=== PATIENT | male | born 1965 | race Caucasian/White ===

== ENCOUNTER 2020-04-29 18:20 | Inpatient (IN) | payer MEDICARE, MEDICAID ==
[~2020-04-29] VITALS: Ht 175.3 cm; Wt 87.6 kg
[~2020-04-29 18:20] MED LIST: ACET325T21 PO; ATOR40TA59 PO; CLOZ100T PO; CLOZ100T7 PO; DIVA500T4 PO; FAMO20TA5 PO; GABA300C18 PO; LEVO100T5 PO; LISI2.5T PO; MAG PO; MAGN24003 PO; METF10007 PO; METO25TA4 PO; NICO2GUM42 BC; PIOG30TA62 PO; POLY17PO29 PO; SITA100T PO
[2020-04-29] MEDS ORDERED: IV NORMAL SALINE 1000ML BAG 1,000 ML IV ONE ×3 (18:30→19:31)
[2020-04-29 18:42] LABS: BASO # 0.1 x10^3/uL (0.0-0.2); BASO % 0 % (0-3); EOS % 0 % (0-3); HEMATOCRIT 36.3 % (39.0-53.0); HEMOGLOBIN 12.1 g/dL (13.0-17.5); LYMPH # 1.3 x10^3/uL (1.0-4.8); LYMPH % 10 % (24-48); MEAN CORPUSCULAR HEMOGLOBIN 30 pg (25-35); MEAN CORPUSCULAR HGB CONC 33 g/dL (31-37); MEAN CORPUSCULAR VOLUME 90 fL (79-100); MONO # 1.2 x10^3/uL (0.0-1.1); MONO % 9 % (0-9); NEUT # 10.8 x10^3/uL (1.8-7.7); NEUT % 81 % (31-73); PLATELET COUNT 211 x10^3/uL (140-400); RED BLOOD COUNT 4.01 x10^6/uL (4.30-5.70); RED CELL DISTRIBUTION WIDTH 16.6 % (11.5-14.5); WHITE BLOOD COUNT 13.3 x10^3/uL (4.0-11.0)
[2020-04-29 18:51] LABS: CALCIUM 9.8 mg/dL (8.5-10.1); CREATININE 1.8 mg/dL (0.7-1.3); GFR 39.1; POTASSIUM 4.7 mmol/L (3.5-5.1)
[2020-04-29 19:05] LABS: ALBUMIN 2.6 g/dL (3.4-5.0); ALBUMIN/GLOBULIN RATIO 0.5 (1.0-1.7); MAGNESIUM 2.1 mg/dL (1.8-2.4); TOTAL BILIRUBIN 0.4 mg/dL (0.2-1.0); TOTAL PROTEIN 7.5 g/dL (6.4-8.2)
--- NOTE | 2020-04-29 19:14 | RAD ---
AP chest. HISTORY: Short of air, Covid-19 AP view was taken of the chest. Patient is rotated to the left. Heart is upper normal in size. There is no pleural effusion. Minimal left upper lobe infiltrate is possible, the rotated film limits evalu ation. No new areas of infiltrate are noted. IMPRESSION: 1. The patient is rotated which limits evaluation. 2. Little change. Electronically signed by: Clemente Rosenbaum MD (04/29/2020 7:12 PM) [id number]
[2020-04-29] MEDS ORDERED: NOREPINEPHRINE VIAL 8 MG in IV DEXTROSE 5% 250 ML IV ONE (20:45)
--- NOTE | 2020-04-29 20:56 | PHYS DOC ---
Past Medical History Past Medical History: Constipation, Depression, Diabetes-Type II, GERD, High Cholesterol, Hypothyroid, Schizophrenia, Other Additional Past Medical Histor: covid 19; insomnia Past Surgical History: Other Additional Past Surgical Histo: UNABLE TO ASSESS Smoking Status: Unknown if ever smoked Alcohol Use: None Drug Use: None General Adult EDM: Chief Complaint: ALTERED MENTAL STATUS HPI: HPI: Patient is a 55 year old male who was sent here from residential due to altered mental status. Patient was found by residential staff very lethargic, they could not measure his blood pressure. EMS was called to take him here for evaluation. They checked his blood pressure" and they can only get 60 systolic. Patient was acting like he was having trouble breathing as well. Patient was admitted here on April 07, 2020 due to altered mental status. Patient also had COVID-19 infection at this time. Patient was discharged to the residential on April 16. Patient was then sent back here on April 17 due to respiratory failure. Patient was admitted to the hospital again, he got better, he was sent back to the residential on April 23. Patient was not able to provide any information upon arrival to ER. Review of Systems: Review of Systems: Not able to obtain information due to condition Heart Score: Risk Factors: Risk Factors: DM, Current or recent (<one month) smoker, HTN, HLP, family history of CAD, obesity. Risk Scores: Score 0 - 3: 2.5% MACE over next 6 weeks - Discharge Home Score 4 - 6: 20.3% MACE over next 6 weeks - Admit for Clinical Observation Score 7 - 10: 72.7% MACE over next 6 weeks - Early Invasive Strategies Current Medications: Current Medications Medications (Trade) Dose Ordered Sig/Ambrose Start Time Stop Time Status Last Admin Dose Admin Norepinephrine Bitartrate 8 mg/ Dextrose 258 ml @ 17.763 mls/ hr 1X ONCE 04/29/20 20:45 04/30/20 11:16 Sodium Chloride 1,000 ml @ 75 mls/hr [id number] 04/29/20 21:00 04/30/20 20:59 Allergies: Allergies: Allergies Coded Allergies Type Severity Reaction Last Updated Verified No Known Drug Allergies 04/08/20 No Physical Exam: PE: Constitutional: Well developed, well nourished, appears lethargic HENT: Normocephalic, atraumatic, bilateral external ears normal, oropharynx dry , no oral exudates, nose normal. [] Eyes: PERRLA, EOMI, conjunctiva normal, no discharge. [] Neck: Normal range of motion, no tenderness, supple, no stridor. [] Cardiovascular:SINUS TACHYCARDIA, regular rhythm, no murmur [] Lungs & Thorax: Bilateral breath sounds clear to auscultation [] Abdomen: Bowel sounds normal, soft, no tenderness, no masses, no pulsatile masses. [] Skin: Warm, dry, no erythema, no rash. [] Back: No tenderness, no CVA tenderness. [] Extremities: No tenderness, no cyanosis, no clubbing, ROM intact, no edema. [] Neurologic: Patient appearED lethargic, making moaning sound, observed moving all extremitIES Psychologic: Not able to obtain due to his condition. Current Patient Data: Labs: Laboratory Tests Test 04/29/20 18:25 White Blood Count 13.3 x10^3/uL (4.0-11.0) H Red Blood Count 4.01 x10^6/uL (4.30-5.70) L Hemoglobin 12.1 g/dL (13.0-17.5) L Hematocrit 36.3 % (39.0-53.0) L Mean Corpuscular Volume 90 fL (79-100) Mean Corpuscular Hemoglobin 30 pg (25-35) Mean Corpuscular Hemoglobin Concent 33 g/dL (31-37) Red Cell Distribution Width 16.6 % (11.5-14.5) H Platelet Count 211 x10^3/uL (140-400) Neutrophils (%) (Auto) 81 % (31-73) H Lymphocytes (%) (Auto) 10 % (24-48) L Monocytes (%) (Auto) 9 % (0-9) Eosinophils (%) (Auto) 0 % (0-3) Basophils (%) (Auto) 0 % (0-3) Neutrophils # (Auto) 10.8 x10^3/uL (1.8-7.7) H Lymphocytes # (Auto) 1.3 x10^3/uL (1.0-4.8) Monocytes # (Auto) 1.2 x10^3/uL (0.0-1.1) H Eosinophils # (Auto) 0.0 x10^3/uL (0.0-0.7) Basophils # (Auto) 0.1 x10^3/uL (0.0-0.2) Sodium Level 136 mmol/L (136-145) Potassium Level 4.7 mmol/L (3.5-5.1) Chloride Level 99 mmol/L (98-107) Carbon Dioxide Level 29 mmol/L (21-32) Anion Gap 8 (6-14) Blood Urea Nitrogen 32 mg/dL (8-26) H Creatinine 1.8 mg/dL (0.7-1.3) H Estimated GFR (Cockcroft-Gault) 39.1 BUN/Creatinine Ratio 18 (6-20) Glucose Level 165 mg/dL (70-99) H Lactic Acid Level 2.6 mmol/L (0.4-2.0) H Calcium Level 9.8 mg/dL (8.5-10.1) Magnesium Level 2.1 mg/dL (1.8-2.4) Total Bilirubin 0.4 mg/dL (0.2-1.0) Aspartate Amino Transferase (AST) 18 U/L (15-37) Alanine Aminotransferase (ALT) 25 U/L (16-63) Alkaline Phosphatase 69 U/L (46-116) Troponin I Quantitative < 0.017 ng/mL (0.000-0.055) ET-Zcs-I-Type Natriuretic Peptide 783 pg/mL (0-124) H Total Protein 7.5 g/dL (6.4-8.2) Albumin 2.6 g/dL (3.4-5.0) L Albumin/Globulin Ratio 0.5 (1.0-1.7) L Laboratory Tests 04/29/20 18:25 Laboratory Tests 04/29/20 18:25 Vital Signs: Vital Signs Date Time Temp Pulse Resp B/P (MAP) Pulse Ox O2 Delivery O2 Flow Rate FiO2 04/29/20 18:20 97.1 118 22 57/50 (52) 93 Nasal Cannula 97.1 EKG: EKG: EKG was done at 1839, heart rate 108 bpm, sinus tachycardia, no ST segment elevation [] Radiology/Procedures: Radiology/Procedures: [][facility] [address] [place] [address] IMAGING REPORT Signed PATIENT: MARK STEWART ACCOUNT: [id number] : 1965 LOCATION: ER AGE: 55 SEX: M EXAM STATUS: REG ER ORD. PHYSICIAN: DON STEEN DO REASON: SOA, COVID 19 INFECTION PROCEDURE: CHEST AP ONLY AP chest. HISTORY: Short of air, Covid-19 AP view was taken of the chest. Patient is rotated to the left. Heart is upper normal in size. There is no pleural effusion. Minimal left upper lobe infiltrate is possible, the rotated film limits evaluation. No new areas of infiltrate are noted. IMPRESSION: 1. The patient is rotated which limits evaluation. 2. Little change. Electronically signed by: Clemente Rosenbaum MD (04/29/2020 7:12 PM) [id number] DICTATED and SIGNED BY: CLEMENTE ROSENBAUM MD DATE: 04/29/[id number] 0 [facility] [address] [place], [place] [id number] IMAGING REPORT Signed PATIENT: MARK STEWART ACCOUNT: [id number] : 1965 LOCATION: ER AGE: 55 SEX: M EXAM STATUS: REG ER ORD. PHYSICIAN: DON STEEN DO REASON: central line placement PROCEDURE: CHEST AP ONLY Exam: Chest one view INDICATION: Central line placed TECHNIQUE: Frontal view of the chest Comparisons: 04/29/2020 FINDINGS: Right IJ catheter with tip at the atrial caval junction. Heart is enlarged. Pulmonary vessels are within normal limits. Hazy opacity in lungs bilaterally. No pleural effusion. IMPRESSION: Findings likely related to mild pulmonary edema. Atypical infectious process is also possible. Lines and tubes described above. Electronically signed by: Mart Hassan MD (04/29/2020 8:52 PM) [facility] DICTATED and SIGNED BY: MART HASSAN MD DATE: 04/29/[id number] 0 CENTRAL VENOUS LINE PLACEMENT: DATE 04/29/20, TIME 2004 Indication: Vascular access Consent: The patient provided consent for this procedure. Procedure: The patient was positioned appropriately and the skin over the RIGHT IJ AREA was prepped and draped in a sterile fashion. Local anesthesia was used. Ultrasound guidance utilized. A large bore needle was used to identify the vein. A guide wire was then inserted into the vein through the needle. A triple lumen catheter was then inserted into the vessel over the guide wire using the Seldinger technique. All ports showed good, free flowing blood return and were flushed with saline solution. The catheter was then securely fastened to the skin with sutures and covered with a sterile dressing. A post procedure X-ray was ordered. The patient tolerated the procedure well. Complications: none. Course & Med Decision Making: Course & Med Decision Making Pertinent Labs and Imaging studies reviewed. (See chart for details) Patient is a 55-year-old male who was recently diagnosed with COVID-19 infection, he was sent here from residential due to altered mental status low blood pressure. Patient was found in sepsis shock. Patient was given 3 L normal saline bolus, his blood pressure was still very low. a central venous catheter was placed, norepinephrine drip was initiated in ER. Patient will be admitted to hospital for further evaluation and treatment. Discussed with Dr. Mai who agreed to admit the patient. Critical care time was [45] minutes which includes time at bedside, spent in discussion of patient's care with specialist and/or family members, with interpretation of laboratory and/or radiological studies and is exclusive of procedures. Dragon Disclaimer: Dragon Disclaimer: This electronic medical record was generated, in whole or in part, using a voice recognition dictation system. Departure Departure Impression: Primary Impression: COVID-19 virus infection Additional Impressions: Septic shock Respiratory failure Disposition: ADMITTED INPT THIS HOSP Admitting Physician: SG (DR. MAI) Condition: IMPROVED Referrals: UNKNOWN PCP NAME (PCP) DON STEEN DO Apr 29, 2020 20:56
--- NOTE | 2020-04-29 21:57 | PDOC1 ---
History and Physical Date of Admission Date of Admission DATE: 04/29/20 TIME: 21:49 Source Source: Chart review, Patient History of Present Illness History of Present Illness Mr. Acevedo, is a 55 year old male who was sent here from assisted due to altered mental status. Patient was found by assisted staff very lethargic, they could not measure his blood pressure. he was hospitalized her from 04/17 to 04/13 with confusion and hypoxia and mult problems related to COVID marked hypotension in ER, resuscitatated, central line placed, discussed wtih Dr. Mckinney Patient was admitted here on April 07, 2020 due to altered mental status. Past Medical History Past Medical History schizophrenia Cardiovascular: HTN, Hyperlipidemia Psych: Schizophrenia Endocrine: Diabetes, Hypothyroidism Past Surgical History Past Surgical History: No pertinent history Family History Family History: Family History Unknown Social History Smoke: No ALCOHOL: none Drugs: None Current Problem List Problem List Problems Medical Problems: (1) Respiratory failure Status: Acute (2) Septic shock Status: Acute Current Medications Current Medications Current Medications Sodium Chloride 1,000 ml @ 1,000 mls/hr 1X ONCE IV Last administered on 04/29/20at 18:20; Start 04/29/20 at 18:30; Stop 04/29/20 at 19:29; Status DC Sodium Chloride 1,000 ml @ 1,000 mls/hr 1X ONCE IV Last administered on 04/29/20at 18:20; Start 04/29/20 at 18:45; Stop 04/29/20 at 19:44; Status DC Sodium Chloride 1,000 ml @ 1,000 mls/hr 1X ONCE IV Last administered on 04/29/20at 19:31; Start 04/29/20 at 19:31; Stop 04/29/20 at 20:30; Status DC Norepinephrine Bitartrate 8 mg/ Dextrose 258 ml @ 17.763 mls/ hr 1X ONCE IV ; Start 04/29/20 at 20:45; Stop 04/30/20 at 11:16 Sodium Chloride 1,000 ml @ 75 mls/hr [id number] IV ; Start 04/29/20 at 21:00; Stop 04/30/20 at 20:59 Active Scripts Active Reported Acetaminophen 325 Mg Tablet 2 Tab PO PRN Q6HRS PRN 24 Days Pioglitazone Hcl 30 Mg Tablet 30 Mg PO DAILY Nicotine Gum (Nicotine Polacrilex) 2 Mg Gum 2 Mg BC PRN PRN Neurontin (Gabapentin) 300 Mg Capsule 300 Mg PO TID Gelusil 200-200-25 mg Chew Tab (Mag Hydrox/Aluminum Hyd/Simeth) 1 Each Tab.chew 1 Each PO PRN Q4HRS PRN Miralax (Polyethylene Glycol 3350) 17 Gm Powd.pack 1 Pkt PO PRN DAILY PRN Milk Of Magnesia (Magnesium Hydroxide) 2,400 Mg/10 Ml Oral.susp 2,400 Mg PO PRN Q8HRS PRN Metoprolol Tartrate 25 Mg Tablet 12.5 Mg PO BID Metformin Hcl 1,000 Mg Tablet 1,000 Mg PO BIDWMEALS Lisinopril 2.5 Mg Tablet 2.5 Mg PO DAILY Levothyroxine Sodium 100 Mcg Tablet 100 Mcg PO HS Januvia (Sitagliptin Phosphate) 100 Mg Tablet 100 Mg PO DAILY Famotidine 20 Mg Tablet 20 Mg PO HS Depakote Er (Divalproex Sodium) 500 Mg Tab.er.24h 1,500 Mg PO DAILY Clozaril (Clozapine) 100 Mg Tablet 100 Mg PO BIDACBL Clozapine 100 Mg Tablet 300 Mg PO HS Atorvastatin Calcium 40 Mg Tablet 80 Mg PO HS Allergies Allergies: Coded Allergies: No Known Drug Allergies (Unverified , 04/08/20) ROS Review of System unbale, he is confused and obtunded+ Physical Exam General: moderate distress, Other (lethargic, confused, ) HEENT: PERRLA, EOMI Lungs: Other (rales, poor vol) Abdomen: Soft Rectal Exam: not examined Extremities: No edema, Normal pulses Neuro: Sensation intact Psych/Mental Status: Other Vitals Vitals Vital Signs Date Time Temp Pulse Resp B/P (MAP) Pulse Ox O2 Delivery O2 Flow Rate FiO2 04/29/20 21:13 90 100 04/29/20 18:20 97.1 22 57/50 (52) Nasal Cannula 97.1 Labs Labs Laboratory Tests Test 04/29/20 18:25 White Blood Count 13.3 x10^3/uL (4.0-11.0) Red Blood Count 4.01 x10^6/uL (4.30-5.70) Hemoglobin 12.1 g/dL (13.0-17.5) Hematocrit 36.3 % (39.0-53.0) Mean Corpuscular Volume 90 fL (79-100) Mean Corpuscular Hemoglobin 30 pg (25-35) Mean Corpuscular Hemoglobin Concent 33 g/dL (31-37) Red Cell Distribution Width 16.6 % (11.5-14.5) Platelet Count 211 x10^3/uL (140-400) Neutrophils (%) (Auto) 81 % (31-73) Lymphocytes (%) (Auto) 10 % (24-48) Monocytes (%) (Auto) 9 % (0-9) Eosinophils (%) (Auto) 0 % (0-3) Basophils (%) (Auto) 0 % (0-3) Neutrophils # (Auto) 10.8 x10^3/uL (1.8-7.7) Lymphocytes # (Auto) 1.3 x10^3/uL (1.0-4.8) Monocytes # (Auto) 1.2 x10^3/uL (0.0-1.1) Eosinophils # (Auto) 0.0 x10^3/uL (0.0-0.7) Basophils # (Auto) 0.1 x10^3/uL (0.0-0.2) Sodium Level 136 mmol/L (136-145) Potassium Level 4.7 mmol/L (3.5-5.1) Chloride Level 99 mmol/L (98-107) Carbon Dioxide Level 29 mmol/L (21-32) Anion Gap 8 (6-14) Blood Urea Nitrogen 32 mg/dL (8-26) Creatinine 1.8 mg/dL (0.7-1.3) Estimated GFR (Cockcroft-Gault) 39.1 BUN/Creatinine Ratio 18 (6-20) Glucose Level 165 mg/dL (70-99) Lactic Acid Level 2.6 mmol/L (0.4-2.0) Calcium Level 9.8 mg/dL (8.5-10.1) Magnesium Level 2.1 mg/dL (1.8-2.4) Total Bilirubin 0.4 mg/dL (0.2-1.0) Aspartate Amino Transf (AST/SGOT) 18 U/L (15-37) Alanine Aminotransferase (ALT/SGPT) 25 U/L (16-63) Alkaline Phosphatase 69 U/L (46-116) Troponin I Quantitative < 0.017 ng/mL (0.000-0.055) OW-Kiv-G-Type Natriuretic Peptide 783 pg/mL (0-124) Total Protein 7.5 g/dL (6.4-8.2) Albumin 2.6 g/dL (3.4-5.0) Albumin/Globulin Ratio 0.5 (1.0-1.7) Laboratory Tests Test 04/29/20 18:25 White Blood Count 13.3 x10^3/uL (4.0-11.0) Red Blood Count 4.01 x10^6/uL (4.30-5.70) Hemoglobin 12.1 g/dL (13.0-17.5) Hematocrit 36.3 % (39.0-53.0) Mean Corpuscular Volume 90 fL (79-100) Mean Corpuscular Hemoglobin 30 pg (25-35) Mean Corpuscular Hemoglobin Concent 33 g/dL (31-37) Red Cell Distribution Width 16.6 % (11.5-14.5) Platelet Count 211 x10^3/uL (140-400) Neutrophils (%) (Auto) 81 % (31-73) Lymphocytes (%) (Auto) 10 % (24-48) Monocytes (%) (Auto) 9 % (0-9) Eosinophils (%) (Auto) 0 % (0-3) Basophils (%) (Auto) 0 % (0-3) Neutrophils # (Auto) 10.8 x10^3/uL (1.8-7.7) Lymphocytes # (Auto) 1.3 x10^3/uL (1.0-4.8) Monocytes # (Auto) 1.2 x10^3/uL (0.0-1.1) Eosinophils # (Auto) 0.0 x10^3/uL (0.0-0.7) Basophils # (Auto) 0.1 x10^3/uL (0.0-0.2) Sodium Level 136 mmol/L (136-145) Potassium Level 4.7 mmol/L (3.5-5.1) Chloride Level 99 mmol/L (98-107) Carbon Dioxide Level 29 mmol/L (21-32) Anion Gap 8 (6-14) Blood Urea Nitrogen 32 mg/dL (8-26) Creatinine 1.8 mg/dL (0.7-1.3) Estimated GFR (Cockcroft-Gault) 39.1 BUN/Creatinine Ratio 18 (6-20) Glucose Level 165 mg/dL (70-99) Lactic Acid Level 2.6 mmol/L (0.4-2.0) Calcium Level 9.8 mg/dL (8.5-10.1) Magnesium Level 2.1 mg/dL (1.8-2.4) Total Bilirubin 0.4 mg/dL (0.2-1.0) Aspartate Amino Transf (AST/SGOT) 18 U/L (15-37) Alanine Aminotransferase (ALT/SGPT) 25 U/L (16-63) Alkaline Phosphatase 69 U/L (46-116) Troponin I Quantitative < 0.017 ng/mL (0.000-0.055) OZ-Pim-I-Type Natriuretic Peptide 783 pg/mL (0-124) Total Protein 7.5 g/dL (6.4-8.2) Albumin 2.6 g/dL (3.4-5.0) Albumin/Globulin Ratio 0.5 (1.0-1.7) VTE Prophylaxis Ordered VTE Prophylaxis Devices: Yes VTE Pharmacological Prophylaxi: Yes Assessment/Plan Assessment/Plan sepsis, septic shock, recent DC after hosp here 04/17 to 04/23 for acute COVID IV fluid given in ER admit to ICU Acute metabolic encephalopathy - metabolic, Acute Respiratory failure with hypoxia - COVID 19 and likely HCAP related. COVID-19 - Depression - cont home meds Diabetes2 Hypertension Hyperlipidemia Hypothyroidism - Schizophrenia - cont clozaril, monitor CBC Severe protein calorie malnutrition Justifications for Admission Other Justification MOO MAI MD Apr 29, 2020 21:56
[2020-04-29] MEDS ORDERED: AZITHROMYCIN 500 MG in IV NORMAL SALINE 250ML 250 ML IV ONE (22:00)
[2020-04-29] MEDS ORDERED: ACETAMINOPHEN 325 MG TABLET. PO PRN (22:00)
[2020-04-29] MEDS ORDERED: POLYETHYLENE GLYCOL 3350 17 GM PACKET. PO PRN (22:00)
[2020-04-29] MEDS: LEVOTHYROXINE 100 MCG TABLET PO SCH (23:00)
[2020-04-29] MEDS ORDERED: AZITHRMYCN 500MG IVPB FOR OMNI 250 ML IV ONE (23:00)
[2020-04-29] MEDS: GABAPENTIN 300 MG CAPSULE. PO SCH (23:00)
[2020-04-29] MEDS ORDERED: methylPREDNISolone SOD SUCC PF 40 MG/ML VIAL. IV ONE (23:00)
[2020-04-29] MEDS: ATORVASTATIN CALCIUM 40 MG TABLET. PO SCH (23:00)
[2020-04-29] MEDS: FAMOTIDINE 20 MG TABLET. PO SCH (23:00)
[2020-04-29] MEDS: ENOXAPARIN 40 MG/0.4 ML SYRINGE. SQ SCH (23:52)
[2020-04-30] VITALS (29 sets, daily range): BP systolic 71–123; BP diastolic 50–85
--- NOTE | 2020-04-30 00:10 | NUR ---
Admitted from ER, on levophed gtt and 2L by nasal cannula. Pt lethargic though arouses easily, confused but follows commands. Pt on Airborne precautions.
[2020-04-30] MEDS: IV NORMAL SALINE 1000ML BAG 1,000 ML IV SCH ×2 (00:41→12:42)
[2020-04-30] MEDS ORDERED: INFLUENZA VAX SCREEN BY RX. MC PRN (01:15)
--- NOTE | 2020-04-30 05:28 | EKG ---
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
[2020-04-30] MEDS: cloZAPine 100 MG TABLET PO SCH ×3 (07:30→20:34)
--- NOTE | 2020-04-30 07:55 | PDOC ---
[employer] PROGRESS NOTE Date of Service DOS: DATE: 04/30/20 TIME: 07:52 Chief Complaint Chief Complaint A/P: Acute metabolic encephalopathy - from hypoxia likely metabolic, will monitor now with O2 levels improving ROD - vasomotor nephropathy, will monitor renal function after fluid resuscitation Acute Respiratory failure with hypoxia - COVID 19 and likely HCAP related. COVID-19 - still with O2 needs Septic shock - related to COVID 19 and HCAP Depression - cont home meds Diabetes - sliding scale Hypertension - hold meds for low BP Hyperlipidemia - cont statin Hypothyroidism - cont levothyroxine Schizophrenia - cont clozaril, monitor CBC Severe protein calorie malnutrition - thread separator to see, will start PPN FEN - NPO PPX - Heparin FULL CODE Dispo - inpatient for above History of Present Illness History of Present Illness Mr Acevedo is a 54-year-old male w/ PMHx DM2, HTN, HLD, Hypothyroidism, schiz ophrenia who is a long-term resident of [facility] who was brought to the ER via EMS for lethargy and low blood pressure. He was admitted on 04/07/2020 with altered mental status and shortness of breath. He was tested positive for COVID 19 and treated with steroids and remdesivir, completed a course and was discharged 04/16/2020 but returned 04/16- 04/23 for HCAP symptoms. Chest radiograph with bilateral interstitial changes consistent with COVID-19 and new left upper lobe infiltrate. Labs significant for WBC 13.3, Hb 12.1, platelets 211, NA 136, K4.7, BUN 32, CR 1.8, glucose 165. Blood pressure systolic in the 60s. Given 3 L normal saline with no significant response in blood pressure right IJ central venous catheter was placed and initiated on Levophed and empiric antibiotics and admitted to the ICU for further treatment. Afebrile. Blood pressure 116 systolic with vasopressor support. No chest pain. Mild shortness of breath. No significant cough. No diarrhea. He is still confused. Vitals/I&O Vitals/I&O: Vital Signs Date Time Temp Pulse Resp B/P (MAP) Pulse Ox O2 Delivery O2 Flow Rate FiO2 04/30/20 07:00 107 18 107/75 (86) 96 Nasal Cannula 2.0 04/30/20 05:00 98.0 98.0 I & O 04/29/20 04/29/2004/30/20 15:00 23:00 07:00 Intake Total 2000 ml 0 ml Balance 2000 ml 0 ml Physical Exam General: moderate distress, Other (lethargic, confused, ) Lungs: Crackles Abdomen: Soft Extremities: No edema, Normal pulses Labs Labs: Laboratory Tests Test 04/29/20 18:25 04/30/20 00:21 04/30/20 01:30 White Blood Count 13.3 x10^3/uL (4.0-11.0) Red Blood Count 4.01 x10^6/uL (4.30-5.70) Hemoglobin 12.1 g/dL (13.0-17.5) Hematocrit 36.3 % (39.0-53.0) Mean Corpuscular Volume 90 fL (79-100) Mean Corpuscular Hemoglobin 30 pg (25-35) Mean Corpuscular Hemoglobin Concent 33 g/dL (31-37) Red Cell Distribution Width 16.6 % (11.5-14.5) Platelet Count 211 x10^3/uL (140-400) Neutrophils (%) (Auto) 81 % (31-73) Lymphocytes (%) (Auto) 10 % (24-48) Monocytes (%) (Auto) 9 % (0-9) Eosinophils (%) (Auto) 0 % (0-3) Basophils (%) (Auto) 0 % (0-3) Neutrophils # (Auto) 10.8 x10^3/uL (1.8-7.7) Lymphocytes # (Auto) 1.3 x10^3/uL (1.0-4.8) Monocytes # (Auto) 1.2 x10^3/uL (0.0-1.1) Eosinophils # (Auto) 0.0 x10^3/uL (0.0-0.7) Basophils # (Auto) 0.1 x10^3/uL (0.0-0.2) Sodium Level 136 mmol/L (136-145) Potassium Level 4.7 mmol/L (3.5-5.1) Chloride Level 99 mmol/L (98-107) Carbon Dioxide Level 29 mmol/L (21-32) Anion Gap 8 (6-14) Blood Urea Nitrogen 32 mg/dL (8-26) Creatinine 1.8 mg/dL (0.7-1.3) Estimated GFR (Cockcroft-Gault) 39.1 BUN/Creatinine Ratio 18 (6-20) Glucose Level 165 mg/dL (70-99) Lactic Acid Level 2.6 mmol/L (0.4-2.0) 0.9 mmol/L (0.4-2.0) Calcium Level 9.8 mg/dL (8.5-10.1) Magnesium Level 2.1 mg/dL (1.8-2.4) Total Bilirubin 0.4 mg/dL (0.2-1.0) Aspartate Amino Transf (AST/SGOT) 18 U/L (15-37) Alanine Aminotransferase (ALT/SGPT) 25 U/L (16-63) Alkaline Phosphatase 69 U/L (46-116) Troponin I Quantitative < 0.017 ng/mL (0.000-0.055) QK-Cak-Y-Type Natriuretic Peptide 783 pg/mL (0-124) Total Protein 7.5 g/dL (6.4-8.2) Albumin 2.6 g/dL (3.4-5.0) Albumin/Globulin Ratio 0.5 (1.0-1.7) Glucose (Fingerstick) 173 mg/dL (70-99) Assessment and Plan Assessmemt and Plan Problems Medical Problems: (1) Respiratory failure Status: Acute (2) Septic shock Status: Acute Comment Review of Relevant I have reviewed the following items franchesca (where applicable) has been applied. Medications: Current Medications Medications (Trade) Dose Ordered Sig/Ambrose Route PRN Reason Start Time Stop Time Status Last Admin Dose Admin Sodium Chloride 1,000 ml @ 1,000 mls/hr 1X ONCE IV 04/29/20 18:30 04/29/20 19:29 DC 04/29/20 18:20 Sodium Chloride 1,000 ml @ 1,000 mls/hr 1X ONCE IV 04/29/20 18:45 04/29/20 19:44 DC 04/29/20 18:20 Sodium Chloride 1,000 ml @ 1,000 mls/hr 1X ONCE IV 04/29/20 19:31 04/29/20 20:30 DC 04/29/20 19:31 Norepinephrine Bitartrate 8 mg/ Dextrose 258 ml @ 17.763 mls/ hr 1X ONCE IV 04/29/20 20:45 04/30/20 11:16 04/29/20 22:01 Sodium Chloride 1,000 ml @ 75 mls/hr [id number] IV 04/29/20 21:00 04/30/20 20:59 04/30/20 00:41 Methylprednisolone Sodium Succinate (SOLU-Medrol 40MG VIAL) 40 mg 1X ONCE IV 04/29/20 23:00 04/29/20 23:01 DC 04/29/20 23:52 Enoxaparin Sodium (Lovenox 40mg Syringe) 40 mg BID SQ 04/29/20 23:00 04/29/20 23:52 Azithromycin 250 ml @ 250 mls/hr 1X ONCE IV 04/29/20 23:00 04/29/20 23:59 DC 04/30/20 00:39 Justifications for Admission Other Justification MATTHEW SORIA MD Apr 30, 2020 07:55
[2020-04-30] MEDS: FAMOTIDINE 20 MG TABLET. PO SCH (08:22)
[2020-04-30] MEDS: ENOXAPARIN 40 MG/0.4 ML SYRINGE. SQ SCH ×2 (08:23→20:36)
[2020-04-30] MEDS: AZITHROMYCIN 250 MG TABLET. PO SCH (08:44)
[2020-04-30] MEDS: GABAPENTIN 300 MG CAPSULE. PO SCH ×3 (08:44→20:34)
[2020-04-30] MEDS: DIVALPROEX EXTENDED RELEASE 500 MG TAB.ER.24H. PO SCH (08:44)
[2020-04-30] MEDS: predniSONE 20 MG TABLET PO SCH (08:44)
--- NOTE | 2020-04-30 11:10 | CONS ---
DATE OF CONSULTATION: PULMONARY CONSULTATION ATTENDING PHYSICIAN: Dr. Finch. REASON FOR CONSULTATION: Septic shock. HISTORY OF PRESENT ILLNESS: The patient is a 55-year-old male with past medical history of depression, type 2 diabetes, dyslipidemia, and schizophrenia. He was diagnosed with COVID-19 requiring hospitalization on 04/07. He was brought into the hospital with altered mental status. He was found by nursing staff to be very lethargic. They could not measure his blood pressure and when checked, it was at 60 systolic. He had some shortness of breath as well. He was brought into the hospital at [facility]. Chest x-ray was reviewed. It shows faint interstitial infiltrates. He is currently requiring Levophed. He is on 2 liters via nasal cannula. He has been afebrile. The patient was started on IV Solu-Medrol. Currently, I do not see that he is on any antibiotics. I have been asked to see him for further evaluation. PAST MEDICAL HISTORY: Significant for history of depression, type 2 diabetes, GERD, dyslipidemia, hypothyroidism, schizophrenia, COVID-19 pneumonia on 04/07 and history of insomnia. PAST SURGICAL HISTORY: Unknown. ALLERGIES: None. MEDICATIONS: Reviewed as listed in the MRAD including prednisone and azithromycin. REVIEW OF SYSTEMS: Unable to obtain from the patient. SOCIAL HISTORY: Unable to obtain from the patient. PHYSICAL EXAMINATION: VITAL SIGNS: He is in no obvious respiratory distress. On nasal cannula at 2 liters, saturation in the mid to high 90s. Afebrile. GENERAL: Visual exam done due to COVID-19. No accessory muscle use. SKIN: No skin rash. No paradoxical breathing. EXTREMITIES: No leg edema. LABORATORY DATA: Reviewed. His BUN 32, creatinine 1.8. Lactic acid 2.6. Sodium 136. White cell count 13.3, hemoglobin 12.1 and platelets are 211. IMPRESSION: 1. Acute hypoxic respiratory failure secondary to septic shock. 2. The patient with recent COVID-19 pneumonia at the end of March. 3. Likely superimposed bacterial pneumonia versus rule out other sources of infection contributing to septic shock. 4. Abnormal chest x-ray with faint interstitial infiltrates, likely related to residual COVID pneumonia. 5. Acute kidney injury. 6. Lactic acidosis secondary to septic shock. 7. Leukocytosis. 8. Moderate protein-calorie malnutrition. RECOMMENDATIONS: 1. Discussed with RN. We will continue with present nasal cannula, keep saturation 94 and above. 2. Continue empiric antibiotic, azithromycin. 3. Prednisone with a slow taper. 4. Lovenox for DVT prophylaxis. 5. We will follow the clinical course. 6. Wean Levophed. 7. Trial of fluid challenge to see an improvement in renal function. 8. Discussed with RN and RT. Chart reviewed, labs reviewed. Imaging studies reviewed. Critical care time 37 minutes. MARLENE HERNANDEZ MD DR: KEVIN/michel JOB#: [id number] / [id number]
[2020-04-30] MEDS ORDERED: NOREPINEPHRINE VIAL 8 MG in IV DEXTROSE 5% 250 ML IV PRN (12:45)
[2020-04-30] MEDS ORDERED: FLU VACC QS 2020-21(6MOS+)/PF 0.5 ML SYRINGE. VAX IM ONE (15:00)
[2020-04-30] MEDS: ATORVASTATIN CALCIUM 40 MG TABLET. PO SCH (20:34)
[2020-04-30] MEDS: LEVOTHYROXINE 100 MCG TABLET PO SCH (20:34)
--- NOTE | 2020-04-30 20:57 | NUR ---
Patient awake, takes pills and water w/o dysphagia. "Can I get a cheeseburger?" States he's getting "really hungry". Is confused about time and place now. Left upper arm and hand is weak. "I broke my arm a few days ago."
[2020-05-01] VITALS (15 sets, daily range): BP systolic 93–144; BP diastolic 63–99
[2020-05-01] MEDS: GABAPENTIN 300 MG CAPSULE. PO SCH ×3 (09:44→22:00)
[2020-05-01] MEDS: DIVALPROEX EXTENDED RELEASE 500 MG TAB.ER.24H. PO SCH (09:44)
[2020-05-01] MEDS: predniSONE 20 MG TABLET PO SCH (09:45)
[2020-05-01] MEDS: AZITHROMYCIN 250 MG TABLET. PO SCH (09:45)
[2020-05-01] MEDS: cloZAPine 100 MG TABLET PO SCH ×3 (09:45→22:05)
[2020-05-01] MEDS: ENOXAPARIN 40 MG/0.4 ML SYRINGE. SQ SCH ×2 (09:45→22:01)
--- NOTE | 2020-05-01 10:08 | PDOC ---
[employer] PROGRESS NOTE Date of Service DOS: DATE: 05/01/20 TIME: 10:07 Chief Complaint Chief Complaint A/P: Acute metabolic encephalopathy - from hypoxia likely metabolic, will monitor now with O2 levels improving ROD - vasomotor nephropathy, will monitor renal function after fluid resuscitation Acute Respiratory failure with hypoxia - COVID 19 and likely HCAP related. COVID-19 - still with O2 needs Septic shock - related to COVID 19 and HCAP Depression - cont home meds Diabetes - sliding scale Hypertension - hold meds for low BP Hyperlipidemia - cont statin Hypothyroidism - cont levothyroxine Schizophrenia - cont clozaril, monitor CBC Severe protein calorie malnutrition - speech communication instructor to see, will start PPN FEN - NPO PPX - Heparin FULL CODE Dispo - inpatient for above History of Present Illness History of Present Illness Mr Acevedo is a 54-year-old male w/ PMHx DM2, HTN, HLD, Hypothyroidism, schiz ophrenia who is a long-term resident of [facility] who was brought to the ER via EMS for lethargy and low blood pressure. He was admitted on 04/07/2020 with altered mental status and shortness of breath. He was tested positive for COVID 19 and treated with steroids and remdesivir, completed a course and was discharged 04/16/2020 but returned 04/16- 04/23 for HCAP symptoms. Chest radiograph with bilateral interstitial changes consistent with COVID-19 and new left upper lobe infiltrate. Labs significant for WBC 13.3, Hb 12.1, platelets 211, NA 136, K4.7, BUN 32, CR 1.8, glucose 165. Blood pressure systolic in the 60s. Given 3 L normal saline with no significant response in blood pressure right IJ central venous catheter was placed and initiated on Levophed and empiric antibiotics and admitted to the ICU for further treatment. 04/30: Afebrile. Blood pressure 116 systolic with vasopressor support. No chest pain. Mild shortness of breath. No significant cough. No diarrhea. He is still confused. Afebrile still little short of breath. Off Levophed for almost 20 hours. Cough is improved no diarrhea. Seems to be at baseline confusion but he is sleeping heavily in the mornings did wake up in the afternoon yesterday. Plan: Cont antibiotics, prednisone Ok to transfer from ICU to med/tele Vitals/I&O Vitals/I&O: Vital Signs Date Time Temp Pulse Resp B/P (MAP) Pulse Ox O2 Delivery O2 Flow Rate FiO2 05/01/20 09:00 88 14 103/74 (84) 93 Nasal Cannula 1.5 05/01/20 07:00 97.5 97.5 I & O 04/30/20 04/30/20 05/01/20 15:00 23:00 07:00 Intake Total 1000 ml 0 ml 900 ml Output Total 700 ml 555 ml 495 ml Balance 300 ml -555 ml 405 ml Physical Exam General: moderate distress, Other (lethargic, confused, ) Lungs: Crackles Abdomen: Soft Extremities: No edema, Normal pulses Labs Labs: Laboratory Tests Test 04/30/20 11:13 04/30/20 14:15 04/30/20 17:10 05/01/20 07:44 Glucose (Fingerstick) 190 mg/dL (70-99) 147 mg/dL (70-99) 137 mg/dL (70-99) Procalcitonin < 0.10 ng/mL (0.00-0.10) Assessment and Plan Assessmemt and Plan Problems Medical Problems: (1) Respiratory failure Status: Acute (2) Septic shock Status: Acute Comment Review of Relevant I have reviewed the following items franchesca (where applicable) has been applied. Medications: Current Medications Medications (Trade) Dose Ordered Sig/Ambrose Route PRN Reason Start Time Stop Time Status Last Admin Dose Admin Clozapine (Clozaril) 300 mg HS PO 04/30/20 21:00 04/30/20 20:34 Norepinephrine Bitartrate 8 mg/ Dextrose 258 ml @ 16.854 mls/ hr CONT PRN IV PER PROTOCOL 04/30/20 12:45 04/30/20 12:43 Justifications for Admission Other Justification MATTHEW SORIA MD May 01, 2020 10:08
[2020-05-01] MEDS ORDERED: DEXTROSE 50% 25 GM / 50ML DISP.SYRIN. IV PRN (10:30)
--- NOTE | 2020-05-01 10:44 | PDOC ---
PULMONARY PROGRESS NOTES DATE: 05/01/20 TIME: 10:42 Subjective no soa, off pressor Vitals Vital Signs Date Time Temp Pulse Resp B/P (MAP) Pulse Ox O2 Delivery O2 Flow Rate FiO2 05/01/20 09:00 88 14 103/74 (84) 93 Nasal Cannula 1.5 05/01/20 07:00 97.5 97.5 Comments visual exam done due to COVID no soa, no rash, no edema General: No acute distress Labs Laboratory Tests Test 04/29/20 18:25 04/30/20 00:21 04/30/20 01:30 04/30/20 08:32 White Blood Count 13.3 x10^3/uL (4.0-11.0) Red Blood Count 4.01 x10^6/uL (4.30-5.70) Hemoglobin 12.1 g/dL (13.0-17.5) Hematocrit 36.3 % (39.0-53.0) Mean Corpuscular Volume 90 fL (79-100) Mean Corpuscular Hemoglobin 30 pg (25-35) Mean Corpuscular Hemoglobin Concent 33 g/dL (31-37) Red Cell Distribution Width 16.6 % (11.5-14.5) Platelet Count 211 x10^3/uL (140-400) Neutrophils (%) (Auto) 81 % (31-73) Lymphocytes (%) (Auto) 10 % (24-48) Monocytes (%) (Auto) 9 % (0-9) Eosinophils (%) (Auto) 0 % (0-3) Basophils (%) (Auto) 0 % (0-3) Neutrophils # (Auto) 10.8 x10^3/uL (1.8-7.7) Lymphocytes # (Auto) 1.3 x10^3/uL (1.0-4.8) Monocytes # (Auto) 1.2 x10^3/uL (0.0-1.1) Eosinophils # (Auto) 0.0 x10^3/uL (0.0-0.7) Basophils # (Auto) 0.1 x10^3/uL (0.0-0.2) Sodium Level 136 mmol/L (136-145) Potassium Level 4.7 mmol/L (3.5-5.1) Chloride Level 99 mmol/L (98-107) Carbon Dioxide Level 29 mmol/L (21-32) Anion Gap 8 (6-14) Blood Urea Nitrogen 32 mg/dL (8-26) Creatinine 1.8 mg/dL (0.7-1.3) Estimated GFR (Cockcroft-Gault) 39.1 BUN/Creatinine Ratio 18 (6-20) Glucose Level 165 mg/dL (70-99) Lactic Acid Level 2.6 mmol/L (0.4-2.0) 0.9 mmol/L (0.4-2.0) Calcium Level 9.8 mg/dL (8.5-10.1) Magnesium Level 2.1 mg/dL (1.8-2.4) Total Bilirubin 0.4 mg/dL (0.2-1.0) Aspartate Amino Transf (AST/SGOT) 18 U/L (15-37) Alanine Aminotransferase (ALT/SGPT) 25 U/L (16-63) Alkaline Phosphatase 69 U/L (46-116) Troponin I Quantitative < 0.017 ng/mL (0.000-0.055) FJ-[id number]-Type Natriuretic Peptide 783 pg/mL (0-124) Total Protein 7.5 g/dL (6.4-8.2) Albumin 2.6 g/dL (3.4-5.0) Albumin/Globulin Ratio 0.5 (1.0-1.7) Glucose (Fingerstick) 173 mg/dL (70-99) 179 mg/dL (70-99) Test 04/30/20 11:13 04/30/20 14:15 04/30/20 17:10 05/01/20 07:44 Glucose (Fingerstick) 190 mg/dL (70-99) 147 mg/dL (70-99) 137 mg/dL (70-99) Procalcitonin < 0.10 ng/mL (0.00-0.10) Laboratory Tests Test 04/30/20 11:13 04/30/20 14:15 04/30/20 17:10 05/01/20 07:44 Glucose (Fingerstick) 190 mg/dL (70-99) 147 mg/dL (70-99) 137 mg/dL (70-99) Procalcitonin < 0.10 ng/mL (0.00-0.10) Medications Active Scripts Medications Dose Route/Sig Max Daily Dose Days Date Category Acetaminophen 325 Mg Tablet 2 Tab PO PRN Q6HRS PRN 24 04/08/20 Reported Pioglitazone Hcl 30 Mg Tablet 30 Mg PO DAILY 04/08/20 Reported Nicotine Gum (Nicotine Polacrilex) 2 Mg Gum 2 Mg BC PRN PRN 04/08/20 Reported Neurontin (Gabapentin) 300 Mg Capsule 300 Mg PO TID 04/08/20 Reported Gelusil 200-200-25 mg Chew Tab (Mag Hydrox/Aluminum Hyd/Simeth) 1 Each Tab.chew 1 Each PO PRN Q4HRS PRN 04/08/20 Reported Miralax (Polyethylene Glycol 3350) 17 Gm Powd.pack 1 Pkt PO PRN DAILY PRN 04/08/20 Reported Milk Of Magnesia (Magnesium Hydroxide) 2,400 Mg/10 Ml Oral.susp 2,400 Mg PO PRN Q8HRS PRN 04/08/20 Reported Metoprolol Tartrate 25 Mg Tablet 12.5 Mg PO BID 04/08/20 Reported Metformin Hcl 1,000 Mg Tablet 1,000 Mg PO BIDWMEALS 04/08/20 Reported Lisinopril 2.5 Mg Tablet 2.5 Mg PO DAILY 04/08/20 Reported Levothyroxine Sodium 100 Mcg Tablet 100 Mcg PO HS 04/08/20 Reported Januvia (Sitagliptin Phosphate) 100 Mg Tablet 100 Mg PO DAILY 04/08/20 Reported Famotidine 20 Mg Tablet 20 Mg PO HS 04/08/20 Reported Depakote Er (Divalproex Sodium) 500 Mg Tab.er.24h 1,500 Mg PO DAILY 04/08/20 Reported Clozaril (Clozapine) 100 Mg Tablet 100 Mg PO BIDACBL 04/08/20 Reported Clozapine 100 Mg Tablet 300 Mg PO HS 04/08/20 Reported Atorvastatin Calcium 40 Mg Tablet 80 Mg PO HS 04/08/20 Reported Impression . 1. Acute hypoxic respiratory failure secondary to septic shock. resolved 2. The patient with recent COVID-19 pneumonia at the end of March. 3. Likely superimposed bacterial pneumonia versus rule out other sources of infection contributing to septic shock. 4. Abnormal chest x-ray with faint interstitial infiltrates, likely related to residual COVID pneumonia. 5. Acute kidney injury. 6. Lactic acidosis secondary to septic shock. 7. Leukocytosis. 8. Moderate protein-calorie malnutrition. Plan . 1. Discussed with RN. We will continue with present nasal cannula, keep saturation 94 and above. 2. Continue empiric antibiotic, azithromycin. 3. Prednisone with a slow taper. 4. Lovenox for DVT prophylaxis. 5. We will follow the clinical course. 6. off Levophed. 7. s/p Trial of fluid challenge to see an improvement in renal function. 8. Discussed with dough maker to floor MARLENE HERNANDEZ MD May 01, 2020 10:44
[2020-05-01 10:51] LABS: BASO % 1 % (0-3); EOS % 1 % (0-3); HEMATOCRIT 29.7 % (39.0-53.0); HEMOGLOBIN 10.1 g/dL (13.0-17.5); LYMPH # 1.6 x10^3/uL (1.0-4.8); LYMPH % 22 % (24-48); MEAN CORPUSCULAR HEMOGLOBIN 31 pg (25-35); MEAN CORPUSCULAR HGB CONC 34 g/dL (31-37); MEAN CORPUSCULAR VOLUME 90 fL (79-100); MONO # 0.5 x10^3/uL (0.0-1.1); MONO % 7 % (0-9); NEUT # 4.9 x10^3/uL (1.8-7.7); NEUT % 69 % (31-73); PLATELET COUNT 166 x10^3/uL (140-400); RED BLOOD COUNT 3.31 x10^6/uL (4.30-5.70); RED CELL DISTRIBUTION WIDTH 16.1 % (11.5-14.5); WHITE BLOOD COUNT 7.1 x10^3/uL (4.0-11.0)
[2020-05-01 11:07] LABS: ALBUMIN/GLOBULIN RATIO 0.5 (1.0-1.7); CALCIUM 8.6 mg/dL (8.5-10.1); CREATININE 0.8 mg/dL (0.7-1.3); GFR 99.6; POTASSIUM 3.5 mmol/L (3.5-5.1); TOTAL BILIRUBIN 0.3 mg/dL (0.2-1.0); TOTAL PROTEIN 6.2 g/dL (6.4-8.2)
[2020-05-01] MEDS: INSULIN LISPRO 300 UNITS/3 ML VIAL. SQ SCH ×2 (12:00→17:29)
--- NOTE | 2020-05-01 14:25 | NUR ---
The patient was transferred to [facility] at 1406 via bed, on oxygen 1.5 LPM per nasal cannula. He's awake, alert, oriented x 3, denies pain. The patient was placed in a comfortable position, call light placed within reach.
[2020-05-01] MEDS: FAMOTIDINE 20 MG TABLET. PO SCH (21:57)
[2020-05-01] MEDS: ATORVASTATIN CALCIUM 40 MG TABLET. PO SCH (21:57)
[2020-05-01] MEDS: LEVOTHYROXINE 100 MCG TABLET PO SCH (21:57)
[2020-05-02 03:00] VITALS: BP 98/69
[2020-05-02] MEDS: INSULIN LISPRO 300 UNITS/3 ML VIAL. SQ SCH ×3 (07:30→16:29)
[2020-05-02] MEDS: cloZAPine 100 MG TABLET PO SCH ×3 (07:31→22:43)
[2020-05-02 07:43] VITALS: BP 118/78
[2020-05-02] MEDS: predniSONE 20 MG TABLET PO SCH (08:46)
[2020-05-02] MEDS: ENOXAPARIN 40 MG/0.4 ML SYRINGE. SQ SCH ×2 (08:46→22:44)
[2020-05-02] MEDS: GABAPENTIN 300 MG CAPSULE. PO SCH ×3 (08:46→22:43)
[2020-05-02] MEDS: AZITHROMYCIN 250 MG TABLET. PO SCH (08:46)
[2020-05-02] MEDS: DIVALPROEX EXTENDED RELEASE 500 MG TAB.ER.24H. PO SCH (08:46)
--- NOTE | 2020-05-02 10:06 | PDOC ---
PULMONARY PROGRESS NOTES DATE: 05/02/20 TIME: 10:02 Subjective Pt. is feeling much better today No SOA No CP No cough Remains on 2 liters N/C Vitals Vital Signs Date Time Temp Pulse Resp B/P (MAP) Pulse Ox O2 Delivery O2 Flow Rate FiO2 05/02/20 08:13 96.8 96.8 05/02/20 07:43 91 22 118/78 (91) 98 Nasal Cannula 1.5 Comments visual exam done due to COVID RRR obese no soa, no rash, no edema General: No acute distress Labs Laboratory Tests Test 04/30/20 11:13 04/30/20 14:15 04/30/20 17:10 05/01/20 07:44 Glucose (Fingerstick) 190 mg/dL (70-99) 147 mg/dL (70-99) 137 mg/dL (70-99) Procalcitonin < 0.10 ng/mL (0.00-0.10) Test 05/01/20 10:20 05/01/20 11:22 05/02/20 07:10 White Blood Count 7.1 x10^3/uL (4.0-11.0) Red Blood Count 3.31 x10^6/uL (4.30-5.70) Hemoglobin 10.1 g/dL (13.0-17.5) Hematocrit 29.7 % (39.0-53.0) Mean Corpuscular Volume 90 fL (79-100) Mean Corpuscular Hemoglobin 31 pg (25-35) Mean Corpuscular Hemoglobin Concent 34 g/dL (31-37) Red Cell Distribution Width 16.1 % (11.5-14.5) Platelet Count 166 x10^3/uL (140-400) Neutrophils (%) (Auto) 69 % (31-73) Lymphocytes (%) (Auto) 22 % (24-48) Monocytes (%) (Auto) 7 % (0-9) Eosinophils (%) (Auto) 1 % (0-3) Basophils (%) (Auto) 1 % (0-3) Neutrophils # (Auto) 4.9 x10^3/uL (1.8-7.7) Lymphocytes # (Auto) 1.6 x10^3/uL (1.0-4.8) Monocytes # (Auto) 0.5 x10^3/uL (0.0-1.1) Eosinophils # (Auto) 0.0 x10^3/uL (0.0-0.7) Basophils # (Auto) 0.0 x10^3/uL (0.0-0.2) Sodium Level 139 mmol/L (136-145) Potassium Level 3.5 mmol/L (3.5-5.1) Chloride Level 104 mmol/L (98-107) Carbon Dioxide Level 27 mmol/L (21-32) Anion Gap 8 (6-14) Blood Urea Nitrogen 14 mg/dL (8-26) Creatinine 0.8 mg/dL (0.7-1.3) Estimated GFR (Cockcroft-Gault) 99.6 BUN/Creatinine Ratio 18 (6-20) Glucose Level 120 mg/dL (70-99) Calcium Level 8.6 mg/dL (8.5-10.1) Total Bilirubin 0.3 mg/dL (0.2-1.0) Aspartate Amino Transf (AST/SGOT) 20 U/L (15-37) Alanine Aminotransferase (ALT/SGPT) 20 U/L (16-63) Alkaline Phosphatase 64 U/L (46-116) Total Protein 6.2 g/dL (6.4-8.2) Albumin 2.0 g/dL (3.4-5.0) Albumin/Globulin Ratio 0.5 (1.0-1.7) Glucose (Fingerstick) 140 mg/dL (70-99) 120 mg/dL (70-99) Laboratory Tests Test 05/01/20 10:20 05/01/20 11:22 05/02/20 07:10 White Blood Count 7.1 x10^3/uL (4.0-11.0) Red Blood Count 3.31 x10^6/uL (4.30-5.70) Hemoglobin 10.1 g/dL (13.0-17.5) Hematocrit 29.7 % (39.0-53.0) Mean Corpuscular Volume 90 fL (79-100) Mean Corpuscular Hemoglobin 31 pg (25-35) Mean Corpuscular Hemoglobin Concent 34 g/dL (31-37) Red Cell Distribution Width 16.1 % (11.5-14.5) Platelet Count 166 x10^3/uL (140-400) Neutrophils (%) (Auto) 69 % (31-73) Lymphocytes (%) (Auto) 22 % (24-48) Monocytes (%) (Auto) 7 % (0-9) Eosinophils (%) (Auto) 1 % (0-3) Basophils (%) (Auto) 1 % (0-3) Neutrophils # (Auto) 4.9 x10^3/uL (1.8-7.7) Lymphocytes # (Auto) 1.6 x10^3/uL (1.0-4.8) Monocytes # (Auto) 0.5 x10^3/uL (0.0-1.1) Eosinophils # (Auto) 0.0 x10^3/uL (0.0-0.7) Basophils # (Auto) 0.0 x10^3/uL (0.0-0.2) Sodium Level 139 mmol/L (136-145) Potassium Level 3.5 mmol/L (3.5-5.1) Chloride Level 104 mmol/L (98-107) Carbon Dioxide Level 27 mmol/L (21-32) Anion Gap 8 (6-14) Blood Urea Nitrogen 14 mg/dL (8-26) Creatinine 0.8 mg/dL (0.7-1.3) Estimated GFR (Cockcroft-Gault) 99.6 BUN/Creatinine Ratio 18 (6-20) Glucose Level 120 mg/dL (70-99) Calcium Level 8.6 mg/dL (8.5-10.1) Total Bilirubin 0.3 mg/dL (0.2-1.0) Aspartate Amino Transf (AST/SGOT) 20 U/L (15-37) Alanine Aminotransferase (ALT/SGPT) 20 U/L (16-63) Alkaline Phosphatase 64 U/L (46-116) Total Protein 6.2 g/dL (6.4-8.2) Albumin 2.0 g/dL (3.4-5.0) Albumin/Globulin Ratio 0.5 (1.0-1.7) Glucose (Fingerstick) 140 mg/dL (70-99) 120 mg/dL (70-99) Medications Active Scripts Medications Dose Route/Sig Max Daily Dose Days Date Category Acetaminophen 325 Mg Tablet 2 Tab PO PRN Q6HRS PRN 24 04/08/20 Reported Pioglitazone Hcl 30 Mg Tablet 30 Mg PO DAILY 04/08/20 Reported Nicotine Gum (Nicotine Polacrilex) 2 Mg Gum 2 Mg BC PRN PRN 04/08/20 Reported Neurontin (Gabapentin) 300 Mg Capsule 300 Mg PO TID 04/08/20 Reported Gelusil 200-200-25 mg Chew Tab (Mag Hydrox/Aluminum Hyd/Simeth) 1 Each Tab.chew 1 Each PO PRN Q4HRS PRN 04/08/20 Reported Miralax (Polyethylene Glycol 3350) 17 Gm Powd.pack 1 Pkt PO PRN DAILY PRN 04/08/20 Reported Milk Of Magnesia (Magnesium Hydroxide) 2,400 Mg/10 Ml Oral.susp 2,400 Mg PO PRN Q8HRS PRN 04/08/20 Reported Metoprolol Tartrate 25 Mg Tablet 12.5 Mg PO BID 04/08/20 Reported Metformin Hcl 1,000 Mg Tablet 1,000 Mg PO BIDWMEALS 04/08/20 Reported Lisinopril 2.5 Mg Tablet 2.5 Mg PO DAILY 04/08/20 Reported Levothyroxine Sodium 100 Mcg Tablet 100 Mcg PO HS 04/08/20 Reported Januvia (Sitagliptin Phosphate) 100 Mg Tablet 100 Mg PO DAILY 04/08/20 Reported Famotidine 20 Mg Tablet 20 Mg PO HS 04/08/20 Reported Depakote Er (Divalproex Sodium) 500 Mg Tab.er.24h 1,500 Mg PO DAILY 04/08/20 Reported Clozaril (Clozapine) 100 Mg Tablet 100 Mg PO BIDACBL 04/08/20 Reported Clozapine 100 Mg Tablet 300 Mg PO HS 04/08/20 Reported Atorvastatin Calcium 40 Mg Tablet 80 Mg PO HS 04/08/20 Reported Comments CXR IMPRESSION: Findings likely related to mild pulmonary edema. Atypical infectious process is also possible. Lines and tubes described above. Impression . 1. Acute hypoxic respiratory failure secondary to septic shock------resolved 2. The patient with recent COVID-19 pneumonia at the end of March. 3. Likely superimposed bacterial pneumonia versus rule out other sources of infection contributing to septic shock. 4. Abnormal chest x-ray with faint interstitial infiltrates, likely related to residual COVID pneumonia. 5. Acute kidney injury. 6. Lactic acidosis secondary to septic shock--- resolved 7. Leukocytosis--- resolved 8. Moderate protein-calorie malnutrition. Plan . Continue supplemental oxygen to Keep sats above 92% Continue empiric antibiotics Prednisone with a slow taper. PT/OT/ST DVT/GI PPX D/W RN ok to D/C back to rehab/SNF from our stand point We will see PRN please call with any questions or concerns MARLENE HERNANDEZ MD May 02, 2020 10:06
[2020-05-02 11:34] VITALS: BP 98/75
--- NOTE | 2020-05-02 12:53 | PDOC ---
PROGRESS NOTES Date of Service: DATE: 05/02/20 TIME: 12:51 Chief Complaint Chief Complaint Acute metabolic encephalopathy - from hypoxia likely metabolic, will monitor now with O2 levels improving ROD - vasomotor nephropathy, will monitor renal function after fluid resuscitation Acute Respiratory failure with hypoxia - COVID 19 and likely HCAP related. 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 He was admitted on 04/07/2020 with altered mental status and shortness of breath. He was tested positive for COVID 19 and treated with steroids and remdesivir, completed a course and was discharged 04/16/2020 but returned 04/16- 04/23 for HCAP symptoms. Chest radiograph with bilateral interstitial changes consistent with COVID-19 and new left upper lobe infiltrate. Labs significant for WBC 13.3, Hb 12.1, platelets 211, NA 136, K4.7, BUN 32, CR 1.8, glucose 165. Blood pressure systolic in the 60s. Given 3 L normal saline with no significant response in blood pressure right IJ central venous catheter was placed and initiated on Levophed and empiric antibiotics and admitted to the ICU for further treatment. 04/30: Afebrile. Blood pressure 116 systolic with vasopressor support. No chest pain. Mild shortness of breath. No significant cough. No diarrhea. He is still confused. Afebrile still little short of breath. Off Levophed almost, 2 days, Cough is improved no diarrhea. 05/02, doing better, still weakness, recovering OK from cough and hypoxia and COVID illness, Vitals Vitals Vital Signs Date Time Temp Pulse Resp B/P (MAP) Pulse Ox O2 Delivery O2 Flow Rate FiO2 05/02/20 11:34 97.5 100 20 98/75 (83) 95 Nasal Cannula 2.0 97.5 Physical Exam General: Alert, Oriented X3, Cooperative, mild distress, Other (lethargic, confused, ) Heart: Normal S1 Lungs: Other (diminished, no wheeze, ) Abdomen: Soft Extremities: No edema, Normal pulses Skin: No rashes Labs LABS Laboratory Tests Test 05/02/20 07:10 05/02/20 11:30 Glucose (Fingerstick) 120 mg/dL (70-99) 195 mg/dL (70-99) Assessment and Plan Assessmemt and Plan Problems Medical Problems: (1) Respiratory failure Status: Acute (2) Septic shock Status: Acute Comment Review of Relevant I have reviewed the following items franchesca (where applicable) has been applied. Labs Laboratory Tests Test 04/30/20 14:15 04/30/20 17:10 05/01/20 07:44 05/01/20 10:20 Procalcitonin < 0.10 ng/mL (0.00-0.10) Glucose (Fingerstick) 147 mg/dL (70-99) 137 mg/dL (70-99) White Blood Count 7.1 x10^3/uL (4.0-11.0) Red Blood Count 3.31 x10^6/uL (4.30-5.70) Hemoglobin 10.1 g/dL (13.0-17.5) Hematocrit 29.7 % (39.0-53.0) Mean Corpuscular Volume 90 fL (79-100) Mean Corpuscular Hemoglobin 31 pg (25-35) Mean Corpuscular Hemoglobin Concent 34 g/dL (31-37) Red Cell Distribution Width 16.1 % (11.5-14.5) Platelet Count 166 x10^3/uL (140-400) Neutrophils (%) (Auto) 69 % (31-73) Lymphocytes (%) (Auto) 22 % (24-48) Monocytes (%) (Auto) 7 % (0-9) Eosinophils (%) (Auto) 1 % (0-3) Basophils (%) (Auto) 1 % (0-3) Neutrophils # (Auto) 4.9 x10^3/uL (1.8-7.7) Lymphocytes # (Auto) 1.6 x10^3/uL (1.0-4.8) Monocytes # (Auto) 0.5 x10^3/uL (0.0-1.1) Eosinophils # (Auto) 0.0 x10^3/uL (0.0-0.7) Basophils # (Auto) 0.0 x10^3/uL (0.0-0.2) Sodium Level 139 mmol/L (136-145) Potassium Level 3.5 mmol/L (3.5-5.1) Chloride Level 104 mmol/L (98-107) Carbon Dioxide Level 27 mmol/L (21-32) Anion Gap 8 (6-14) Blood Urea Nitrogen 14 mg/dL (8-26) Creatinine 0.8 mg/dL (0.7-1.3) Estimated GFR (Cockcroft-Gault) 99.6 BUN/Creatinine Ratio 18 (6-20) Glucose Level 120 mg/dL (70-99) Calcium Level 8.6 mg/dL (8.5-10.1) Total Bilirubin 0.3 mg/dL (0.2-1.0) Aspartate Amino Transf (AST/SGOT) 20 U/L (15-37) Alanine Aminotransferase (ALT/SGPT) 20 U/L (16-63) Alkaline Phosphatase 64 U/L (46-116) Total Protein 6.2 g/dL (6.4-8.2) Albumin 2.0 g/dL (3.4-5.0) Albumin/Globulin Ratio 0.5 (1.0-1.7) Test 05/01/20 11:22 05/02/20 07:10 05/02/20 11:30 Glucose (Fingerstick) 140 mg/dL (70-99) 120 mg/dL (70-99) 195 mg/dL (70-99) Laboratory Tests Test 05/02/20 07:10 05/02/20 11:30 Glucose (Fingerstick) 120 mg/dL (70-99) 195 mg/dL (70-99) Microbiology 04/29/20 Blood Culture - Preliminary, Resulted NO GROWTH AFTER 2 DAYS Medications Current Medications Sodium Chloride 1,000 ml @ 1,000 mls/hr 1X ONCE IV Last administered on 04/29/20at 18:20; Start 04/29/20 at 18:30; Stop 04/29/20 at 19:29; Status DC Sodium Chloride 1,000 ml @ 1,000 mls/hr 1X ONCE IV Last administered on 04/29/20at 18:20; Start 04/29/20 at 18:45; Stop 04/29/20 at 19:44; Status DC Sodium Chloride 1,000 ml @ 1,000 mls/hr 1X ONCE IV Last administered on 04/29/20at 19:31; Start 04/29/20 at 19:31; Stop 04/29/20 at 20:30; Status DC Norepinephrine Bitartrate 8 mg/ Dextrose 258 ml @ 17.763 mls/ hr 1X ONCE IV Last administered on 04/29/20at 22:01; Start 04/29/20 at 20:45; Stop 04/30/20 at 11:16; Status DC Sodium Chloride 1,000 ml @ 75 mls/hr [id number] IV Last administered on 04/30/20at 12:42; Start 04/29/20 at 21:00; Stop 04/30/20 at 20:59; Status DC Acetaminophen (Tylenol) 650 mg PRN Q6HRS PRN PO MILD PAIN / TEMP > 100.3'F; Start 04/29/20 at 22:00 Atorvastatin Calcium (Lipitor) 80 mg HS PO Last administered on 05/01/20at 21:57; Start 04/29/20 at 23:00 Clozapine (Clozaril) 300 mg HS PO Last administered on 05/01/20at 22:05; Start 04/30/20 at 21:00 Clozapine (Clozaril) 100 mg BIDACBL PO Last administered on 05/02/20at 11:09; Start 04/30/20 at 07:30 Divalproex Sodium (Depakote Er) 1,500 mg DAILY PO Last administered on 05/02/20at 08:46; Start 04/30/20 at 09:00 Famotidine (Pepcid) 20 mg HS PO Last administered on 05/01/20at 21:57; Start 04/29/20 at 23:00 Gabapentin (Neurontin) 300 mg TID PO Last administered on 05/02/20at 08:46; Start 04/29/20 at 23:00 Levothyroxine Sodium (Synthroid) 100 mcg HS PO Last administered on 05/01/20at 21:57; Start 04/29/20 at 23:00 Polyethylene Glycol (miraLAX PACKET) 17 gm PRN DAILY PRN PO CONSTIPATION 1ST CHOICE; Start 04/29/20 at 22:00 Enoxaparin Sodium (Lovenox Per Pharmacy Prophylaxis Dosing) 1 each PRN DAILY PRN MC SEE COMMENTS; Start 04/29/20 at 22:00 Methylprednisolone Sodium Succinate (SOLU-Medrol 40MG VIAL) 40 mg 1X ONCE IV Last administered on 04/29/20at 23:52; Start 04/29/20 at 23:00; Stop 04/29/20 at 23:01; Status DC Prednisone (Prednisone) 40 mg DAILY PO Last administered on 05/02/20at 08:46; Start 04/30/20 at 09:00 Azithromycin 500 mg/Sodium Chloride 250 ml @ 250 mls/hr 1X ONCE IV ; Start 04/29/20 at 22:00; Stop 04/29/20 at 22:59; Status UNV Azithromycin (Zithromax) 250 mg DAILY PO Last administered on 05/02/20at 08:46; Start 04/30/20 at 09:00 Enoxaparin Sodium (Lovenox 40mg Syringe) 40 mg BID SQ Last administered on 05/02/20at 08:46; Start 04/29/20 at 23:00 Azithromycin 250 ml @ 250 mls/hr 1X ONCE IV Last administered on 04/30/20at 00:39; Start 04/29/20 at 23:00; Stop 04/29/20 at 23:59; Status DC Info (FLU VACCINE SCREEN per RX) 1 each PRN DAILY PRN MC SEE COMMENTS; Start 04/30/20 at 01:15; Status Cancel Influenza Virus Vaccine Quadrival (Fluzone Quad [id number] Syringe) 0.5 ml ONCE ONCE VAX IM ; Start 04/30/20 at 15:00; Stop 04/30/20 at 10:04; Status DC Norepinephrine Bitartrate 8 mg/ Dextrose 258 ml @ 16.854 mls/ hr CONT PRN IV PER PROTOCOL Last administered on 04/30/20at 12:43; Start 04/30/20 at 12:45; Stop 05/01/20 at 10:06; Status DC Insulin Human Lispro (HumaLOG) 0-5 UNITS TIDWMEALS SQ Last administered on 05/02/20at 11:41; Start 05/01/20 at 12:00 Dextrose (Dextrose 50%-Water Syringe) 12.5 gm PRN Q15MIN PRN IV SEE COMMENTS; Start 05/01/20 at 10:30 Active Scripts Active Reported Acetaminophen 325 Mg Tablet 2 Tab PO PRN Q6HRS PRN 24 Days Pioglitazone Hcl 30 Mg Tablet 30 Mg PO DAILY Nicotine Gum (Nicotine Polacrilex) 2 Mg Gum 2 Mg BC PRN PRN Neurontin (Gabapentin) 300 Mg Capsule 300 Mg PO TID Gelusil 200-200-25 mg Chew Tab (Mag Hydrox/Aluminum Hyd/Simeth) 1 Each Tab.chew 1 Each PO PRN Q4HRS PRN Miralax (Polyethylene Glycol 3350) 17 Gm Powd.pack 1 Pkt PO PRN DAILY PRN Milk Of Magnesia (Magnesium Hydroxide) 2,400 Mg/10 Ml Oral.susp 2,400 Mg PO PRN Q8HRS PRN Metoprolol Tartrate 25 Mg Tablet 12.5 Mg PO BID Metformin Hcl 1,000 Mg Tablet 1,000 Mg PO BIDWMEALS Lisinopril 2.5 Mg Tablet 2.5 Mg PO DAILY Levothyroxine Sodium 100 Mcg Tablet 100 Mcg PO HS Januvia (Sitagliptin Phosphate) 100 Mg Tablet 100 Mg PO DAILY Famotidine 20 Mg Tablet 20 Mg PO HS Depakote Er (Divalproex Sodium) 500 Mg Tab.er.24h 1,500 Mg PO DAILY Clozaril (Clozapine) 100 Mg Tablet 100 Mg PO BIDACBL Clozapine 100 Mg Tablet 300 Mg PO HS Atorvastatin Calcium 40 Mg Tablet 80 Mg PO HS Vitals/I & O Vital Sign - Last 24 Hours 05/01/20 05/01/20 05/01/20 05/01/20 15:00 19:00 19:35 23:00 Temp 97.5 98.2 98.2 97.5 98.2 98.2 Pulse 119 107 100 Resp 20 18 18 B/P (MAP) 98/79 (85) 102/63 (76) 116/85 (95) Pulse Ox 96 97 96 O2 Delivery Nasal Cannula Nasal Cannula Nasal Cannula Nasal Cannula O2 Flow Rate 1.5 1.5 1.5 1.5 05/02/20 05/02/20 05/02/20 05/02/20 03:00 07:42 07:43 08:13 Temp 98.0 96.8 98.0 96.8 Pulse 109 91 Resp 18 22 B/P (MAP) 98/69 (79) 118/78 (91) Pulse Ox 97 98 O2 Delivery Nasal Cannula Nasal Cannula Nasal Cannula O2 Flow Rate 1.5 2.0 1.5 05/02/20 11:34 Temp 97.5 97.5 Pulse 100 Resp 20 B/P (MAP) 98/75 (83) Pulse Ox 95 O2 Delivery Nasal Cannula O2 Flow Rate 2.0 Intake and Output 05/01/20 05/01/20 05/02/20 15:00 23:00 07:00 Intake Total 240 ml 120 ml 300 ml Output Total 200 ml 375 ml Balance 40 ml -255 ml 300 ml Nutrition Consultation Dietary Evaluation: Recommendations by RD: Dietary education by RD, Increase Calorie Intake Comments: REC ADA/caridac diet per pmhx, will adjust diet order as needed REC Glucerna TID Expected Outcomes/Goals: initiation of nutrition within 24 - 48 hrs - met, new goal established New goal 05/02: PO intake to meet >75% est needs Interpretation of weight loss: >1-2% in 1 week Malnutrition Findings: Food and Nutrition Intake (Sev: <50% est energy req 5days Weight Status: Appropriate Justicifation of Admission Dx: Justifications for Admission: Justification of Admission Dx: Yes MOO MAI MD May 02, 2020 12:53
[2020-05-02] MEDS ORDERED: AZIT250T6 PO (12:59)
[2020-05-02] MEDS ORDERED: PRED-220 PO (12:59)
--- NOTE | 2020-05-02 13:00 | SNU/HH DC ---
DISCHARGE ORDERS DISCHARGE INFORMATION: DISCHARGE DATE: May 02, 2020 FINAL DIAGNOSIS respiratory failure sepsis septic shock weakness, debility COVID 19 Problems Medical Problems: (1) Respiratory failure Status: Acute (2) Septic shock Status: Acute CONDITION ON DISCHARGE: Stable CODE STATUS: Code Status: Full INTERMEDIATE: SNF STAY <30 DAYS: Yes POST DISCHARGE ORDERS: ACTIVITY ORDERS: Resume previous activity WEIGHT BEARING STATUS: As tolerated DIET AFTER DISCHARGE: Cardiac FOLLOW-UP: PHYSICIAN FOLLOW-UP: primary care, TREATMENT/EQUIPMENT ORDERS: ADAPTIVE EQUIPMENT NEEDED: Front wheeled walker RESPIRATORY EQUIPMENT NEEDED: Oxygen Physical Therapy For: Evalulation/Treatment Occupational Therapy For: Evaluation/Treatment DISCHARGE MEDICATIONS: Home Meds Active Scripts Prednisone (PREDNISONE ) 10 Mg Tablet, 10 MG PO UD for steroid taper, #28 TAB 0 Refills Take 4 tablets by mouth daily for 4 days, then take 3 tablets by mouth daily for 2 days, then take 2 tablets by mouth daily for 2 days, then take 1 tablets by mouth daily for 2 days, then stop. Prov:MOO MAI MD 05/02/20 Azithromycin (AZITHROMYCIN TABLET) 250 Mg Tablet, 250 MG PO DAILY for pneumonia, #5 TAB Prov:MOO MAI MD 05/02/20 Reported Medications Acetaminophen (ACETAMINOPHEN) 325 Mg Tablet, 2 TAB PO PRN Q6HRS PRN for pain or fever for 24 Days, #100 TAB 0 Refills 04/08/20 Pioglitazone Hcl (PIOGLITAZONE HCL) 30 Mg Tablet, 30 MG PO DAILY for DM II, TAB 04/08/20 Nicotine Polacrilex (NICOTINE GUM) 2 Mg Gum, 2 MG BC PRN PRN for SMOKING CESSATION, EACH 04/08/20 Gabapentin (NEURONTIN ) 300 Mg Capsule, 300 MG PO TID for NEUROGENIC PAIN, CAP 04/08/20 Mag Hydrox/Aluminum Hyd/Simeth (Gelusil 200-200-25 mg Chew Tab) 1 Each Tab.chew, 1 EACH PO PRN Q4HRS PRN for INDIGESTION, TAB.CHEW 04/08/20 Polyethylene Glycol 3350 (MIRALAX) 17 Gm Powd.pack, 1 PKT PO PRN DAILY PRN for CONSTIPATION, PKT 04/08/20 Magnesium Hydroxide (MILK OF MAGNESIA) 2,400 Mg/10 Ml Oral.susp, 2400 MG PO PRN Q8HRS PRN for CONSTIPATION, MISC 04/08/20 Metoprolol Tartrate (METOPROLOL TARTRATE) 25 Mg Tablet, 12.5 MG PO BID for FOR HYPERTENSION, #60 TAB 0 Refills 04/08/20 Metformin Hcl (METFORMIN HCL) 1,000 Mg Tablet, 1000 MG PO BIDWMEALS for , TAB 04/08/20 Lisinopril (LISINOPRIL) 2.5 Mg Tablet, 2.5 MG PO DAILY for FOR HYPERTENSION, #30 TAB 0 Refills 04/08/20 Levothyroxine Sodium (LEVOTHYROXINE SODIUM) 100 Mcg Tablet, 100 MCG PO HS for THYROID SUPPLEMENT, #30 TAB 0 Refills 04/08/20 Sitagliptin Phosphate (JANUVIA) 100 Mg Tablet, 100 MG PO DAILY for DM II, TAB 04/08/20 Famotidine (FAMOTIDINE) 20 Mg Tablet, 20 MG PO HS for gerd, TAB 04/08/20 Divalproex Sodium (DEPAKOTE ER) 500 Mg Tab.er.24h, 1500 MG PO DAILY for schizoaffective disorder, TAB.SR 04/08/20 Clozapine (CLOZARIL) 100 Mg Tablet, 100 MG PO BIDACBL for schizoaffective disorder, TAB 04/08/20 Clozapine (CLOZAPINE) 100 Mg Tablet, 300 MG PO HS for schizoaffective disorder, TAB 04/08/20 Atorvastatin Calcium (ATORVASTATIN CALCIUM) 40 Mg Tablet, 80 MG PO HS for FOR CHOLESTEROL, #30 TAB 0 Refills 04/08/20 MOO MAI MD May 02, 2020 13:00
[2020-05-02 13:02] LABS: BASO % 0 % (0-3); EOS % 0 % (0-3); HEMATOCRIT 30.6 % (39.0-53.0); HEMOGLOBIN 10.2 g/dL (13.0-17.5); LYMPH # 0.9 x10^3/uL (1.0-4.8); LYMPH % 15 % (24-48); MEAN CORPUSCULAR HEMOGLOBIN 30 pg (25-35); MEAN CORPUSCULAR HGB CONC 33 g/dL (31-37); MEAN CORPUSCULAR VOLUME 90 fL (79-100); MONO # 0.4 x10^3/uL (0.0-1.1); MONO % 6 % (0-9); NEUT # 4.8 x10^3/uL (1.8-7.7); NEUT % 78 % (31-73); PLATELET COUNT 189 x10^3/uL (140-400); RED CELL DISTRIBUTION WIDTH 15.9 % (11.5-14.5); WHITE BLOOD COUNT 6.1 x10^3/uL (4.0-11.0)
[2020-05-02 13:17] LABS: ALBUMIN 2.2 g/dL (3.4-5.0); ALBUMIN/GLOBULIN RATIO 0.5 (1.0-1.7); CREATININE 0.8 mg/dL (0.7-1.3); GFR 99.6; POTASSIUM 3.9 mmol/L (3.5-5.1); TOTAL BILIRUBIN 0.3 mg/dL (0.2-1.0); TOTAL PROTEIN 6.3 g/dL (6.4-8.2)
[2020-05-02 15:01] VITALS: BP 96/66
--- NOTE | 2020-05-02 15:07 | NUR ---
This RN spoke with Dr. Finch in regards to Ana's (pt's sister/DPOA) concerns about pt's discharge. Dr. Finch spoke with Ana by telephone to address concerns. After conversation with pt's sister, Dr. Finch instructed this RN to keep the pt another day. Home with home health was suggested to pt's sister by Dr. Finch, however, was declined. PT/OT ordered.
[2020-05-02] MEDS: INSULIN GLARGINE SYRINGE. SQ SCH (16:23)
[2020-05-02 19:00] VITALS: BP 94/55
[2020-05-02] MEDS: ATORVASTATIN CALCIUM 40 MG TABLET. PO SCH (22:43)
[2020-05-02] MEDS: LEVOTHYROXINE 100 MCG TABLET PO SCH (22:43)
[2020-05-02] MEDS: FAMOTIDINE 20 MG TABLET. PO SCH (22:43)
[2020-05-02 23:00] VITALS: BP 108/81
[2020-05-03 02:56] VITALS: BP 106/74
[2020-05-03 07:59] VITALS: BP 140/81
[2020-05-03] MEDS: INSULIN LISPRO 300 UNITS/3 ML VIAL. SQ SCH ×3 (08:00→17:29)
[2020-05-03] MEDS: GABAPENTIN 300 MG CAPSULE. PO SCH ×3 (09:09→20:19)
[2020-05-03] MEDS: DIVALPROEX EXTENDED RELEASE 500 MG TAB.ER.24H. PO SCH (09:10)
[2020-05-03] MEDS: cloZAPine 100 MG TABLET PO SCH ×3 (09:10→20:20)
[2020-05-03] MEDS: AZITHROMYCIN 250 MG TABLET. PO SCH (09:10)
[2020-05-03] MEDS: predniSONE 20 MG TABLET PO SCH (09:10)
[2020-05-03] MEDS: ENOXAPARIN 40 MG/0.4 ML SYRINGE. SQ SCH ×2 (09:10→20:18)
[2020-05-03] MEDS: INSULIN GLARGINE SYRINGE. SQ SCH (09:12)
[2020-05-03] MEDS ORDERED: MAG HYDROX/ALUMINUM HYD/SIMETH 30 ML ORAL.SUSP PO PRN (09:45)
[2020-05-03 11:59] VITALS: BP 114/90
--- NOTE | 2020-05-03 13:42 | PDOC ---
[employer] PROGRESS NOTE Date of Service DOS: DATE: 05/03/20 TIME: 13:42 Chief Complaint Chief Complaint Acute metabolic encephalopathy - from hypoxia likely metabolic, will monitor now with O2 levels improving ROD - vasomotor nephropathy, will monitor renal function after fluid resuscitation Acute Respiratory failure with hypoxia - COVID 19 and likely HCAP related. 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 who was brought to the ER via EMS for lethargy and low blood pressure. He was admitted on 04/07/2020 with altered mental status and shortness of breath. He was tested positive for COVID 19 and treated with steroids and remdesivir, completed a course and was discharged 04/16/2020 but returned 04/16- 04/23 for HCAP symptoms. Chest radiograph with bilateral interstitial changes consistent with COVID-19 and new left upper lobe infiltrate. Labs significant for WBC 13.3, Hb 12.1, platelets 211, NA 136, K4.7, BUN 32, CR 1.8, glucose 165. Blood pressure systolic in the 60s. Given 3 L normal saline with no significant response in blood pressure right IJ central venous catheter was placed and initiated on Levophed and empiric antibiotics and admitted to the ICU for further treatment. 04/30: Afebrile. Blood pressure 116 systolic with vasopressor support. No chest pain. Mild shortness of breath. No significant cough. No diarrhea. He is still confused. Afebrile still little short of breath. Off Levophed almost, 2 days, Cough is improved no diarrhea. 05/02, doing better, still weakness, recovering OK from cough and hypoxia and COVID illness, 05/03/2020 No acute events overnight. Patient is working with PT OT before returning back to nursing facility. Family also is concerned for his high risk for readmissions. Patient saturating 91% on room air. Patient's chart, labs, images were reviewed and discussed with RN Vitals/I&O Vitals/I&O: Vital Signs Date Time Temp Pulse Resp B/P (MAP) Pulse Ox O2 Delivery O2 Flow Rate FiO2 05/03/20 11:59 98.2 114 24 114/90 (98) 89 Nasal Cannula 1.0 98.2 I & O 05/02/20 05/02/20 05/03/20 15:00 23:00 07:00 Intake Total 100 ml 240 ml Output Total 1000 ml 425 ml Balance 100 ml -760 ml -425 ml Physical Exam General: Alert, Oriented X3, Cooperative, mild distress, Other (lethargic, confused, ) Heart: Normal S1 Lungs: Other (diminished, no wheeze, ) Abdomen: Soft Extremities: No edema, Normal pulses Skin: No rashes Labs Labs: Laboratory Tests Test 05/02/20 16:25 Glucose (Fingerstick) 157 mg/dL (70-99) Assessment and Plan Assessmemt and Plan Problems Medical Problems: (1) Respiratory failure Status: Acute (2) Septic shock Status: Acute Comment Review of Relevant I have reviewed the following items franchesca (where applicable) has been applied. Medications: Current Medications Medications (Trade) Dose Ordered Sig/Ambrose Route PRN Reason Start Time Stop Time Status Last Admin Dose Admin Insulin Glargine (Lantus Syringe) 10 unit DAILY SQ 05/02/20 16:00 05/03/20 09:12 Al Hydroxide/Mg Hydroxide (Mylanta Plus Xs) 30 ml PRN Q2HR PRN PO HEARTBURN / GAS 05/03/20 09:45 05/03/20 09:38 Justifications for Admission Other Justification LESLIE GONZALEZ MD May 03, 2020 13:42
[2020-05-03 15:59] VITALS: BP 99/74
[2020-05-03 19:00] VITALS: BP 93/70
[2020-05-03] MEDS: ATORVASTATIN CALCIUM 40 MG TABLET. PO SCH (20:18)
[2020-05-03] MEDS: LACTOBACILLUS RHAMNOSUS GG 1 CAPSULE. PO SCH (20:18)
[2020-05-03] MEDS: FAMOTIDINE 20 MG TABLET. PO SCH (20:19)
[2020-05-03] MEDS: LEVOTHYROXINE 100 MCG TABLET PO SCH (20:19)
[2020-05-03 22:56] VITALS: BP 95/68
--- NOTE | 2020-05-04 00:33 | NUR ---
PT RESTING IN BED CALL LIGHT AT SIDE , PT INCONTINENT OF BROWN STOOL , PT AWARE AND DID NOT CALL FOR ASSISTANCE PT CLEAN AND PLACED CLEAN GOWN AND SHEETS ON PT , HS SNACK REQUEST AFTER PT ATE 2 CUPS OF PUDDING
[2020-05-04 03:00] VITALS: BP 91/32
[2020-05-04 06:25] LABS: BASO % 0 % (0-3); EOS # 0.1 x10^3/uL (0.0-0.7); EOS % 1 % (0-3); HEMATOCRIT 30.4 % (39.0-53.0); HEMOGLOBIN 10.3 g/dL (13.0-17.5); LYMPH # 2.4 x10^3/uL (1.0-4.8); LYMPH % 38 % (24-48); MEAN CORPUSCULAR HEMOGLOBIN 30 pg (25-35); MEAN CORPUSCULAR HGB CONC 34 g/dL (31-37); MEAN CORPUSCULAR VOLUME 89 fL (79-100); MONO # 0.6 x10^3/uL (0.0-1.1); MONO % 10 % (0-9); NEUT # 3.2 x10^3/uL (1.8-7.7); NEUT % 51 % (31-73); PLATELET COUNT 231 x10^3/uL (140-400); RED BLOOD COUNT 3.42 x10^6/uL (4.30-5.70); RED CELL DISTRIBUTION WIDTH 15.7 % (11.5-14.5); WHITE BLOOD COUNT 6.3 x10^3/uL (4.0-11.0)
[2020-05-04 06:39] LABS: ALBUMIN 2.1 g/dL (3.4-5.0); ALBUMIN/GLOBULIN RATIO 0.6 (1.0-1.7); CREATININE 0.8 mg/dL (0.7-1.3); GFR 99.6; POTASSIUM 3.8 mmol/L (3.5-5.1); TOTAL BILIRUBIN 0.3 mg/dL (0.2-1.0); TOTAL PROTEIN 5.9 g/dL (6.4-8.2)
[2020-05-04 07:59] VITALS: BP 125/86
[2020-05-04] MEDS: INSULIN LISPRO 300 UNITS/3 ML VIAL. SQ SCH ×3 (08:00→17:00)
[2020-05-04] MEDS: predniSONE 20 MG TABLET PO SCH (10:14)
[2020-05-04] MEDS: cloZAPine 100 MG TABLET PO SCH ×3 (10:14→20:06)
[2020-05-04] MEDS: AZITHROMYCIN 250 MG TABLET. PO SCH (10:14)
[2020-05-04] MEDS: GABAPENTIN 300 MG CAPSULE. PO SCH ×3 (10:14→20:09)
[2020-05-04] MEDS: ENOXAPARIN 40 MG/0.4 ML SYRINGE. SQ SCH ×2 (10:15→20:06)
[2020-05-04] MEDS: DIVALPROEX EXTENDED RELEASE 500 MG TAB.ER.24H. PO SCH (10:15)
[2020-05-04] MEDS: INSULIN GLARGINE SYRINGE. SQ SCH (10:16)
[2020-05-04] MEDS: LACTOBACILLUS RHAMNOSUS GG 1 CAPSULE. PO SCH ×2 (10:17→20:06)
--- NOTE | 2020-05-04 10:20 | PDOC ---
[employer] PROGRESS NOTE Date of Service DOS: DATE: 05/04/20 TIME: 10:19 Chief Complaint Chief Complaint Acute metabolic encephalopathy - from hypoxia likely metabolic, will monitor now with O2 levels improving ROD - vasomotor nephropathy, will monitor renal function after fluid resuscitation Acute Respiratory failure with hypoxia - COVID 19 and likely HCAP related. 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 He was admitted on 04/07/2020 with altered mental status and shortness of breath. He was tested positive for COVID 19 and treated with steroids and remdesivir, completed a course and was discharged 04/16/2020 but returned 04/16- 04/23 for HCAP symptoms. Chest radiograph with bilateral interstitial changes consistent with COVID-19 and new left upper lobe infiltrate. Labs significant for WBC 13.3, Hb 12.1, platelets 211, NA 136, K4.7, BUN 32, CR 1.8, glucose 165. Blood pressure systolic in the 60s. Given 3 L normal saline with no significant response in blood pressure right IJ central venous catheter was placed and initiated on Levophed and empiric antibiotics and admitted to the ICU for further treatment. 04/30: Afebrile. Blood pressure 116 systolic with vasopressor support. No chest pain. Mild shortness of breath. No significant cough. No diarrhea. He is still confused. Afebrile still little short of breath. Off Levophed almost, 2 days, Cough is improved no diarrhea. 05/02, doing better, still weakness, recovering OK from cough and hypoxia and COVID illness, 05/03/2020 No acute events overnight. Patient is working with PT OT before returning back to nursing facility. Family also is concerned for his high risk for readmissions. Patient saturating 91% on room air. Patient's chart, labs, images were reviewed and discussed with RN 05/04/2020 No acute events overnight. Patient had a bowel movement last night of loose stool. Patient is saturating 91% on 2 L nasal cannula. Patient's chart, labs, images were reviewed and discussed with RN Vitals/I&O Vitals/I&O: Vital Signs Date Time Temp Pulse Resp B/P (MAP) Pulse Ox O2 Delivery O2 Flow Rate FiO2 05/04/20 07:59 97.6 96 20 125/86 (99) 96 Nasal Cannula 2.0 97.6 I & O 0 05/03/20 05/03/20 05/04/20 15:00 23:00 07:00 Intake Total 240 ml 240 ml 545 ml Output Total 800 ml 750 ml Balance 240 ml -560 ml -205 ml Physical Exam General: Alert, Oriented X3, Cooperative, mild distress, Other (lethargic, confused, ) Heart: Normal S1 Lungs: Other (diminished, no wheeze, ) Abdomen: Soft Extremities: No edema, Normal pulses Skin: No rashes Labs Labs: Laboratory Tests Test 05/03/20 11:53 05/03/20 16:51 05/04/20 05:15 Glucose (Fingerstick) 170 mg/dL (70-99) 213 mg/dL (70-99) White Blood Count 6.3 x10^3/uL (4.0-11.0) Red Blood Count 3.42 x10^6/uL (4.30-5.70) Hemoglobin 10.3 g/dL (13.0-17.5) Hematocrit 30.4 % (39.0-53.0) Mean Corpuscular Volume 89 fL (79-100) Mean Corpuscular Hemoglobin 30 pg (25-35) Mean Corpuscular Hemoglobin Concent 34 g/dL (31-37) Red Cell Distribution Width 15.7 % (11.5-14.5) Platelet Count 231 x10^3/uL (140-400) Neutrophils (%) (Auto) 51 % (31-73) Lymphocytes (%) (Auto) 38 % (24-48) Monocytes (%) (Auto) 10 % (0-9) Eosinophils (%) (Auto) 1 % (0-3) Basophils (%) (Auto) 0 % (0-3) Neutrophils # (Auto) 3.2 x10^3/uL (1.8-7.7) Lymphocytes # (Auto) 2.4 x10^3/uL (1.0-4.8) Monocytes # (Auto) 0.6 x10^3/uL (0.0-1.1) Eosinophils # (Auto) 0.1 x10^3/uL (0.0-0.7) Basophils # (Auto) 0.0 x10^3/uL (0.0-0.2) Sodium Level 143 mmol/L (136-145) Potassium Level 3.8 mmol/L (3.5-5.1) Chloride Level 105 mmol/L (98-107) Carbon Dioxide Level 33 mmol/L (21-32) Anion Gap 5 (6-14) Blood Urea Nitrogen 10 mg/dL (8-26) Creatinine 0.8 mg/dL (0.7-1.3) Estimated GFR (Cockcroft-Gault) 99.6 BUN/Creatinine Ratio 13 (6-20) Glucose Level 122 mg/dL (70-99) Calcium Level 9.0 mg/dL (8.5-10.1) Total Bilirubin 0.3 mg/dL (0.2-1.0) Aspartate Amino Transf (AST/SGOT) 21 U/L (15-37) Alanine Aminotransferase (ALT/SGPT) 31 U/L (16-63) Alkaline Phosphatase 65 U/L (46-116) Total Protein 5.9 g/dL (6.4-8.2) Albumin 2.1 g/dL (3.4-5.0) Albumin/Globulin Ratio 0.6 (1.0-1.7) Assessment and Plan Assessmemt and Plan Problems Medical Problems: (1) Respiratory failure Status: Acute (2) Septic shock Status: Acute Comment Review of Relevant I have reviewed the following items franchesca (where applicable) has been applied. Medications: Current Medications Medications (Trade) Dose Ordered Sig/Ambrose Route PRN Reason Start Time Stop Time Status Last Admin Dose Admin Lactobacillus Rhamnosus (Culturelle) 1 cap BID PO 05/03/20 21:00 05/04/20 10:17 Justifications for Admission Other Justification LESLIE GONZALEZ MD May 04, 2020 10:20
[2020-05-04 11:26] LABS: % ATYL 2 % (0-0); % BANDS 6 % (0-9); % BASOS 1 % (0-3); % EOS 4 % (0-5); % LYMPHS 38 % (24-48); % MONOS 2 % (0-10); % SEGS 47 % (35-66); NUCLEATED RBC 1
[2020-05-04 11:27] LABS: ANISOCYTOSIS PRESENT; PLT ESTIMATE ADEQUATE (ADEQUATE)
[2020-05-04 11:59] VITALS: BP 97/75
[2020-05-04 15:59] VITALS: BP 109/87
[2020-05-04] MEDS: ATORVASTATIN CALCIUM 40 MG TABLET. PO SCH (20:06)
[2020-05-04] MEDS: FAMOTIDINE 20 MG TABLET. PO SCH (20:06)
[2020-05-04] MEDS: LEVOTHYROXINE 100 MCG TABLET PO SCH (20:08)
[2020-05-04 20:21] VITALS: BP 74/67
[2020-05-04 23:21] VITALS: BP 94/81
[2020-05-05 03:28] VITALS: BP 115/83
[2020-05-05 07:00] VITALS: BP 144/91
[2020-05-05] MEDS: INSULIN LISPRO 300 UNITS/3 ML VIAL. SQ SCH ×3 (08:00→17:00)
--- NOTE | 2020-05-05 09:57 | PDOC ---
[employer] PROGRESS NOTE Date of Service DOS: DATE: 05/05/20 TIME: 09:52 Chief Complaint Chief Complaint Acute metabolic encephalopathy - from hypoxia likely metabolic, will monitor now with O2 levels improving ROD - vasomotor nephropathy, will monitor renal function after fluid resuscitation Acute Respiratory failure with hypoxia - COVID 19 and likely HCAP related. COVID-19 - still with O2 needs Septic shock - related to COVID 19 and HCAP Depression - cont home meds Diabetes - sliding scale Hypertension - hold meds for low BP Hyperlipidemia - cont statin Hypothyroidism - cont levothyroxine Schizophrenia - cont clozaril, monitor CBC Severe protein calorie malnutrition - supervisor nutritional yeast to see, will start PPN History of Present Illness History of Present Illness Mr Acevedo is a 54-year-old male w/ PMHx DM2, HTN, HLD, Hypothyroidism, schizophrenia who is a long-term resident of [facility] who was brought to the ER via EMS for lethargy and low blood pressure. He was admitted on 04/07/2020 with altered mental status and shortness of breath. He was tested positive for COVID 19 and treated with steroids and remdesivir, completed a course and was discharged 04/16/2020 but returned 04/16- 04/23 for HCAP symptoms. Chest radiograph with bilateral interstitial changes consistent with COVID-19 and new left upper lobe infiltrate. Labs significant for WBC 13.3, Hb 12.1, platelets 211, NA 136, K4.7, BUN 32, CR 1.8, glucose 165. Blood pressure systolic in the 60s. Given 3 L normal saline with no significant response in blood pressure right IJ central venous catheter was placed and initiated on Levophed and empiric antibiotics and admitted to the ICU for further treatment. 04/30: Afebrile. Blood pressure 116 systolic with vasopressor support. No chest pain. Mild shortness of breath. No significant cough. No diarrhea. He is still confused. Afebrile still little short of breath. Off Levophed almost, 2 days, Cough is improved no diarrhea. 05/02, doing better, still weakness, recovering OK from cough and hypoxia and COVID illness, 05/03/2020 No acute events overnight. Patient is working with PT OT before returning back to nursing facility. Family also is concerned for his high risk for readmissions. Patient saturating 91% on room air. Patient's chart, labs, images were reviewed and discussed with RN 05/04/2020 No acute events overnight. Patient had a bowel movement last night of loose stool. Patient is saturating 91% on 2 L nasal cannula. Patient's chart, labs, images were reviewed and discussed with RN 05/05/2020 Afebrile, no acute events overnight. Patient currently. 2 L of nasal cannula, saturating 97%. Due to concern over frequent readmissions, would like patient to be evaluated by PT prior to discharge back to [facility] and rehab. Continue treatment with steroids, antibiotics, supportive care. Vitals/I&O Vitals/I&O: Vital Signs Date Time Temp Pulse Resp B/P (MAP) Pulse Ox O2 Delivery O2 Flow Rate FiO2 05/05/20 07:00 96.2 90 18 144/91 (108) 97 Nasal Cannula 2.0 96.2 I & O 05/04/20 05/04/20 05/05/20 15:00 23:00 07:00 Intake Total 0 ml 480 ml 120 ml Output Total 401 ml 651 ml Balance 0 ml 79 ml -531 ml Physical Exam General: Alert, Oriented X3, Cooperative, mild distress, Other (lethargic, confused, ) Heart: Normal S1 Lungs: Other (diminished, no wheeze, ) Abdomen: Soft Extremities: No edema, Normal pulses Skin: No rashes Labs Labs: Laboratory Tests Test 05/04/20 12:11 05/04/20 17:16 05/04/20 20:56 05/05/20 07:18 Glucose (Fingerstick) 193 mg/dL (70-99) 271 mg/dL (70-99) 265 mg/dL (70-99) 131 mg/dL (70-99) Assessment and Plan Assessmemt and Plan Problems Medical Problems: (1) Respiratory failure Status: Acute (2) Septic shock Status: Acute Comment Review of Relevant I have reviewed the following items franchesca (where applicable) has been applied. Justifications for Admission Other Justification STEVEN QUISPE MD May 05, 2020 09:57
[2020-05-05] MEDS: ENOXAPARIN 40 MG/0.4 ML SYRINGE. SQ SCH ×2 (10:12→21:42)
[2020-05-05] MEDS: DIVALPROEX EXTENDED RELEASE 500 MG TAB.ER.24H. PO SCH (10:13)
[2020-05-05] MEDS: predniSONE 20 MG TABLET PO SCH (10:13)
[2020-05-05] MEDS: cloZAPine 100 MG TABLET PO SCH ×3 (10:13→21:41)
[2020-05-05] MEDS: LACTOBACILLUS RHAMNOSUS GG 1 CAPSULE. PO SCH ×2 (10:13→21:41)
[2020-05-05] MEDS: AZITHROMYCIN 250 MG TABLET. PO SCH (10:13)
[2020-05-05] MEDS: GABAPENTIN 300 MG CAPSULE. PO SCH ×3 (10:13→21:41)
[2020-05-05] MEDS: INSULIN GLARGINE SYRINGE. SQ SCH (10:14)
[2020-05-05 11:00] VITALS: BP 115/92
[2020-05-05 15:00] VITALS: BP 101/82
[2020-05-05 19:00] VITALS: BP 107/76
[2020-05-05] MEDS: LEVOTHYROXINE 100 MCG TABLET PO SCH (21:41)
[2020-05-05] MEDS: FAMOTIDINE 20 MG TABLET. PO SCH (21:41)
[2020-05-05] MEDS: ATORVASTATIN CALCIUM 40 MG TABLET. PO SCH (21:41)
[2020-05-05 23:00] VITALS: BP 81/55
[2020-05-06 03:00] VITALS: BP 82/58
[2020-05-06 07:00] VITALS: BP 102/78
[2020-05-06] MEDS: INSULIN LISPRO 300 UNITS/3 ML VIAL. SQ SCH ×3 (08:00→18:15)
[2020-05-06] MEDS: cloZAPine 100 MG TABLET PO SCH ×3 (08:05→21:39)
[2020-05-06] MEDS: GABAPENTIN 300 MG CAPSULE. PO SCH ×3 (09:08→21:39)
[2020-05-06] MEDS: ENOXAPARIN 40 MG/0.4 ML SYRINGE. SQ SCH ×2 (09:08→21:40)
[2020-05-06] MEDS: DIVALPROEX EXTENDED RELEASE 500 MG TAB.ER.24H. PO SCH (09:08)
[2020-05-06] MEDS: LACTOBACILLUS RHAMNOSUS GG 1 CAPSULE. PO SCH ×2 (09:08→21:39)
[2020-05-06] MEDS: predniSONE 20 MG TABLET PO SCH (09:08)
[2020-05-06] MEDS: AZITHROMYCIN 250 MG TABLET. PO SCH (09:08)
[2020-05-06] MEDS: INSULIN GLARGINE SYRINGE. SQ SCH (09:18)
[2020-05-06 11:33] VITALS: BP 115/71
--- NOTE | 2020-05-06 11:42 | PDOC ---
[employer] [facility] PROGRESS NOTE Date of Service DOS: DATE: 05/06/20 TIME: 11:40 Chief Complaint Chief Complaint Acute metabolic encephalopathy ROD Acute Respiratory failure with hypoxia Chronic severe psychiatric issues COVID-19 Septic shock Depression Diabetes Hypertension Hyperlipidemia Hypothyroidism Schizophrenia Severe protein calorie malnutrition History of Present Illness History of Present Illness 05/06/2020 Patient seen and examined on the COVID-19 for He appears calm today but then after I left the room he started yelling out for the nurse Discussed with RN Discussed case management Chart reviewed Mr Acevedo is a 54-year-old male w/ PMHx DM2, HTN, HLD, Hypothyroidism, schizophrenia who is a long-term resident of [facility] who was brought to the ER via EMS for lethargy and low blood pressure. He was admitted on 04/07/2020 with altered mental status and shortness of breath. He was tested positive for COVID 19 and treated with steroids and remdesivir, completed a course and was discharged 04/16/2020 but returned 04/16- 04/23 for HCAP symptoms. Chest radiograph with bilateral interstitial changes consistent with COVID-19 and new left upper lobe infiltrate. Labs significant for WBC 13.3, Hb 12.1, platelets 211, NA 136, K4.7, BUN 32, CR 1.8, glucose 165. Blood pressure systolic in the 60s. Given 3 L normal saline with no significant response in blood pressure right IJ central venous catheter was placed and initiated on Levophed and empiric antibiotics and admitted to the ICU for further treatment. 04/30: Afebrile. Blood pressure 116 systolic with vasopressor support. No chest pain. Mild shortness of breath. No significant cough. No diarrhea. He is still confused. Afebrile still little short of breath. Off Levophed almost, 2 days, Cough is improved no diarrhea. 05/02, doing better, still weakness, recovering OK from cough and hypoxia and COVID illness, 05/03/2020 No acute events overnight. Patient is working with PT OT before returning back to nursing facility. Family also is concerned for his high risk for readmissions. Patient saturating 91% on room air. Patient's chart, labs, images were reviewed and discussed with RN 05/04/2020 No acute events overnight. Patient had a bowel movement last night of loose stool. Patient is saturating 91% on 2 L nasal cannula. Patient's chart, labs, images were reviewed and discussed with RN 05/05/2020 Afebrile, no acute events overnight. Patient currently. 2 L of nasal cannula, saturating 97%. Due to concern over frequent readmissions, would like patient to be evaluated by PT prior to discharge back to [place] [facility] and rehab. Continue treatment with steroids, antibiotics, supportive care. Vitals/I&O Vitals/I&O: Vital Signs Date Time Temp Pulse Resp B/P (MAP) Pulse Ox O2 Delivery O2 Flow Rate FiO2 05/06/20 11:33 97.0 113 18 115/71 (86) 92 Nasal Cannula 2.0 97.0 I & O 05/05/20 05/05/20 05/06/20 15:00 23:00 07:00 Intake Total 400 ml 700 ml 300 ml Output Total 1 ml 550 ml Balance 400 ml 699 ml -250 ml Physical Exam General: Alert, Oriented X3, Cooperative, mild distress, Other (lethargic, confused, ) Heart: Normal S1 Lungs: Crackles, Other (diminished, no wheeze, ) Abdomen: Soft Extremities: No edema, Normal pulses Skin: No rashes Labs Labs: Laboratory Tests Test 05/05/20 16:40 05/05/20 20:29 05/06/20 07:57 Glucose (Fingerstick) 157 mg/dL (70-99) 232 mg/dL (70-99) 109 mg/dL (70-99) Assessment and Plan Assessmemt and Plan Problems Medical Problems: (1) Respiratory failure Status: Acute (2) Septic shock Status: Acute Acute metabolic encephalopathy - from hypoxia likely metabolic, will monitor now with O2 levels improving ROD - vasomotor nephropathy, will monitor renal function after fluid resuscitation Acute Respiratory failure with hypoxia - COVID 19 and likely HCAP related. COVID-19 - still with O2 needs Septic shock - related to COVID 19 and HCAP Depression - cont home meds Diabetes - sliding scale Hypertension - hold meds for low BP Hyperlipidemia - cont statin Hypothyroidism - cont levothyroxine Schizophrenia - cont clozaril, monitor CBC Severe protein calorie malnutrition - accessioner to see, will start PPN Chronic severe psychiatric Comment Review of Relevant I have reviewed the following items franchesca (where applicable) has been applied. Justifications for Admission Other Justification FORTINO LUNA III DO May 06, 2020 11:41
[2020-05-06 15:01] VITALS: BP 112/79
--- NOTE | 2020-05-06 16:40 | NUR ---
Pt COVID recovered and removed from isolation. Pt transferred from room 648 to room 519 by wheelchair. Report given to PHILIP Dotson. POC reviewed.
--- NOTE | 2020-05-06 17:09 | NUR ---
Have received patient to room 519. No family with patient at this time. Patient oriented to room unit. Pt requested and received a cup of pudding, dinner to be here soon.
[2020-05-06 19:00] VITALS: BP 93/58
[2020-05-06] MEDS: LEVOTHYROXINE 100 MCG TABLET PO SCH (21:39)
[2020-05-06] MEDS: ATORVASTATIN CALCIUM 40 MG TABLET. PO SCH (21:39)
[2020-05-06] MEDS: FAMOTIDINE 20 MG TABLET. PO SCH (21:39)
[2020-05-06 23:25] VITALS: BP 114/61
[2020-05-07 03:07] VITALS: BP 95/54
[2020-05-07 08:00] VITALS: BP 100/68
[2020-05-07] MEDS: INSULIN LISPRO 300 UNITS/3 ML VIAL. SQ SCH ×3 (08:00→17:00)
--- NOTE | 2020-05-07 10:04 | PDOC ---
[employer] [facility] PROGRESS NOTE Date of Service DOS: DATE: 05/07/20 TIME: 10:01 Chief Complaint Chief Complaint Acute metabolic encephalopathy ROD Acute Respiratory failure with hypoxia Chronic severe psychiatric issues COVID-19 Septic shock Depression Diabetes Hypertension Hyperlipidemia Hypothyroidism Schizophrenia Severe protein calorie malnutrition History of Present Illness History of Present Illness 05/07/2020 Patient seen and examined Patient resting comfortably Discussed with RN Discussed with case planner Charts reviewed 05/06/2020 Patient seen and examined on the COVID-19 for He appears calm today but then after I left the room he started yelling out for the nurse Discussed with RN Discussed case management Chart reviewed Mr Acevedo is a 54-year-old male w/ PMHx DM2, HTN, HLD, Hypothyroidism, schizophrenia who is a long-term resident of [facility] who was brought to the ER via EMS for lethargy and low blood pressure. He was admitted on 04/07/2020 with altered mental status and shortness of breath. He was tested positive for COVID 19 and treated with steroids and remdesivir, completed a course and was discharged 04/16/2020 but returned 04/16- 04/23 for HCAP symptoms. Chest radiograph with bilateral interstitial changes consistent with COVID-19 and new left upper lobe infiltrate. Labs significant for WBC 13.3, Hb 12.1, platelets 211, NA 136, K4.7, BUN 32, CR 1.8, glucose 165. Blood pressure systolic in the 60s. Given 3 L normal saline with no significant response in blood pressure right IJ central venous catheter was placed and initiated on Levophed and empiric antibiotics and admitted to the ICU for further treatment. 04/30: Afebrile. Blood pressure 116 systolic with vasopressor support. No chest pain. Mild shortness of breath. No significant cough. No diarrhea. He is still confused. Afebrile still little short of breath. Off Levophed almost, 2 days, Cough is improved no diarrhea. 05/02, doing better, still weakness, recovering OK from cough and hypoxia and COVID illness, 05/03/2020 No acute events overnight. Patient is working with PT OT before returning back to nursing facility. Family also is concerned for his high risk for readmissions. Patient saturating 91% on room air. Patient's chart, labs, images were reviewed and discussed with RN 05/04/2020 No acute events overnight. Patient had a bowel movement last night of loose stool. Patient is saturating 91% on 2 L nasal cannula. Patient's chart, labs, images were reviewed and discussed with RN 05/05/2020 Afebrile, no acute events overnight. Patient currently. 2 L of nasal cannula, saturating 97%. Due to concern over frequent readmissions, would like patient to be evaluated by PT prior to discharge back to [facility] and rehab. Continue treatment with steroids, antibiotics, supportive care. Vitals/I&O Vitals/I&O: Vital Signs Date Time Temp Pulse Resp B/P (MAP) Pulse Ox O2 Delivery O2 Flow Rate FiO2 05/07/20 03:07 97.8 91 18 95/54 (68) 95 Nasal Cannula 2.0 97.8 I & O 05/06/20 05/06/20 05/07/20 15:00 23:00 07:00 Intake Total 360 ml Output Total 50 ml 500 ml Balance -50 ml -140 ml Physical Exam General: Alert, Oriented X3, Cooperative, mild distress, Other (lethargic, confused, ) Heart: Normal S1 Lungs: Crackles, Other (diminished, no wheeze, ) Abdomen: Soft Extremities: No edema, Normal pulses Skin: No rashes Labs Labs: Laboratory Tests Test 05/06/20 11:24 05/06/20 17:09 05/06/20 20:25 05/07/20 08:33 Glucose (Fingerstick) 167 mg/dL (70-99) 196 mg/dL (70-99) 212 mg/dL (70-99) 141 mg/dL (70-99) Assessment and Plan Assessmemt and Plan Problems Medical Problems: (1) Respiratory failure Status: Acute (2) Septic shock Status: Acute ASSESSMENT Acute metabolic encephalopathy ROD Acute Respiratory failure with hypoxia Chronic severe psychiatric issues COVID-19 Septic shock Depression Diabetes Hypertension Hyperlipidemia Hypothyroidism Schizophrenia Severe protein calorie malnutrition PLAN Discharge disposition LTC Continue home medications DVT ppx Trend labs Full code Comment Review of Relevant I have reviewed the following items franchesca (where applicable) has been applied. Justifications for Admission Other Justification FORTINO LUNA III DO May 07, 2020 10:04
[2020-05-07] MEDS: GABAPENTIN 300 MG CAPSULE. PO SCH ×2 (10:20→17:22)
[2020-05-07] MEDS: predniSONE 20 MG TABLET PO SCH (10:21)
[2020-05-07] MEDS: LACTOBACILLUS RHAMNOSUS GG 1 CAPSULE. PO SCH (10:22)
[2020-05-07] MEDS: cloZAPine 100 MG TABLET PO SCH ×2 (10:22→11:30)
[2020-05-07] MEDS: DIVALPROEX EXTENDED RELEASE 500 MG TAB.ER.24H. PO SCH (10:22)
[2020-05-07] MEDS: AZITHROMYCIN 250 MG TABLET. PO SCH (10:23)
[2020-05-07] MEDS: ENOXAPARIN 40 MG/0.4 ML SYRINGE. SQ SCH (10:23)
[2020-05-07] MEDS: INSULIN GLARGINE SYRINGE. SQ SCH (10:41)
[2020-05-07 11:00] VITALS: BP 137/96
[2020-05-07 12:27] LABS: BASO % 0 % (0-3); EOS # 0.1 x10^3/uL (0.0-0.7); EOS % 1 % (0-3); HEMATOCRIT 32.6 % (39.0-53.0); LYMPH # 1.7 x10^3/uL (1.0-4.8); LYMPH % 19 % (24-48); MEAN CORPUSCULAR HEMOGLOBIN 30 pg (25-35); MEAN CORPUSCULAR HGB CONC 34 g/dL (31-37); MEAN CORPUSCULAR VOLUME 90 fL (79-100); MONO # 0.5 x10^3/uL (0.0-1.1); MONO % 5 % (0-9); NEUT # 6.3 x10^3/uL (1.8-7.7); NEUT % 74 % (31-73); PLATELET COUNT 281 x10^3/uL (140-400); RED BLOOD COUNT 3.61 x10^6/uL (4.30-5.70); RED CELL DISTRIBUTION WIDTH 16.3 % (11.5-14.5); WHITE BLOOD COUNT 8.6 x10^3/uL (4.0-11.0)
[2020-05-07 12:38] LABS: CREATININE 0.9 mg/dL (0.7-1.3)
[2020-05-07 14:57] VITALS: BP 100/76
--- NOTE | 2020-05-08 09:02 | DS ---
DATE OF DISCHARGE: 05/07/2020 ADMISSION DIAGNOSES: Sepsis and COVID-19. DISCHARGE DIAGNOSES: Resolving sepsis, resolving COVID-19, acute kidney injury, chronic psychiatric issues, depression, diabetes, hypertension, hyperlipidemia, hypothyroidism, schizophrenia, severe protein-calorie malnutrition. CONSULTS: Dr. Rm. PROCEDURES: None. HOSPITAL COURSE: The patient is a pleasant middle-aged male, who has a lot of psychiatric issues. He has been admitted a couple times in the past month with COVID-19. Once again, he presented with sepsis. At this time, we gave him IV antibiotics and fluids. We consulted Dr. Rm, did his home meds, PT/OT and over the next few days, he returned to his baseline and we discharged back to [facility]. ACTIVITY: As tolerated. DIET: Low sodium. MEDICATIONS: Please see the MRAD. TOTAL TIME: 34 minutes. NIAL David LUNA DO DR: PEGGY/michel JOB#: [id number] / [id number]
== END 2020-05-07 19:00 | DRG 871 ==
LOC: ER 18:20 → ED HOLD 20:51 → 1 WEST ICU 04-30 00:06 → 6 SOUTH 05-01 14:06 → 5 NORTH 05-06 17:08
PROVIDERS: ADMIT Internal Medicine; ATTEND Internal Medicine
PROC: 02HV33Z Insertion of Infusion Device into Superior Vena Cava, Percutaneous Approach (ICD-10-PCS; principal; 2020-04-29)
PROC: B548ZZA Ultrasonography of Superior Vena Cava, Guidance (ICD-10-PCS; 2020-04-29)
DX: A41.89 Other specified sepsis (principal); J96.01 Acute respiratory failure with hypoxia; G93.41 Metabolic encephalopathy; E43 Unspecified severe protein-calorie malnutrition; N17.0 Acute kidney failure with tubular necrosis; R65.21 Severe sepsis with septic shock; J12.89 Other viral pneumonia; U07.1 COVID-19; E03.9 Hypothyroidism, unspecified; E11.9 Type 2 diabetes mellitus without complications; E78.00 Pure hypercholesterolemia, unspecified; E78.5 Hyperlipidemia, unspecified; F20.9 Schizophrenia, unspecified; F32.9 Major depressive disorder, single episode, unspecified; I10 Essential (primary) hypertension; K21.9 Gastro-esophageal reflux disease without esophagitis; Z68.28 Body mass index [BMI] 28.0-28.9, adult
CPT/HCPCS: 36415; 36556; 71045; 80048; 80053; 82962; 83605; 83735; 83880; 84145; 84484; 85007; 85025; 87040; 93005; 96361; 96365; 96375; J0456; J1650; J1815; J2920; J3490; J7030; J7060; J7512; 97110-GO; 97530-GO; 97530-GP; 99291-25; G0378

== ENCOUNTER 2020-05-09 20:00 | Inpatient (IN) | payer MEDICARE, MEDICAID ==
[~2020-05-09] VITALS: Ht 172.7 cm; Wt 89.0 kg
[~2020-05-09 20:00] MED LIST changes: +AZIT250T6 PO; +PRED-220 PO
--- NOTE | 2020-05-09 20:18 | PHYS DOC ---
Past Medical History Past Medical History: Constipation, Depression, Diabetes-Type II, GERD, High Cholesterol, Hypothyroid, Schizophrenia, Other Additional Past Medical Histor: covid 19; insomnia Past Surgical History: Other Additional Past Surgical Histo: UNABLE TO ASSESS Smoking Status: Unknown if ever smoked Alcohol Use: None Drug Use: None General Adult EDM: Chief Complaint: SYNCOPE HPI: HPI: 55-year-old male presents via EMS from [facility] with report of syncopal episode after standing up from wheelchair at [facility] in which he ended up falling to the floor striking his head. Patient noted to have low blood pressure in the 60s over 40s. Patient recently admitted to [facility] and discharged yesterday after treatment for sepsis. Patient did receive a negative COVID-19 test during admission. Patient denies significant pain. Patient denies neck pain. Denies chest pain. Review of Systems: Review of Systems: Constitutional: Denies fever or chills Eyes: Denies redness or eye pain HENT: Denies nasal congestion or epistaxis Respiratory: Denies cough or shortness of breath Cardiovascular: Denies chest pain or palpitations GI: Denies abdominal pain, nausea, or vomiting : Denies dysuria or hematuria Musculoskeletal: Denies back pain or neck pain Integument: Denies rash or skin lesions Neurologic: Reports headache and syncopal episode; denies focal weakness or sensory changes Complete systems were reviewed and found to be within normal limits, except as documented in this note. Current Medications: Current Medications Medications (Trade) Dose Ordered Sig/Ambrose Start Time Stop Time Status Last Admin Dose Admin Sodium Chloride 1,000 ml @ 1,000 mls/hr 1X ONCE 05/09/20 20:15 05/09/20 21:14 UNV Allergies: Allergies: Allergies Coded Allergies Type Severity Reaction Last Updated Verified No Known Drug Allergies 04/08/20 No Physical Exam: PE: Constitutional: Well developed, well nourished, appears older than age, no acute distress, ill but non-toxic appearance HENT: Normocephalic, atraumatic Eyes: PERRL, EOMI, conjunctiva normal, no discharge, no nystagmus Neck: Normal range of motion, no midline tenderness, supple Lungs & Thorax: No respiratory distress, equal chest rise and fall Abdomen: Soft, no tenderness no guarding/rebound tenderness/distention Skin: Warm, dry, no erythema, no rash Extremities: No tenderness, ROM intact, no edema Neurologic: Alert and oriented X 3, no focal deficits noted Psychologic: Affect normal, judgment normal EKG: EKG: @2008 Sinus tachycardia at 108bpm, NO ST elevation, QRS 84ms, QT/QTc 332/449ms, Q wave in III and aVF. Radiology/Procedures: Radiology/Procedures: PROCEDURE: PORTABLE CHEST 1V EXAM: AP View of the chest DATE: 05/09/2020 8:31 PM INDICATION: Reason: syncope / Spl. Instructions: / History: COMPARISON: 04/29/2020 FINDINGS/ IMPRESSION: Cardiomediastinal silhouette is stable. Background of mild interstitial promine nce. Improved aeration of the lungs bilaterally. Small left pleural effusion. No definite pneumothorax. Electronically signed by: Juan Manuel Trejo MD (05/09/2020 8:39 PM) [facility] PROCEDURE: CT HEAD AND CERVICAL SPINE WO Exam: CT head and cervical spine without contrast INDICATION: Syncope TECHNIQUE: Sequential axial images through the head and cervical spine were obtained without the administration of IV contrast. Comparisons: None FINDINGS: Head: No focal parenchymal lesion or hemorrhage is identified. There is no midline shift or sulcal effacement. No acute vascular territory infarction is identified. Polo-white distinction is preserved. The ventricular system is within normal limits without compression hydrocephalus. The basal cisterns are well maintained. The visualized portions of the paranasal sinuses and mastoid air cells are well- pneumatized. No acute fractures. Cervical spine: Vertebral body heights and alignment are well-maintained. Fracture to the cervical spine is not identified. Visualized paraspinal soft tissues are unremarkable. No significant spondylotic change identified in the cervical spine. IMPRESSION: 1. No acute intracranial abnormality. 2. Negative CT C-spine for acute traumatic injury. Exposure: One or more of the following in the visualized dose reduction techniques were utilized for this examination: 1. Automated exposure control 2. Adjustment of the MA and/or KV according to patient size Use of iterative of reconstructive technique Electronically signed by: Mart Quick MD (05/09/2020 8:41 PM) [facility] Course & Med Decision Making: Course & Med Decision Making Pertinent Labs and Imaging studies reviewed. (See chart for details) Patient presents via EMS with report of syncopal episode which appears secondary to hypotension. Patient recently admitted to the hospital and released yesterda y after being treated for sepsis. CT head/cervical spine without acute process. Labs obtained and posted to chart. Hypomagnesemia addressed. Patient met SIRS criteria upon arrival with tachycardia and elevated WBC. Lactic acid greater than 2. IV fluid bolus provided for sepsis based on ideal body weight. Blood pressure with interval improvement. Empiric antibiotic initiated. Chest x-ray clear. UA pending. Patient requiring admission for further evaluation and treatment. Discussed with Dr. Blake (hospitalist) who is in agreement with admission. Discussed findings and plan with patient, who acknowledges understanding and agreement. Dragon Disclaimer: Dragon Disclaimer: This electronic medical record was generated, in whole or in part, using a voice recognition dictation system. Departure Departure Impression: Primary Impression: Sepsis Qualified Codes: A41.9 - Sepsis, unspecified organism; R65.20 - Severe sepsis without septic shock Additional Impressions: Syncope Qualified Codes: R55 - Syncope and collapse Hypotension Qualified Codes: I95.9 - Hypotension, unspecified Hypomagnesemia Disposition: ADMITTED INPT THIS HOSP Admitting Physician: SG Corado) Condition: GUARDED Referrals: UNKNOWN PCP NAME (PCP) Critical Care Time Critical care time was 30 minutes which includes time at bedside, spent in discussion of patient's care with specialists and/or family members, with interpretation of laboratory and/or radiological studies and is exclusive of procedures. Date and Time of Reassessment Date: May 09, 2020 Time: 22:05 Fluid Challenge Is the fluid challenge complet: No IBW Target Volume Used: Yes BMI > 30: Yes Vital Signs Vital Signs: Vital Signs Date Time Temp Pulse Resp B/P (MAP) Pulse Ox O2 Delivery O2 Flow Rate FiO2 05/09/20 20:05 98.3 108 20 65/53 (57) 96 Room Air 98.3 Temperature Source: Oral Respirations Respiratory Effort: Normal Respiratory Pattern: Normal Cardiovascular Pulse Rhythm: Irregular (Tachycardia) Heart: S1 and S2 normal Lung Sounds Breath Sounds: Clear Capillary Refil Capillary Refill: Rt Hand < 3 seconds Peripheral Pulse Pulse Location: Radial Pulse Strength: Normal (2+) Pulse Assessment Method: Palpation Integumentary Skin: Warm, Dry Skin Moisture: Dry Skin Turgor: Normal Skin Color: warm, dry Fingernail Color: WNL AISHWARYA TOURE DO May 09, 2020 20:18
[2020-05-09 20:26] LABS: BASO # 0.1 x10^3/uL (0.0-0.2); BASO % 1 % (0-3); EOS % 0 % (0-3); HEMATOCRIT 31.8 % (39.0-53.0); LYMPH # 1.4 x10^3/uL (1.0-4.8); LYMPH % 11 % (24-48); MEAN CORPUSCULAR HEMOGLOBIN 31 pg (25-35); MEAN CORPUSCULAR HGB CONC 34 g/dL (31-37); MEAN CORPUSCULAR VOLUME 91 fL (79-100); MONO # 0.5 x10^3/uL (0.0-1.1); MONO % 4 % (0-9); NEUT # 10.3 x10^3/uL (1.8-7.7); NEUT % 84 % (31-73); PLATELET COUNT 272 x10^3/uL (140-400); RED BLOOD COUNT 3.51 x10^6/uL (4.30-5.70); WHITE BLOOD COUNT 12.3 x10^3/uL (4.0-11.0)
[2020-05-09] MEDS ORDERED: IV NORMAL SALINE 1000ML BAG 1,000 ML IV ONE ×3 (20:30→22:00)
[2020-05-09 20:36] LABS: CALCIUM 8.6 mg/dL (8.5-10.1); CREATININE 1.4 mg/dL (0.7-1.3); GFR 52.2; POTASSIUM 4.1 mmol/L (3.5-5.1)
[2020-05-09 20:41] LABS: ALBUMIN 2.4 g/dL (3.4-5.0); ALBUMIN/GLOBULIN RATIO 0.7 (1.0-1.7); MAGNESIUM 1.6 mg/dL (1.8-2.4); TOTAL BILIRUBIN 0.4 mg/dL (0.2-1.0); TOTAL PROTEIN 5.7 g/dL (6.4-8.2)
--- NOTE | 2020-05-09 20:42 | RAD ---
EXAM: AP View of the chest DATE: 05/09/2020 8:31 PM INDICATION: Reason: syncope / Spl. Instructions: / History: COMPARISON: 04/29/2020 FINDINGS/ IMPRESSION: Cardiomediastinal silhouette is stable. Background of mild interstitial prominence. Improved aeration of the lungs bilaterally. Small left pleural effusion. No definite pneumothorax. Electronically signed by: Juan Manuel Trejo MD (05/09/2020 8:39 PM) [facility]
--- NOTE | 2020-05-09 20:44 | RAD ---
Exam: CT head and cervical spine without contrast INDICATION: Syncope TECHNIQUE: Sequential axial images through the head and cervical spine were obtained without the admi nistration of IV contrast. Comparisons: None FINDINGS: Head: No focal parenchymal lesion or hemorrhage is identified. There is no midline shift or sulcal effaceme nt. No acute vascular territory infarction is identified. Polo-white distinction is preserved. The ventricular system is within normal limits without compression hydrocephalus. The basal cisterns are well maintained. The visualized portions of the paranasal sinuses and mastoid air cells are well-pneumatized. No acute fractures. Cervical spine: Vertebral body heights and alignment are well-maintained. Fracture to the cervical spine is not identified. Visualized paraspinal soft tissues are unremarkable. No significant spondylotic change identified in the cervical spine. IMPRESSION: 1. No acute intracranial abnormality. 2. Negative CT C-spine for acute traumatic injury. Exposure: One or more of the following in the visualized dose reduction techniques were utilized for this examination: 1. Automated exposure control 2. Adjustment of the MA and/or KV according to patient size Use of iterative of reconstructive technique Electronically signed by: Mart Quick MD (05/09/2020 8:41 PM) [facility]
[2020-05-09 20:53] LABS: CREATINE KINASE 26 U/L (39-308)
[2020-05-09] MEDS ORDERED: ONDANSETRON PF 4 MG/2 ML VIAL. IV PRN (21:15)
[2020-05-09] MEDS ORDERED: DEXTROSE 50% 25 GM / 50ML DISP.SYRIN. IV PRN (21:15)
[2020-05-09 21:24] LABS: VAL ACID 62 mcg/mL (50-100)
[2020-05-09] MEDS ORDERED: PIPERACILLIN/TAZOBACTAM 4.5 GM in IV NORMAL SALINE 100ML 100 ML IV ONE (22:00)
[2020-05-09] MEDS ORDERED: MAGNESIUM SULFATE 2GM 50 ML IV ONE (22:00)
[2020-05-09 22:30] VITALS: BP 95/66
[2020-05-09 23:35] VITALS: BP 82/60
[2020-05-10] VITALS (7 sets, daily range): BP systolic 85–120; BP diastolic 57–73
[2020-05-10] MEDS: INSULIN LISPRO 300 UNITS/3 ML VIAL. SQ SCH ×3 (08:00→16:22)
[2020-05-10] MEDS ORDERED: ACETAMINOPHEN 325 MG TABLET. PO PRN ×3 (08:30→12:45)
--- NOTE | 2020-05-10 10:31 | PDOC1 ---
History and Physical Date of Admission Date of Admission DATE: 05/10/20 TIME: 10:30 Identification/Chief Complaint Chief Complaint seen in er with syncopal event presented via EMS from [facility] with report of syncopal episode after standing up from wheelchair at [facility] //falling to the floor striking his head. noted to have low blood pressure in the 60s over 40s. ===== recently admitted to [facility] and discharged 12-30 after treatment for sepsis. had a negative COVID-19 test during admission. denies significant pain., denies neck pain. , Denies chest pain. Past Medical History Past Medical History Past Medical History Past Medical History Past Medical History: Constipation, Depression, Diabetes-Type II, GERD, High Cholesterol, Hypothyroid, Schizophrenia, Other Additional Past Medical Histor: covid 19; insomnia Past Surgical History: Other Additional Past Surgical Histo: UNABLE TO ASSESS Smoking Status: Unknown if ever smoked Alcohol Use: None Drug Use: None fhx htn Source Source: Chart review, Patient History of Present Illness History of Present Illness Mr. Acevedo, is a 55 year old male who was sent here from [facility] due to altered mental status. Patient was found by [facility] staff very lethargic, they could not measure his blood pressure. he was hospitalized her from 04/17 to 04/13 with confusion and hypoxia and mult problems related to COVID marked hypotension in ER, resuscitatated, central line placed, discussed wt Dr. Mckinney Patient was admitted here on April 07, 2020 due to altered mental status. Past Medical History Past Medical History schizophrenia Cardiovascular: HTN, Hyperlipidemia Psych: Schizophrenia Endocrine: Diabetes, Hypothyroidism Past Surgical History Past Surgical History: No pertinent history Family History Family History: Family History Unknown Social History Smoke: No ALCOHOL: none Drugs: None Cardiovascular: HTN, Hyperlipidemia Psych: Schizophrenia Musculoskeletal: Osteoarthritis, Weakness Endocrine: Diabetes, Hypothyroidism Past Surgical History Past Surgical History: No pertinent history Family History Family History: Hypertension, Family History Unknown Social History Smoke: No ALCOHOL: none Drugs: None Current Problem List Problem List Problems Medical Problems: (1) Hypomagnesemia Status: Acute (2) Hypotension Status: Acute (3) Sepsis Status: Acute (4) Syncope Status: Acute Current Medications Current Medications Current Medications Sodium Chloride 1,000 ml @ 1,000 mls/hr 1X ONCE IV Last administered on 05/09/20at 20:58; Start 05/09/20 at 20:30; Stop 05/09/20 at 21:29; Status DC Piperacillin Sod/ Tazobactam Sod 4.5 gm/Sodium Chloride 100 ml @ 200 mls/hr 1X ONCE IV Last administered on 05/09/20at 23:04; Start 05/09/20 at 22:00; Stop 05/09/20 at 22:29; Status DC Sodium Chloride 1,000 ml @ 1,000 mls/hr 1X ONCE IV Last administered on 05/09/20at 22:27; Start 05/09/20 at 22:00; Stop 05/09/20 at 22:59; Status DC Ondansetron HCl (Zofran) 4 mg PRN Q8HRS PRN IV NAUSEA/VOMITING 1ST CHOICE; Start 05/09/20 at 21:15; Stop 05/10/20 at 21:14 Sodium Chloride 1,000 ml @ 125 mls/hr 1X ONCE IV Last administered on 05/09/20at 23:04; Start 05/09/20 at 21:30; Stop 05/10/20 at 05:29; Status DC Magnesium Sulfate 50 ml @ 25 mls/hr 1X ONCE IV Last administered on 05/09/20at 23:29; Start 05/09/20 at 22:00; Stop 05/09/20 at 23:59; Status DC Insulin Human Lispro (HumaLOG) 0-5 UNITS TIDWMEALS SQ ; Start 05/10/20 at 08:00 Dextrose (Dextrose 50%-Water Syringe) 12.5 gm PRN Q15MIN PRN IV SEE COMMENTS; Start 05/09/20 at 21:15 Acetaminophen (Tylenol) 650 mg PRN Q6HRS PRN PO MILD PAIN / TEMP > 100.3'F Last administered on 05/10/20at 08:45; Start 05/10/20 at 08:30 Active Scripts Active Prednisone (Prednisone) 10 Mg Tablet 10 Mg PO UD Take 4 tablets by mouth daily for 4 days, then take 3 tablets by mouth daily for 2 days, then take 2 tablets by mouth daily for 2 days, then take 1 tablets by mouth daily for 2 days, then stop. Azithromycin Tablet (Azithromycin) 250 Mg Tablet 250 Mg PO DAILY Reported Acetaminophen 325 Mg Tablet 2 Tab PO PRN Q6HRS PRN 24 Days Pioglitazone Hcl 30 Mg Tablet 30 Mg PO DAILY Nicotine Gum (Nicotine Polacrilex) 2 Mg Gum 2 Mg BC PRN PRN Neurontin (Gabapentin) 300 Mg Capsule 300 Mg PO TID Gelusil 200-200-25 mg Chew Tab (Mag Hydrox/Aluminum Hyd/Simeth) 1 Each Tab.chew 1 Each PO PRN Q4HRS PRN Miralax (Polyethylene Glycol 3350) 17 Gm Powd.pack 1 Pkt PO PRN DAILY PRN Milk Of Magnesia (Magnesium Hydroxide) 2,400 Mg/10 Ml Oral.susp 2,400 Mg PO PRN Q8HRS PRN Metoprolol Tartrate 25 Mg Tablet 12.5 Mg PO BID Metformin Hcl 1,000 Mg Tablet 1,000 Mg PO BIDWMEALS Lisinopril 2.5 Mg Tablet 2.5 Mg PO DAILY Levothyroxine Sodium 100 Mcg Tablet 100 Mcg PO HS Januvia (Sitagliptin Phosphate) 100 Mg Tablet 100 Mg PO DAILY Famotidine 20 Mg Tablet 20 Mg PO HS Depakote Er (Divalproex Sodium) 500 Mg Tab.er.24h 1,500 Mg PO DAILY Clozaril (Clozapine) 100 Mg Tablet 100 Mg PO BIDACBL Clozapine 100 Mg Tablet 300 Mg PO HS Atorvastatin Calcium 40 Mg Tablet 80 Mg PO HS Allergies Allergies: Coded Allergies: No Known Drug Allergies (Unverified , 04/08/20) ROS Review of System Constitutional: Denies fever or chills Eyes: Denies redness or eye pain HENT: Denies nasal congestion or epistaxis Respiratory: Denies cough or shortness of breath Cardiovascular: Denies chest pain or palpitations GI: Denies abdominal pain, nausea, or vomiting : Denies dysuria or hematuria Musculoskeletal: Denies back pain or neck pain Integument: Denies rash or skin lesions Neurologic: Reports headache and syncopal episode; denies focal weakness or sensory changes 14 pt systems were reviewed and found to be within normal limits, except as documented Musculoskeletal: Yes Gait Disturbance Physical Exam Physical Exam Constitutional: Well developed, well nourished, appears older than age, no acute distress, ill but non-toxic appearance HENT: Normocephalic, atraumatic Eyes: PERRL, EOMI, conjunctiva normal, no discharge, no nystagmus Neck: Normal range of motion, no midline tenderness, supple Lungs & Thorax: No respiratory distress, equal chest rise and fall Abdomen: Soft, no tenderness no guarding/rebound tenderness/distention Skin: Warm, dry, no erythema, no rash Extremities: No tenderness, ROM intact, no edema Neurologic: Alert and oriented X 3, no focal deficits noted General: Cooperative, No acute distress HEENT: Atraumatic Breasts: Not examined Rectal Exam: not examined PELVIC: Examination not indicated Extremities: No cyanosis Neuro: Sensation intact Vitals Vitals Vital Signs Date Time Temp Pulse Resp B/P (MAP) Pulse Ox O2 Delivery O2 Flow Rate FiO2 05/10/20 08:00 Nasal Cannula 2.0 05/10/20 07:12 99.6 102 20 92/61 (71) 95 99.6 Labs Labs Laboratory Tests Test 05/09/20 20:00 05/10/20 00:05 05/10/20 05:00 05/10/20 08:13 White Blood Count 12.3 x10^3/uL (4.0-11.0) Red Blood Count 3.51 x10^6/uL (4.30-5.70) Hemoglobin 11.0 g/dL (13.0-17.5) Hematocrit 31.8 % (39.0-53.0) Mean Corpuscular Volume 91 fL (79-100) Mean Corpuscular Hemoglobin 31 pg (25-35) Mean Corpuscular Hemoglobin Concent 34 g/dL (31-37) Red Cell Distribution Width 17.0 % (11.5-14.5) Platelet Count 272 x10^3/uL (140-400) Neutrophils (%) (Auto) 84 % (31-73) Lymphocytes (%) (Auto) 11 % (24-48) Monocytes (%) (Auto) 4 % (0-9) Eosinophils (%) (Auto) 0 % (0-3) Basophils (%) (Auto) 1 % (0-3) Neutrophils # (Auto) 10.3 x10^3/uL (1.8-7.7) Lymphocytes # (Auto) 1.4 x10^3/uL (1.0-4.8) Monocytes # (Auto) 0.5 x10^3/uL (0.0-1.1) Eosinophils # (Auto) 0.0 x10^3/uL (0.0-0.7) Basophils # (Auto) 0.1 x10^3/uL (0.0-0.2) Sodium Level 139 mmol/L (136-145) Potassium Level 4.1 mmol/L (3.5-5.1) Chloride Level 105 mmol/L (98-107) Carbon Dioxide Level 26 mmol/L (21-32) Anion Gap 8 (6-14) Blood Urea Nitrogen 20 mg/dL (8-26) Creatinine 1.4 mg/dL (0.7-1.3) Estimated GFR (Cockcroft-Gault) 52.2 BUN/Creatinine Ratio 14 (6-20) Glucose Level 198 mg/dL (70-99) Lactic Acid Level 2.4 mmol/L (0.4-2.0) 1.4 mmol/L (0.4-2.0) Calcium Level 8.6 mg/dL (8.5-10.1) Magnesium Level 1.6 mg/dL (1.8-2.4) Total Bilirubin 0.4 mg/dL (0.2-1.0) Aspartate Amino Transf (AST/SGOT) 16 U/L (15-37) Alanine Aminotransferase (ALT/SGPT) 34 U/L (16-63) Alkaline Phosphatase 66 U/L (46-116) Creatine Kinase 26 U/L (39-308) Creatine Kinase MB (Mass) < 0.5 ng/mL (0.0-3.6) Creatine Kinase MB Relative Index % (0-4) Troponin I Quantitative < 0.017 ng/mL (0.000-0.055) < 0.017 ng/mL (0.000-0.055) < 0.017 ng/mL (0.000-0.055) Total Protein 5.7 g/dL (6.4-8.2) Albumin 2.4 g/dL (3.4-5.0) Albumin/Globulin Ratio 0.7 (1.0-1.7) Valproic Acid (Depakene) Level 62 mcg/mL (50-100) Valproic Acid Last Dose Date 05/09/20 Valproic Acid Last Dose Time 0900 Glucose (Fingerstick) 137 mg/dL (70-99) Laboratory Tests Test 05/09/20 20:00 05/10/20 00:05 05/10/20 05:00 05/10/20 08:13 White Blood Count 12.3 x10^3/uL (4.0-11.0) Red Blood Count 3.51 x10^6/uL (4.30-5.70) Hemoglobin 11.0 g/dL (13.0-17.5) Hematocrit 31.8 % (39.0-53.0) Mean Corpuscular Volume 91 fL (79-100) Mean Corpuscular Hemoglobin 31 pg (25-35) Mean Corpuscular Hemoglobin Concent 34 g/dL (31-37) Red Cell Distribution Width 17.0 % (11.5-14.5) Platelet Count 272 x10^3/uL (140-400) Neutrophils (%) (Auto) 84 % (31-73) Lymphocytes (%) (Auto) 11 % (24-48) Monocytes (%) (Auto) 4 % (0-9) Eosinophils (%) (Auto) 0 % (0-3) Basophils (%) (Auto) 1 % (0-3) Neutrophils # (Auto) 10.3 x10^3/uL (1.8-7.7) Lymphocytes # (Auto) 1.4 x10^3/uL (1.0-4.8) Monocytes # (Auto) 0.5 x10^3/uL (0.0-1.1) Eosinophils # (Auto) 0.0 x10^3/uL (0.0-0.7) Basophils # (Auto) 0.1 x10^3/uL (0.0-0.2) Sodium Level 139 mmol/L (136-145) Potassium Level 4.1 mmol/L (3.5-5.1) Chloride Level 105 mmol/L (98-107) Carbon Dioxide Level 26 mmol/L (21-32) Anion Gap 8 (6-14) Blood Urea Nitrogen 20 mg/dL (8-26) Creatinine 1.4 mg/dL (0.7-1.3) Estimated GFR (Cockcroft-Gault) 52.2 BUN/Creatinine Ratio 14 (6-20) Glucose Level 198 mg/dL (70-99) Lactic Acid Level 2.4 mmol/L (0.4-2.0) 1.4 mmol/L (0.4-2.0) Calcium Level 8.6 mg/dL (8.5-10.1) Magnesium Level 1.6 mg/dL (1.8-2.4) Total Bilirubin 0.4 mg/dL (0.2-1.0) Aspartate Amino Transf (AST/SGOT) 16 U/L (15-37) Alanine Aminotransferase (ALT/SGPT) 34 U/L (16-63) Alkaline Phosphatase 66 U/L (46-116) Creatine Kinase 26 U/L (39-308) Creatine Kinase MB (Mass) < 0.5 ng/mL (0.0-3.6) Creatine Kinase MB Relative Index % (0-4) Troponin I Quantitative < 0.017 ng/mL (0.000-0.055) < 0.017 ng/mL (0.000-0.055) < 0.017 ng/mL (0.000-0.055) Total Protein 5.7 g/dL (6.4-8.2) Albumin 2.4 g/dL (3.4-5.0) Albumin/Globulin Ratio 0.7 (1.0-1.7) Valproic Acid (Depakene) Level 62 mcg/mL (50-100) Valproic Acid Last Dose Date 05/09/20 Valproic Acid Last Dose Time 0900 Glucose (Fingerstick) 137 mg/dL (70-99) Images Images DATE: 05/09/2020 8:31 PM INDICATION: Reason: syncope / Spl. Instructions: / History: COMPARISON: 04/29/2020 FINDINGS/ IMPRESSION: Cardiomediastinal silhouette is stable. Background of mild interstitial prominence. Improved aeration of the lungs bilaterally. Small left pleural effusion. No definite pneumothorax. Electronically signed by: Juan Manuel Can MD (05/09/2020 8:39 PM) [facility]OS[facility] DICTATED and SIGNED BY: JUAN MANUEL CAN MD DATE: 05/09/[id number] 0 INDICATION: Syncope TECHNIQUE: Sequential axial images through the head and cervical spine were obtained without the administration of IV contrast. Comparisons: None FINDINGS: Head: No focal parenchymal lesion or hemorrhage is identified. There is no midline shift or sulcal effacement. No acute vascular territory infarction is identified. Polo-white distinction is preserved. The ventricular system is within normal limits without compression hydrocephalus. The basal cisterns are well maintained. The visualized portions of the paranasal sinuses and mastoid air cells are well- pneumatized. No acute fractures. Cervical spine: Vertebral body heights and alignment are well-maintained. Fracture to the cervical spine is not identified. Visualized paraspinal soft tissues are unremarkable. No significant spondylotic change identified in the cervical spine. IMPRESSION: 1. No acute intracranial abnormality. 2. Negative CT C-spine for acute traumatic injury. Exposure: One or more of the following in the visualized dose reduction techniques were utilized for this examination: 1. Automated exposure control 2. Adjustment of the MA and/or KV according to patient size Use of iterative of reconstructive technique Electronically signed by: Mart Hassan MD (05/09/2020 8:41 PM) [facility] DICTATED and SIGNED BY: MART HASSAN MD DATE: 05/09/[id number] 0 VTE Prophylaxis Ordered VTE Prophylaxis Devices: Yes VTE Pharmacological Prophylaxi: Yes Assessment/Plan Assessment/Plan impression Syncope, probable multifactorial, polypharmacy, resent sepsis Acute metabolic encephalopathy ROD recent Acute Respiratory failure with hypoxia Chronic severe psychiatric issues COVID-19, recovering Septic shock recent hx Depression Diabetes Hypertension Hyperlipidemia Hypothyroidism Schizophrenia Severe protein calorie malnutrition polypharmacy plan admit cvc bed orthostatics ECHO Cardiology consult psych consult , med review nephrology consult fall precautions dvt prophylaxis neurochecks q 4 hrs d/w RN Justifications for Admission Other Justification MARINO REAGAN MD May 10, 2020 10:31
[2020-05-10] MEDS ORDERED: POLYETHYLENE GLYCOL 3350 17 GM PACKET. PO PRN (12:00)
[2020-05-10] MEDS ORDERED: MAG HYDROX/ALUMINUM HYD/SIMETH 30 ML ORAL.SUSP PO PRN ×2 (12:15→12:45)
[2020-05-10] MEDS ORDERED: MAGNESIUM HYDROXIDE 2,400 MG/30 ML ORAL.SUSP. PO PRN (12:15)
[2020-05-10] MEDS ORDERED: guaiFENesin ORAL 200 MG/10 ML LIQUID. PO PRN (12:45)
[2020-05-10] MEDS ORDERED: ONDANSETRON PF 4 MG/2 ML VIAL. IV PRN (12:45)
[2020-05-10] MEDS ORDERED: ALBUTEROL SULFATE 2.5 MG/3 ML NEBU. NEB PRN (12:45)
[2020-05-10] MEDS ORDERED: PIP/TAZO PER PHARMACY MC PRN (12:45)
[2020-05-10] MEDS ORDERED: DOCUSATE SODIUM 100 MG CAPSULE. PO PRN (12:45)
[2020-05-10] MEDS ORDERED: 0.9 % SODIUM CHLORIDE 10 ML DISP.SYRIN. IV PRN (12:45)
[2020-05-10] MEDS ORDERED: SODIUM PHOSPHATES 19/7GM 133 ML ENEMA. PR PRN (12:45)
[2020-05-10] MEDS ORDERED: predniSONE 10 MG TABLET PO SCH (13:00)
[2020-05-10] MEDS: IV NORMAL SALINE 1000ML BAG 1,000 ML IV SCH ×2 (13:45→21:03)
[2020-05-10] MEDS: DIVALPROEX EXTENDED RELEASE 500 MG TAB.ER.24H. PO SCH (13:45)
[2020-05-10] MEDS: cloZAPine 100 MG TABLET PO SCH ×2 (13:45→21:02)
[2020-05-10] MEDS: GABAPENTIN 300 MG CAPSULE. PO SCH ×2 (13:45→21:01)
[2020-05-10] MEDS: PIPERACILLIN/TAZOBACTAM 3.375 GM in IV NORMAL SALINE 50ML 50 ML IV SCH ×3 (13:46→23:54)
--- NOTE | 2020-05-10 17:39 | EKG ---
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
[2020-05-10] MEDS ORDERED: IV NORMAL SALINE 1000ML BAG 1,000 ML IV ONE (19:30)
[2020-05-10] MEDS: FAMOTIDINE 20 MG TABLET. PO SCH (21:01)
[2020-05-10] MEDS: LEVOTHYROXINE 100 MCG TABLET PO SCH (21:01)
[2020-05-10] MEDS: LACTOBACILLUS RHAMNOSUS GG 1 CAPSULE. PO SCH (21:01)
[2020-05-10] MEDS: ATORVASTATIN CALCIUM 40 MG TABLET. PO SCH (21:02)
[2020-05-10] MEDS: ENOXAPARIN 40 MG/0.4 ML SYRINGE. SQ SCH (21:03)
[2020-05-11] VITALS (7 sets, daily range): BP systolic 81–116; BP diastolic 47–76
[2020-05-11 04:40] LABS: BASO % 0 % (0-3); EOS % 1 % (0-3); HEMATOCRIT 34.1 % (39.0-53.0); HEMOGLOBIN 11.5 g/dL (13.0-17.5); LYMPH % 12 % (24-48); MEAN CORPUSCULAR HEMOGLOBIN 31 pg (25-35); MEAN CORPUSCULAR HGB CONC 34 g/dL (31-37); MEAN CORPUSCULAR VOLUME 90 fL (79-100); MONO # 0.4 x10^3/uL (0.0-1.1); MONO % 4 % (0-9); NEUT # 7.4 x10^3/uL (1.8-7.7); NEUT % 83 % (31-73); PLATELET COUNT 244 x10^3/uL (140-400); RED BLOOD COUNT 3.77 x10^6/uL (4.30-5.70); RED CELL DISTRIBUTION WIDTH 16.4 % (11.5-14.5); WHITE BLOOD COUNT 8.9 x10^3/uL (4.0-11.0)
[2020-05-11 04:58] LABS: ALBUMIN 2.1 g/dL (3.4-5.0); ALBUMIN/GLOBULIN RATIO 0.5 (1.0-1.7); CALCIUM 8.9 mg/dL (8.5-10.1); TOTAL PROTEIN 6.3 g/dL (6.4-8.2)
[2020-05-11 05:12] LABS: CREATININE 0.7 mg/dL (0.7-1.3); GFR 116.2; POTASSIUM 4.4 mmol/L (3.5-5.1)
[2020-05-11] MEDS: PIPERACILLIN/TAZOBACTAM 3.375 GM in IV NORMAL SALINE 50ML 50 ML IV SCH ×3 (05:46→21:01)
[2020-05-11] MEDS: INSULIN LISPRO 300 UNITS/3 ML VIAL. SQ SCH ×3 (08:00→17:00)
[2020-05-11] MEDS: predniSONE 10 MG TABLET PO SCH (08:53)
[2020-05-11] MEDS: DIVALPROEX EXTENDED RELEASE 500 MG TAB.ER.24H. PO SCH (08:54)
[2020-05-11] MEDS: GABAPENTIN 300 MG CAPSULE. PO SCH ×3 (08:54→21:00)
[2020-05-11] MEDS: LACTOBACILLUS RHAMNOSUS GG 1 CAPSULE. PO SCH ×2 (08:54→21:00)
[2020-05-11] MEDS ORDERED: VANCOMYCIN 2 GM in IV NORMAL SALINE 500ML BAG 500 ML IV ONE (09:00)
[2020-05-11] MEDS ORDERED: AZITHROMYCIN 250 MG TABLET. PO SCH (09:00)
[2020-05-11] MEDS: VANCOMYCIN PER PHARMACY MC PRN ×2 (09:39→09:49)
--- NOTE | 2020-05-11 10:37 | PDOC ---
PROGRESS NOTES Date of Service: DATE: 05/11/20 TIME: 10:36 Chief Complaint Chief Complaint VTE Prophylaxis Ordered VTE Prophylaxis Devices: Yes VTE Pharmacological Prophylaxi: Yes Assessment/Plan Assessment/Plan impression Syncope, probable multifactorial, polypharmacy, resent sepsis Acute metabolic encephalopathy ROD recent Acute Respiratory failure with hypoxia , now inc 4 liters nc needed Chronic severe psychiatric issues COVID-19, recovering Septic shock recent hx Depression Diabetes Hypertension Hyperlipidemia Hypothyroidism Schizophrenia Severe protein calorie malnutrition polypharmacy plan admit cvc bed orthostatics ECHO Cardiology consult psych consult , med review nephrology consult fall precautions dvt prophylaxis neurochecks q 4 hrs cxr abg D/W SISTER FROM [place], REQUESTED DNR STATUS, IS HIS DPOA 05/11 21 POOR APPETITE TODAY d/w RN Justifications for Admission Justifications for Admission Other Justification History of Present Illness History of Present Illness dentification/Chief Complaint Chief Complaint seen in er with syncopal event presented [facility] with report of syncopal episode after standing up from wheelchair at penitentiary //falling to the floor striking his head. noted to have low blood pressure in the 60s over 40s. ===== recently admitted to [facility] and discharged 12-30 after treatment for sepsis. had a negative COVID-19 test during admission. denies significant pain., denies neck pain. , Denies chest pain. Past Medical History Past Medical History Past Medical History Past Medical History Past Medical History: Constipation, Depression, Diabetes-Type II, GERD, High Cholesterol, Hypothyroid, Schizophrenia, Other Additional Past Medical Histor: covid 19; insomnia Past Surgical History: Other Additional Past Surgical Histo: UNABLE TO ASSESS Smoking Status: Unknown if ever smoked Alcohol Use: None Drug Use: None fhx htn Source Source: Chart review, Patient History of Present Illness History of Present Illness Mr. Acevedo, is a 55 year old male who was [facility] due to altered mental status. Patient was found by penitentiary staff very lethargic, they could not measure his blood pressure. he was hospitalized her from 04/17 to 04/13 with confusion and hypoxia and mult problems related to COVID marked hypotension in ER, resuscitatated, central line placed, discussed wt Dr. Mckinney Patient was admitted here on April 07, 2020 due to altered mental status. Past Medical History Past Medical History schizophrenia Cardiovascular: HTN, Hyperlipidemia Psych: Schizophrenia Endocrine: Diabetes, Hypothyroidism Past Surgical History Past Surgical History: No pertinent history Family History Family History: Family History Unknown Social History Smoke: No ALCOHOL: none Drugs: None Cardiovascular: HTN, Hyperlipidemia Psych: Schizophrenia Musculoskeletal: Osteoarthritis, Weakness Endocrine: Diabetes, Hypothyroidism Vitals Vitals Vital Signs Date Time Temp Pulse Resp B/P (MAP) Pulse Ox O2 Delivery O2 Flow Rate FiO2 05/11/20 08:00 Nasal Cannula 4.0 05/11/20 07:00 100.5 105 18 111/76 (76) 96 100.5 Physical Exam Physical Exam Constitutional: Well developed, well nourished, appears older than age, no acute distress, non-toxic appearance HENT: Normocephalic, atraumatic Eyes: PERRL, EOMI, conjunctiva normal, no discharge, no nystagmus Neck: Normal range of motion, no midline tenderness, supple Lungs & Thorax: No respiratory distress, equal chest rise and fall Abdomen: Soft, no tenderness no guarding/rebound tenderness/distention Skin: Warm, dry, no erythema, no rash Extremities: No tenderness, ROM intact, no edema Neurologic: no focal deficits noted General: Cooperative, No acute distress HEENT: Atraumatic Breasts: Not examined Rectal Exam: not examined PELVIC: Examination not indicated Extremities: No cyanosis Neuro: Sensation intact General: Alert, Cooperative, No acute distress Heart: Regular rate Lungs: Crackles, Other Extremities: No cyanosis Labs LABS SPDESC: ORDERED: BCULT Procedure Result BLOOD CULTURE Final AMENDED REPORT: BOTH BOTTLES OF THIS SET ARE NOW POSITIVE FOR GRAM POSITIVE COCCI IN CLUSTERS, MAKING 2 OF 4 BOTTLES OF 2 SETS. BONG ON 2N NOTIFIED AT 1100 05/11/20 BY Susanna CROWE. GRAM POSITIVE COCCI IN CLUSTERS IN 1 OF 4 BOTTLES (2 SETS COLLECTED 05/10/20). CALLED TO BONG HUTCHINSON ON 2N 05/11/20 AT 0712 BY Susanna CROWE. CULTURE HAS BEEN SENT TO [facility] FOR FUTHER IDENTIFICATION. * This is an amended result. * A prior result that was reported as final has been changed. ngle view. EXAM: Chest, si HISTORY: Hypoxia. COMPARISON: 05/09/2020 FINDINGS: A frontal view of the chest is obtained. There is stable coarse increased left lung interstitial opacity likely due to chronic interstitial change. There is no consolidation, pleural effusion or pneumothorax. The heart is normal in size. IMPRESSION: Suspected chronic interstitial changes within the left lung. Electronically signed by: Cortney Mccall MD (05/11/2020 11:12 AM) [facility] DICTATED and SIGNED BY: CORTNEY MCCALL MD DATE: 05/11/20 [id number] Laboratory Tests Test 05/10/20 11:17 05/10/20 16:04 05/10/20 16:14 05/10/20 21:00 Glucose (Fingerstick) 132 mg/dL (70-99) 126 mg/dL (70-99) 124 mg/dL (70-99) Lactic Acid Level 0.8 mmol/L (0.4-2.0) Test 05/11/20 04:00 05/11/20 07:55 White Blood Count 8.9 x10^3/uL (4.0-11.0) Red Blood Count 3.77 x10^6/uL (4.30-5.70) Hemoglobin 11.5 g/dL (13.0-17.5) Hematocrit 34.1 % (39.0-53.0) Mean Corpuscular Volume 90 fL (79-100) Mean Corpuscular Hemoglobin 31 pg (25-35) Mean Corpuscular Hemoglobin Concent 34 g/dL (31-37) Red Cell Distribution Width 16.4 % (11.5-14.5) Platelet Count 244 x10^3/uL (140-400) Neutrophils (%) (Auto) 83 % (31-73) Lymphocytes (%) (Auto) 12 % (24-48) Monocytes (%) (Auto) 4 % (0-9) Eosinophils (%) (Auto) 1 % (0-3) Basophils (%) (Auto) 0 % (0-3) Neutrophils # (Auto) 7.4 x10^3/uL (1.8-7.7) Lymphocytes # (Auto) 1.0 x10^3/uL (1.0-4.8) Monocytes # (Auto) 0.4 x10^3/uL (0.0-1.1) Eosinophils # (Auto) 0.0 x10^3/uL (0.0-0.7) Basophils # (Auto) 0.0 x10^3/uL (0.0-0.2) Sodium Level 138 mmol/L (136-145) Potassium Level 4.4 mmol/L (3.5-5.1) Chloride Level 102 mmol/L (98-107) Carbon Dioxide Level 27 mmol/L (21-32) Anion Gap 9 (6-14) Blood Urea Nitrogen 6 mg/dL (8-26) Creatinine 0.7 mg/dL (0.7-1.3) Estimated GFR (Cockcroft-Gault) 116.2 BUN/Creatinine Ratio 9 (6-20) Glucose Level 127 mg/dL (70-99) Calcium Level 8.9 mg/dL (8.5-10.1) Total Bilirubin 1.0 mg/dL (0.2-1.0) Aspartate Amino Transf (AST/SGOT) 17 U/L (15-37) Alanine Aminotransferase (ALT/SGPT) 29 U/L (16-63) Alkaline Phosphatase 60 U/L (46-116) Total Protein 6.3 g/dL (6.4-8.2) Albumin 2.1 g/dL (3.4-5.0) Albumin/Globulin Ratio 0.5 (1.0-1.7) Glucose (Fingerstick) 129 mg/dL (70-99) Assessment and Plan Assessmemt and Plan Problems Medical Problems: (1) Hypomagnesemia Status: Acute (2) Hypotension Status: Acute (3) Sepsis Status: Acute (4) Syncope Status: Acute Comment Review of Relevant I have reviewed the following items franchesca (where applicable) has been applied. Labs Laboratory Tests Test 05/09/20 20:00 05/10/20 00:05 05/10/20 05:00 05/10/20 08:13 White Blood Count 12.3 x10^3/uL (4.0-11.0) Red Blood Count 3.51 x10^6/uL (4.30-5.70) Hemoglobin 11.0 g/dL (13.0-17.5) Hematocrit 31.8 % (39.0-53.0) Mean Corpuscular Volume 91 fL (79-100) Mean Corpuscular Hemoglobin 31 pg (25-35) Mean Corpuscular Hemoglobin Concent 34 g/dL (31-37) Red Cell Distribution Width 17.0 % (11.5-14.5) Platelet Count 272 x10^3/uL (140-400) Neutrophils (%) (Auto) 84 % (31-73) Lymphocytes (%) (Auto) 11 % (24-48) Monocytes (%) (Auto) 4 % (0-9) Eosinophils (%) (Auto) 0 % (0-3) Basophils (%) (Auto) 1 % (0-3) Neutrophils # (Auto) 10.3 x10^3/uL (1.8-7.7) Lymphocytes # (Auto) 1.4 x10^3/uL (1.0-4.8) Monocytes # (Auto) 0.5 x10^3/uL (0.0-1.1) Eosinophils # (Auto) 0.0 x10^3/uL (0.0-0.7) Basophils # (Auto) 0.1 x10^3/uL (0.0-0.2) Sodium Level 139 mmol/L (136-145) Potassium Level 4.1 mmol/L (3.5-5.1) Chloride Level 105 mmol/L (98-107) Carbon Dioxide Level 26 mmol/L (21-32) Anion Gap 8 (6-14) Blood Urea Nitrogen 20 mg/dL (8-26) Creatinine 1.4 mg/dL (0.7-1.3) Estimated GFR (Cockcroft-Gault) 52.2 BUN/Creatinine Ratio 14 (6-20) Glucose Level 198 mg/dL (70-99) Lactic Acid Level 2.4 mmol/L (0.4-2.0) 1.4 mmol/L (0.4-2.0) Calcium Level 8.6 mg/dL (8.5-10.1) Magnesium Level 1.6 mg/dL (1.8-2.4) Total Bilirubin 0.4 mg/dL (0.2-1.0) Aspartate Amino Transf (AST/SGOT) 16 U/L (15-37) Alanine Aminotransferase (ALT/SGPT) 34 U/L (16-63) Alkaline Phosphatase 66 U/L (46-116) Creatine Kinase 26 U/L (39-308) Creatine Kinase MB (Mass) < 0.5 ng/mL (0.0-3.6) Creatine Kinase MB Relative Index % (0-4) Troponin I Quantitative < 0.017 ng/mL (0.000-0.055) < 0.017 ng/mL (0.000-0.055) < 0.017 ng/mL (0.000-0.055) Total Protein 5.7 g/dL (6.4-8.2) Albumin 2.4 g/dL (3.4-5.0) Albumin/Globulin Ratio 0.7 (1.0-1.7) Valproic Acid (Depakene) Level 62 mcg/mL (50-100) Valproic Acid Last Dose Date 05/09/20 Valproic Acid Last Dose Time 0900 Glucose (Fingerstick) 137 mg/dL (70-99) Test 05/10/20 11:17 05/10/20 16:04 05/10/20 16:14 05/10/20 21:00 Glucose (Fingerstick) 132 mg/dL (70-99) 126 mg/dL (70-99) 124 mg/dL (70-99) Lactic Acid Level 0.8 mmol/L (0.4-2.0) Test 05/11/20 04:00 05/11/20 07:55 White Blood Count 8.9 x10^3/uL (4.0-11.0) Red Blood Count 3.77 x10^6/uL (4.30-5.70) Hemoglobin 11.5 g/dL (13.0-17.5) Hematocrit 34.1 % (39.0-53.0) Mean Corpuscular Volume 90 fL (79-100) Mean Corpuscular Hemoglobin 31 pg (25-35) Mean Corpuscular Hemoglobin Concent 34 g/dL (31-37) Red Cell Distribution Width 16.4 % (11.5-14.5) Platelet Count 244 x10^3/uL (140-400) Neutrophils (%) (Auto) 83 % (31-73) Lymphocytes (%) (Auto) 12 % (24-48) Monocytes (%) (Auto) 4 % (0-9) Eosinophils (%) (Auto) 1 % (0-3) Basophils (%) (Auto) 0 % (0-3) Neutrophils # (Auto) 7.4 x10^3/uL (1.8-7.7) Lymphocytes # (Auto) 1.0 x10^3/uL (1.0-4.8) Monocytes # (Auto) 0.4 x10^3/uL (0.0-1.1) Eosinophils # (Auto) 0.0 x10^3/uL (0.0-0.7) Basophils # (Auto) 0.0 x10^3/uL (0.0-0.2) Sodium Level 138 mmol/L (136-145) Potassium Level 4.4 mmol/L (3.5-5.1) Chloride Level 102 mmol/L (98-107) Carbon Dioxide Level 27 mmol/L (21-32) Anion Gap 9 (6-14) Blood Urea Nitrogen 6 mg/dL (8-26) Creatinine 0.7 mg/dL (0.7-1.3) Estimated GFR (Cockcroft-Gault) 116.2 BUN/Creatinine Ratio 9 (6-20) Glucose Level 127 mg/dL (70-99) Calcium Level 8.9 mg/dL (8.5-10.1) Total Bilirubin 1.0 mg/dL (0.2-1.0) Aspartate Amino Transf (AST/SGOT) 17 U/L (15-37) Alanine Aminotransferase (ALT/SGPT) 29 U/L (16-63) Alkaline Phosphatase 60 U/L (46-116) Total Protein 6.3 g/dL (6.4-8.2) Albumin 2.1 g/dL (3.4-5.0) Albumin/Globulin Ratio 0.5 (1.0-1.7) Glucose (Fingerstick) 129 mg/dL (70-99) Laboratory Tests Test 05/10/20 11:17 05/10/20 16:04 05/10/20 16:14 05/10/20 21:00 Glucose (Fingerstick) 132 mg/dL (70-99) 126 mg/dL (70-99) 124 mg/dL (70-99) Lactic Acid Level 0.8 mmol/L (0.4-2.0) Test 05/11/20 04:00 05/11/20 07:55 White Blood Count 8.9 x10^3/uL (4.0-11.0) Red Blood Count 3.77 x10^6/uL (4.30-5.70) Hemoglobin 11.5 g/dL (13.0-17.5) Hematocrit 34.1 % (39.0-53.0) Mean Corpuscular Volume 90 fL (79-100) Mean Corpuscular Hemoglobin 31 pg (25-35) Mean Corpuscular Hemoglobin Concent 34 g/dL (31-37) Red Cell Distribution Width 16.4 % (11.5-14.5) Platelet Count 244 x10^3/uL (140-400) Neutrophils (%) (Auto) 83 % (31-73) Lymphocytes (%) (Auto) 12 % (24-48) Monocytes (%) (Auto) 4 % (0-9) Eosinophils (%) (Auto) 1 % (0-3) Basophils (%) (Auto) 0 % (0-3) Neutrophils # (Auto) 7.4 x10^3/uL (1.8-7.7) Lymphocytes # (Auto) 1.0 x10^3/uL (1.0-4.8) Monocytes # (Auto) 0.4 x10^3/uL (0.0-1.1) Eosinophils # (Auto) 0.0 x10^3/uL (0.0-0.7) Basophils # (Auto) 0.0 x10^3/uL (0.0-0.2) Sodium Level 138 mmol/L (136-145) Potassium Level 4.4 mmol/L (3.5-5.1) Chloride Level 102 mmol/L (98-107) Carbon Dioxide Level 27 mmol/L (21-32) Anion Gap 9 (6-14) Blood Urea Nitrogen 6 mg/dL (8-26) Creatinine 0.7 mg/dL (0.7-1.3) Estimated GFR (Cockcroft-Gault) 116.2 BUN/Creatinine Ratio 9 (6-20) Glucose Level 127 mg/dL (70-99) Calcium Level 8.9 mg/dL (8.5-10.1) Total Bilirubin 1.0 mg/dL (0.2-1.0) Aspartate Amino Transf (AST/SGOT) 17 U/L (15-37) Alanine Aminotransferase (ALT/SGPT) 29 U/L (16-63) Alkaline Phosphatase 60 U/L (46-116) Total Protein 6.3 g/dL (6.4-8.2) Albumin 2.1 g/dL (3.4-5.0) Albumin/Globulin Ratio 0.5 (1.0-1.7) Glucose (Fingerstick) 129 mg/dL (70-99) Microbiology 05/09/20 Blood Culture - Preliminary, Resulted NO GROWTH AFTER 1 DAY Medications Current Medications Sodium Chloride 1,000 ml @ 1,000 mls/hr 1X ONCE IV Last administered on 05/09/20at 20:58; Start 05/09/20 at 20:30; Stop 05/09/20 at 21:29; Status DC Piperacillin Sod/ Tazobactam Sod 4.5 gm/Sodium Chloride 100 ml @ 200 mls/hr 1X ONCE IV Last administered on 05/09/20at 23:04; Start 05/09/20 at 22:00; Stop 05/09/20 at 22:29; Status DC Sodium Chloride 1,000 ml @ 1,000 mls/hr 1X ONCE IV Last administered on 05/09/20at 22:27; Start 05/09/20 at 22:00; Stop 05/09/20 at 22:59; Status DC Ondansetron HCl (Zofran) 4 mg PRN Q8HRS PRN IV NAUSEA/VOMITING 1ST CHOICE; Start 05/09/20 at 21:15; Stop 05/10/20 at 21:14; Status DC Sodium Chloride 1,000 ml @ 125 mls/hr 1X ONCE IV Last administered on 05/09/20at 23:04; Start 05/09/20 at 21:30; Stop 05/10/20 at 05:29; Status DC Magnesium Sulfate 50 ml @ 25 mls/hr 1X ONCE IV Last administered on 05/09/20at 23:29; Start 05/09/20 at 22:00; Stop 05/09/20 at 23:59; Status DC Insulin Human Lispro (HumaLOG) 0-5 UNITS TIDWMEALS SQ ; Start 05/10/20 at 08:00 Dextrose (Dextrose 50%-Water Syringe) 12.5 gm PRN Q15MIN PRN IV SEE COMMENTS; Start 05/09/20 at 21:15 Acetaminophen (Tylenol) 650 mg PRN Q6HRS PRN PO MILD PAIN / TEMP > 100.3'F Last administered on 05/10/20at 08:45; Start 05/10/20 at 08:30 Acetaminophen (Tylenol) 650 mg PRN Q6HRS PRN PO pain or fever; Start 05/10/20 at 12:00; Stop 05/10/20 at 12:03; Status DC Atorvastatin Calcium (Lipitor) 80 mg HS PO Last administered on 05/10/20at 21:02; Start 05/10/20 at 21:00 Azithromycin (Zithromax) 250 mg DAILY PO ; Start 05/11/20 at 09:00; Stop 05/10/20 at 12:03; Status DC Clozapine (Clozaril) 300 mg HS PO Last administered on 05/10/20at 21:02; Start at 21:00 Clozapine (Clozaril) 100 mg BIDACBL PO Last administered on 05/10/20at 13:45; Start 05/10/20 at 13:30 Divalproex Sodium (Depakote Er) 1,500 mg DAILY PO Last administered on 05/11/20at 08:54; Start 05/10/20 at 13:00 Famotidine (Pepcid) 20 mg HS PO Last administered on 05/10/20at 21:01; Start 05/10/20 at 21:00 Gabapentin (Neurontin) 300 mg TID PO Last administered on 05/11/20at 08:54; Start 05/10/20 at 14:00 Levothyroxine Sodium (Synthroid) 100 mcg HS PO Last administered on 05/10/20at 21:01; Start 05/10/20 at 21:00 Polyethylene Glycol (miraLAX PACKET) 17 gm PRN DAILY PRN PO CONSTIPATION; Start 05/10/20 at 12:00 Prednisone (Prednisone) 10 mg DAILY PO ; Start 05/10/20 at 13:00; Status Cancel Al Hydroxide/Mg Hydroxide (Mylanta Plus Xs) 30 ml PRN Q4HRS PRN PO INDIGESTION; Start 05/10/20 at 12:15; Stop 05/11/20 at 09:34; Status DC Magnesium Hydroxide (Milk Of Magnesia) 2,400 mg PRN Q8HRS PRN PO CONSTIPATION; Start 05/10/20 at 12:15 Prednisone (Prednisone) 30 mg DAILY PO Last administered on 05/11/20at 08:53; S tart 05/11/20 at 09:00; Stop 05/14/20 at 09:01 Prednisone (Prednisone) 20 mg DAILY PO ; Start 05/15/20 at 09:00; Stop 05/16/20 at 09:01 Prednisone (Prednisone) 10 mg DAILY PO ; Start 05/17/20 at 09:00; Stop 05/18/20 at 09:01 Piperacillin Sod/ Tazobactam Sod (Zosyn Per Pharmacy) 1 each PRN DAILY PRN MC SEE COMMENTS; Start 05/10/20 at 12:45 Sodium Chloride (Normal Saline Flush) 3 ml QSHIFT PRN IV AFTER MEDS AND BLOOD DRAWS; Start 05/10/20 at 12:45 Sodium Chloride 1,000 ml @ 125 mls/hr Q8H IV Last administered on 05/10/20at 21:03; Start 05/10/20 at 12:45 Ondansetron HCl (Zofran) 4 mg PRN Q4HRS PRN IV NAUSEA/VOMITING; Start 05/10/20 at 12:45 Acetaminophen (Tylenol) 650 mg PRN Q4HRS PRN PO TEMP OVER 100.4F OR MILD PAIN; Start 05/10/20 at 12:45; Stop 05/10/20 at 13:04; Status DC Al Hydroxide/Mg Hydroxide (Mylanta Plus Xs) 30 ml PRN DAILY PRN PO HEARTBURN / GAS; Start 05/10/20 at 12:45 Sodium Monofluorophosphate (Fleet Adult) 133 ml PRN DAILY PRN [place] CONSTIPATION; Start 05/10/20 at 12:45 Docusate Sodium (Colace) 100 mg PRN BID PRN PO HARD STOOLS; Start 05/10/20 at 12:45 Albuterol Sulfate (Ventolin Neb Soln) 2.5 mg PRN Q4HRS PRN NEB SHORTNESS OF BREATH; Start 05/10/20 at 12:45 Guaifenesin (Robitussin) 200 mg PRN Q4HRS PRN PO COUGH; Start 05/10/20 at 12:45 Enoxaparin Sodium (Lovenox 40mg Syringe) 40 mg Q24H SQ Last administered on 05/10/20at 21:03; Start 05/10/20 at 21:00 Piperacillin Sod/ Tazobactam Sod 3.375 gm/Sodium Chloride 50 ml @ 100 mls/hr Q6HRS IV Last administered on 05/11/20at 05:46; Start 05/10/20 at 13:00 Lactobacillus Rhamnosus (Culturelle) 1 cap BID PO Last administered on 05/11/20at 08:54; Start 05/10/20 at 21:00 Sodium Chloride 1,000 ml @ 1,000 mls/hr 1X ONCE IV ; Start 05/10/20 at 19:30; Stop 05/10/20 at 20:29; Status DC Vancomycin HCl (Vanco Per Pharmacy) 1 each PRN DAILY PRN MC SEE COMMENTS Last administered on 05/11/20at 09:49; Start 05/11/20 at 08:15 Vancomycin HCl 2 gm/Sodium Chloride 500 ml @ 250 mls/hr 1X ONCE IV Last administered on 05/11/20at 08:50; Start 05/11/20 at 09:00; Stop 05/11/20 at 10:59 Vancomycin HCl 1.5 gm/Sodium Chloride 500 ml @ 250 mls/hr Q8H IV ; Start 05/11/20 at 17:00 Vancomycin HCl (Vancomycin Trough Level) 1 each 1X ONCE MC ; Start 05/12/20 at 08:30; Stop 05/12/20 at 08:31 Active Scripts Active Prednisone (Prednisone) 10 Mg Tablet 10 Mg PO UD Take 4 tablets by mouth daily for 4 days, then take 3 tablets by mouth daily for 2 days, then take 2 tablets by mouth daily for 2 days, then take 1 tablets by mouth daily for 2 days, then stop. Azithromycin Tablet (Azithromycin) 250 Mg Tablet 250 Mg PO DAILY Reported Acetaminophen 325 Mg Tablet 2 Tab PO PRN Q6HRS PRN 24 Days Pioglitazone Hcl 30 Mg Tablet 30 Mg PO DAILY Nicotine Gum (Nicotine Polacrilex) 2 Mg Gum 2 Mg BC PRN PRN Neurontin (Gabapentin) 300 Mg Capsule 300 Mg PO TID Gelusil 200-200-25 mg Chew Tab (Mag Hydrox/Aluminum Hyd/Simeth) 1 Each Tab.chew 1 Each PO PRN Q4HRS PRN Miralax (Polyethylene Glycol 3350) 17 Gm Powd.pack 1 Pkt PO PRN DAILY PRN Milk Of Magnesia (Magnesium Hydroxide) 2,400 Mg/10 Ml Oral.susp 2,400 Mg PO PRN Q8HRS PRN Metoprolol Tartrate 25 Mg Tablet 12.5 Mg PO BID Metformin Hcl 1,000 Mg Tablet 1,000 Mg PO BIDWMEALS Lisinopril 2.5 Mg Tablet 2.5 Mg PO DAILY Levothyroxine Sodium 100 Mcg Tablet 100 Mcg PO HS Januvia (Sitagliptin Phosphate) 100 Mg Tablet 100 Mg PO DAILY Famotidine 20 Mg Tablet 20 Mg PO HS Depakote Er (Divalproex Sodium) 500 Mg Tab.er.24h 1,500 Mg PO DAILY Clozaril (Clozapine) 100 Mg Tablet 100 Mg PO BIDACBL Clozapine 100 Mg Tablet 300 Mg PO HS Atorvastatin Calcium 40 Mg Tablet 80 Mg PO HS Vitals/I & O Vital Sign - Last 24 Hours 05/10/20 05/10/20 05/10/20 05/10/20 10:37 14:28 19:00 19:30 Temp 98.0 98.1 98.3 98.0 98.1 98.3 Pulse 94 99 93 Resp 20 20 16 B/P (MAP) 96/70 (79) 96/69 (78) 120/73 (89) Pulse Ox 98 100 99 O2 Delivery Nasal Cannula Nasal Cannula Nasal Cannula Nasal Cannula O2 Flow Rate 2.0 2.0 4.0 4.0 05/10/20 05/11/20 05/11/20 05/11/20 22:51 03:00 07:00 08:00 Temp 98.0 98.7 100.5 98.0 98.7 100.5 Pulse 100 111 105 Resp 16 18 18 B/P (MAP) 93/68 (76) 114/70 (85) 111/76 (88) Pulse Ox 98 93 96 O2 Delivery Nasal Cannula Nasal Cannula Nasal Cannula Nasal Cannula O2 Flow Rate 4.0 4.0 4.0 4.0 Intake and Output 05/10/20 05/10/20 05/11/20 15:00 23:00 07:00 Intake Total 1000 ml 350 ml 240 ml Balance 1000 ml 350 ml 240 ml Justicifation of Admission Dx: Justifications for Admission: Justification of Admission Dx: Yes MARINO REAGAN MD May 11, 2020 10:36
--- NOTE | 2020-05-11 11:14 | RAD ---
EXAM: Chest, single view. HISTORY: Hypoxia. COMPARISON: 05/09/2020 FINDINGS: A frontal view of the chest is obtained. There is stable coarse increased left lung interst itial opacity likely due to chronic interstitial change. There is no consolidation, pleural effusion or pneumothorax. The heart is normal in size. IMPRESSION: Suspected chronic interstitial changes within the left lung. Electronically signed by: Cortney Hernandez MD (05/11/2020 11:12 AM) [facility]
[2020-05-11] MEDS: cloZAPine 100 MG TABLET PO SCH ×3 (11:30→21:00)
--- NOTE | 2020-05-11 11:34 | PDOC ---
Infectious Disease Note Vital Signs: Vital Signs Vital Signs Date Time Temp Pulse Resp B/P (MAP) Pulse Ox O2 Delivery O2 Flow Rate FiO2 05/11/20 08:00 Nasal Cannula 4.0 05/11/20 07:00 100.5 105 18 111/76 (88) 96 100.5 Physical Exam: PHYSICAL EXAM Constitutional: Well developed, well nourished, appears older than age, no acute distress, ill but non-toxic appearance HENT: Normocephalic, atraumatic Eyes: PERRL, EOMI, conjunctiva normal, no discharge, no nystagmus Neck: Normal range of motion, no midline tenderness, supple Lungs & Thorax: No respiratory distress, equal chest rise and fall Abdomen: Soft, no tenderness no guarding/rebound tenderness/distention Skin: Warm, dry, no erythema, no rash Extremities: No tenderness, ROM intact, no edema Neurologic: no focal deficits noted General: Cooperative, No acute distress HEENT: Atraumatic Breasts: Not examined Rectal Exam: not examined PELVIC: Examination not indicated Extremities: No cyanosis Neuro: Sensation intact Medications: Inpatient Meds: Current Medications Medications (Trade) Dose Ordered Sig/Ambrose Start Time Stop Time Status Last Admin Dose Admin Acetaminophen (Tylenol) 650 mg PRN Q4HRS PRN 05/10/20 12:45 05/10/20 13:04 DC Al Hydroxide/Mg Hydroxide (Mylanta Plus Xs) 30 ml PRN DAILY PRN 05/10/20 12:45 Albuterol Sulfate (Ventolin Neb Soln) 2.5 mg PRN Q4HRS PRN 05/10/20 12:45 Atorvastatin Calcium (Lipitor) 80 mg HS 05/10/20 21:00 05/10/20 21:02 80 MG Azithromycin (Zithromax) 250 mg DAILY 05/11/20 09:00 05/10/20 12:03 DC Clozapine (Clozaril) 100 mg BIDACBL 05/10/20 13:30 05/10/20 13:45 100 MG Dextrose (Dextrose 50%-Water Syringe) 12.5 gm PRN Q15MIN PRN 05/09/20 21:15 Divalproex Sodium (Depakote Er) 1,500 mg DAILY 05/10/20 13:00 05/11/20 08:54 1,500 MG Docusate Sodium (Colace) 100 mg PRN BID PRN 05/10/20 12:45 Enoxaparin Sodium (Lovenox 40mg Syringe) 40 mg Q24H 05/10/20 21:00 05/10/20 21:03 40 MG Famotidine (Pepcid) 20 mg HS 05/10/20 21:00 05/10/20 21:01 20 MG Gabapentin (Neurontin) 300 mg TID 05/10/20 14:00 05/11/20 08:54 300 MG Guaifenesin (Robitussin) 200 mg PRN Q4HRS PRN 05/10/20 12:45 Insulin Human Lispro (HumaLOG) 0-5 UNITS TIDWMEALS 05/10/20 08:00 Lactobacillus Rhamnosus (Culturelle) 1 cap BID 05/10/20 21:00 05/11/20 08:54 1 CAP Levothyroxine Sodium (Synthroid) 100 mcg HS 05/10/20 21:00 05/10/20 21:01 100 MCG Magnesium Hydroxide (Milk Of Magnesia) 2,400 mg PRN Q8HRS PRN 05/10/20 12:15 Magnesium Sulfate 50 ml @ 25 mls/hr 1X ONCE 05/09/20 22:00 05/09/20 23:59 DC 05/09/20 23:29 25 MLS/HR Ondansetron HCl (Zofran) 4 mg PRN Q4HRS PRN 05/10/20 12:45 Piperacillin Sod/ Tazobactam Sod (Zosyn Per Pharmacy) 1 each PRN DAILY PRN 05/10/20 12:45 Piperacillin Sod/ Tazobactam Sod 3.375 gm/Sodium Chloride 50 ml @ 100 mls/hr Q6HRS 05/10/20 13:00 05/11/20 05:46 100 MLS/HR Piperacillin Sod/ Tazobactam Sod 4.5 gm/Sodium Chloride 100 ml @ 200 mls/hr 1X ONCE 05/09/20 22:00 05/09/20 22:29 DC 05/09/20 23:04 200 MLS/HR Polyethylene Glycol (miraLAX PACKET) 17 gm PRN DAILY PRN 05/10/20 12:00 Prednisone (Prednisone) 10 mg DAILY 05/17/20 09:00 05/18/20 09:01 Sodium Monofluorophosphate (Fleet Adult) 133 ml PRN DAILY PRN 05/10/20 12:45 Sodium Chloride 1,000 ml @ 1,000 mls/hr 1X ONCE 05/10/20 19:30 05/10/20 20:29 DC Sodium Chloride (Normal Saline Flush) 3 ml QSHIFT PRN 05/10/20 12:45 Vancomycin HCl (Vanco Per Pharmacy) 1 each PRN DAILY PRN 05/11/20 08:15 05/11/20 09:49 1 EACH Vancomycin HCl (Vancomycin Trough Level) 1 each 1X ONCE 05/12/20 08:30 05/12/20 08:31 Vancomycin HCl 1.5 gm/Sodium Chloride 500 ml @ 250 mls/hr Q8H 05/11/20 17:00 Vancomycin HCl 2 gm/Sodium Chloride 500 ml @ 250 mls/hr 1X ONCE 05/11/20 09:00 05/11/20 10:59 DC 05/11/20 08:50 250 MLS/HR Labs: Lab Laboratory Tests Test 05/10/20 16:04 05/10/20 16:14 05/10/20 21:00 05/11/20 04:00 Lactic Acid Level 0.8 mmol/L (0.4-2.0) Glucose (Fingerstick) 126 mg/dL (70-99) 124 mg/dL (70-99) White Blood Count 8.9 x10^3/uL (4.0-11.0) Red Blood Count 3.77 x10^6/uL (4.30-5.70) Hemoglobin 11.5 g/dL (13.0-17.5) Hematocrit 34.1 % (39.0-53.0) Mean Corpuscular Volume 90 fL (79-100) Mean Corpuscular Hemoglobin 31 pg (25-35) Mean Corpuscular Hemoglobin Concent 34 g/dL (31-37) Red Cell Distribution Width 16.4 % (11.5-14.5) Platelet Count 244 x10^3/uL (140-400) Neutrophils (%) (Auto) 83 % (31-73) Lymphocytes (%) (Auto) 12 % (24-48) Monocytes (%) (Auto) 4 % (0-9) Eosinophils (%) (Auto) 1 % (0-3) Basophils (%) (Auto) 0 % (0-3) Neutrophils # (Auto) 7.4 x10^3/uL (1.8-7.7) Lymphocytes # (Auto) 1.0 x10^3/uL (1.0-4.8) Monocytes # (Auto) 0.4 x10^3/uL (0.0-1.1) Eosinophils # (Auto) 0.0 x10^3/uL (0.0-0.7) Basophils # (Auto) 0.0 x10^3/uL (0.0-0.2) Sodium Level 138 mmol/L (136-145) Potassium Level 4.4 mmol/L (3.5-5.1) Chloride Level 102 mmol/L (98-107) Carbon Dioxide Level 27 mmol/L (21-32) Anion Gap 9 (6-14) Blood Urea Nitrogen 6 mg/dL (8-26) Creatinine 0.7 mg/dL (0.7-1.3) Estimated GFR (Cockcroft-Gault) 116.2 BUN/Creatinine Ratio 9 (6-20) Glucose Level 127 mg/dL (70-99) Calcium Level 8.9 mg/dL (8.5-10.1) Total Bilirubin 1.0 mg/dL (0.2-1.0) Aspartate Amino Transf (AST/SGOT) 17 U/L (15-37) Alanine Aminotransferase (ALT/SGPT) 29 U/L (16-63) Alkaline Phosphatase 60 U/L (46-116) Total Protein 6.3 g/dL (6.4-8.2) Albumin 2.1 g/dL (3.4-5.0) Albumin/Globulin Ratio 0.5 (1.0-1.7) Test 05/11/20 07:55 Glucose (Fingerstick) 129 mg/dL (70-99) Objective: Assessment: PT seen and examined ID consult dictated Plan: Plan of Care thank you [id number] SARY ALFREDO MD May 11, 2020 11:34
[2020-05-11 11:56] LABS: BASE EXCESS COOX 1 mmol/L (-3-3); HCO3 COOX 25 mmol/L (21-28); METHEMOGLOBIN 0.5 % (0.0-1.9); OXYHEMOGLOBIN 93.1 %; PCO2 COOX 39 mmHg (35-46); PO2 COOX 74 mmHg (75-108); SAT O2 COOX 94 % (92-99)
--- NOTE | 2020-05-11 11:56 | CONS ---
DATE OF CONSULTATION: 05/11/2020 REASON FOR CONSULTATION: Sepsis. HISTORY OF PRESENT ILLNESS: A 55-year-old male with history of depression, diabetes mellitus, dyslipidemia, schizophrenia with multiple hospitalizations in the recent past, was diagnosed with COVID-19 on 04/07/2020 requiring hospitalization. He was treated with remdesivir and Decadron. He had been readmitted twice before for altered mental status and lethargy. He was brought in again to the ER after being discharged on 05/08/2020 on 05/09/2020 with syncopal episode by EMS from halfway with report after standing up from the wheelchair to the halfway and falling to the floor, striking his head. He was noted to have hypotension. White count was 12.3. UA was negative. UDS was negative. Creatinine was 0.7. The patient was febrile. Blood cultures done, 2/4 bottles from 05/09/2020 is positive for Gram-positive cocci. The patient is started on IV vancomycin and Zosyn. ID consultation is requested for antibiotic management. Today, the patient remains somewhat confused, per sister at bedside. Trying to eat lunch. He denies any pain. Denies any chest pain, shortness of breath, cough, nausea, vomiting, diarrhea, abdominal pain. PAST MEDICAL HISTORY: Hypertension, hyperlipidemia, schizophrenia, diabetes and hypothyroidism. PAST SURGICAL HISTORY: Unknown. ALLERGIES: None. CURRENT MEDICATIONS: IV vancomycin and Zosyn. Other medications reviewed in medication list. REVIEW OF SYSTEMS: Limited. SOCIAL HISTORY: No smoking or ETOH. senior care resident. PHYSICAL EXAMINATION: VITAL SIGNS: Temperature 100.5, pulse 105, respiratory rate 18, blood pressure 113/76, oxygen saturation 96% on 4 liters by nasal cannula. Sister at bedside. HEENT: Normocephalic, atraumatic, anicteric. No thrush. NECK: Supple, no JVD. LUNGS: Clear bilaterally. No wheezing. HEART: S1, S2, no murmurs. ABDOMEN: Soft, nontender, nondistended. GENITOURINARY: No Hernandes in place. EXTREMITIES: No edema. DERMATOLOGIC: Warm and dry. No generalized rash. NEUROLOGIC: Alert, awake, confused. PSYCHIATRIC: Calm. LABORATORY DATA: WBC 12.3, repeat is 8.9, hemoglobin 11.5, hematocrit 34.1, platelets 244. Sodium 138, potassium 4.4, chloride 102, bicarbonate 27, BUN 6, creatinine 0.7, glucose 127, albumin 2.1. UDS negative. UA negative. D-dimer 1.07. MICRO: 2/4 blood cultures 05/09/2020 positive for GPC. ID and SHERRIE pending. IMAGING: Chest x-ray, suspected chronic interstitial changes within the left lung. Head CT and cervical CT, no acute intracranial abnormality, negative CT C-spine for acute traumatic injury. IMPRESSION: 1. Bacteremia, 2/4 bottles present on admission. ID and SHERRIE pending at this time. Source unclear. 2. Fever. 3. Sepsis. 4. Encephalopathy, likely metabolic. 5. COVID recovery. 6. Chronic severe psychiatric issues. 7. Generalized debility. 8. Depression. 9. Diabetes. 10. Hypertension/hyperlipidemia. 11. Hypothyroidism. 12. Severe protein-calorie malnutrition. 13. History of fall at halfway. RECOMMENDATIONS: 1. Continue IV vancomycin and Zosyn. Monitor renal functions closely. 2. Follow up blood culture results. 3. Continue supportive care. 4. Maintain aspiration precaution. 5. Discussed with sister ALYCE at bedside who is requesting the patient to be DNR/DNI . 6. Discussed with RN. Thank you for allowing me to participate in this patient's care. If you have any questions, do not hesitate to contact me. SARY ALFREDO MD DR: ERICK/michel JOB#: [id number] / [id number] ALPHONSE
--- NOTE | 2020-05-11 16:07 | PDOC2 ---
CONSULT Date of Consult Date of Consult DATE: 05/11/20 TIME: 16:01 Reason for Consult Reason for Consult: Syncope Referring Physician Referring Physician: Dr. Blake Identification/Chief Complaint Chief Complaint Syncope Source Source: Chart review, Patient History of Present Illness Reason for Visit: The patient is a 55-year-old male shelter placement who was transported to the emergency room last evening for an episode of syncope. Reportedly when the patient stood up from his wheelchair he fell to the floor. Again reported systolic pressure was in the 60s. He had a CT head scan that showed no acute intracranial abnormalities. Chest x-ray showed a small left pleural effusion. EKG showed a sinus rhythm with no acute ischemic changes. Troponin has been normal. Magnesium however was mildly decreased at 1.6. Patient was admitted and treated with IV fluids. His blood pressure has improved today. Of note he was tested positive for Covid 19 on 03/28/2020 and has not been have been recently been discharged from the hospital. Past Medical History Cardiovascular: HTN, Hyperlipidemia Psych: Schizophrenia Musculoskeletal: Osteoarthritis, Weakness Endocrine: Diabetes, Hypothyroidism Past Surgical History Past Surgical History: No pertinent history Family History Family History: Hypertension, Family History Unknown Social History No ALCOHOL: none Drugs: None Current Problem List Problem List Problems Medical Problems: (1) Hypomagnesemia Status: Acute (2) Hypotension Status: Acute (3) Sepsis Status: Acute (4) Syncope Status: Acute Current Medications Current Medications Current Medications Sodium Chloride 1,000 ml @ 1,000 mls/hr 1X ONCE IV Last administered on at 20:58; Start 05/09/20 at 20:30; Stop 05/09/20 at 21:29; Status DC Piperacillin Sod/ Tazobactam Sod 4.5 gm/Sodium Chloride 100 ml @ 200 mls/hr 1X ONCE IV Last administered on 05/09/20at 23:04; Start 05/09/20 at 22:00; Stop 05/09/20 at 22:29; Status DC Sodium Chloride 1,000 ml @ 1,000 mls/hr 1X ONCE IV Last administered on 05/09/20at 22:27; Start 05/09/20 at 22:00; Stop 05/09/20 at 22:59; Status DC Ondansetron HCl (Zofran) 4 mg PRN Q8HRS PRN IV NAUSEA/VOMITING 1ST CHOICE; Start 05/09/20 at 21:15; Stop 05/10/20 at 21:14; Status DC Sodium Chloride 1,000 ml @ 125 mls/hr 1X ONCE IV Last administered on 0at 23:04; Start 05/09/20 at 21:30; Stop 05/10/20 at 05:29; Status DC Magnesium Sulfate 50 ml @ 25 mls/hr 1X ONCE IV Last administered on 05/09/20at 23:29; Start 05/09/20 at 22:00; Stop 05/09/20 at 23:59; Status DC Insulin Human Lispro (HumaLOG) 0-5 UNITS TIDWMEALS SQ ; Start 05/10/20 at 08:00 Dextrose (Dextrose 50%-Water Syringe) 12.5 gm PRN Q15MIN PRN IV SEE COMMENTS; Start 05/09/20 at 21:15 Acetaminophen (Tylenol) 650 mg PRN Q6HRS PRN PO MILD PAIN / TEMP > 100.3'F Last administered on 05/10/20at 08:45; Start 05/10/20 at 08:30 Acetaminophen (Tylenol) 650 mg PRN Q6HRS PRN PO pain or fever; Start 05/10/20 at 12:00; Stop 05/10/20 at 12:03; Status DC Atorvastatin Calcium (Lipitor) 80 mg HS PO Last administered on 05/10/20at 21:02; Start 05/10/20 at 21:00 Azithromycin (Zithromax) 250 mg DAILY PO ; Start 05/11/20 at 09:00; Stop 05/10/20 at 12:03; Status DC Clozapine (Clozaril) 300 mg HS PO Last administered on 05/10/20at 21:02; Start 05/10/20 at 21:00 Clozapine (Clozaril) 100 mg BIDACBL PO Last administered on 05/11/20at 13:20; Start 05/10/20 at 13:30 Divalproex Sodium (Depakote Er) 1,500 mg DAILY PO Last administered on 05/11/20at 08:54; Start 05/10/20 at 13:00 Famotidine (Pepcid) 20 mg HS PO Last administered on 05/10/20at 21:01; Start 05/10/20 at 21:00 Gabapentin (Neurontin) 300 mg TID PO Last administered on 05/11/20at 08:54; Start 05/10/20 at 14:00 Levothyroxine Sodium (Synthroid) 100 mcg HS PO Last administered on 05/10/20at 21:01; Start 05/10/20 at 21:00 Polyethylene Glycol (miraLAX PACKET) 17 gm PRN DAILY PRN PO CONSTIPATION; Start 05/10/20 at 12:00 Prednisone (Prednisone) 10 mg DAILY PO ; Start 05/10/20 at 13:00; Status Cancel Al Hydroxide/Mg Hydroxide (Mylanta Plus Xs) 30 ml PRN Q4HRS PRN PO INDIGESTION; Start 05/10/20 at 12:15; Stop 05/11/20 at 09:34; Status DC Magnesium Hydroxide (Milk Of Magnesia) 2,400 mg PRN Q8HRS PRN PO CONSTIPATION; Start 05/10/20 at 12:15 Prednisone (Prednisone) 30 mg DAILY PO Last administered on 05/11/20at 08:53; Start 05/11/20 at 09:00; Stop 05/14/20 at 09:01 Prednisone (Prednisone) 20 mg DAILY PO ; Start 05/15/20 at 09:00; Stop 05/16/20 at 09:01 Prednisone (Prednisone) 10 mg DAILY PO ; Start 05/17/20 at 09:00; Stop 05/18/20 at 09:01 Piperacillin Sod/ Tazobactam Sod (Zosyn Per Pharmacy) 1 each PRN DAILY PRN MC SEE COMMENTS; Start 05/10/20 at 12:45 Sodium Chloride (Normal Saline Flush) 3 ml QSHIFT PRN IV AFTER MEDS AND BLOOD DRAWS; Start 05/10/20 at 12:45 Sodium Chloride 1,000 ml @ 125 mls/hr Q8H IV Last administered on 05/10/20at 21:03; Start 05/10/20 at 12:45 Ondansetron HCl (Zofran) 4 mg PRN Q4HRS PRN IV NAUSEA/VOMITING; Start 05/10/20 at 12:45 Acetaminophen (Tylenol) 650 mg PRN Q4HRS PRN PO TEMP OVER 100.4F OR MILD PAIN; Start 05/10/20 at 12:45; Stop 05/10/20 at 13:04; Status DC Al Hydroxide/Mg Hydroxide (Mylanta Plus Xs) 30 ml PRN DAILY PRN PO HEARTBURN / GAS; Start 05/10/20 at 12:45 Sodium Monofluorophosphate (Fleet Adult) 133 ml PRN DAILY PRN OR CONSTIPATION; Start 05/10/20 at 12:45 Docusate Sodium (Colace) 100 mg PRN BID PRN PO HARD STOOLS; Start 05/10/20 at 12:45 Albuterol Sulfate (Ventolin Neb Soln) 2.5 mg PRN Q4HRS PRN NEB SHORTNESS OF BREATH; Start 05/10/20 at 12:45 Guaifenesin (Robitussin) 200 mg PRN Q4HRS PRN PO COUGH; Start 05/10/20 at 12:45 Enoxaparin Sodium (Lovenox 40mg Syringe) 40 mg Q24H SQ Last administered on 05/10/20at 21:03; Start 05/10/20 at 21:00 Piperacillin Sod/ Tazobactam Sod 3.375 gm/Sodium Chloride 50 ml @ 100 mls/hr Q6HRS IV Last administered on 05/11/20at 12:59; Start 05/10/20 at 13:00 Lactobacillus Rhamnosus (Culturelle) 1 cap BID PO Last administered on 05/11/20at 08:54; Start 05/10/20 at 21:00 Sodium Chloride 1,000 ml @ 1,000 mls/hr 1X ONCE IV ; Start 05/10/20 at 19:30; Stop 05/10/20 at 20:29; Status DC Vancomycin HCl (Vanco Per Pharmacy) 1 each PRN DAILY PRN MC SEE COMMENTS Last administered on 05/11/20at 09:49; Start 05/11/20 at 08:15 Vancomycin HCl 2 gm/Sodium Chloride 500 ml @ 250 mls/hr 1X ONCE IV Last administered on 05/11/20at 08:50; Start 05/11/20 at 09:00; Stop 05/11/20 at 10:59; Status DC Vancomycin HCl 1.5 gm/Sodium Chloride 500 ml @ 250 mls/hr Q8H IV ; Start at 17:00 Vancomycin HCl (Vancomycin Trough Level) 1 each 1X ONCE MC ; Start 05/12/20 at 08:30; Stop 05/12/20 at 08:31 Active Scripts Active Prednisone (Prednisone) 10 Mg Tablet 10 Mg PO UD Take 4 tablets by mouth daily for 4 days, then take 3 tablets by mouth daily for 2 days, then take 2 tablets by mouth daily for 2 days, then take 1 tablets by mouth daily for 2 days, then stop. Azithromycin Tablet (Azithromycin) 250 Mg Tablet 250 Mg PO DAILY Reported Acetaminophen 325 Mg Tablet 2 Tab PO PRN Q6HRS PRN 24 Days Pioglitazone Hcl 30 Mg Tablet 30 Mg PO DAILY Nicotine Gum (Nicotine Polacrilex) 2 Mg Gum 2 Mg BC PRN PRN Neurontin (Gabapentin) 300 Mg Capsule 300 Mg PO TID Gelusil 200-200-25 mg Chew Tab (Mag Hydrox/Aluminum Hyd/Simeth) 1 Each Tab.chew 1 Each PO PRN Q4HRS PRN Miralax (Polyethylene Glycol 3350) 17 Gm Powd.pack 1 Pkt PO PRN DAILY PRN Milk Of Magnesia (Magnesium Hydroxide) 2,400 Mg/10 Ml Oral.susp 2,400 Mg PO PRN Q8HRS PRN Metoprolol Tartrate 25 Mg Tablet 12.5 Mg PO BID Metformin Hcl 1,000 Mg Tablet 1,000 Mg PO BIDWMEALS Lisinopril 2.5 Mg Tablet 2.5 Mg PO DAILY Levothyroxine Sodium 100 Mcg Tablet 100 Mcg PO HS Januvia (Sitagliptin Phosphate) 100 Mg Tablet 100 Mg PO DAILY Famotidine 20 Mg Tablet 20 Mg PO HS Depakote Er (Divalproex Sodium) 500 Mg Tab.er.24h 1,500 Mg PO DAILY Clozaril (Clozapine) 100 Mg Tablet 100 Mg PO BIDACBL Clozapine 100 Mg Tablet 300 Mg PO HS Atorvastatin Calcium 40 Mg Tablet 80 Mg PO HS Allergies Allergies: Coded Allergies: No Known Drug Allergies (Unverified , 04/08/20) ROS General: YES: Fatigue, Malaise Respiratory: YES: SOB with excertion Physical Exam General: No acute distress Lungs: Clear to auscultation Heart: Regular rate Abdomen: Normal bowel sounds Vitals VITALS Vital Signs Date Time Temp Pulse Resp B/P (MAP) Pulse Ox O2 Delivery O2 Flow Rate FiO2 05/11/20 11:45 Nasal Cannula 4.0 05/11/20 11:00 99.2 109 18 116/74 (88) 97 99.2 Labs Labs Laboratory Tests Test 05/09/20 20:00 05/10/20 00:05 05/10/20 05:00 05/10/20 08:13 White Blood Count 12.3 x10^3/uL (4.0-11.0) Red Blood Count 3.51 x10^6/uL (4.30-5.70) Hemoglobin 11.0 g/dL (13.0-17.5) Hematocrit 31.8 % (39.0-53.0) Mean Corpuscular Volume 91 fL (79-100) Mean Corpuscular Hemoglobin 31 pg (25-35) Mean Corpuscular Hemoglobin Concent 34 g/dL (31-37) Red Cell Distribution Width 17.0 % (11.5-14.5) Platelet Count 272 x10^3/uL (140-400) Neutrophils (%) (Auto) 84 % (31-73) Lymphocytes (%) (Auto) 11 % (24-48) Monocytes (%) (Auto) 4 % (0-9) Eosinophils (%) (Auto) 0 % (0-3) Basophils (%) (Auto) 1 % (0-3) Neutrophils # (Auto) 10.3 x10^3/uL (1.8-7.7) Lymphocytes # (Auto) 1.4 x10^3/uL (1.0-4.8) Monocytes # (Auto) 0.5 x10^3/uL (0.0-1.1) Eosinophils # (Auto) 0.0 x10^3/uL (0.0-0.7) Basophils # (Auto) 0.1 x10^3/uL (0.0-0.2) Sodium Level 139 mmol/L (136-145) Potassium Level 4.1 mmol/L (3.5-5.1) Chloride Level 105 mmol/L (98-107) Carbon Dioxide Level 26 mmol/L (21-32) Anion Gap 8 (6-14) Blood Urea Nitrogen 20 mg/dL (8-26) Creatinine 1.4 mg/dL (0.7-1.3) Estimated GFR (Cockcroft-Gault) 52.2 BUN/Creatinine Ratio 14 (6-20) Glucose Level 198 mg/dL (70-99) Lactic Acid Level 2.4 mmol/L (0.4-2.0) 1.4 mmol/L (0.4-2.0) Calcium Level 8.6 mg/dL (8.5-10.1) Magnesium Level 1.6 mg/dL (1.8-2.4) Total Bilirubin 0.4 mg/dL (0.2-1.0) Aspartate Amino Transf (AST/SGOT) 16 U/L (15-37) Alanine Aminotransferase (ALT/SGPT) 34 U/L (16-63) Alkaline Phosphatase 66 U/L (46-116) Creatine Kinase 26 U/L (39-308) Creatine Kinase MB (Mass) < 0.5 ng/mL (0.0-3.6) Creatine Kinase MB Relative Index % (0-4) Troponin I Quantitative < 0.017 ng/mL (0.000-0.055) < 0.017 ng/mL (0.000-0.055) < 0.017 ng/mL (0.000-0.055) Total Protein 5.7 g/dL (6.4-8.2) Albumin 2.4 g/dL (3.4-5.0) Albumin/Globulin Ratio 0.7 (1.0-1.7) Valproic Acid (Depakene) Level 62 mcg/mL (50-100) Valproic Acid Last Dose Date 05/09/20 Valproic Acid Last Dose Time 0900 Glucose (Fingerstick) 137 mg/dL (70-99) Test 05/10/20 11:17 05/10/20 16:04 05/10/20 16:14 05/10/20 21:00 Glucose (Fingerstick) 132 mg/dL (70-99) 126 mg/dL (70-99) 124 mg/dL (70-99) Lactic Acid Level 0.8 mmol/L (0.4-2.0) Test 05/11/20 04:00 05/11/20 07:55 05/11/20 11:34 05/11/20 11:45 White Blood Count 8.9 x10^3/uL (4.0-11.0) Red Blood Count 3.77 x10^6/uL (4.30-5.70) Hemoglobin 11.5 g/dL (13.0-17.5) Hematocrit 34.1 % (39.0-53.0) Mean Corpuscular Volume 90 fL (79-100) Mean Corpuscular Hemoglobin 31 pg (25-35) Mean Corpuscular Hemoglobin Concent 34 g/dL (31-37) Red Cell Distribution Width 16.4 % (11.5-14.5) Platelet Count 244 x10^3/uL (140-400) Neutrophils (%) (Auto) 83 % (31-73) Lymphocytes (%) (Auto) 12 % (24-48) Monocytes (%) (Auto) 4 % (0-9) Eosinophils (%) (Auto) 1 % (0-3) Basophils (%) (Auto) 0 % (0-3) Neutrophils # (Auto) 7.4 x10^3/uL (1.8-7.7) Lymphocytes # (Auto) 1.0 x10^3/uL (1.0-4.8) Monocytes # (Auto) 0.4 x10^3/uL (0.0-1.1) Eosinophils # (Auto) 0.0 x10^3/uL (0.0-0.7) Basophils # (Auto) 0.0 x10^3/uL (0.0-0.2) Sodium Level 138 mmol/L (136-145) Potassium Level 4.4 mmol/L (3.5-5.1) Chloride Level 102 mmol/L (98-107) Carbon Dioxide Level 27 mmol/L (21-32) Anion Gap 9 (6-14) Blood Urea Nitrogen 6 mg/dL (8-26) Creatinine 0.7 mg/dL (0.7-1.3) Estimated GFR (Cockcroft-Gault) 116.2 BUN/Creatinine Ratio 9 (6-20) Glucose Level 127 mg/dL (70-99) Calcium Level 8.9 mg/dL (8.5-10.1) Total Bilirubin 1.0 mg/dL (0.2-1.0) Aspartate Amino Transf (AST/SGOT) 17 U/L (15-37) Alanine Aminotransferase (ALT/SGPT) 29 U/L (16-63) Alkaline Phosphatase 60 U/L (46-116) Total Protein 6.3 g/dL (6.4-8.2) Albumin 2.1 g/dL (3.4-5.0) Albumin/Globulin Ratio 0.5 (1.0-1.7) Glucose (Fingerstick) 129 mg/dL (70-99) 136 mg/dL (70-99) O2 Saturation 94 % (92-99) Arterial Blood pH 7.43 (7.35-7.45) Arterial Blood pCO2 at Patient Temp 39 mmHg (35-46) Arterial Blood pO2 at Patient Temp 74 mmHg (75-108) Arterial Blood HCO3 25 mmol/L (21-28) Arterial Blood Base Excess 1 mmol/L (-3-3) Oxyhemoglobin 93.1 % Methemoglobin 0.5 % (0.0-1.9) Carbon Monoxide, Quantitative 0.3 % (0.0-1.9) FiO2 36 Laboratory Tests Test 05/10/20 16:04 05/10/20 16:14 05/10/20 21:00 05/11/20 04:00 Lactic Acid Level 0.8 mmol/L (0.4-2.0) Glucose (Fingerstick) 126 mg/dL (70-99) 124 mg/dL (70-99) White Blood Count 8.9 x10^3/uL (4.0-11.0) Red Blood Count 3.77 x10^6/uL (4.30-5.70) Hemoglobin 11.5 g/dL (13.0-17.5) Hematocrit 34.1 % (39.0-53.0) Mean Corpuscular Volume 90 fL (79-100) Mean Corpuscular Hemoglobin 31 pg (25-35) Mean Corpuscular Hemoglobin Concent 34 g/dL (31-37) Red Cell Distribution Width 16.4 % (11.5-14.5) Platelet Count 244 x10^3/uL (140-400) Neutrophils (%) (Auto) 83 % (31-73) Lymphocytes (%) (Auto) 12 % (24-48) Monocytes (%) (Auto) 4 % (0-9) Eosinophils (%) (Auto) 1 % (0-3) Basophils (%) (Auto) 0 % (0-3) Neutrophils # (Auto) 7.4 x10^3/uL (1.8-7.7) Lymphocytes # (Auto) 1.0 x10^3/uL (1.0-4.8) Monocytes # (Auto) 0.4 x10^3/uL (0.0-1.1) Eosinophils # (Auto) 0.0 x10^3/uL (0.0-0.7) Basophils # (Auto) 0.0 x10^3/uL (0.0-0.2) Sodium Level 138 mmol/L (136-145) Potassium Level 4.4 mmol/L (3.5-5.1) Chloride Level 102 mmol/L (98-107) Carbon Dioxide Level 27 mmol/L (21-32) Anion Gap 9 (6-14) Blood Urea Nitrogen 6 mg/dL (8-26) Creatinine 0.7 mg/dL (0.7-1.3) Estimated GFR (Cockcroft-Gault) 116.2 BUN/Creatinine Ratio 9 (6-20) Glucose Level 127 mg/dL (70-99) Calcium Level 8.9 mg/dL (8.5-10.1) Total Bilirubin 1.0 mg/dL (0.2-1.0) Aspartate Amino Transf (AST/SGOT) 17 U/L (15-37) Alanine Aminotransferase (ALT/SGPT) 29 U/L (16-63) Alkaline Phosphatase 60 U/L (46-116) Total Protein 6.3 g/dL (6.4-8.2) Albumin 2.1 g/dL (3.4-5.0) Albumin/Globulin Ratio 0.5 (1.0-1.7) Test 05/11/20 07:55 05/11/20 11:34 05/11/20 11:45 Glucose (Fingerstick) 129 mg/dL (70-99) 136 mg/dL (70-99) O2 Saturation 94 % (92-99) Arterial Blood pH 7.43 (7.35-7.45) Arterial Blood pCO2 at Patient Temp 39 mmHg (35-46) Arterial Blood pO2 at Patient Temp 74 mmHg (75-108) Arterial Blood HCO3 25 mmol/L (21-28) Arterial Blood Base Excess 1 mmol/L (-3-3) Oxyhemoglobin 93.1 % Methemoglobin 0.5 % (0.0-1.9) Carbon Monoxide, Quantitative 0.3 % (0.0-1.9) FiO2 [address] head scan showed no acute intracranial abnormalities. Chest x-ray shows a small left pleural effusion. Assessment/Plan Assessment/Plan 1. Syncopal episode. Most consistent with hypotension. CT head scan as noted above shows no acute changes. Patient has improved post IV fluids. We will continue present treatment. Rhythm has been stable and we will continue to monitor. 2. Possible sepsis. Patient is being evaluated for possible sepsis. Work-up is in progress. 3. Recent COVID-19 infection and treatment as above. 4. Hypomagnesemia. Being replaced. 5. Hyperlipidemia. Will check lab. 6. Diabetes mellitus as per the primary service. 7. Schizophrenia. Thank you for allowing us to participate in the care of your patient. GABRIEL MOBLEY MD May 11, 2020 16:07
--- NOTE | 2020-05-11 16:42 | PDOC ---
PROGRESS NOTES Date of Service DATE: 05/11/20 TIME: 16:41 Subjective Subjective Consulted for ROD and syncope. Syncope is being evaluated by cardiology. Creatinine is back down to normal range at 0.7. Hence no formal consult was done. Please call with questions concerns Objective Objective Vital Signs Date Time Temp Pulse Resp B/P (MAP) Pulse Ox O2 Delivery O2 Flow Rate FiO2 05/11/20 15:00 100.1 83 18 81/47 (58) 100 Nasal Cannula 4.0 100.1 Intake and Output 05/11/20 07:00 Intake Total 1590 ml Balance 1590 ml Intake Oral 590 ml IV Total 1000 ml # Voids 7 Assessment Assessment Problems Medical Problems: (1) Hypomagnesemia Status: Acute (2) Hypotension Status: Acute (3) Sepsis Status: Acute (4) Syncope Status: Acute Comment Review of Relevant I have reviewed the following items franchesca (where applicable) has been applied. Labs Laboratory Tests Test 05/09/20 20:00 05/10/20 00:05 05/10/20 05:00 05/10/20 08:13 White Blood Count 12.3 x10^3/uL (4.0-11.0) Red Blood Count 3.51 x10^6/uL (4.30-5.70) Hemoglobin 11.0 g/dL (13.0-17.5) Hematocrit 31.8 % (39.0-53.0) Mean Corpuscular Volume 91 fL (79-100) Mean Corpuscular Hemoglobin 31 pg (25-35) Mean Corpuscular Hemoglobin Concent 34 g/dL (31-37) Red Cell Distribution Width 17.0 % (11.5-14.5) Platelet Count 272 x10^3/uL (140-400) Neutrophils (%) (Auto) 84 % (31-73) Lymphocytes (%) (Auto) 11 % (24-48) Monocytes (%) (Auto) 4 % (0-9) Eosinophils (%) (Auto) 0 % (0-3) Basophils (%) (Auto) 1 % (0-3) Neutrophils # (Auto) 10.3 x10^3/uL (1.8-7.7) Lymphocytes # (Auto) 1.4 x10^3/uL (1.0-4.8) Monocytes # (Auto) 0.5 x10^3/uL (0.0-1.1) Eosinophils # (Auto) 0.0 x10^3/uL (0.0-0.7) Basophils # (Auto) 0.1 x10^3/uL (0.0-0.2) Sodium Level 139 mmol/L (136-145) Potassium Level 4.1 mmol/L (3.5-5.1) Chloride Level 105 mmol/L (98-107) Carbon Dioxide Level 26 mmol/L (21-32) Anion Gap 8 (6-14) Blood Urea Nitrogen 20 mg/dL (8-26) Creatinine 1.4 mg/dL (0.7-1.3) Estimated GFR (Cockcroft-Gault) 52.2 BUN/Creatinine Ratio 14 (6-20) Glucose Level 198 mg/dL (70-99) Lactic Acid Level 2.4 mmol/L (0.4-2.0) 1.4 mmol/L (0.4-2.0) Calcium Level 8.6 mg/dL (8.5-10.1) Magnesium Level 1.6 mg/dL (1.8-2.4) Total Bilirubin 0.4 mg/dL (0.2-1.0) Aspartate Amino Transf (AST/SGOT) 16 U/L (15-37) Alanine Aminotransferase (ALT/SGPT) 34 U/L (16-63) Alkaline Phosphatase 66 U/L (46-116) Creatine Kinase 26 U/L (39-308) Creatine Kinase MB (Mass) < 0.5 ng/mL (0.0-3.6) Creatine Kinase MB Relative Index % (0-4) Troponin I Quantitative < 0.017 ng/mL (0.000-0.055) < 0.017 ng/mL (0.000-0.055) < 0.017 ng/mL (0.000-0.055) Total Protein 5.7 g/dL (6.4-8.2) Albumin 2.4 g/dL (3.4-5.0) Albumin/Globulin Ratio 0.7 (1.0-1.7) Valproic Acid (Depakene) Level 62 mcg/mL (50-100) Valproic Acid Last Dose Date 05/09/20 Valproic Acid Last Dose Time 0900 Glucose (Fingerstick) 137 mg/dL (70-99) Test 05/10/20 11:17 05/10/20 16:04 05/10/20 16:14 05/10/20 21:00 Glucose (Fingerstick) 132 mg/dL (70-99) 126 mg/dL (70-99) 124 mg/dL (70-99) Lactic Acid Level 0.8 mmol/L (0.4-2.0) Test 05/11/20 04:00 05/11/20 07:55 05/11/20 11:34 05/11/20 11:45 White Blood Count 8.9 x10^3/uL (4.0-11.0) Red Blood Count 3.77 x10^6/uL (4.30-5.70) Hemoglobin 11.5 g/dL (13.0-17.5) Hematocrit 34.1 % (39.0-53.0) Mean Corpuscular Volume 90 fL (79-100) Mean Corpuscular Hemoglobin 31 pg (25-35) Mean Corpuscular Hemoglobin Concent 34 g/dL (31-37) Red Cell Distribution Width 16.4 % (11.5-14.5) Platelet Count 244 x10^3/uL (140-400) Neutrophils (%) (Auto) 83 % (31-73) Lymphocytes (%) (Auto) 12 % (24-48) Monocytes (%) (Auto) 4 % (0-9) Eosinophils (%) (Auto) 1 % (0-3) Basophils (%) (Auto) 0 % (0-3) Neutrophils # (Auto) 7.4 x10^3/uL (1.8-7.7) Lymphocytes # (Auto) 1.0 x10^3/uL (1.0-4.8) Monocytes # (Auto) 0.4 x10^3/uL (0.0-1.1) Eosinophils # (Auto) 0.0 x10^3/uL (0.0-0.7) Basophils # (Auto) 0.0 x10^3/uL (0.0-0.2) Sodium Level 138 mmol/L (136-145) Potassium Level 4.4 mmol/L (3.5-5.1) Chloride Level 102 mmol/L (98-107) Carbon Dioxide Level 27 mmol/L (21-32) Anion Gap 9 (6-14) Blood Urea Nitrogen 6 mg/dL (8-26) Creatinine 0.7 mg/dL (0.7-1.3) Estimated GFR (Cockcroft-Gault) 116.2 BUN/Creatinine Ratio 9 (6-20) Glucose Level 127 mg/dL (70-99) Calcium Level 8.9 mg/dL (8.5-10.1) Total Bilirubin 1.0 mg/dL (0.2-1.0) Aspartate Amino Transf (AST/SGOT) 17 U/L (15-37) Alanine Aminotransferase (ALT/SGPT) 29 U/L (16-63) Alkaline Phosphatase 60 U/L (46-116) Total Protein 6.3 g/dL (6.4-8.2) Albumin 2.1 g/dL (3.4-5.0) Albumin/Globulin Ratio 0.5 (1.0-1.7) Glucose (Fingerstick) 129 mg/dL (70-99) 136 mg/dL (70-99) O2 Saturation 94 % (92-99) Arterial Blood pH 7.43 (7.35-7.45) Arterial Blood pCO2 at Patient Temp 39 mmHg (35-46) Arterial Blood pO2 at Patient Temp 74 mmHg (75-108) Arterial Blood HCO3 25 mmol/L (21-28) Arterial Blood Base Excess 1 mmol/L (-3-3) Oxyhemoglobin 93.1 % Methemoglobin 0.5 % (0.0-1.9) Carbon Monoxide, Quantitative 0.3 % (0.0-1.9) FiO2 36 Laboratory Tests Test 05/10/20 21:00 05/11/20 04:00 05/11/20 07:55 05/11/20 11:34 Glucose (Fingerstick) 124 mg/dL (70-99) 129 mg/dL (70-99) 136 mg/dL (70-99) White Blood Count 8.9 x10^3/uL (4.0-11.0) Red Blood Count 3.77 x10^6/uL (4.30-5.70) Hemoglobin 11.5 g/dL (13.0-17.5) Hematocrit 34.1 % (39.0-53.0) Mean Corpuscular Volume 90 fL (79-100) Mean Corpuscular Hemoglobin 31 pg (25-35) Mean Corpuscular Hemoglobin Concent 34 g/dL (31-37) Red Cell Distribution Width 16.4 % (11.5-14.5) Platelet Count 244 x10^3/uL (140-400) Neutrophils (%) (Auto) 83 % (31-73) Lymphocytes (%) (Auto) 12 % (24-48) Monocytes (%) (Auto) 4 % (0-9) Eosinophils (%) (Auto) 1 % (0-3) Basophils (%) (Auto) 0 % (0-3) Neutrophils # (Auto) 7.4 x10^3/uL (1.8-7.7) Lymphocytes # (Auto) 1.0 x10^3/uL (1.0-4.8) Monocytes # (Auto) 0.4 x10^3/uL (0.0-1.1) Eosinophils # (Auto) 0.0 x10^3/uL (0.0-0.7) Basophils # (Auto) 0.0 x10^3/uL (0.0-0.2) Sodium Level 138 mmol/L (136-145) Potassium Level 4.4 mmol/L (3.5-5.1) Chloride Level 102 mmol/L (98-107) Carbon Dioxide Level 27 mmol/L (21-32) Anion Gap 9 (6-14) Blood Urea Nitrogen 6 mg/dL (8-26) Creatinine 0.7 mg/dL (0.7-1.3) Estimated GFR (Cockcroft-Gault) 116.2 BUN/Creatinine Ratio 9 (6-20) Glucose Level 127 mg/dL (70-99) Calcium Level 8.9 mg/dL (8.5-10.1) Total Bilirubin 1.0 mg/dL (0.2-1.0) Aspartate Amino Transf (AST/SGOT) 17 U/L (15-37) Alanine Aminotransferase (ALT/SGPT) 29 U/L (16-63) Alkaline Phosphatase 60 U/L (46-116) Total Protein 6.3 g/dL (6.4-8.2) Albumin 2.1 g/dL (3.4-5.0) Albumin/Globulin Ratio 0.5 (1.0-1.7) Test 1/2/21 11:45 O2 Saturation 94 % (92-99) Arterial Blood pH 7.43 (7.35-7.45) Arterial Blood pCO2 at Patient Temp 39 mmHg (35-46) Arterial Blood pO2 at Patient Temp 74 mmHg (75-108) Arterial Blood HCO3 25 mmol/L (21-28) Arterial Blood Base Excess 1 mmol/L (-3-3) Oxyhemoglobin 93.1 % Methemoglobin 0.5 % (0.0-1.9) Carbon Monoxide, Quantitative 0.3 % (0.0-1.9) FiO2 36 Microbiology 05/10/20 Blood Culture - Preliminary, Resulted NO GROWTH AFTER 1 DAY Medications Current Medications Sodium Chloride 1,000 ml @ 1,000 mls/hr 1X ONCE IV Last administered on 05/09/20at 20:58; Start 05/09/20 at 20:30; Stop 05/09/20 at 21:29; Status DC Piperacillin Sod/ Tazobactam Sod 4.5 gm/Sodium Chloride 100 ml @ 200 mls/hr 1X ONCE IV Last administered on 05/09/20at 23:04; Start 05/09/20 at 22:00; Stop 05/09/20 at 22:29; Status DC Sodium Chloride 1,000 ml @ 1,000 mls/hr 1X ONCE IV Last administered on 05/09/20at 22:27; Start 05/09/20 at 22:00; Stop 05/09/20 at 22:59; Status DC Ondansetron HCl (Zofran) 4 mg PRN Q8HRS PRN IV NAUSEA/VOMITING 1ST CHOICE; Start 05/09/20 at 21:15; Stop 05/10/20 at 21:14; Status DC Sodium Chloride 1,000 ml @ 125 mls/hr 1X ONCE IV Last administered on 05/09/20at 23:04; Start 05/09/20 at 21:30; Stop 05/10/20 at 05:29; Status DC Magnesium Sulfate 50 ml @ 25 mls/hr 1X ONCE IV Last administered on 05/09/20at 23:29; Start 05/09/20 at 22:00; Stop 05/09/20 at 23:59; Status DC Insulin Human Lispro (HumaLOG) 0-5 UNITS TIDWMEALS SQ ; Start 05/10/20 at 08:00 Dextrose (Dextrose 50%-Water Syringe) 12.5 gm PRN Q15MIN PRN IV SEE COMMENTS; Start 05/09/20 at 21:15 Acetaminophen (Tylenol) 650 mg PRN Q6HRS PRN PO MILD PAIN / TEMP > 100.3'F Last administered on 05/10/20at 08:45; Start 05/10/20 at 08:30 Acetaminophen (Tylenol) 650 mg PRN Q6HRS PRN PO pain or fever; Start 05/10/20 at 12:00; Stop 05/10/20 at 12:03; Status DC Atorvastatin Calcium (Lipitor) 80 mg HS PO Last administered on 05/10/20at 21:02; Start 05/10/20 at 21:00 Azithromycin (Zithromax) 250 mg DAILY PO ; Start 05/11/20 at 09:00; Stop 05/10/20 at 12:03; Status DC Clozapine (Clozaril) 300 mg HS PO Last administered on 05/10/20at 21:02; Start 05/10/20 at 21:00 Clozapine (Clozaril) 100 mg BIDACBL PO Last administered on 05/11/20at 13:20; Start 05/10/20 at 13:30 Divalproex Sodium (Depakote Er) 1,500 mg DAILY PO Last administered on 05/11/20at 08:54; Start 05/10/20 at 13:00 Famotidine (Pepcid) 20 mg HS PO Last administered on 05/10/20at 21:01; Start 05/10/20 at 21:00 Gabapentin (Neurontin) 300 mg TID PO Last administered on 05/11/20at 08:54; Start 05/10/20 at 14:00 Levothyroxine Sodium (Synthroid) 100 mcg HS PO Last administered on 05/10/20at 21:01; Start 05/10/20 at 21:00 Polyethylene Glycol (miraLAX PACKET) 17 gm PRN DAILY PRN PO CONSTIPATION; Start 05/10/20 at 12:00 Prednisone (Prednisone) 10 mg DAILY PO ; Start 05/10/20 at 13:00; Status Cancel Al Hydroxide/Mg Hydroxide (Mylanta Plus Xs) 30 ml PRN Q4HRS PRN PO INDIGESTION; Start 05/10/20 at 12:15; Stop 05/11/20 at 09:34; Status DC Magnesium Hydroxide (Milk Of Magnesia) 2,400 mg PRN Q8HRS PRN PO CONSTIPATION; Start 05/10/20 at 12:15 Prednisone (Prednisone) 30 mg DAILY PO Last administered on 05/11/20at 08:53; Start 05/11/20 at 09:00; Stop 05/14/20 at 09:01 Prednisone (Prednisone) 20 mg DAILY PO ; Start 05/15/20 at 09:00; Stop 05/16/20 at 09:01 Prednisone (Prednisone) 10 mg DAILY PO ; Start 05/17/20 at 09:00; Stop 05/18/20 at 09:01 Piperacillin Sod/ Tazobactam Sod (Zosyn Per Pharmacy) 1 each PRN DAILY PRN MC SEE COMMENTS; Start 05/10/20 at 12:45 Sodium Chloride (Normal Saline Flush) 3 ml QSHIFT PRN IV AFTER MEDS AND BLOOD DRAWS; Start 05/10/20 at 12:45 Sodium Chloride 1,000 ml @ 125 mls/hr Q8H IV Last administered on 05/10/20at 21:03; Start 05/10/20 at 12:45 Ondansetron HCl (Zofran) 4 mg PRN Q4HRS PRN IV NAUSEA/VOMITING; Start 05/10/20 at 12:45 Acetaminophen (Tylenol) 650 mg PRN Q4HRS PRN PO TEMP OVER 100.4F OR MILD PAIN; Start 05/10/20 at 12:45; Stop 05/10/20 at 13:04; Status DC Al Hydroxide/Mg Hydroxide (Mylanta Plus Xs) 30 ml PRN DAILY PRN PO HEARTBURN / GAS; Start 05/10/20 at 12:45 Sodium Monofluorophosphate (Fleet Adult) 133 ml PRN DAILY PRN ID CONSTIPATION; Start 05/10/20 at 12:45 Docusate Sodium (Colace) 100 mg PRN BID PRN PO HARD STOOLS; Start 05/10/20 at 12:45 Albuterol Sulfate (Ventolin Neb Soln) 2.5 mg PRN Q4HRS PRN NEB SHORTNESS OF BREATH; Start 05/10/20 at 12:45 Guaifenesin (Robitussin) 200 mg PRN Q4HRS PRN PO COUGH; Start 05/10/20 at 12:45 Enoxaparin Sodium (Lovenox 40mg Syringe) 40 mg Q24H SQ Last administered on 05/10/20at 21:03; Start 05/10/20 at 21:00 Piperacillin Sod/ Tazobactam Sod 3.375 gm/Sodium Chloride 50 ml @ 100 mls/hr Q6HRS IV Last administered on 05/11/20at 12:59; Start 05/10/20 at 13:00 Lactobacillus Rhamnosus (Culturelle) 1 cap BID PO Last administered on 05/11/20at 08:54; Start 05/10/20 at 21:00 Sodium Chloride 1,000 ml @ 1,000 mls/hr 1X ONCE IV ; Start 05/10/20 at 19:30; Stop 05/10/20 at 20:29; Status DC Vancomycin HCl (Vanco Per Pharmacy) 1 each PRN DAILY PRN MC SEE COMMENTS Last administered on 05/11/20at 09:49; Start 05/11/20 at 08:15 Vancomycin HCl 2 gm/Sodium Chloride 500 ml @ 250 mls/hr 1X ONCE IV Last administered on 05/11/20at 08:50; Start 05/11/20 at 09:00; Stop 05/11/20 at 10:59; Status DC Vancomycin HCl 1.5 gm/Sodium Chloride 500 ml @ 250 mls/hr Q8H IV ; Start 05/11/20 at 17:00 Vancomycin HCl (Vancomycin Trough Level) 1 each 1X ONCE MC ; Start 05/12/20 at 08:30; Stop 05/12/20 at 08:31 Active Scripts Active Prednisone (Prednisone) 10 Mg Tablet 10 Mg PO UD Take 4 tablets by mouth daily for 4 days, then take 3 tablets by mouth daily for 2 days, then take 2 tablets by mouth daily for 2 days, then take 1 tablets by mouth daily for 2 days, then stop. Azithromycin Tablet (Azithromycin) 250 Mg Tablet 250 Mg PO DAILY Reported Acetaminophen 325 Mg Tablet 2 Tab PO PRN Q6HRS PRN 24 Days Pioglitazone Hcl 30 Mg Tablet 30 Mg PO DAILY Nicotine Gum (Nicotine Polacrilex) 2 Mg Gum 2 Mg BC PRN PRN Neurontin (Gabapentin) 300 Mg Capsule 300 Mg PO TID Gelusil 200-200-25 mg Chew Tab (Mag Hydrox/Aluminum Hyd/Simeth) 1 Each Tab.chew 1 Each PO PRN Q4HRS PRN Miralax (Polyethylene Glycol 3350) 17 Gm Powd.pack 1 Pkt PO PRN DAILY PRN Milk Of Magnesia (Magnesium Hydroxide) 2,400 Mg/10 Ml Oral.susp 2,400 Mg PO PRN Q8HRS PRN Metoprolol Tartrate 25 Mg Tablet 12.5 Mg PO BID Metformin Hcl 1,000 Mg Tablet 1,000 Mg PO BIDWMEALS Lisinopril 2.5 Mg Tablet 2.5 Mg PO DAILY Levothyroxine Sodium 100 Mcg Tablet 100 Mcg PO HS Januvia (Sitagliptin Phosphate) 100 Mg Tablet 100 Mg PO DAILY Famotidine 20 Mg Tablet 20 Mg PO HS Depakote Er (Divalproex Sodium) 500 Mg Tab.er.24h 1,500 Mg PO DAILY Clozaril (Clozapine) 100 Mg Tablet 100 Mg PO BIDACBL Clozapine 100 Mg Tablet 300 Mg PO HS Atorvastatin Calcium 40 Mg Tablet 80 Mg PO HS Vitals/I & O Vital Sign - Last 24 Hours 05/10/20 05/10/20 05/10/20 05/11/20 19:00 19:30 22:51 03:00 Temp 98.3 98.0 98.7 98.3 98.0 98.7 Pulse 93 100 111 Resp 16 16 18 B/P (MAP) 120/73 (89) 93/68 (76) 114/70 (85) Pulse Ox 99 98 93 O2 Delivery Nasal Cannula Nasal Cannula Nasal Cannula Nasal Cannula O2 Flow Rate 4.0 4.0 4.0 4.0 05/11/20 05/11/20 05/11/20 05/11/20 07:00 08:00 11:00 11:45 Temp 100.5 99.2 100.5 99.2 Pulse 105 109 Resp 18 18 B/P (MAP) 111/76 (88) 116/74 (88) Pulse Ox 96 97 O2 Delivery Nasal Cannula Nasal Cannula Nasal Cannula Nasal Cannula O2 Flow Rate 4.0 4.0 4.0 4.0 05/11/20 15:00 Temp 100.1 100.1 Pulse 83 Resp 18 B/P (MAP) 81/47 (58) Pulse Ox 100 O2 Delivery Nasal Cannula O2 Flow Rate 4.0 Intake and Output 1/1/21 1/1/21 1/2/21 15:00 23:00 07:00 Intake Total 1000 ml 350 ml 240 ml Balance 1000 ml 350 ml 240 ml Justifications for Admission General Conditions Poss hypotension?: Yes Justification for admission: Patient has hypotension (SBP < 90 mm Hg) which is not readily corrected by appropriate treatment within 12 to 24 hours. SYNCOPE Other Justification ROGERIO ALFREDO MD May 11, 2020 16:42
[2020-05-11] MEDS: VANCOMYCIN 1.5 GM in IV NORMAL SALINE 500ML BAG 500 ML IV SCH (17:43)
[2020-05-11] MEDS: LEVOTHYROXINE 100 MCG TABLET PO SCH (21:00)
[2020-05-11] MEDS: ENOXAPARIN 40 MG/0.4 ML SYRINGE. SQ SCH (21:00)
[2020-05-11] MEDS: FAMOTIDINE 20 MG TABLET. PO SCH (21:00)
[2020-05-11] MEDS: ATORVASTATIN CALCIUM 40 MG TABLET. PO SCH (21:00)
[2020-05-11] MEDS: IV NORMAL SALINE 1000ML BAG 1,000 ML IV SCH ×3 (21:01→21:07)
[2020-05-12] MEDS: VANCOMYCIN 1.5 GM in IV NORMAL SALINE 500ML BAG 500 ML IV SCH (00:08)
[2020-05-12] MEDS: PIPERACILLIN/TAZOBACTAM 3.375 GM in IV NORMAL SALINE 50ML 50 ML IV SCH ×4 (01:46→18:27)
[2020-05-12 03:00] VITALS: BP 98/63
[2020-05-12] MEDS: IV NORMAL SALINE 1000ML BAG 1,000 ML IV SCH ×3 (06:32→20:56)
[2020-05-12 07:00] VITALS: BP 101/67
[2020-05-12] MEDS: INSULIN LISPRO 300 UNITS/3 ML VIAL. SQ SCH ×3 (08:00→17:00)
--- NOTE | 2020-05-12 09:12 | PDOC ---
Infectious Disease Note Vital Signs: Vital Signs Vital Signs Date Time Temp Pulse Resp B/P (MAP) Pulse Ox O2 Delivery O2 Flow Rate FiO2 05/12/20 07:00 97.7 87 18 101/67 (78) 90 Room Air 97.7 05/11/20 23:00 2.0 Physical Exam: PHYSICAL EXAM GEN : Alert awake somewhat confused male in no acute distress HEENT: Normocephalic, atraumatic, anicteric. No thrush. NECK: Supple, no JVD. LUNGS: Clear bilaterally. No wheezing. HEART: S1, S2, no murmurs. ABDOMEN: Soft, nontender, nondistended. GENITOURINARY: No Hernandes in place. EXTREMITIES: No edema. DERMATOLOGIC: Warm and dry. No generalized rash. NEUROLOGIC: Alert, awake, confused. PSYCHIATRIC: Calm. Medications: Inpatient Meds: Current Medications Medications (Trade) Dose Ordered Sig/Ambrose Start Time Stop Time Status Last Admin Dose Admin Acetaminophen (Tylenol) 650 mg PRN Q4HRS PRN 05/10/20 12:45 05/10/20 13:04 DC Al Hydroxide/Mg Hydroxide (Mylanta Plus Xs) 30 ml PRN DAILY PRN 05/10/20 12:45 Albuterol Sulfate (Ventolin Neb Soln) 2.5 mg PRN Q4HRS PRN 05/10/20 12:45 Atorvastatin Calcium (Lipitor) 80 mg HS 05/10/20 21:00 05/10/20 21:02 80 MG Azithromycin (Zithromax) 250 mg DAILY 05/11/20 09:00 05/10/20 12:03 DC Clozapine (Clozaril) 100 mg BIDACBL 05/10/20 13:30 05/11/20 13:20 100 MG Dextrose (Dextrose 50%-Water Syringe) 12.5 gm PRN Q15MIN PRN 05/09/20 21:15 Divalproex Sodium (Depakote Er) 1,500 mg DAILY 05/10/20 13:00 05/11/20 08:54 1,500 MG Docusate Sodium (Colace) 100 mg PRN BID PRN 05/10/20 12:45 Enoxaparin Sodium (Lovenox 40mg Syringe) 40 mg Q24H 05/10/20 21:00 05/10/20 21:03 40 MG Famotidine (Pepcid) 20 mg HS 05/10/20 21:00 05/10/20 21:01 20 MG Gabapentin (Neurontin) 300 mg TID 05/10/20 14:00 05/11/20 08:54 300 MG Guaifenesin (Robitussin) 200 mg PRN Q4HRS PRN 05/10/20 12:45 Insulin Human Lispro (HumaLOG) 0-5 UNITS TIDWMEALS 05/10/20 08:00 Lactobacillus Rhamnosus (Culturelle) 1 cap BID 05/10/20 21:00 05/11/20 08:54 1 CAP Levothyroxine Sodium (Synthroid) 100 mcg HS 05/10/20 21:00 05/10/20 21:01 100 MCG Magnesium Hydroxide (Milk Of Magnesia) 2,400 mg PRN Q8HRS PRN 05/10/20 12:15 Magnesium Sulfate 50 ml @ 25 mls/hr 1X ONCE 05/09/20 22:00 05/09/20 23:59 DC 05/09/20 23:29 25 MLS/HR Ondansetron HCl (Zofran) 4 mg PRN Q4HRS PRN 05/10/20 12:45 Piperacillin Sod/ Tazobactam Sod (Zosyn Per Pharmacy) 1 each PRN DAILY PRN 05/10/20 12:45 Piperacillin Sod/ Tazobactam Sod 3.375 gm/Sodium Chloride 50 ml @ 100 mls/hr Q6HRS 05/10/20 13:00 05/12/20 06:33 100 MLS/HR Piperacillin Sod/ Tazobactam Sod 4.5 gm/Sodium Chloride 100 ml @ 200 mls/hr 1X ONCE 05/09/20 22:00 05/09/20 22:29 DC 05/09/20 23:04 200 MLS/HR Polyethylene Glycol (miraLAX PACKET) 17 gm PRN DAILY PRN 05/10/20 12:00 Prednisone (Prednisone) 10 mg DAILY 05/17/20 09:00 05/18/20 09:01 Sodium Monofluorophosphate (Fleet Adult) 133 ml PRN DAILY PRN 05/10/20 12:45 Sodium Chloride 1,000 ml @ 1,000 mls/hr 1X ONCE 05/10/20 19:30 05/10/20 20:29 DC Sodium Chloride (Normal Saline Flush) 3 ml QSHIFT PRN 05/10/20 12:45 Vancomycin HCl (Vanco Per Pharmacy) 1 each PRN DAILY PRN 05/11/20 08:15 05/11/20 09:49 1 EACH Vancomycin HCl (Vancomycin Trough Level) 1 each 1X ONCE 05/12/20 08:30 05/12/20 08:31 DC Vancomycin HCl 1.5 gm/Sodium Chloride 500 ml @ 250 mls/hr Q8H 05/11/20 17:00 05/12/20 00:08 250 MLS/HR Vancomycin HCl 2 gm/Sodium Chloride 500 ml @ 250 mls/hr 1X ONCE 05/11/20 09:00 05/11/20 10:59 DC 05/11/20 08:50 250 MLS/HR Labs: Lab Laboratory Tests Test 05/11/20 11:34 05/11/20 11:45 05/11/20 21:03 05/12/20 07:16 Glucose (Fingerstick) 136 mg/dL (70-99) 159 mg/dL (70-99) 160 mg/dL (70-99) O2 Saturation 94 % (92-99) Arterial Blood pH 7.43 (7.35-7.45) Arterial Blood pCO2 at Patient Temp 39 mmHg (35-46) Arterial Blood pO2 at Patient Temp 74 mmHg (75-108) Arterial Blood HCO3 25 mmol/L (21-28) Arterial Blood Base Excess 1 mmol/L (-3-3) Oxyhemoglobin 93.1 % Methemoglobin 0.5 % (0.0-1.9) Carbon Monoxide, Quantitative 0.3 % (0.0-1.9) FiO2 36 Objective: Assessment: 1. Bacteremia, 2/4 bottles present on admission. ID and SHERRIE pending at this time. 2. Fever. 3. Sepsis. 4. Encephalopathy, likely metabolic. 5. COVID recovery. 6. Chronic severe psychiatric issues. 7. Generalized debility. 8. Depression. 9. Diabetes. 10. Hypertension/hyperlipidemia. 11. Hypothyroidism. 12. Severe protein-calorie malnutrition. 13. History of fall at detention. Plan: Plan of Care Continue Zosyn Discontinue IV vancomycin Start Doxy Follow cultures and monitor lab Continue supportive care. Maintain aspiration precaution. Discussed with SARY WATTS MD May 12, 2020 09:12
[2020-05-12] MEDS: cloZAPine 100 MG TABLET PO SCH ×3 (09:27→20:55)
[2020-05-12] MEDS: DOXYCYCLINE HYCLATE 100 MG TABLET PO SCH ×2 (09:28→20:53)
[2020-05-12] MEDS: predniSONE 10 MG TABLET PO SCH (09:28)
[2020-05-12] MEDS: DIVALPROEX EXTENDED RELEASE 500 MG TAB.ER.24H. PO SCH (09:28)
[2020-05-12] MEDS: GABAPENTIN 300 MG CAPSULE. PO SCH ×3 (09:28→20:53)
[2020-05-12] MEDS: LACTOBACILLUS RHAMNOSUS GG 1 CAPSULE. PO SCH ×2 (09:28→20:53)
[2020-05-12 09:42] LABS: VANC TR 22.9 mcg/mL (10.0-20.0)
[2020-05-12 09:47] LABS: CALCIUM 8.6 mg/dL (8.5-10.1); CREATININE 0.9 mg/dL (0.7-1.3); MAGNESIUM 1.7 mg/dL (1.8-2.4); POTASSIUM 3.8 mmol/L (3.5-5.1)
[2020-05-12 09:50] LABS: CHOLESTEROL/HDL RATIO 3.2
--- NOTE | 2020-05-12 10:56 | PDOC ---
[employer] PROGRESS NOTE Date of Service DOS: DATE: 05/12/20 TIME: 10:51 Chief Complaint Chief Complaint Syncope, probable multifactorial, polypharmacy, resent sepsis Acute metabolic encephalopathy ROD recent Acute Respiratory failure with hypoxia , now inc 4 liters nc needed Chronic severe psychiatric issues COVID-19, recovering Septic shock recent hx Depression Diabetes Hypertension Hyperlipidemia Hypothyroidism Schizophrenia Severe protein calorie malnutrition polypharmacy D/W SISTER FROM [facility], REQUESTED DNR STATUS, IS HIS DPOA 05/11 20 POOR APPETITE TODAY d/w RN Justifications for Admission Justifications for Admission Other Justification History of Present Illness History of Present Illness seen in er with syncopal event presented via EMS from assisted with report of syncopal episode after standing up from wheelchair at assisted //falling to the floor striking his head. noted to have low blood pressure in the 60s over 40s. ===== recently admitted to [facility] and discharged 12-30 after treatment for sepsis. had a negative COVID-19 test during admission. denies significant pain., denies neck pain. , Denies chest pain. 05/12/2020 Patient seen sleeping comfortably Charts reviewed MARY Past Medical History Past Medical History Past Medical History Past Medical History Past Medical History: Constipation, Depression, Diabetes-Type II, GERD, High Cholesterol, Hypothyroid, Schizophrenia, Other Additional Past Medical Histor: covid 19; insomnia Past Surgical History: Other Additional Past Surgical Histo: UNABLE TO ASSESS Smoking Status: Unknown if ever smoked Alcohol Use: None Drug Use: None fhx htn Source Source: Chart review, Patient History of Present Illness History of Present Illness Mr. Acevedo, is a 55 year old male who was sent here from assisted due to altered mental status. Patient was found by assisted staff very lethargic, they could not measure his blood pressure. he was hospitalized her from 04/17 to 04/13 with confusion and hypoxia and mult problems related to COVID marked hypotension in ER, resuscitatated, central line placed, discussed wt Dr. Mckinney Patient was admitted here on April 07, 2020 due to altered mental status. Past Medical History Past Medical History schizophrenia Cardiovascular: HTN, Hyperlipidemia Psych: Schizophrenia Endocrine: Diabetes, Hypothyroidism Past Surgical History Past Surgical History: No pertinent history Family History Family History: Family History Unknown Social History Smoke: No ALCOHOL: none Drugs: None Cardiovascular: HTN, Hyperlipidemia Psych: Schizophrenia Musculoskeletal: Osteoarthritis, Weakness Endocrine: Diabetes, Hypothyroidism Vitals/I&O Vitals/I&O: Vital Signs Date Time Temp Pulse Resp B/P (MAP) Pulse Ox O2 Delivery O2 Flow Rate FiO2 05/12/20 07:00 97.7 87 18 101/67 (78) 90 Room Air 97.7 05/11/20 23:00 2.0 I & O 05/11/20 05/11/20 05/12/20 15:00 23:00 07:00 Intake Total 100 ml 200 ml Balance 100 ml 200 ml Physical Exam Physical Exam: GEN : Alert awake somewhat confused male in no acute distress HEENT: Normocephalic, atraumatic, anicteric. No thrush. NECK: Supple, no JVD. LUNGS: Clear bilaterally. No wheezing. HEART: S1, S2, no murmurs. ABDOMEN: Soft, nontender, nondistended. GENITOURINARY: No Hernandes in place. EXTREMITIES: No edema. DERMATOLOGIC: Warm and dry. No generalized rash. NEUROLOGIC: Alert, awake, confused. PSYCHIATRIC: Calm. General: No acute distress Heart: Regular rate, Normal S1, Normal S2 Lungs: Crackles, Other Abdomen: Normal bowel sounds Extremities: No cyanosis Skin: No rashes, No breakdown Labs Labs: Laboratory Tests Test 05/11/20 11:34 05/11/20 11:45 05/11/20 21:03 05/12/20 07:16 Glucose (Fingerstick) 136 mg/dL (70-99) 159 mg/dL (70-99) 160 mg/dL (70-99) O2 Saturation 94 % (92-99) Arterial Blood pH 7.43 (7.35-7.45) Arterial Blood pCO2 at Patient Temp 39 mmHg (35-46) Arterial Blood pO2 at Patient Temp 74 mmHg (75-108) Arterial Blood HCO3 25 mmol/L (21-28) Arterial Blood Base Excess 1 mmol/L (-3-3) Oxyhemoglobin 93.1 % Methemoglobin 0.5 % (0.0-1.9) Carbon Monoxide, Quantitative 0.3 % (0.0-1.9) FiO2 36 Test 05/12/20 08:45 Sodium Level 143 mmol/L (136-145) Potassium Level 3.8 mmol/L (3.5-5.1) Chloride Level 108 mmol/L (98-107) Carbon Dioxide Level 30 mmol/L (21-32) Anion Gap 5 (6-14) Blood Urea Nitrogen 9 mg/dL (8-26) Creatinine 0.9 mg/dL (0.7-1.3) Estimated GFR (Cockcroft-Gault) 87.0 Glucose Level 190 mg/dL (70-99) Calcium Level 8.6 mg/dL (8.5-10.1) Magnesium Level 1.7 mg/dL (1.8-2.4) Triglycerides Level 170 mg/dL (0-150) Cholesterol Level 146 mg/dL (0-200) LDL Cholesterol, Calculated 67 mg/dL (0-100) VLDL Cholesterol, Calculated 34 mg/dL (0-40) Non-HDL Cholesterol Calculated 101 mg/dL (0-129) HDL Cholesterol 45 mg/dL (40-60) Cholesterol/HDL Ratio 3.2 Vancomycin Level Trough 22.9 mcg/mL (10.0-20.0) Vancomycin Last Dose Date 05/12/20 Vancomycin Last Dose Time 0100 Assessment and Plan Assessmemt and Plan Assessment Syncope, probable multifactorial, polypharmacy, resent sepsis Acute metabolic encephalopathy ROD recent Acute Respiratory failure with hypoxia , now inc 4 liters nc needed Chronic severe psychiatric issues COVID-19, recovering Septic shock recent hx Depression Diabetes Hypertension Hyperlipidemia Hypothyroidism Schizophrenia Severe protein calorie malnutrition polypharmacy Plan DNR DVT PPX PT/OT Continue home meds Trend labs Appreciate subspecialty input Problems Medical Problems: (1) Hypomagnesemia Status: Acute (2) Hypotension Status: Acute (3) Sepsis Status: Acute (4) Syncope Status: Acute Comment Review of Relevant I have reviewed the following items franchesca (where applicable) has been applied. Medications: Current Medications Medications (Trade) Dose Ordered Sig/Ambrose Route PRN Reason Start Time Stop Time Status Last Admin Dose Admin Vancomycin HCl 1.5 gm/Sodium Chloride 500 ml @ 250 mls/hr Q8H IV 05/11/20 17:00 05/12/20 09:13 DC 05/12/20 00:08 Vancomycin HCl (Vancomycin Trough Level) 1 each 1X ONCE MC 05/12/20 08:30 05/12/20 08:31 DC 05/12/20 08:30 Doxycycline Hyclate (Vibra-Tab) 100 mg BID PO 1/3/21 10:00 05/12/20 09:28 Justifications for Admission General Conditions Poss hypotension?: Yes Justification for admission: Patient has hypotension (SBP < 90 mm Hg) which is not readily corrected by appropriate treatment within 12 to 24 hours. SYNCOPE Other Justification FORTINO LUNA III, DO May 12, 2020 10:56
[2020-05-12 11:00] VITALS: BP 93/62
[2020-05-12 15:00] VITALS: BP 109/73
--- NOTE | 2020-05-12 15:50 | PDOC ---
PROGRESS NOTES Date of Service DATE: 05/12/20 TIME: 15:49 Subjective Subjective Patient seen and examined Objective Objective Vital Signs Date Time Temp Pulse Resp B/P (MAP) Pulse Ox O2 Delivery O2 Flow Rate FiO2 05/12/20 11:00 97.8 87 16 93/62 (72) 94 Room Air 97.8 05/11/20 23:00 2.0 Intake and Output 05/12/20 07:00 Intake Total 300 ml Balance 300 ml Intake Oral 300 ml # Voids 2 Physical Exam Abdomen: Normal bowel sounds Heart: Regular rate General: No acute distress Lungs: Other (Mildly decreased breath sounds) Assessment Assessment Problems Medical Problems: (1) Hypomagnesemia Status: Acute (2) Hypotension Status: Acute (3) Sepsis Status: Acute (4) Syncope Status: Acute 1. Syncopal episode. Most consistent with hypotension. CT head scan as noted above shows no acute changes. Patient has improved post IV fluids. We will continue present treatment. Rhythm has been stable. 2. Possible sepsis. Patient is being evaluated for possible sepsis. Work-up is in progress. 3. Recent COVID-19 infection and treatment as above. 4. Hypomagnesemia. Being replaced. 5. Hyperlipidemia. 6. Diabetes mellitus as per the primary service. 7. Schizophrenia. Comment Review of Relevant I have reviewed the following items franchesca (where applicable) has been applied. Labs Laboratory Tests Test 05/10/20 16:04 05/10/20 16:14 05/10/20 21:00 05/11/20 04:00 Lactic Acid Level 0.8 mmol/L (0.4-2.0) Glucose (Fingerstick) 126 mg/dL (70-99) 124 mg/dL (70-99) White Blood Count 8.9 x10^3/uL (4.0-11.0) Red Blood Count 3.77 x10^6/uL (4.30-5.70) Hemoglobin 11.5 g/dL (13.0-17.5) Hematocrit 34.1 % (39.0-53.0) Mean Corpuscular Volume 90 fL (79-100) Mean Corpuscular Hemoglobin 31 pg (25-35) Mean Corpuscular Hemoglobin Concent 34 g/dL (31-37) Red Cell Distribution Width 16.4 % (11.5-14.5) Platelet Count 244 x10^3/uL (140-400) Neutrophils (%) (Auto) 83 % (31-73) Lymphocytes (%) (Auto) 12 % (24-48) Monocytes (%) (Auto) 4 % (0-9) Eosinophils (%) (Auto) 1 % (0-3) Basophils (%) (Auto) 0 % (0-3) Neutrophils # (Auto) 7.4 x10^3/uL (1.8-7.7) Lymphocytes # (Auto) 1.0 x10^3/uL (1.0-4.8) Monocytes # (Auto) 0.4 x10^3/uL (0.0-1.1) Eosinophils # (Auto) 0.0 x10^3/uL (0.0-0.7) Basophils # (Auto) 0.0 x10^3/uL (0.0-0.2) Sodium Level 138 mmol/L (136-145) Potassium Level 4.4 mmol/L (3.5-5.1) Chloride Level 102 mmol/L (98-107) Carbon Dioxide Level 27 mmol/L (21-32) Anion Gap 9 (6-14) Blood Urea Nitrogen 6 mg/dL (8-26) Creatinine 0.7 mg/dL (0.7-1.3) Estimated GFR (Cockcroft-Gault) 116.2 BUN/Creatinine Ratio 9 (6-20) Glucose Level 127 mg/dL (70-99) Calcium Level 8.9 mg/dL (8.5-10.1) Total Bilirubin 1.0 mg/dL (0.2-1.0) Aspartate Amino Transf (AST/SGOT) 17 U/L (15-37) Alanine Aminotransferase (ALT/SGPT) 29 U/L (16-63) Alkaline Phosphatase 60 U/L (46-116) Total Protein 6.3 g/dL (6.4-8.2) Albumin 2.1 g/dL (3.4-5.0) Albumin/Globulin Ratio 0.5 (1.0-1.7) Test 05/11/20 07:55 05/11/20 11:34 05/11/20 11:45 05/11/20 21:03 Glucose (Fingerstick) 129 mg/dL (70-99) 136 mg/dL (70-99) 159 mg/dL (70-99) O2 Saturation 94 % (92-99) Arterial Blood pH 7.43 (7.35-7.45) Arterial Blood pCO2 at Patient Temp 39 mmHg (35-46) Arterial Blood pO2 at Patient Temp 74 mmHg (75-108) Arterial Blood HCO3 25 mmol/L (21-28) Arterial Blood Base Excess 1 mmol/L (-3-3) Oxyhemoglobin 93.1 % Methemoglobin 0.5 % (0.0-1.9) Carbon Monoxide, Quantitative 0.3 % (0.0-1.9) FiO2 36 Test 05/12/20 07:16 05/12/20 08:45 05/12/20 11:10 Glucose (Fingerstick) 160 mg/dL (70-99) 152 mg/dL (70-99) Sodium Level 143 mmol/L (136-145) Potassium Level 3.8 mmol/L (3.5-5.1) Chloride Level 108 mmol/L (98-107) Carbon Dioxide Level 30 mmol/L (21-32) Anion Gap 5 (6-14) Blood Urea Nitrogen 9 mg/dL (8-26) Creatinine 0.9 mg/dL (0.7-1.3) Estimated GFR (Cockcroft-Gault) 87.0 Glucose Level 190 mg/dL (70-99) Calcium Level 8.6 mg/dL (8.5-10.1) Magnesium Level 1.7 mg/dL (1.8-2.4) Triglycerides Level 170 mg/dL (0-150) Cholesterol Level 146 mg/dL (0-200) LDL Cholesterol, Calculated 67 mg/dL (0-100) VLDL Cholesterol, Calculated 34 mg/dL (0-40) Non-HDL Cholesterol Calculated 101 mg/dL (0-129) HDL Cholesterol 45 mg/dL (40-60) Cholesterol/HDL Ratio 3.2 Vancomycin Level Trough 22.9 mcg/mL (10.0-20.0) Vancomycin Last Dose Date 05/12/20 Vancomycin Last Dose Time 0100 Laboratory Tests Test 05/11/20 21:03 05/12/20 07:16 05/12/20 08:45 05/12/20 11:10 Glucose (Fingerstick) 159 mg/dL (70-99) 160 mg/dL (70-99) 152 mg/dL (70-99) Sodium Level 143 mmol/L (136-145) Potassium Level 3.8 mmol/L (3.5-5.1) Chloride Level 108 mmol/L (98-107) Carbon Dioxide Level 30 mmol/L (21-32) Anion Gap 5 (6-14) Blood Urea Nitrogen 9 mg/dL (8-26) Creatinine 0.9 mg/dL (0.7-1.3) Estimated GFR (Cockcroft-Gault) 87.0 Glucose Level 190 mg/dL (70-99) Calcium Level 8.6 mg/dL (8.5-10.1) Magnesium Level 1.7 mg/dL (1.8-2.4) Triglycerides Level 170 mg/dL (0-150) Cholesterol Level 146 mg/dL (0-200) LDL Cholesterol, Calculated 67 mg/dL (0-100) VLDL Cholesterol, Calculated 34 mg/dL (0-40) Non-HDL Cholesterol Calculated 101 mg/dL (0-129) HDL Cholesterol 45 mg/dL (40-60) Cholesterol/HDL Ratio 3.2 Vancomycin Level Trough 22.9 mcg/mL (10.0-20.0) Vancomycin Last Dose Date 05/12/20 Vancomycin Last Dose Time 0100 Microbiology 05/10/20 Blood Culture - Preliminary, Resulted NO GROWTH AFTER 1 DAY Medications Current Medications Sodium Chloride 1,000 ml @ 1,000 mls/hr 1X ONCE IV Last administered on 05/09/20at 20:58; Start 05/09/20 at 20:30; Stop 05/09/20 at 21:29; Status DC Piperacillin Sod/ Tazobactam Sod 4.5 gm/Sodium Chloride 100 ml @ 200 mls/hr 1X ONCE IV Last administered on 05/09/20at 23:04; Start 05/09/20 at 22:00; Stop 05/09/20 at 22:29; Status DC Sodium Chloride 1,000 ml @ 1,000 mls/hr 1X ONCE IV Last administered on at 22:27; Start 05/09/20 at 22:00; Stop 05/09/20 at 22:59; Status DC Ondansetron HCl (Zofran) 4 mg PRN Q8HRS PRN IV NAUSEA/VOMITING 1ST CHOICE; Start 05/09/20 at 21:15; Stop 05/10/20 at 21:14; Status DC Sodium Chloride 1,000 ml @ 125 mls/hr 1X ONCE IV Last administered on 05/09/20at 23:04; Start 05/09/20 at 21:30; Stop 05/10/20 at 05:29; Status DC Magnesium Sulfate 50 ml @ 25 mls/hr 1X ONCE IV Last administered on 05/09/20at 23:29; Start 05/09/20 at 22:00; Stop 05/09/20 at 23:59; Status DC Insulin Human Lispro (HumaLOG) 0-5 UNITS TIDWMEALS SQ ; Start 05/10/20 at 08:00 Dextrose (Dextrose 50%-Water Syringe) 12.5 gm PRN Q15MIN PRN IV SEE COMMENTS; Start 05/09/20 at 21:15 Acetaminophen (Tylenol) 650 mg PRN Q6HRS PRN PO MILD PAIN / TEMP > 100.3'F Last administered on 05/10/20at 08:45; Start 05/10/20 at 08:30 Acetaminophen (Tylenol) 650 mg PRN Q6HRS PRN PO pain or fever; Start 05/10/20 at 12:00; Stop 05/10/20 at 12:03; Status DC Atorvastatin Calcium (Lipitor) 80 mg HS PO Last administered on 05/10/20at 21:02; Start 05/10/20 at 21:00 Azithromycin (Zithromax) 250 mg DAILY PO ; Start 05/11/20 at 09:00; Stop 05/10/20 at 12:03; Status DC Clozapine (Clozaril) 300 mg HS PO Last administered on 05/10/20at 21:02; Start 05/10/20 at 21:00 Clozapine (Clozaril) 100 mg BIDACBL PO Last administered on 05/12/20at 09:27; Start 05/10/20 at 13:30 Divalproex Sodium (Depakote Er) 1,500 mg DAILY PO Last administered on 05/12/20at 09:28; Start 05/10/20 at 13:00 Famotidine (Pepcid) 20 mg HS PO Last administered on 05/10/20at 21:01; Start 05/10/20 at 21:00 Gabapentin (Neurontin) 300 mg TID PO Last administered on 05/12/20at 09:28; Start 05/10/20 at 14:00 Levothyroxine Sodium (Synthroid) 100 mcg HS PO Last administered on 05/10/20at 21:01; Start 05/10/20 at 21:00 Polyethylene Glycol (miraLAX PACKET) 17 gm PRN DAILY PRN PO CONSTIPATION; Start 05/10/20 at 12:00 Prednisone (Prednisone) 10 mg DAILY PO ; Start 05/10/20 at 13:00; Status Cancel Al Hydroxide/Mg Hydroxide (Mylanta Plus Xs) 30 ml PRN Q4HRS PRN PO INDIGESTION; Start 05/10/20 at 12:15; Stop 05/11/20 at 09:34; Status DC Magnesium Hydroxide (Milk Of Magnesia) 2,400 mg PRN Q8HRS PRN PO CONSTIPATION; Start 05/10/20 at 12:15 Prednisone (Prednisone) 30 mg DAILY PO Last administered on 05/12/20at 09:28; Start 05/11/20 at 09:00; Stop 05/14/20 at 09:01 Prednisone (Prednisone) 20 mg DAILY PO ; Start 05/15/20 at 09:00; Stop 05/16/20 at 09:01 Prednisone (Prednisone) 10 mg DAILY PO ; Start 05/17/20 at 09:00; Stop 05/18/20 at 09:01 Piperacillin Sod/ Tazobactam Sod (Zosyn Per Pharmacy) 1 each PRN DAILY PRN MC SEE COMMENTS; Start 05/10/20 at 12:45 Sodium Chloride (Normal Saline Flush) 3 ml QSHIFT PRN IV AFTER MEDS AND BLOOD DRAWS; Start 05/10/20 at 12:45 Sodium Chloride 1,000 ml @ 100 mls/hr Q10H IV Last administered on 05/12/20at 06:32; Start 05/10/20 at 12:45 Ondansetron HCl (Zofran) 4 mg PRN Q4HRS PRN IV NAUSEA/VOMITING; Start 05/10/20 at 12:45 Acetaminophen (Tylenol) 650 mg PRN Q4HRS PRN PO TEMP OVER 100.4F OR MILD PAIN; Start 05/10/20 at 12:45; Stop 05/10/20 at 13:04; Status DC Al Hydroxide/Mg Hydroxide (Mylanta Plus Xs) 30 ml PRN DAILY PRN PO HEARTBURN / GAS; Start 05/10/20 at 12:45 Sodium Monofluorophosphate (Fleet Adult) 133 ml PRN DAILY PRN VT CONSTIPATION; Start 05/10/20 at 12:45 Docusate Sodium (Colace) 100 mg PRN BID PRN PO HARD STOOLS; Start 05/10/20 at 12:45 Albuterol Sulfate (Ventolin Neb Soln) 2.5 mg PRN Q4HRS PRN NEB SHORTNESS OF BREATH; Start 05/10/20 at 12:45 Guaifenesin (Robitussin) 200 mg PRN Q4HRS PRN PO COUGH; Start 05/10/20 at 12:45 Enoxaparin Sodium (Lovenox 40mg Syringe) 40 mg Q24H SQ Last administered on 05/10/20at 21:03; Start 05/10/20 at 21:00 Piperacillin Sod/ Tazobactam Sod 3.375 gm/Sodium Chloride 50 ml @ 100 mls/hr Q6HRS IV Last administered on 05/12/20at 12:25; Start 05/10/20 at 13:00 Lactobacillus Rhamnosus (Culturelle) 1 cap BID PO Last administered on 05/12/20at 09:28; Start 05/10/20 at 21:00 Sodium Chloride 1,000 ml @ 1,000 mls/hr 1X ONCE IV ; Start 05/10/20 at 19:30; Stop 05/10/20 at 20:29; Status DC Vancomycin HCl (Vanco Per Pharmacy) 1 each PRN DAILY PRN MC SEE COMMENTS Last administered on 05/11/20at 09:49; Start 05/11/20 at 08:15; Stop 05/12/20 at 09:14; Status DC Vancomycin HCl 2 gm/Sodium Chloride 500 ml @ 250 mls/hr 1X ONCE IV Last administered on 05/11/20at 08:50; Start 05/11/20 at 09:00; Stop 05/11/20 at 10:59; Status DC Vancomycin HCl 1.5 gm/Sodium Chloride 500 ml @ 250 mls/hr Q8H IV Last administered on 05/12/20at 00:08; Start 05/11/20 at 17:00; Stop 05/12/20 at 09:13; Status DC Vancomycin HCl (Vancomycin Trough Level) 1 each 1X ONCE MC Last administered on 05/12/20at 08:30; Start 05/12/20 at 08:30; Stop 05/12/20 at 08:31; Status DC Doxycycline Hyclate (Vibra-Tab) 100 mg BID PO Last administered on 05/12/20at 09:28; Start 05/12/20 at 10:00 Active Scripts Active Prednisone (Prednisone) 10 Mg Tablet 10 Mg PO UD Take 4 tablets by mouth daily for 4 days, then take 3 tablets by mouth daily for 2 days, then take 2 tablets by mouth daily for 2 days, then take 1 tablets by mouth daily for 2 days, then stop. Azithromycin Tablet (Azithromycin) 250 Mg Tablet 250 Mg PO DAILY Reported Acetaminophen 325 Mg Tablet 2 Tab PO PRN Q6HRS PRN 24 Days Pioglitazone Hcl 30 Mg Tablet 30 Mg PO DAILY Nicotine Gum (Nicotine Polacrilex) 2 Mg Gum 2 Mg BC PRN PRN Neurontin (Gabapentin) 300 Mg Capsule 300 Mg PO TID Gelusil 200-200-25 mg Chew Tab (Mag Hydrox/Aluminum Hyd/Simeth) 1 Each Tab.chew 1 Each PO PRN Q4HRS PRN Miralax (Polyethylene Glycol 3350) 17 Gm Powd.pack 1 Pkt PO PRN DAILY PRN Milk Of Magnesia (Magnesium Hydroxide) 2,400 Mg/10 Ml Oral.susp 2,400 Mg PO PRN Q8HRS PRN Metoprolol Tartrate 25 Mg Tablet 12.5 Mg PO BID Metformin Hcl 1,000 Mg Tablet 1,000 Mg PO BIDWMEALS Lisinopril 2.5 Mg Tablet 2.5 Mg PO DAILY Levothyroxine Sodium 100 Mcg Tablet 100 Mcg PO HS Januvia (Sitagliptin Phosphate) 100 Mg Tablet 100 Mg PO DAILY Famotidine 20 Mg Tablet 20 Mg PO HS Depakote Er (Divalproex Sodium) 500 Mg Tab.er.24h 1,500 Mg PO DAILY Clozaril (Clozapine) 100 Mg Tablet 100 Mg PO BIDACBL Clozapine 100 Mg Tablet 300 Mg PO HS Atorvastatin Calcium 40 Mg Tablet 80 Mg PO HS Vitals/I & O Vital Sign - Last 24 Hours 05/11/20 05/11/20 05/11/20 05/12/20 19:00 20:13 23:00 03:00 Temp 98.4 97.8 97.4 98.4 97.8 97.4 Pulse 92 89 90 Resp 20 20 18 B/P (MAP) 96/74 (81) 99/75 (83) 98/63 (75) Pulse Ox 91 92 90 O2 Delivery Nasal Cannula Nasal Cannula Nasal Cannula Room Air O2 Flow Rate 2.0 4.0 2.0 05/12/20 05/12/20 07:00 11:00 Temp 97.7 97.8 97.7 97.8 Pulse 87 87 Resp 18 16 B/P (MAP) 101/67 (78) 93/62 (72) Pulse Ox 90 94 O2 Delivery Room Air Room Air Intake and Output 05/11/20 05/11/20 05/12/20 15:00 23:00 07:00 Intake Total 100 ml 200 ml Balance 100 ml 200 ml Justifications for Admission General Conditions Poss hypotension?: Yes Justification for admission: Patient has hypotension (SBP < 90 mm Hg) which is not readily corrected by appropriate treatment within 12 to 24 hours. SYNCOPE Other Justification GABRIEL MOBLEY MD May 12, 2020 15:50
[2020-05-12 19:00] VITALS: BP 128/84
[2020-05-12] MEDS: ENOXAPARIN 40 MG/0.4 ML SYRINGE. SQ SCH (20:52)
[2020-05-12] MEDS: ATORVASTATIN CALCIUM 40 MG TABLET. PO SCH (20:53)
[2020-05-12] MEDS: FAMOTIDINE 20 MG TABLET. PO SCH (20:53)
[2020-05-12] MEDS: LEVOTHYROXINE 100 MCG TABLET PO SCH (20:53)
[2020-05-12 23:00] VITALS: BP 115/81
[2020-05-13] MEDS: PIPERACILLIN/TAZOBACTAM 3.375 GM in IV NORMAL SALINE 50ML 50 ML IV SCH ×2 (00:45→05:22)
[2020-05-13 03:17] VITALS: BP 115/75
[2020-05-13 07:00] VITALS: BP 101/76
[2020-05-13] MEDS: INSULIN LISPRO 300 UNITS/3 ML VIAL. SQ SCH ×3 (08:00→16:19)
[2020-05-13] MEDS: cloZAPine 100 MG TABLET PO SCH ×3 (09:36→20:14)
[2020-05-13] MEDS: LACTOBACILLUS RHAMNOSUS GG 1 CAPSULE. PO SCH ×2 (09:36→20:14)
[2020-05-13] MEDS: DOXYCYCLINE HYCLATE 100 MG TABLET PO SCH (09:38)
[2020-05-13] MEDS: predniSONE 10 MG TABLET PO SCH (09:38)
[2020-05-13] MEDS: DIVALPROEX EXTENDED RELEASE 500 MG TAB.ER.24H. PO SCH (09:38)
[2020-05-13] MEDS: GABAPENTIN 300 MG CAPSULE. PO SCH ×3 (09:38→20:15)
[2020-05-13] MEDS: IV NORMAL SALINE 1000ML BAG 1,000 ML IV SCH ×2 (09:55→20:13)
[2020-05-13 11:00] VITALS: BP 95/57
--- NOTE | 2020-05-13 11:04 | PDOC ---
Infectious Disease Note Subjective Subjective pt is feeling good ROS ROS no n/v/d/sob Vital Sign Vital Signs Vital Signs Date Time Temp Pulse Resp B/P (MAP) Pulse Ox O2 Delivery O2 Flow Rate FiO2 05/13/20 07:00 97.3 84 18 101/76 (84) 91 Room Air 97.3 05/12/20 20:03 2.0 Physical Exam PHYSICAL EXAM GEN : Alert awake somewhat confused male in no acute distress HEENT: Normocephalic, atraumatic, anicteric. No thrush. NECK: Supple, no JVD. LUNGS: Clear bilaterally. No wheezing. HEART: S1, S2, no murmurs. ABDOMEN: Soft, nontender, nondistended. GENITOURINARY: No Hernandes in place. EXTREMITIES: No edema. DERMATOLOGIC: Warm and dry. No generalized rash. NEUROLOGIC: Alert, awake, confused. PSYCHIATRIC: Calm. Labs Lab Laboratory Tests Test 05/12/20 11:10 05/12/20 17:12 05/12/20 20:54 05/13/20 07:36 Glucose (Fingerstick) 152 mg/dL (70-99) 145 mg/dL (70-99) 233 mg/dL (70-99) 131 mg/dL (70-99) Micro Microbiology 05/10/20 Blood Culture - Preliminary, Resulted NO GROWTH AFTER 2 DAYS Objective Assessment 1. Bacteremia, 2/4 bottles present on admission. staph epi 2. Fever. 3. Sepsis. 4. Encephalopathy, likely metabolic. 5. COVID recovery. 6. Chronic severe psychiatric issues. 7. Generalized debility. 8. Depression. 9. Diabetes. 10. Hypertension/hyperlipidemia. 11. Hypothyroidism. 12. Severe protein-calorie malnutrition. 13. History of fall at halfway. Plan Plan of Care change antibiotics to po Follow cultures and monitor lab Continue supportive care. Maintain aspiration precaution. Discussed with RN. bridger to d/c JENNIFER ALFREDO MD May 13, 2020 11:04
[2020-05-13 15:00] VITALS: BP 97/67
--- NOTE | 2020-05-13 17:06 | CARD ---
MR#: [id number] Date of Study: 05/13/2020 Ordering Physician: MARINO REAGAN, Referring Physician: MARINO REAGAN, Tech: Bettina De León APPROVED REPORT EXAM: Two-dimensional and M-mode echocardiogram with Doppler and color Doppler. Other Information Quality : FairHR: 105bpm Technically limited study due to Non-compliant patient INDICATION Syncope Echo Enhancing Agent Agent/Amount Used: Lumason mL RISK FACTORS Hyperlipidemia Diabetes 2D DIMENSIONS Left Atrium(2D)2.9 (1.6-4.0cm)IVSd1.2 (0.7-1.1cm) Aortic Root(2D)3.9 (2.0-3.7cm)LVDd4.6 (3.9-5.9cm) LVOT Diameter2.1 (1.8-2.4cm)PWd1.1 (0.7-1.1cm) LVDs2.5 (2.5-4.0cm)FS (%) 46.4 % SV75.7 ml LEFT VENTRICLE Limited echo at patient request. The left ventricle is normal size. There is mild concentric left ve ntricular hypertrophy. The left ventricular systolic function is normal and the ejection fraction is within normal range. The Ejection Fraction is 55-60%. There is normal LV segmental wall motion. RIGHT VENTRICLE The right ventricle is normal size. There is normal right ventricular wall thickness. The right ventr icular systolic function is normal. ATRIA The left atrium size is normal. The right atrium size is normal. Septal thickening noted. AORTIC VALVE The aortic valve is not well visualized. Doppler and color-flow analysis was not performed. There is no significant aortic valvular stenosis. MITRAL VALVE The mitral valve is normal in structure and function. There is no evidence of mitral valve prolapse. There is no mitral valve stenosis. Doppler and color-flow analysis was not performed. TRICUSPID VALVE The tricuspid valve is not visualized. Doppler and color-flow analysis was not performed. There is no tricuspid valve stenosis. PULMONIC VALVE The pulmonic valve is not visualized. Doppler and color-flow analysis was not performed. GREAT VESSELS The aortic root is mildly to moderately enlarged. The ascending aorta is mildly to moderately dilated . Ascending aorta at 4.09 cm The IVC was not visualized. PERICARDIAL EFFUSION There is no evidence of significant pericardial effusion. Critical Notification Critical Value: No <Conclusion> Limited echo at patient request. The left ventricle is normal size. The left ventricular systolic function is normal and the ejection fraction is within normal range. The Ejection Fraction is 55-60%. There is mild concentric left ventricular hypertrophy. The ascending aorta is mildly to moderately dilated. Ascending aorta at 4.09 cm Signed by : Jay Vega MD Electronically Approved : 05/13/2020 17:06:23
[2020-05-13 19:00] VITALS: BP 129/74
--- NOTE | 2020-05-13 20:13 | PDOC ---
PROGRESS NOTES Date of Service: DATE: 05/13/20 TIME: 20:08 Chief Complaint Chief Complaint Syncope, probable multifactorial, polypharmacy, resent sepsis Acute metabolic encephalopathy ROD recent Acute Respiratory failure with hypoxia , now inc 4 liters nc needed Chronic severe psychiatric issues COVID-19, recovering Septic shock recent hx Depression Diabetes Hypertension Hyperlipidemia Hypothyroidism Schizophrenia Severe protein calorie malnutrition polypharmacy D/W SISTER FROM [facility], REQUESTED DNR STATUS, IS HIS DPOA 05/11 20 POOR APPETITE TODAY 05/12/2020 Patient seen sleeping comfortably Charts reviewed DWRN 05/13/2020 Patient seems to be doing well no acute events reported overnight, cultures negative will follow recs from [facility] web consultant Justifications for Admission Justifications for Admission Other Justification History of Present Illness History of Present Illness seen in er with syncopal event presented via EMS from skilled nursing with report of syncopal episode after standing up from wheelchair at skilled nursing //falling to the floor striking his head. noted to have low blood pressure in the 60s over 40s. ===== recently admitted to [facility] and discharged 12-30 after treatment for sepsis. had a negative COVID-19 test during admission. denies significant pain., denies neck pain. , Denies chest pain. Past Medical History Past Medical History Past Medical History Past Medical History Past Medical History: Constipation, Depression, Diabetes-Type II, GERD, High Cholesterol, Hypothyroid, Schizophrenia, Other Additional Past Medical Histor: covid 19; insomnia Past Surgical History: Other Additional Past Surgical Histo: UNABLE TO ASSESS Smoking Status: Unknown if ever smoked Alcohol Use: None Drug Use: None fhx htn Source Source: Chart review, Patient History of Present Illness History of Present Illness Mr. Acevedo, is a 55 year old male who was sent here from skilled nursing due to altered mental status. Patient was found by skilled nursing staff very lethargic, they could not measure his blood pressure. he was hospitalized her from 04/17 to 04/13 with confusion and hypoxia and mult problems related to COVID marked hypotension in ER, resuscitatated, central line placed, discussed wt Dr. Mckinney Patient was admitted here on April 07, 2020 due to altered mental status. Past Medical History Past Medical History schizophrenia Cardiovascular: HTN, Hyperlipidemia Psych: Schizophrenia Endocrine: Diabetes, Hypothyroidism Past Surgical History Past Surgical History: No pertinent history Family History Family History: Family History Unknown Social History Smoke: No ALCOHOL: none Drugs: None Cardiovascular: HTN, Hyperlipidemia Psych: Schizophrenia Musculoskeletal: Osteoarthritis, Weakness Endocrine: Diabetes, Hypothyroidism Vitals Vitals Vital Signs Date Time Temp Pulse Resp B/P (MAP) Pulse Ox O2 Delivery O2 Flow Rate FiO2 05/13/20 19:00 97.9 73 18 129/74 (92) 97 Nasal Cannula 3.0 97.9 Physical Exam Physical Exam GEN : Alert awake somewhat confused male in no acute distress HEENT: Normocephalic, atraumatic, anicteric. No thrush. NECK: Supple, no JVD. LUNGS: Clear bilaterally. No wheezing. HEART: S1, S2, no murmurs. ABDOMEN: Soft, nontender, nondistended. GENITOURINARY: No Hernandes in place. EXTREMITIES: No edema. DERMATOLOGIC: Warm and dry. No generalized rash. NEUROLOGIC: Alert, awake, confused. PSYCHIATRIC: Calm. General: No acute distress Heart: Regular rate Lungs: Crackles, Other Abdomen: Normal bowel sounds Extremities: No cyanosis Skin: No rashes, No breakdown Labs LABS Laboratory Tests Test 05/12/20 20:54 05/13/20 07:36 05/13/20 11:27 05/13/20 16:15 Glucose (Fingerstick) 233 mg/dL (70-99) 131 mg/dL (70-99) 187 mg/dL (70-99) 281 mg/dL (70-99) Test 05/13/20 19:51 Glucose (Fingerstick) 179 mg/dL (70-99) Assessment and Plan Assessmemt and Plan Problems Medical Problems: (1) Hypomagnesemia Status: Acute (2) Hypotension Status: Acute (3) Sepsis Status: Acute (4) Syncope Status: Acute Comment Review of Relevant I have reviewed the following items franchesca (where applicable) has been applied. Labs Laboratory Tests Test 05/11/20 21:03 05/12/20 07:16 05/12/20 08:45 05/12/20 11:10 Glucose (Fingerstick) 159 mg/dL (70-99) 160 mg/dL (70-99) 152 mg/dL (70-99) Sodium Level 143 mmol/L (136-145) Potassium Level 3.8 mmol/L (3.5-5.1) Chloride Level 108 mmol/L (98-107) Carbon Dioxide Level 30 mmol/L (21-32) Anion Gap 5 (6-14) Blood Urea Nitrogen 9 mg/dL (8-26) Creatinine 0.9 mg/dL (0.7-1.3) Estimated GFR (Cockcroft-Gault) 87.0 Glucose Level 190 mg/dL (70-99) Calcium Level 8.6 mg/dL (8.5-10.1) Magnesium Level 1.7 mg/dL (1.8-2.4) Triglycerides Level 170 mg/dL (0-150) Cholesterol Level 146 mg/dL (0-200) LDL Cholesterol, Calculated 67 mg/dL (0-100) VLDL Cholesterol, Calculated 34 mg/dL (0-40) Non-HDL Cholesterol Calculated 101 mg/dL (0-129) HDL Cholesterol 45 mg/dL (40-60) Cholesterol/HDL Ratio 3.2 Vancomycin Level Trough 22.9 mcg/mL (10.0-20.0) Vancomycin Last Dose Date 05/12/20 Vancomycin Last Dose Time 0100 Test 05/12/20 17:12 05/12/20 20:54 05/13/20 07:36 05/13/20 11:27 Glucose (Fingerstick) 145 mg/dL (70-99) 233 mg/dL (70-99) 131 mg/dL (70-99) 187 mg/dL (70-99) Test 05/13/20 16:15 05/13/20 19:51 Glucose (Fingerstick) 281 mg/dL (70-99) 179 mg/dL (70-99) Laboratory Tests Test 05/12/20 20:54 05/13/20 07:36 05/13/20 11:27 05/13/20 16:15 Glucose (Fingerstick) 233 mg/dL (70-99) 131 mg/dL (70-99) 187 mg/dL (70-99) 281 mg/dL (70-99) Test 05/13/20 19:51 Glucose (Fingerstick) 179 mg/dL (70-99) Microbiology 05/10/20 Blood Culture - Preliminary, Resulted NO GROWTH AFTER 3 DAYS Medications Current Medications Sodium Chloride 1,000 ml @ 1,000 mls/hr 1X ONCE IV Last administered on 05/09/20at 20:58; Start 05/09/20 at 20:30; Stop 05/09/20 at 21:29; Status DC Piperacillin Sod/ Tazobactam Sod 4.5 gm/Sodium Chloride 100 ml @ 200 mls/hr 1X ONCE IV Last administered on 05/09/20at 23:04; Start 05/09/20 at 22:00; Stop 05/09/20 at 22:29; Status DC Sodium Chloride 1,000 ml @ 1,000 mls/hr 1X ONCE IV Last administered on 05/09/20at 22:27; Start 05/09/20 at 22:00; Stop 05/09/20 at 22:59; Status DC Ondansetron HCl (Zofran) 4 mg PRN Q8HRS PRN IV NAUSEA/VOMITING 1ST CHOICE; S tart 05/09/20 at 21:15; Stop 05/10/20 at 21:14; Status DC Sodium Chloride 1,000 ml @ 125 mls/hr 1X ONCE IV Last administered on 05/09/20at 23:04; Start 05/09/20 at 21:30; Stop 05/10/20 at 05:29; Status DC Magnesium Sulfate 50 ml @ 25 mls/hr 1X ONCE IV Last administered on 05/09/20at 23:29; Start 05/09/20 at 22:00; Stop 05/09/20 at 23:59; Status DC Insulin Human Lispro (HumaLOG) 0-5 UNITS TIDWMEALS SQ Last administered on 05/13/20at 16:19; Start 05/10/20 at 08:00 Dextrose (Dextrose 50%-Water Syringe) 12.5 gm PRN Q15MIN PRN IV SEE COMMENTS; Start 05/09/20 at 21:15 Acetaminophen (Tylenol) 650 mg PRN Q6HRS PRN PO MILD PAIN / TEMP > 100.3'F Last administered on 05/10/20at 08:45; Start 05/10/20 at 08:30 Acetaminophen (Tylenol) 650 mg PRN Q6HRS PRN PO pain or fever; Start 05/10/20 at 12:00; Stop 05/10/20 at 12:03; Status DC Atorvastatin Calcium (Lipitor) 80 mg HS PO Last administered on 05/12/20at 20:53; Start 05/10/20 at 21:00 Azithromycin (Zithromax) 250 mg DAILY PO ; Start 05/11/20 at 09:00; Stop 05/10/20 at 12:03; Status DC Clozapine (Clozaril) 300 mg HS PO Last administered on 05/12/20at 20:55; Start 05/10/20 at 21:00 Clozapine (Clozaril) 100 mg BIDACBL PO Last administered on 05/13/20at 12:04; Start 05/10/20 at 13:30 Divalproex Sodium (Depakote Er) 1,500 mg DAILY PO Last administered on 05/13/20at 09:38; Start 05/10/20 at 13:00 Famotidine (Pepcid) 20 mg HS PO Last administered on 05/12/20at 20:53; Start 05/10/20 at 21:00 Gabapentin (Neurontin) 300 mg TID PO Last administered on 05/13/20at 16:17; Start 05/10/20 at 14:00 Levothyroxine Sodium (Synthroid) 100 mcg HS PO Last administered on 05/12/20at 20:53; Start 05/10/20 at 21:00 Polyethylene Glycol (miraLAX PACKET) 17 gm PRN DAILY PRN PO CONSTIPATION, 1ST CHOICE; Start 05/10/20 at 12:00 Prednisone (Prednisone) 10 mg DAILY PO ; Start 05/10/20 at 13:00; Status Cancel Al Hydroxide/Mg Hydroxide (Mylanta Plus Xs) 30 ml PRN Q4HRS PRN PO INDIGESTION; Start 05/10/20 at 12:15; Stop 05/11/20 at 09:34; Status DC Magnesium Hydroxide (Milk Of Magnesia) 2,400 mg PRN Q8HRS PRN PO CONSTIPATION, 2ND CHOICE; Start 05/10/20 at 12:15 Prednisone (Prednisone) 30 mg DAILY PO Last administered on 05/13/20at 09:38; Start 05/11/20 at 09:00; Stop 05/14/20 at 09:01 Prednisone (Prednisone) 20 mg DAILY PO ; Start 05/15/20 at 09:00; Stop 05/16/20 at 09:01 Prednisone (Prednisone) 10 mg DAILY PO ; Start 05/17/20 at 09:00; Stop 05/18/20 at 09:01 Piperacillin Sod/ Tazobactam Sod (Zosyn Per Pharmacy) 1 each PRN DAILY PRN MC SEE COMMENTS; Start 05/10/20 at 12:45; Status Cancel Sodium Chloride (Normal Saline Flush) 3 ml QSHIFT PRN IV AFTER MEDS AND BLOOD DRAWS; Start 05/10/20 at 12:45 Sodium Chloride 1,000 ml @ 100 mls/hr Q10H IV Last administered on 05/12/20at 20:56; Start 05/10/20 at 12:45 Ondansetron HCl (Zofran) 4 mg PRN Q4HRS PRN IV NAUSEA/VOMITING; Start 05/10/20 a t 12:45 Acetaminophen (Tylenol) 650 mg PRN Q4HRS PRN PO TEMP OVER 100.4F OR MILD PAIN; Start 05/10/20 at 12:45; Stop 05/10/20 at 13:04; Status DC Al Hydroxide/Mg Hydroxide (Mylanta Plus Xs) 30 ml PRN DAILY PRN PO HEARTBURN / GAS; Start 05/10/20 at 12:45 Sodium Monofluorophosphate (Fleet Adult) 133 ml PRN DAILY PRN HI CONSTIPATION; Start 05/10/20 at 12:45 Docusate Sodium (Colace) 100 mg PRN BID PRN PO HARD STOOLS; Start 05/10/20 at 12:45 Albuterol Sulfate (Ventolin Neb Soln) 2.5 mg PRN Q4HRS PRN NEB SHORTNESS OF BREATH; Start 05/10/20 at 12:45 Guaifenesin (Robitussin) 200 mg PRN Q4HRS PRN PO COUGH; Start 05/10/20 at 12:45 Enoxaparin Sodium (Lovenox 40mg Syringe) 40 mg Q24H SQ Last administered on 05/12/20at 20:52; Start 05/10/20 at 21:00 Piperacillin Sod/ Tazobactam Sod 3.375 gm/Sodium Chloride 50 ml @ 100 mls/hr Q6HRS IV Last administered on 05/13/20at 05:22; Start 05/10/20 at 13:00; Stop 05/13/20 at 11:06; Status DC Lactobacillus Rhamnosus (Culturelle) 1 cap BID PO Last administered on 05/13/20at 09:36; Start 05/10/20 at 21:00 Sodium Chloride 1,000 ml @ 1,000 mls/hr 1X ONCE IV ; Start 05/10/20 at 19:30; Stop 05/10/20 at 20:29; Status DC Vancomycin HCl (Vanco Per Pharmacy) 1 each PRN DAILY PRN MC SEE COMMENTS Last administered on 05/11/20at 09:49; Start 05/11/20 at 08:15; Stop 05/12/20 at 09:14; Status DC Vancomycin HCl 2 gm/Sodium Chloride 500 ml @ 250 mls/hr 1X ONCE IV Last administered on 05/11/20at 08:50; Start 05/11/20 at 09:00; Stop 05/11/20 at 10:59; Status DC Vancomycin HCl 1.5 gm/Sodium Chloride 500 ml @ 250 mls/hr Q8H IV Last administered on 05/12/20at 00:08; Start 05/11/20 at 17:00; Stop 05/12/20 at 09:13; Status DC Vancomycin HCl (Vancomycin Trough Level) 1 each 1X ONCE MC Last administered on 05/12/20at 08:30; Start 05/12/20 at 08:30; Stop 05/12/20 at 08:31; Status DC Doxycycline Hyclate (Vibra-Tab) 100 mg BID PO Last administered on 05/13/20at 09:38; Start 05/12/20 at 10:00; Stop 05/13/20 at 11:06; Status DC Amoxicillin/ Clavulanate Potassium (Augmentin 875/ 125mg) 1 tab BID PO ; Start 05/13/20 at 21:00 Active Scripts Active Prednisone (Prednisone) 10 Mg Tablet 10 Mg PO UD Take 4 tablets by mouth daily for 4 days, then take 3 tablets by mouth daily for 2 days, then take 2 tablets by mouth daily for 2 days, then take 1 tablets by mouth daily for 2 days, then stop. Azithromycin Tablet (Azithromycin) 250 Mg Tablet 250 Mg PO DAILY Reported Acetaminophen 325 Mg Tablet 2 Tab PO PRN Q6HRS PRN 24 Days Pioglitazone Hcl 30 Mg Tablet 30 Mg PO DAILY Nicotine Gum (Nicotine Polacrilex) 2 Mg Gum 2 Mg BC PRN PRN Neurontin (Gabapentin) 300 Mg Capsule 300 Mg PO TID Gelusil 200-200-25 mg Chew Tab (Mag Hydrox/Aluminum Hyd/Simeth) 1 Each Tab.chew 1 Each PO PRN Q4HRS PRN Miralax (Polyethylene Glycol 3350) 17 Gm Powd.pack 1 Pkt PO PRN DAILY PRN Milk Of Magnesia (Magnesium Hydroxide) 2,400 Mg/10 Ml Oral.susp 2,400 Mg PO PRN Q8HRS PRN Metoprolol Tartrate 25 Mg Tablet 12.5 Mg PO BID Metformin Hcl 1,000 Mg Tablet 1,000 Mg PO BIDWMEALS Lisinopril 2.5 Mg Tablet 2.5 Mg PO DAILY Levothyroxine Sodium 100 Mcg Tablet 100 Mcg PO HS Januvia (Sitagliptin Phosphate) 100 Mg Tablet 100 Mg PO DAILY Famotidine 20 Mg Tablet 20 Mg PO HS Depakote Er (Divalproex Sodium) 500 Mg Tab.er.24h 1,500 Mg PO DAILY Clozaril (Clozapine) 100 Mg Tablet 100 Mg PO BIDACBL Clozapine 100 Mg Tablet 300 Mg PO HS Atorvastatin Calcium 40 Mg Tablet 80 Mg PO HS Vitals/I & O Vital Sign - Last 24 Hours 05/12/20 05/13/20 05/13/20 05/13/20 23:00 03:17 07:00 08:00 Temp 97.7 98.0 97.3 97.7 98.0 97.3 Pulse 101 88 84 Resp 18 16 18 B/P (MAP) 115/81 (92) 115/75 (88) 101/76 (84) Pulse Ox 92 90 91 O2 Delivery Room Air Room Air Nasal Cannula O2 Flow Rate 2.0 05/13/20 05/13/20 05/13/20 11:00 15:00 19:00 Temp 97.9 98.0 97.9 97.9 98.0 97.9 Pulse 89 120 73 Resp 18 18 18 B/P (MAP) 95/57 (70) 97/67 (77) 129/74 (92) Pulse Ox 93 96 97 O2 Delivery Room Air Nasal Cannula Nasal Cannula O2 Flow Rate 2.0 3.0 Intake and Output 05/12/20 05/12/20 05/13/20 15:00 23:00 07:00 Intake Total 120 ml 290 ml 1230 ml Balance 120 ml 290 ml 1230 ml Justicifation of Admission Dx: Justifications for Admission: Justification of Admission Dx: Yes ARABELLA HERNANDEZ MD May 13, 2020 20:13
[2020-05-13] MEDS: FAMOTIDINE 20 MG TABLET. PO SCH (20:14)
[2020-05-13] MEDS: ATORVASTATIN CALCIUM 40 MG TABLET. PO SCH (20:14)
[2020-05-13] MEDS: AMOXICILLIN/K CLAV 875/125MG TABLET. PO SCH (20:14)
[2020-05-13] MEDS: LEVOTHYROXINE 100 MCG TABLET PO SCH (20:15)
[2020-05-13] MEDS: ENOXAPARIN 40 MG/0.4 ML SYRINGE. SQ SCH (20:16)
[2020-05-13 23:00] VITALS: BP 116/81
[2020-05-14 03:03] VITALS: BP 150/80
[2020-05-14] MEDS: IV NORMAL SALINE 1000ML BAG 1,000 ML IV SCH (05:19)
[2020-05-14 07:00] VITALS: BP 141/83
[2020-05-14] MEDS: predniSONE 10 MG TABLET PO SCH (08:12)
[2020-05-14] MEDS: cloZAPine 100 MG TABLET PO SCH ×2 (08:13→12:11)
[2020-05-14] MEDS: GABAPENTIN 300 MG CAPSULE. PO SCH ×2 (08:13→14:00)
[2020-05-14] MEDS: LACTOBACILLUS RHAMNOSUS GG 1 CAPSULE. PO SCH (08:13)
[2020-05-14] MEDS: AMOXICILLIN/K CLAV 875/125MG TABLET. PO SCH (08:13)
[2020-05-14] MEDS: DIVALPROEX EXTENDED RELEASE 500 MG TAB.ER.24H. PO SCH (08:13)
[2020-05-14] MEDS: INSULIN LISPRO 300 UNITS/3 ML VIAL. SQ SCH ×3 (08:15→17:00)
[2020-05-14 11:00] VITALS: BP 132/85
--- NOTE | 2020-05-14 11:12 | PDOC ---
Infectious Disease Note Subjective Subjective pt is feeling good ROS ROS No nausea vomiting diarrhea Vital Sign Vital Signs Vital Signs Date Time Temp Pulse Resp B/P (MAP) Pulse Ox O2 Delivery O2 Flow Rate FiO2 05/14/20 07:00 97.6 77 17 141/83 (102) 95 Nasal Cannula 2.0 97.6 Physical Exam PHYSICAL EXAM GEN : Alert awake somewhat confused male in no acute distress HEENT: Normocephalic, atraumatic, anicteric. No thrush. NECK: Supple, no JVD. LUNGS: Clear bilaterally. No wheezing. HEART: S1, S2, no murmurs. ABDOMEN: Soft, nontender, nondistended. GENITOURINARY: No Hernandes in place. EXTREMITIES: No edema. DERMATOLOGIC: Warm and dry. No generalized rash. NEUROLOGIC: Alert, awake, confused. PSYCHIATRIC: Calm. Labs Lab Laboratory Tests Test 05/13/20 11:27 05/13/20 16:15 05/13/20 19:51 05/14/20 07:25 Glucose (Fingerstick) 187 mg/dL (70-99) 281 mg/dL (70-99) 179 mg/dL (70-99) 170 mg/dL (70-99) Micro Microbiology 05/10/20 Blood Culture - Preliminary, Resulted NO GROWTH AFTER 2 DAYS Objective Assessment 1. Bacteremia, 2/4 bottles present on admission. staph epi 2. Fever. 3. Sepsis. 4. Encephalopathy, likely metabolic. 5. COVID recovery. 6. Chronic severe psychiatric issues. 7. Generalized debility. 8. Depression. 9. Diabetes. 10. Hypertension/hyperlipidemia. 11. Hypothyroidism. 12. Severe protein-calorie malnutrition. 13. History of fall at [facility]. Plan Plan of Care change antibiotics to po Follow cultures and monitor lab Continue supportive care. Maintain aspiration precaution. Discussed with RN. sparks to d/c JENNIFER ALFREDO MD May 14, 2020 11:12
[2020-05-14] MEDS ORDERED: LACT1CAP19 PO (14:00)
[2020-05-14] MEDS ORDERED: AMOX1TAB11 PO (14:00)
--- NOTE | 2020-05-14 14:04 | SNU/HH DC ---
DISCHARGE ORDERS DISCHARGE INFORMATION: DISCHARGE DATE: May 14, 2020 FINAL DIAGNOSIS Problems Medical Problems: (1) Hypomagnesemia Status: Acute (2) Hypotension Status: Acute (3) Sepsis Status: Acute (4) Syncope Status: Acute CONDITION ON DISCHARGE: Stable CODE STATUS: Code Status: Full CUSTODIAL: SNF STAY <30 DAYS: Yes POST DISCHARGE ORDERS: ACTIVITY ORDERS: Resume previous activity, Activity as tolerated WEIGHT BEARING STATUS: As tolerated DIET AFTER DISCHARGE: Cardiac WOUND/INCISION CARE: No wound care needed CHECKS AFTER DISCHARGE: CHECKS AFTER DISCHARGE: Check blood press - daily, Check blood sugar, ac/hs, Check your Temp as needed TREATMENT/EQUIPMENT ORDERS: ADAPTIVE EQUIPMENT NEEDED: None RESPIRATORY EQUIPMENT NEEDED: Oxygen Physical Therapy For: Evalulation/Treatment Occupational Therapy For: Evaluation/Treatment DISCHARGE MEDICATIONS: Home Meds Active Scripts Lactobacillus Rhamnosus Gg (CULTURELLE) 1 Each Cap.sprink, 1 CAP PO BID for probiotic for 30 Days, #60 CAP Prov:ARABELLA HERNANDEZ MD 05/14/20 Amoxicillin/Potassium Clav (AMOX TR-K CLV 875-125 MG TAB) 1 Each Tablet, 1 TAB PO BID for URTI for 5 Days, #10 TAB Prov:ARABELLA HERNANDEZ MD 05/14/20 Prednisone (PREDNISONE ) 10 Mg Tablet, 10 MG PO UD for steroid taper, #28 TAB 0 Refills Take 4 tablets by mouth daily for 4 days, then take 3 tablets by mouth daily for 2 days, then take 2 tablets by mouth daily for 2 days, then take 1 tablets by mouth daily for 2 days, then stop. Prov:MOO MAI MD 05/02/20 Reported Medications Acetaminophen (ACETAMINOPHEN) 325 Mg Tablet, 2 TAB PO PRN Q6HRS PRN for pain or fever for 24 Days, #100 TAB 0 Refills 04/08/20 Pioglitazone Hcl (PIOGLITAZONE HCL) 30 Mg Tablet, 30 MG PO DAILY for DM II, TAB 04/08/20 Nicotine Polacrilex (NICOTINE GUM) 2 Mg Gum, 2 MG BC PRN PRN for SMOKING CESSATION, EACH 04/08/20 Gabapentin (NEURONTIN ) 300 Mg Capsule, 300 MG PO TID for NEUROGENIC PAIN, CAP 04/08/20 Mag Hydrox/Aluminum Hyd/Simeth (Gelusil 200-200-25 mg Chew Tab) 1 Each Tab.chew, 1 EACH PO PRN Q4HRS PRN for INDIGESTION, TAB.CHEW 04/08/20 Polyethylene Glycol 3350 (MIRALAX) 17 Gm Powd.pack, 1 PKT PO PRN DAILY PRN for CONSTIPATION, PKT 04/08/20 Magnesium Hydroxide (MILK OF MAGNESIA) 2,400 Mg/10 Ml Oral.susp, 2400 MG PO PRN Q8HRS PRN for CONSTIPATION, MISC 04/08/20 Metoprolol Tartrate (METOPROLOL TARTRATE) 25 Mg Tablet, 12.5 MG PO BID for FOR HYPERTENSION, #60 TAB 0 Refills 04/08/20 Metformin Hcl (METFORMIN HCL) 1,000 Mg Tablet, 1000 MG PO BIDWMEALS for , TAB 04/08/20 Lisinopril (LISINOPRIL) 2.5 Mg Tablet, 2.5 MG PO DAILY for FOR HYPERTENSION, #30 TAB 0 Refills 04/08/20 Levothyroxine Sodium (LEVOTHYROXINE SODIUM) 100 Mcg Tablet, 100 MCG PO HS for THYROID SUPPLEMENT, #30 TAB 0 Refills 04/08/20 Sitagliptin Phosphate (JANUVIA) 100 Mg Tablet, 100 MG PO DAILY for DM II, TAB 04/08/20 Famotidine (FAMOTIDINE) 20 Mg Tablet, 20 MG PO HS for gerd, TAB 04/08/20 Divalproex Sodium (DEPAKOTE ER) 500 Mg Tab.er.24h, 1500 MG PO DAILY for schizoaffective disorder, TAB.SR 04/08/20 Clozapine (CLOZARIL) 100 Mg Tablet, 100 MG PO BIDACBL for schizoaffective disorder, TAB 04/08/20 Clozapine (CLOZAPINE) 100 Mg Tablet, 300 MG PO HS for schizoaffective disorder, TAB 04/08/20 Atorvastatin Calcium (ATORVASTATIN CALCIUM) 40 Mg Tablet, 80 MG PO HS for FOR CHOLESTEROL, #30 TAB 0 Refills 04/08/20 Discontinued Scripts Azithromycin (AZITHROMYCIN TABLET) 250 Mg Tablet, 250 MG PO DAILY for pneumonia, #5 TAB Prov:MOO MAI MD 05/02/20 ARABELLA HERNANDEZ MD May 14, 2020 14:04
--- NOTE | 2020-05-14 17:16 | PDOC3 ---
Discharge Summary Visit Information Date of Admission: May 10, 2020 Date of Discharge: May 14, 2020 Admitting Diagnosis Comment: Syncope, probable multifactorial, polypharmacy, resent sepsis Acute metabolic encephalopathy ROD recent Acute Respiratory failure with hypoxia Chronic severe psychiatric issues COVID-19, recovering Septic shock recent hx Depression Diabetes Hypertension Hyperlipidemia Hypothyroidism Schizophrenia Severe protein calorie malnutrition polypharmacy Final Diagnosis Problems Medical Problems: (1) Hypomagnesemia Status: Acute (2) Hypotension Status: Acute (3) Sepsis Status: Acute (4) Syncope Status: Acute Bacteremia, 2/4 bottles present on admission. staph epi Syncope, probable multifactorial, polypharmacy, resent sepsis Acute metabolic encephalopathy ROD recent Acute Respiratory failure with hypoxia , now inc 4 liters nc needed Chronic severe psychiatric issues COVID-19, recovery Septic shock recent hx Depression Diabetes Hypertension Hyperlipidemia Hypothyroidism Schizophrenia Severe protein calorie malnutrition polypharmacy Brief Hospital Course Allergies Allergies Coded Allergies Type Severity Reaction Last Updated Verified No Known Drug Allergies 04/08/20 No Vital Signs Vital Signs Date Time Temp Pulse Resp B/P (MAP) Pulse Ox O2 Delivery O2 Flow Rate FiO2 05/14/20 11:00 97.9 72 17 132/85 (101) 96 Room Air 97.9 05/14/20 08:00 2.0 Lab Results Laboratory Tests Test 05/12/20 20:54 05/13/20 07:36 05/13/20 11:27 05/13/20 16:15 Glucose (Fingerstick) 233 mg/dL (70-99) 131 mg/dL (70-99) 187 mg/dL (70-99) 281 mg/dL (70-99) Test 05/13/20 19:51 05/14/20 07:25 05/14/20 11:22 05/14/20 16:35 Glucose (Fingerstick) 179 mg/dL (70-99) 170 mg/dL (70-99) 211 mg/dL (70-99) 251 mg/dL (70-99) Laboratory Tests Test 05/13/20 19:51 05/14/20 07:25 05/14/20 11:22 05/14/20 16:35 Glucose (Fingerstick) 179 mg/dL (70-99) 170 mg/dL (70-99) 211 mg/dL (70-99) 251 mg/dL (70-99) Brief Hospital Course History of Present Illness seen in er with syncopal event presented via EMS from residential with report of syncopal episode after standing up from wheelchair at residential //falling to the floor striking his head. noted to have low blood pressure in the 60s over 40s. ===== recently admitted to [facility] and discharged 12-30 after treatment for sepsis. had a negative COVID-19 test during admission. denies significant pain., denies neck pain. , Denies chest pain. 05/11 20 POOR APPETITE TODAY 05/12/2020 Patient seen sleeping comfortably Charts reviewed DWRN 05/13/2020 Patient seems to be doing well no acute events reported overnight, cultures negative will follow recs from Id partner management consultant 05/14/2020 Case discussed with infectious disease partner management consultant. Probable syncopal episode was due to the polypharmacy as stated in discharge diagnosis. Patient was in good spirits to be going back to his skilled nursing setting and we will give him a 5-day course of broad-spectrum antibiotics given the present that bacteremia at the most likely is a contaminant nevertheless given the metabolic encephalopathy presented at the beginning and now resolved we will cover the patient for a possible underlying lingering infection given that he also had COVID-19 in the not so distant past. Assessment Assessment Physical Exam GEN : Alert awake somewhat confused male in no acute distress HEENT: Normocephalic, atraumatic, anicteric. No thrush. NECK: Supple, no JVD. LUNGS: Clear bilaterally. No wheezing. HEART: S1, S2, no murmurs. ABDOMEN: Soft, nontender, nondistended. GENITOURINARY: No Hernandes in place. EXTREMITIES: No edema. DERMATOLOGIC: Warm and dry. No generalized rash. NEUROLOGIC: Alert, awake, confused. PSYCHIATRIC: Calm. Discharge Information Condition at Discharge: Improved Follow Up: Weeks Disposition/Orders: D/C to Another Facility Scheduled Amoxicillin/Potassium Clav (Amox Tr-K Clv 875-125 Mg Tab) 1 Each Tablet, 1 TAB PO BID for URTI for 5 Days, #10 Prescribed by: ARABELLA HERNANDEZ MD on 05/14/20 1400 Atorvastatin Calcium (Atorvastatin Calcium) 40 Mg Tablet, 80 MG PO HS for FOR CHOLESTEROL, #30 Ref 0 (Reported) Entered as Reported by: KARIME JAMIL RN on 04/08/20 0253 Last Action: Continued on 05/10/201155 by MARINO REAGAN MD Clozapine (Clozapine) 100 Mg Tablet, 300 MG PO HS for schizoaffective disorder, (Reported) Entered as Reported by: KARIME JAMIL RN on 04/08/20252 Last Action: Continued on 05/10/201155 by MARINO REAGAN MD Clozapine (Clozaril) 100 Mg Tablet, 100 MG PO BIDACBL for schizoaffective disorder, (Reported) Entered as Reported by: KARIME JAMIL RN on 04/08/20252 Last Action: Continued on 05/10/201155 by MARINO REAGAN MD Divalproex Sodium (Depakote Er) 500 Mg Tab.er.24h, 1,500 MG PO DAILY for schizoaffective disorder, (Reported) Entered as Reported by: KARIME JAMIL RN on 04/08/20252 Last Action: Continued on 05/10/201155 by MARINO REAGAN MD Famotidine (Famotidine) 20 Mg Tablet, 20 MG PO HS for gerd, (Reported) Entered as Reported by: KARIME JAMIL RN on 04/08/20252 Last Action: Continued on 05/10/201155 by MARINO REAGAN MD Gabapentin (Neurontin ) 300 Mg Capsule, 300 MG PO TID for NEUROGENIC PAIN, (Reported) Entered as Reported by: KARIME JAMIL RN on 04/08/20252 Last Action: Continued on 05/10/201155 by MARINO REAGAN MD Lactobacillus Rhamnosus Gg (Culturelle) 1 Each Cap.sprink, 1 CAP PO BID for probiotic for 30 Days, #60 Prescribed by: ARABELLA HERNANDEZ MD on 05/14/20 1400 Levothyroxine Sodium (Levothyroxine Sodium) 100 Mcg Tablet, 100 MCG PO HS for THYROID SUPPLEMENT, #30 Ref 0 (Reported) Entered as Reported by: KARIME JAMIL RN on 04/08/20252 Last Action: Continued on 05/10/201155 by MARINO REAGAN MD Lisinopril (Lisinopril) 2.5 Mg Tablet, 2.5 MG PO DAILY for FOR HYPERTENSION, #30 Ref 0 (Reported) Entered as Reported by: KARIME JAMIL RN on 04/08/20252 Last Action: HELD on 05/10/201155 by MARINO REAGAN MD Metformin Hcl (Metformin Hcl) 1,000 Mg Tablet, 1,000 MG PO BIDWMEALS for , (Reported) Entered as Reported by: KARIME JAMIL RN on 04/08/20252 Last Action: HELD on 05/10/201155 by MARINO REAGAN MD Metoprolol Tartrate (Metoprolol Tartrate) 25 Mg Tablet, 12.5 MG PO BID for FOR HYPERTENSION, #60 Ref 0 (Reported) Entered as Reported by: KARIME JAMIL RN on 04/08/20252 Last Action: HELD on 05/10/201155 by MARINO REAGAN MD Pioglitazone Hcl (Pioglitazone Hcl) 30 Mg Tablet, 30 MG PO DAILY for DM II, (Reported) Entered as Reported by: KARIME JAMIL RN on 04/08/20252 Last Action: HELD on 05/10/201155 by MARINO REAGAN MD Prednisone (Prednisone ) 10 Mg Tablet, 10 MG PO UD for steroid taper, #28 Ref 0 Take 4 tablets by mouth daily for 4 days, then take 3 tablets by mouth daily for 2 days, then take 2 tablets by mouth daily for 2 days, then take 1 tablets by mouth daily for 2 days, then stop. Prescribed by: MOO MAI on 05/02/20 1259 Last Action: Continued on 05/10/201155 by MARINO REAGAN MD Sitagliptin Phosphate (Januvia) 100 Mg Tablet, 100 MG PO DAILY for DM II, (Reported) Entered as Reported by: KARIME JAMIL RN on 04/08/20252 Last Action: HELD on 05/10/201155 by MARINO REAGAN MD Scheduled PRN Acetaminophen (Acetaminophen) 325 Mg Tablet, 2 TAB PO PRN Q6HRS PRN for pain or fever for 24 Days, #100 Ref 0 (Reported) Entered as Reported by: KARIME JAMIL RN on 04/08/20252 Last Action: Continued on 05/10/201155 by MARINO REAGAN MD Mag Hydrox/Aluminum Hyd/Simeth (Gelusil 200-200-25 mg Chew Tab) 1 Each Tab.chew, 1 EACH PO PRN Q4HRS PRN for INDIGESTION, (Reported) Entered as Reported by: KARIME JAMIL RN on 04/08/20252 Last Action: Converted on 05/10/201155 by MARINO REAGAN MD Magnesium Hydroxide (Milk Of Magnesia) 2,400 Mg/10 Ml Oral.susp, 2,400 MG PO PRN Q8HRS PRN for CONSTIPATION, (Reported) Entered as Reported by: KARIME JAMIL RN on 04/08/20252 Last Action: Converted on 05/10/201155 by MARINO REAGAN MD Nicotine Polacrilex (Nicotine Gum) 2 Mg Gum, 2 MG BC PRN PRN for SMOKING CESSATION, (Reported) Entered as Reported by: KARIME JAMIL RN on 04/08/20252 Last Action: HELD on 05/10/201155 by MARINO REAGAN MD Polyethylene Glycol 3350 (Miralax) 17 Gm Powd.pack, 1 PKT PO PRN DAILY PRN for CONSTIPATION, (Reported) Entered as Reported by: KARIME JAMIL RN on 04/08/20252 Last Action: Continued on 05/10/201155 by MARINO REAGAN MD Discontinued Medications Azithromycin (Azithromycin Tablet) 250 Mg Tablet, 250 MG PO DAILY for pneumonia, #5 Prescribed by: MOO MAI on 05/02/20 1259 Last Action: Continued on 05/10/201155 by MARINO REAGAN MD Justicifation of Admission Dx: Justifications for Admission: Justification of Admission Dx: Yes ARABELLA HERNANDEZ MD May 14, 2020 17:16
[2020-05-15] MEDS ORDERED: predniSONE 10 MG TABLET PO SCH (09:00)
[2020-05-17] MEDS ORDERED: predniSONE 10 MG TABLET PO SCH (09:00)
== END 2020-05-14 17:58 | DRG 70 ==
LOC: ER 20:00 → 2 NORTH 21:08 → 5 NORTH 05-11 17:15
PROVIDERS: ADMIT Internal Medicine; ATTEND Internal Medicine
DX: G93.41 Metabolic encephalopathy (principal); E43 Unspecified severe protein-calorie malnutrition; N17.9 Acute kidney failure, unspecified; I10 Essential (primary) hypertension; E03.9 Hypothyroidism, unspecified; E11.9 Type 2 diabetes mellitus without complications; E78.00 Pure hypercholesterolemia, unspecified; E78.5 Hyperlipidemia, unspecified; E83.42 Hypomagnesemia; F20.9 Schizophrenia, unspecified; F32.9 Major depressive disorder, single episode, unspecified; M19.90 Unspecified osteoarthritis, unspecified site; Z82.49 Family history of ischemic heart disease and other diseases of the circulatory system; G47.00 Insomnia, unspecified; K21.9 Gastro-esophageal reflux disease without esophagitis
CPT/HCPCS: 36415; 36556; 36600; 70450; 71045; 72125; 80048; 80053; 80061; 80164; 80202; 82553; 82805; 82962; 83605; 83735; 83880; 84145; 84484; 85007; 85025; 87040; 87077; 87205; 93005; 93308; 94760; 96360; 96361; 96365; 96375; J0456; J1650; J1815; J2543; J2920; J3370; J3475; J3490; J7030; J7040; J7060; J7512; 97110-GO; 97530-GO; 97530-GP; 99291-25; G0378

== ENCOUNTER 2020-05-23 14:16 | Inpatient (IN) | payer MEDICARE, MEDICAID ==
[~2020-05-23] VITALS: Ht 182.9 cm; Wt 82.9 kg
[~2020-05-23 14:16] MED LIST changes: +AMOX1TAB11 PO; +LACT1CAP19 PO
[2020-05-23] MEDS ORDERED: methylPREDNISolone SOD SUCC PF 125 MG/2 ML VIAL. IV ONE (15:00)
[2020-05-23] MEDS ORDERED: IV NORMAL SALINE 1000ML BAG 1,000 ML IV ONE (15:15)
[2020-05-23 15:51] LABS: BASO % 0 % (0-3); EOS % 0 % (0-3); HEMATOCRIT 35.9 % (39.0-53.0); LYMPH # 0.8 x10^3/uL (1.0-4.8); LYMPH % 11 % (24-48); MEAN CORPUSCULAR HEMOGLOBIN 31 pg (25-35); MEAN CORPUSCULAR HGB CONC 33 g/dL (31-37); MEAN CORPUSCULAR VOLUME 92 fL (79-100); MONO # 0.4 x10^3/uL (0.0-1.1); MONO % 5 % (0-9); NEUT # 6.5 x10^3/uL (1.8-7.7); NEUT % 84 % (31-73); PLATELET COUNT 234 x10^3/uL (140-400); RED BLOOD COUNT 3.89 x10^6/uL (4.30-5.70); RED CELL DISTRIBUTION WIDTH 18.9 % (11.5-14.5); WHITE BLOOD COUNT 7.7 x10^3/uL (4.0-11.0)
--- NOTE | 2020-05-23 16:03 | NUR ---
Patient adamantly refused ABG multiple times. Notified Linda Kingsley APRN.
--- NOTE | 2020-05-23 16:06 | RAD ---
XR CHEST 1V History: Reason: SOA, HYPOXIA, / Spl. Instructions: / History: Comparison: May 11, 2020 Findings: Patchy bibasilar opacities. No pleural effusion. No pneumothorax. Unchanged heart size. Impression: 1. Mild patchy bibasilar opacities, most likely atelectasis. Electronically signed by: Dann Gonzalez DO (05/23/2020 4:03 PM) [facility] [place]
--- NOTE | 2020-05-23 16:21 | PHYS DOC ---
Past Medical History Past Medical History: Constipation, Depression, Diabetes-Type II, GERD, High Cholesterol, Hypothyroid, Schizophrenia, Other Additional Past Medical Histor: covid 27 APR 2020; insomnia Past Surgical History: Other Additional Past Surgical Histo: UNABLE TO ASSESS Smoking Status: Former Smoker Alcohol Use: None Drug Use: None General Adult EDM: Chief Complaint: WEAKNESS/GENERALIZED HPI: HPI: Patient is a 55 year old male who presents with here by EMS from [facility] with generalized weakness and low blood pressure. He was here May 09 for the same thing. He was positive for Covid in April 2020. Patient is a very poor historian and he is altered. Patient is requiring oxygen at 2 L for 97%. On room air he was in the 80s. EKG shows sinus rhythm but no STEMI. His blood pressures are in the 90s over 60s in the ED. He does seem sleepy but does wake up easily. When asking questions he just tells me he does not know. He denies any pain. He denies chest pain, fever, headache, dizziness, vision changes, numbness or tingling, jaciel pain, nausea, vomiting, diarrhea. Patient has a history of Covid, depression, schizophrenia, diabetes, GERD, hypothyroidism, hypertension, high cholesterol, constipation, heart failure, pneumonia, acute respiratory failure with hypoxia, insomnia, metabolic encephalopathy. Review of Systems: Review of Systems: Constitutional: Denies fever or chills. [] Eyes: Denies change in visual acuity. [] HENT: Denies nasal congestion or sore throat. [] Respiratory: Denies cough. +shortness of breath. [] Cardiovascular: Denies chest pain or edema. [] GI: Denies abdominal pain, nausea, vomiting, bloody stools or diarrhea. [] : Denies dysuria. [] Musculoskeletal: Denies back pain or joint pain. + generalised weakness[] Integument: Denies rash. [] Neurologic: Denies headache, focal weakness or sensory changes. + Altered mental status [] Endocrine: Denies polyuria or polydipsia. [] Lymphatic: Denies swollen glands. [] Psychiatric: Denies depression or anxiety. [] Heart Score: Risk Factors: Risk Factors: DM, Current or recent (<one month) smoker, HTN, HLP, family history of CAD, obesity. Risk Scores: Score 0 - 3: 2.5% MACE over next 6 weeks - Discharge Home Score 4 - 6: 20.3% MACE over next 6 weeks - Admit for Clinical Observation Score 7 - 10: 72.7% MACE over next 6 weeks - Early Invasive Strategies Current Medications: Current Medications Medications (Trade) Dose Ordered Sig/Ambrose Start Time Stop Time Status Last Admin Dose Admin Methylprednisolone Sodium Succinate (SOLU-Medrol 125MG VIAL) 85 mg 1X ONCE 05/23/20 15:00 05/23/20 15:03 DC 05/23/20 16:02 85 MG Sodium Chloride 1,000 ml @ 1,000 mls/hr 1X ONCE 05/23/20 15:15 05/23/20 16:14 05/23/20 16:03 1,000 MLS/HR Allergies: Allergies: Allergies Coded Allergies Type Severity Reaction Last Updated Verified No Known Drug Allergies 04/08/20 No Physical Exam: PE: Constitutional: Well developed, well nourished, no acute distress, non-toxic appearance. [] HENT: Normocephalic, atraumatic, bilateral external ears normal, oropharynx moist, no oral exudates, nose normal. [] Eyes: PERRLA, EOMI, conjunctiva normal, no discharge. [] Neck: Normal range of motion, no tenderness, supple, no stridor. [] Cardiovascular:Heart rate regular rhythm, no murmur [] Lungs & Thorax: Bilateral upper breath sounds coarse and lower diminished to auscultation [] Abdomen: Bowel sounds normal, soft, no tenderness, no masses, no pulsatile masses. [] Skin: Warm, dry, no erythema, no rash. [] Back: No tenderness, no CVA tenderness. [] Extremities: No tenderness, no cyanosis, no clubbing, ROM intact, no edema. [] Neurologic: Alert and oriented X 2, normal motor function, normal sensory function, no focal deficits noted. [] Psychologic: Affect normal, judgement normal, mood normal. [] Current Patient Data: Labs: Laboratory Tests Test 05/23/20 15:39 White Blood Count 7.7 x10^3/uL (4.0-11.0) Red Blood Count 3.89 x10^6/uL (4.30-5.70) L Hemoglobin 12.0 g/dL (13.0-17.5) L Hematocrit 35.9 % (39.0-53.0) L Mean Corpuscular Volume 92 fL (79-100) Mean Corpuscular Hemoglobin 31 pg (25-35) Mean Corpuscular Hemoglobin Concent 33 g/dL (31-37) Red Cell Distribution Width 18.9 % (11.5-14.5) H Platelet Count 234 x10^3/uL (140-400) Neutrophils (%) (Auto) 84 % (31-73) H Lymphocytes (%) (Auto) 11 % (24-48) L Monocytes (%) (Auto) 5 % (0-9) Eosinophils (%) (Auto) 0 % (0-3) Basophils (%) (Auto) 0 % (0-3) Neutrophils # (Auto) 6.5 x10^3/uL (1.8-7.7) Lymphocytes # (Auto) 0.8 x10^3/uL (1.0-4.8) L Monocytes # (Auto) 0.4 x10^3/uL (0.0-1.1) Eosinophils # (Auto) 0.0 x10^3/uL (0.0-0.7) Basophils # (Auto) 0.0 x10^3/uL (0.0-0.2) Laboratory Tests 05/23/20 15:39 Vital Signs: Vital Signs Date Time Temp Pulse Resp B/P (MAP) Pulse Ox O2 Delivery O2 Flow Rate FiO2 05/23/20 14:20 97.6 103 22 90/63 (72) 91 Room Air 97.6 EKG: EK and read by Dr. Mckinney as sinus rhythm and no STEMI Radiology/Procedures: Radiology/Procedures: [] Impression: [facility] [address] [place], [place] [id number] IMAGING REPORT Signed PATIENT: MARK STEWART ACCOUNT: [id number] : 1965 LOCATION: ER AGE: 55 SEX: M EXAM STATUS: REG ER ORD. PHYSICIAN: HARPREET ELAINE APRN REASON: SOA, HYPOXIA, PROCEDURE: PORTABLE CHEST 1V XR CHEST 1V History: Reason: SOA, HYPOXIA, / Spl. Instructions: / History: Comparison: May 11, 2020 Findings: Patchy bibasilar opacities. No pleural effusion. No pneumothorax. Unchanged hea rt size. Impression: 1. Mild patchy bibasilar opacities, most likely atelectasis. Electronically signed by: Dann Gonzalez DO (05/23/2020 4:03 PM) [facility] DICTATED and SIGNED BY: DANN GONZALEZ DO DATE: 05/23/20 [id number] 0 Course & Med Decision Making: Course & Med Decision Making Pertinent Labs and Imaging studies reviewed. (See chart for details) COVID-19 CRITERIA: The patient was evaluated during the global COVID-19 pandemic, and that diagnosis was suspected/considered upon their initial presentation. Their evaluation, treatment and testing was consistent with current guidelines for patients who present with complaints or symptoms that may be related to COVID-19. See HPI. Alert and oriented to self. Patient seems tired but is easily aroused. Lungs sound coarse in upper lobes but diminished in lower lobes. Abdomen is soft and nontender. He is pale but warm and dry. Afebrile. On 2 L he is 97%. I have started 1 L of normal saline in the ED. He is also gotten So rosalia-Medrol. I have started the patient on Zosyn IV. Chest x-ray shows pneumonia. Patient is is fighting and refusing ABG. He has gotten a liter of fluids. Patient's vital signs have stayed stable. Patient admitted to Dr. Nolan. [] [place] Disclaimer: [place] Disclaimer: This electronic medical record was generated, in whole or in part, using a voice recognition dictation system. COVID-19 Patient Risks: Age 65 or older: No Sign of co-morbidity: Yes Exp to person + for COVID: No Exp to PUI: No Travel from affected area: No Lower respiratory symptoms: Yes Fever: No Other: Yes (HYPOXIA, GENERALIZED WEAKNESS) PPE Use: Full PPE with N95 mask or PAPR: Yes Departure Departure Impression: Primary Impression: Pneumonia Qualified Codes: J18.9 - Pneumonia, unspecified organism Additional Impression: Person under investigation for COVID-19 Disposition: 09 ADMITTED INPT THIS HOSP Admitting Physician: SG Condition: STABLE Referrals: UNKNOWN PCP NAME (PCP) HARPREET ELAINE APRN May 23, 2020 16:21
[2020-05-23] MEDS ORDERED: PIPERACILLIN/TAZOBACTAM 3.375 GM in IV NORMAL SALINE 50ML 50 ML IV ONE (16:30)
[2020-05-23 16:54] LABS: CALCIUM 8.9 mg/dL (8.5-10.1); CREATININE 0.7 mg/dL (0.7-1.3); GFR 116.2; POTASSIUM 3.5 mmol/L (3.5-5.1)
[2020-05-23 17:01] LABS: ALBUMIN 2.7 g/dL (3.4-5.0); ALBUMIN/GLOBULIN RATIO 0.8 (1.0-1.7); TOTAL BILIRUBIN 0.6 mg/dL (0.2-1.0); TOTAL PROTEIN 6.2 g/dL (6.4-8.2)
[2020-05-23] MEDS ORDERED: ACETAMINOPHEN 325 MG TABLET. PO PRN (18:00)
[2020-05-23] MEDS ORDERED: ONDANSETRON PF 4 MG/2 ML VIAL. IV PRN (18:00)
[2020-05-23 20:00] VITALS: BP 92/71
[2020-05-23 23:18] VITALS: BP 92/51
[2020-05-24 03:55] VITALS: BP 100/69
[2020-05-24 07:00] VITALS: BP 119/81
[2020-05-24] MEDS: FLU VACC QS 2020-21(6MOS+)/PF 0.5 ML SYRINGE. VAX IM ONE ×2 (08:46→08:52)
--- NOTE | 2020-05-24 08:54 | PDOC1 ---
History and Physical Date of Admission Date of Admission DATE: 05/24/20 TIME: 08:53 Identification/Chief Complaint Chief Complaint 55 year old male who presented to ER with here by EMS from [facility] with generalized weakness and low blood pressure. Past Medical History Past Medical History Past Medical History Past Medical History: Constipation, Depression, Diabetes-Type II, GERD, High Cholesterol, Hypothyroid, Schizophrenia, Other Additional Past Medical Histor: covid 27 APR 2020; insomnia Past Surgical History: Other Additional Past Surgical Histo: UNABLE TO ASSESS Smoking Status: Former Smoker Alcohol Use: None Drug Use: None fhx HTN Cardiovascular: HTN, Hyperlipidemia Psych: Schizophrenia Musculoskeletal: Osteoarthritis, Weakness Endocrine: Diabetes, Hypothyroidism Past Surgical History Past Surgical History: No pertinent history Family History Family History: Hypertension, Family History Unknown Social History ALCOHOL: none Drugs: None Current Problem List Problem List Problems Medical Problems: (1) Person under investigation for COVID-19 Status: Acute (2) Pneumonia Status: Acute Current Medications Current Medications Current Medications Methylprednisolone Sodium Succinate (SOLU-Medrol 125MG VIAL) 85 mg 1X ONCE IV Last administered on 05/23/20at 16:02; Start 05/23/20 at 15:00; Stop 05/23/20 at 15:03; Status DC Sodium Chloride 1,000 ml @ 1,000 mls/hr 1X ONCE IV Last administered on 05/23/20at 16:03; Start 05/23/20 at 15:15; Stop 05/23/20 at 16:14; Status DC Piperacillin Sod/ Tazobactam Sod 3.375 gm/Sodium Chloride 50 ml @ 100 mls/hr 1X ONCE IV Last administered on 05/23/20at 17:28; Start 05/23/20 at 16:30; Stop 05/23/20 at 16:59; Status DC Ondansetron HCl (Zofran) 4 mg PRN Q8HRS PRN IV NAUSEA/VOMITING; Start 05/23/20 at 18:00; Stop 05/24/20 at 17:59 Acetaminophen (Tylenol) 650 mg PRN Q4HRS PRN PO FEVER > 100.3'F; Start 05/23/20 at 18:00; Stop 05/24/20 at 17:59 Influenza Virus Vaccine Quadrival (Fluzone Quad Syringe) 0.5 ml ONCE ONCE VAX IM Last administered on 05/24/20at 08:46; Start 05/24/20 at 09:00; Stop 05/24/20 at 09:01 Active Scripts Active Culturelle (Lactobacillus Rhamnosus Gg) 1 Each Cap.sprink 1 Cap PO BID 30 Days Amox Tr-K Clv 875-125 Mg Tab (Amoxicillin/Potassium Clav) 1 Each Tablet 1 Tab PO BID 5 Days Prednisone (Prednisone) 10 Mg Tablet 10 Mg PO UD Take 4 tablets by mouth daily for 4 days, then take 3 tablets by mouth daily for 2 days, then take 2 tablets by mouth daily for 2 days, then take 1 tablets by mouth daily for 2 days, then stop. Reported Acetaminophen 325 Mg Tablet 2 Tab PO PRN Q6HRS PRN 24 Days Pioglitazone Hcl 30 Mg Tablet 30 Mg PO DAILY Nicotine Gum (Nicotine Polacrilex) 2 Mg Gum 2 Mg BC PRN PRN Neurontin (Gabapentin) 300 Mg Capsule 300 Mg PO TID Gelusil 200-200-25 mg Chew Tab (Mag Hydrox/Aluminum Hyd/Simeth) 1 Each Tab.chew 1 Each PO PRN Q4HRS PRN Miralax (Polyethylene Glycol 3350) 17 Gm Powd.pack 1 Pkt PO PRN DAILY PRN Milk Of Magnesia (Magnesium Hydroxide) 2,400 Mg/10 Ml Oral.susp 2,400 Mg PO PRN Q8HRS PRN Metoprolol Tartrate 25 Mg Tablet 12.5 Mg PO BID Metformin Hcl 1,000 Mg Tablet 1,000 Mg PO BIDWMEALS Lisinopril 2.5 Mg Tablet 2.5 Mg PO DAILY Levothyroxine Sodium 100 Mcg Tablet 100 Mcg PO HS Januvia (Sitagliptin Phosphate) 100 Mg Tablet 100 Mg PO DAILY Famotidine 20 Mg Tablet 20 Mg PO HS Depakote Er (Divalproex Sodium) 500 Mg Tab.er.24h 1,500 Mg PO DAILY Clozaril (Clozapine) 100 Mg Tablet 100 Mg PO BIDACBL Clozapine 100 Mg Tablet 300 Mg PO HS Atorvastatin Calcium 40 Mg Tablet 80 Mg PO HS Allergies Allergies: Coded Allergies: No Known Drug Allergies (Unverified , 04/08/20) Vitals Vitals Vital Signs Date Time Temp Pulse Resp B/P (MAP) Pulse Ox O2 Delivery O2 Flow Rate FiO2 05/24/20 03:55 97.4 60 14 100/69 (79) 92 Nasal Cannula 2.0 97.4 Labs Labs Laboratory Tests Test 05/23/20 15:39 05/24/20 08:17 White Blood Count 7.7 x10^3/uL (4.0-11.0) Red Blood Count 3.89 x10^6/uL (4.30-5.70) Hemoglobin 12.0 g/dL (13.0-17.5) Hematocrit 35.9 % (39.0-53.0) Mean Corpuscular Volume 92 fL (79-100) Mean Corpuscular Hemoglobin 31 pg (25-35) Mean Corpuscular Hemoglobin Concent 33 g/dL (31-37) Red Cell Distribution Width 18.9 % (11.5-14.5) Platelet Count 234 x10^3/uL (140-400) Neutrophils (%) (Auto) 84 % (31-73) Lymphocytes (%) (Auto) 11 % (24-48) Monocytes (%) (Auto) 5 % (0-9) Eosinophils (%) (Auto) 0 % (0-3) Basophils (%) (Auto) 0 % (0-3) Neutrophils # (Auto) 6.5 x10^3/uL (1.8-7.7) Lymphocytes # (Auto) 0.8 x10^3/uL (1.0-4.8) Monocytes # (Auto) 0.4 x10^3/uL (0.0-1.1) Eosinophils # (Auto) 0.0 x10^3/uL (0.0-0.7) Basophils # (Auto) 0.0 x10^3/uL (0.0-0.2) Sodium Level 141 mmol/L (136-145) Potassium Level 3.5 mmol/L (3.5-5.1) Chloride Level 106 mmol/L (98-107) Carbon Dioxide Level 28 mmol/L (21-32) Anion Gap 7 (6-14) Blood Urea Nitrogen 7 mg/dL (8-26) Creatinine 0.7 mg/dL (0.7-1.3) Estimated GFR (Cockcroft-Gault) 116.2 BUN/Creatinine Ratio 10 (6-20) Glucose Level 135 mg/dL (70-99) Lactic Acid Level 0.7 mmol/L (0.4-2.0) Calcium Level 8.9 mg/dL (8.5-10.1) Total Bilirubin 0.6 mg/dL (0.2-1.0) Aspartate Amino Transf (AST/SGOT) 23 U/L (15-37) Alanine Aminotransferase (ALT/SGPT) 21 U/L (16-63) Alkaline Phosphatase 57 U/L (46-116) Troponin I Quantitative < 0.017 ng/mL (0.000-0.055) PS-Cbw-M-Type Natriuretic Peptide 813 pg/mL (0-124) Total Protein 6.2 g/dL (6.4-8.2) Albumin 2.7 g/dL (3.4-5.0) Albumin/Globulin Ratio 0.8 (1.0-1.7) Glucose (Fingerstick) 137 mg/dL (70-99) Laboratory Tests Test 05/23/20 15:39 05/24/20 08:17 White Blood Count 7.7 x10^3/uL (4.0-11.0) Red Blood Count 3.89 x10^6/uL (4.30-5.70) Hemoglobin 12.0 g/dL (13.0-17.5) Hematocrit 35.9 % (39.0-53.0) Mean Corpuscular Volume 92 fL (79-100) Mean Corpuscular Hemoglobin 31 pg (25-35) Mean Corpuscular Hemoglobin Concent 33 g/dL (31-37) Red Cell Distribution Width 18.9 % (11.5-14.5) Platelet Count 234 x10^3/uL (140-400) Neutrophils (%) (Auto) 84 % (31-73) Lymphocytes (%) (Auto) 11 % (24-48) Monocytes (%) (Auto) 5 % (0-9) Eosinophils (%) (Auto) 0 % (0-3) Basophils (%) (Auto) 0 % (0-3) Neutrophils # (Auto) 6.5 x10^3/uL (1.8-7.7) Lymphocytes # (Auto) 0.8 x10^3/uL (1.0-4.8) Monocytes # (Auto) 0.4 x10^3/uL (0.0-1.1) Eosinophils # (Auto) 0.0 x10^3/uL (0.0-0.7) Basophils # (Auto) 0.0 x10^3/uL (0.0-0.2) Sodium Level 141 mmol/L (136-145) Potassium Level 3.5 mmol/L (3.5-5.1) Chloride Level 106 mmol/L (98-107) Carbon Dioxide Level 28 mmol/L (21-32) Anion Gap 7 (6-14) Blood Urea Nitrogen 7 mg/dL (8-26) Creatinine 0.7 mg/dL (0.7-1.3) Estimated GFR (Cockcroft-Gault) 116.2 BUN/Creatinine Ratio 10 (6-20) Glucose Level 135 mg/dL (70-99) Lactic Acid Level 0.7 mmol/L (0.4-2.0) Calcium Level 8.9 mg/dL (8.5-10.1) Total Bilirubin 0.6 mg/dL (0.2-1.0) Aspartate Amino Transf (AST/SGOT) 23 U/L (15-37) Alanine Aminotransferase (ALT/SGPT) 21 U/L (16-63) Alkaline Phosphatase 57 U/L (46-116) Troponin I Quantitative < 0.017 ng/mL (0.000-0.055) HO-Pjt-P-Type Natriuretic Peptide 813 pg/mL (0-124) Total Protein 6.2 g/dL (6.4-8.2) Albumin 2.7 g/dL (3.4-5.0) Albumin/Globulin Ratio 0.8 (1.0-1.7) Glucose (Fingerstick) 137 mg/dL (70-99) Images Images PATIENT: MARK STEWART ACCOUNT: [id number] : 1965 LOCATION: ER AGE: 55 SEX: M EXAM STATUS: REG ER ORD. PHYSICIAN: HARPREET ELAINE APRN REASON: SOA, HYPOXIA, PROCEDURE: PORTABLE CHEST 1V XR CHEST 1V History: Reason: SOA, HYPOXIA, / Spl. Instructions: / History: Comparison: May 11, 2020 Findings: Patchy bibasilar opacities. No pleural effusion. No pneumothorax. Unchanged he art size. Impression: 1. Mild patchy bibasilar opacities, most likely atelectasis. Electronically signed by: Dann Monroy DO (05/23/2020 4:03 PM) [facility] DICTATED and SIGNED BY: DANN MONROY DO DATE: 05/23/20 [id number] VTE Prophylaxis Ordered VTE Prophylaxis Devices: Yes VTE Pharmacological Prophylaxi: Yes Assessment/Plan Assessment/Plan IMPRESSION Acute hypoxic respiratory failure aspiration pneumonia Acute metabolic encephalopathy recent Acute Respiratory failure with hypoxia due to covid 19 Chronic severe psychiatric issues COVID-19, recovering Depression Diabetes Hypertension Hyperlipidemia Hypothyroidism Schizophrenia Severe protein calorie malnutrition polypharmacy PLAN ADMIT EMPERIC IV ANTIBIOTICS, cefipime iv bid CONSULT PULM dvt prophylaxis Justifications for Admission Other Justification MARINO REAGAN MD May 24, 2020 08:54
[2020-05-24 11:00] VITALS: BP 99/62
[2020-05-24] MEDS ORDERED: POLYETHYLENE GLYCOL 3350 17 GM PACKET. PO PRN (11:30)
[2020-05-24] MEDS ORDERED: NICOTINE POLACRILEX 2MG GUM PACKAGE of 12. BC PRN (11:30)
[2020-05-24] MEDS ORDERED: ACETAMINOPHEN 325 MG TABLET. PO PRN (11:30)
--- NOTE | 2020-05-24 11:47 | PDOC ---
PULMONARY PROGRESS NOTES DATE: 05/24/20 TIME: 11:46 Vitals Vital Signs Date Time Temp Pulse Resp B/P (MAP) Pulse Ox O2 Delivery O2 Flow Rate FiO2 05/24/20 07:45 Nasal Cannula 2.0 05/24/20 07:00 95.2 67 17 119/81 (94) 83 95.2 General: No acute distress Lungs: Crackles, Other Labs Laboratory Tests Test 05/23/20 15:39 05/24/20 08:17 White Blood Count 7.7 x10^3/uL (4.0-11.0) Red Blood Count 3.89 x10^6/uL (4.30-5.70) Hemoglobin 12.0 g/dL (13.0-17.5) Hematocrit 35.9 % (39.0-53.0) Mean Corpuscular Volume 92 fL (79-100) Mean Corpuscular Hemoglobin 31 pg (25-35) Mean Corpuscular Hemoglobin Concent 33 g/dL (31-37) Red Cell Distribution Width 18.9 % (11.5-14.5) Platelet Count 234 x10^3/uL (140-400) Neutrophils (%) (Auto) 84 % (31-73) Lymphocytes (%) (Auto) 11 % (24-48) Monocytes (%) (Auto) 5 % (0-9) Eosinophils (%) (Auto) 0 % (0-3) Basophils (%) (Auto) 0 % (0-3) Neutrophils # (Auto) 6.5 x10^3/uL (1.8-7.7) Lymphocytes # (Auto) 0.8 x10^3/uL (1.0-4.8) Monocytes # (Auto) 0.4 x10^3/uL (0.0-1.1) Eosinophils # (Auto) 0.0 x10^3/uL (0.0-0.7) Basophils # (Auto) 0.0 x10^3/uL (0.0-0.2) Sodium Level 141 mmol/L (136-145) Potassium Level 3.5 mmol/L (3.5-5.1) Chloride Level 106 mmol/L (98-107) Carbon Dioxide Level 28 mmol/L (21-32) Anion Gap 7 (6-14) Blood Urea Nitrogen 7 mg/dL (8-26) Creatinine 0.7 mg/dL (0.7-1.3) Estimated GFR (Cockcroft-Gault) 116.2 BUN/Creatinine Ratio 10 (6-20) Glucose Level 135 mg/dL (70-99) Lactic Acid Level 0.7 mmol/L (0.4-2.0) Calcium Level 8.9 mg/dL (8.5-10.1) Total Bilirubin 0.6 mg/dL (0.2-1.0) Aspartate Amino Transf (AST/SGOT) 23 U/L (15-37) Alanine Aminotransferase (ALT/SGPT) 21 U/L (16-63) Alkaline Phosphatase 57 U/L (46-116) Troponin I Quantitative < 0.017 ng/mL (0.000-0.055) BC-Rpg-B-Type Natriuretic Peptide 813 pg/mL (0-124) Total Protein 6.2 g/dL (6.4-8.2) Albumin 2.7 g/dL (3.4-5.0) Albumin/Globulin Ratio 0.8 (1.0-1.7) Glucose (Fingerstick) 137 mg/dL (70-99) Laboratory Tests Test 05/23/20 15:39 05/24/20 08:17 White Blood Count 7.7 x10^3/uL (4.0-11.0) Red Blood Count 3.89 x10^6/uL (4.30-5.70) Hemoglobin 12.0 g/dL (13.0-17.5) Hematocrit 35.9 % (39.0-53.0) Mean Corpuscular Volume 92 fL (79-100) Mean Corpuscular Hemoglobin 31 pg (25-35) Mean Corpuscular Hemoglobin Concent 33 g/dL (31-37) Red Cell Distribution Width 18.9 % (11.5-14.5) Platelet Count 234 x10^3/uL (140-400) Neutrophils (%) (Auto) 84 % (31-73) Lymphocytes (%) (Auto) 11 % (24-48) Monocytes (%) (Auto) 5 % (0-9) Eosinophils (%) (Auto) 0 % (0-3) Basophils (%) (Auto) 0 % (0-3) Neutrophils # (Auto) 6.5 x10^3/uL (1.8-7.7) Lymphocytes # (Auto) 0.8 x10^3/uL (1.0-4.8) Monocytes # (Auto) 0.4 x10^3/uL (0.0-1.1) Eosinophils # (Auto) 0.0 x10^3/uL (0.0-0.7) Basophils # (Auto) 0.0 x10^3/uL (0.0-0.2) Sodium Level 141 mmol/L (136-145) Potassium Level 3.5 mmol/L (3.5-5.1) Chloride Level 106 mmol/L (98-107) Carbon Dioxide Level 28 mmol/L (21-32) Anion Gap 7 (6-14) Blood Urea Nitrogen 7 mg/dL (8-26) Creatinine 0.7 mg/dL (0.7-1.3) Estimated GFR (Cockcroft-Gault) 116.2 BUN/Creatinine Ratio 10 (6-20) Glucose Level 135 mg/dL (70-99) Lactic Acid Level 0.7 mmol/L (0.4-2.0) Calcium Level 8.9 mg/dL (8.5-10.1) Total Bilirubin 0.6 mg/dL (0.2-1.0) Aspartate Amino Transf (AST/SGOT) 23 U/L (15-37) Alanine Aminotransferase (ALT/SGPT) 21 U/L (16-63) Alkaline Phosphatase 57 U/L (46-116) Troponin I Quantitative < 0.017 ng/mL (0.000-0.055) AU-Ywb-B-Type Natriuretic Peptide 813 pg/mL (0-124) Total Protein 6.2 g/dL (6.4-8.2) Albumin 2.7 g/dL (3.4-5.0) Albumin/Globulin Ratio 0.8 (1.0-1.7) Glucose (Fingerstick) 137 mg/dL (70-99) Medications Active Scripts Medications Dose Route/Sig Max Daily Dose Days Date Category Dose Instructions Culturelle (Lactobacillus Rhamnosus Gg) 1 Each Cap.sprink 1 Cap PO BID 30 05/14/20 Rx Amox Tr-K Clv 875-125 Mg Tab (Amoxicillin/Potassium Clav) 1 Each Tablet 1 Tab PO BID 5 05/14/20 Rx Prednisone (Prednisone) 10 Mg Tablet 10 Mg PO UD 05/02/20 Rx Take 4 tablets by mouth daily for 4 days, then take 3 tablets by mouth daily for 2 days, then take 2 tablets by mouth daily for 2 days, then take 1 tablets by mouth daily for 2 days, then stop. Acetaminophen 325 Mg Tablet 2 Tab PO PRN Q6HRS PRN 24 04/08/20 Reported Pioglitazone Hcl 30 Mg Tablet 30 Mg PO DAILY 04/08/20 Reported Nicotine Gum (Nicotine Polacrilex) 2 Mg Gum 2 Mg BC PRN PRN 04/08/20 Reported Neurontin (Gabapentin) 300 Mg Capsule 300 Mg PO TID 04/08/20 Reported Gelusil 200-200-25 mg Chew Tab (Mag Hydrox/Aluminum Hyd/Simeth) 1 Each Tab.chew 1 Each PO PRN Q4HRS PRN 04/08/20 Reported Miralax (Polyethylene Glycol 3350) 17 Gm Powd.pack 1 Pkt PO PRN DAILY PRN 04/08/20 Reported Milk Of Magnesia (Magnesium Hydroxide) 2,400 Mg/10 Ml Oral.susp 2,400 Mg PO PRN Q8HRS PRN 04/08/20 Reported Metoprolol Tartrate 25 Mg Tablet 12.5 Mg PO BID 04/08/20 Reported Metformin Hcl 1,000 Mg Tablet 1,000 Mg PO BIDWMEALS 04/08/20 Reported Lisinopril 2.5 Mg Tablet 2.5 Mg PO DAILY 04/08/20 Reported Levothyroxine Sodium 100 Mcg Tablet 100 Mcg PO HS 04/08/20 Reported Januvia (Sitagliptin Phosphate) 100 Mg Tablet 100 Mg PO DAILY 04/08/20 Reported Famotidine 20 Mg Tablet 20 Mg PO HS 04/08/20 Reported Depakote Er (Divalproex Sodium) 500 Mg Tab.er.24h 1,500 Mg PO DAILY 04/08/20 Reported Clozaril (Clozapine) 100 Mg Tablet 100 Mg PO BIDACBL 04/08/20 Reported Clozapine 100 Mg Tablet 300 Mg PO HS 04/08/20 Reported Atorvastatin Calcium 40 Mg Tablet 80 Mg PO HS 04/08/20 Reported Impression . Full note dictated Continue treatment for pneumonia. DONAVAN CARDOSO MD May 24, 2020 11:47
[2020-05-24] MEDS ORDERED: MAG HYDROX/ALUMINUM HYD/SIMETH 30 ML ORAL.SUSP PO PRN (12:00)
[2020-05-24] MEDS: DIVALPROEX EXTENDED RELEASE 500 MG TAB.ER.24H. PO SCH (12:00)
[2020-05-24] MEDS ORDERED: MAGNESIUM HYDROXIDE 2,400 MG/30 ML ORAL.SUSP. PO PRN (12:00)
[2020-05-24] MEDS: LINAGLIPTIN 5 MG TABLET PO SCH (12:00)
[2020-05-24] MEDS: METOPROLOL TART IMMED RELEASE 25 MG TABLET. PO SCH ×2 (12:00→21:00)
[2020-05-24] MEDS: predniSONE 10 MG TABLET PO SCH (12:00)
[2020-05-24] MEDS: LISINOPRIL 5 MG TABLET. PO SCH (12:00)
[2020-05-24] MEDS: cloZAPine 100 MG TABLET PO SCH ×2 (12:00→21:06)
--- NOTE | 2020-05-24 12:03 | CONS ---
DATE OF CONSULTATION: 05/24/2020 ATTENDING PHYSICIAN: Dr. Iglesia Nolan. REASON FOR CONSULTATION: The patient is seen in pulmonary consultation at the request of Dr. Nolan for possible pneumonia. HISTORY OF PRESENT ILLNESS: The patient is a 55-year-old who had COVID back in 03/2019. The patient is a very poor historian, who presented because of some mental status change at his nursing facility. He normally wears oxygen, but he was unable to tell me if he wears it 24x7. He presented with encephalopathy. Chest x-ray revealed basilar patchy opacities. I was asked to see him in consultation for further evaluation and management. Currently, the patient is awake, alert, following commands. He does not appear to be in any respiratory distress. He is on oxygen supplementation. He is receiving piperacillin. PAST MEDICAL HISTORY: Remarkable for history of depression, type 2 diabetes, dyslipidemia, schizophrenia, COVID-19 in 03/2019, hypothyroidism, history of insomnia. PAST SURGICAL HISTORY: No recent surgeries. ALLERGIES: No known drug allergies. REVIEW OF SYSTEMS: No headaches, diplopia or blurred vision. EYES: No change in visual acuity. HENT: No nasal congestion. PULMONARY: As indicated above. CARDIOVASCULAR: No chest pain or pressure. GASTROINTESTINAL: No nausea, vomiting or diarrhea. GENITOURINARY: No dysuria or frequency. MUSCULOSKELETAL: No localized muscle aches or joint pains. SKIN: No new skin rashes. NEUROLOGIC: No headaches, diplopia or blurred vision. MEDICATIONS: List was reviewed. PHYSICAL EXAMINATION: VITAL SIGNS: Stable. He has been afebrile, currently on 2 liters of oxygen supplementation. HEENT: Eyes, the sclerae were nonicteric. NECK: Jugular venous pressure not elevated. No lymphadenopathy. CHEST: Full expansion. LUNGS: Crackles in the bases. No wheezes. CARDIOVASCULAR: Regular rate and rhythm with S1, S2, no S3. ABDOMEN: Soft, nontender, nondistended. EXTREMITIES: No clubbing, cyanosis or pitting edema. LABORATORY DATA: Reviewed. White count was normal. Hemoglobin and hematocrit were noted. Electrolytes were noted. IMPRESSION: 1. Abnormal x-ray compatible with bacterial pneumonia. 2. Acute metabolic encephalopathy. 3. Acute hypoxemic respiratory failure. 4. History of COVID-19 in March. 5. Schizophrenia. 6. Hyperlipidemia. PLAN: 1. Continue IV cefepime. 2. Oxygen supplementation. 3. Steroids. 4. Home medications. I do appreciate the privilege in sharing in the patient's care. DONAVAN CARDOSO MD DR: DESTIN/michel JOB#: [id number] / [id number]
[2020-05-24] MEDS: CEFEPIME HCL IV Push 1 GM VIAL. IVP SCH ×2 (13:55→21:05)
[2020-05-24] MEDS: GABAPENTIN 300 MG CAPSULE. PO SCH ×2 (13:56→21:06)
[2020-05-24] MEDS ORDERED: VANCOMYCIN 1GM IVPB FOR OMNI 250 ML ONE (14:21)
--- NOTE | 2020-05-24 15:23 | PDOC2 ---
CONSULT Date of Consult Date of Consult DATE: 05/24/20 TIME: 15:14 Reason for Consult Reason for Consult: Pneumonia Referring Physician Referring Physician: Dr. Nolan Identification/Chief Complaint Chief Complaint Generalized weakness History of Present Illness Reason for Visit: 55-year-old male with history of depression diabetes hyperlipidemia schizophrenia hypothyroidism recent COVID-19 April 07, 2020 requiring hospitalization. He was treated at that time with remdesivir and Decadron. He was brought in on May 23, 2019 by EMS from [facility] with generalized weakness and low blood pressure. Patient is a poor historian. He was found to have altered mental status. His white count was 7.7. He received 1 dose of methylprednisolone. Temperature was 97.6. EKG showed sinus rhythm with no ST-T wave changes. Chest x-ray revealed patchy bibasilar opacities. He received a liter of fluid. Was started on cefepime. ID consultation has been requested for antibiotic management. Past Medical History Cardiovascular: HTN, Hyperlipidemia Psych: Schizophrenia Musculoskeletal: Osteoarthritis, Weakness Endocrine: Diabetes, Hypothyroidism Past Surgical History Past Surgical History: No pertinent history Family History Family History: Hypertension, Family History Unknown Social History ALCOHOL: none Drugs: None Current Problem List Problem List Problems Medical Problems: (1) Person under investigation for COVID-19 Status: Acute (2) Pneumonia Status: Acute Current Medications Current Medications Current Medications Methylprednisolone Sodium Succinate (SOLU-Medrol 125MG VIAL) 85 mg 1X ONCE IV Last administered on 05/23/20at 16:02; Start 05/23/20 at 15:00; Stop 05/23/20 at 15:03; Status DC Sodium Chloride 1,000 ml @ 1,000 mls/hr 1X ONCE IV Last administered on 05/23/20at 16:03; Start 05/23/20 at 15:15; Stop 05/23/20 at 16:14; Status DC Piperacillin Sod/ Tazobactam Sod 3.375 gm/Sodium Chloride 50 ml @ 100 mls/hr 1X ONCE IV Last administered on 05/23/20at 17:28; Start 05/23/20 at 16:30; Stop 05/23/20 at 16:59; Status DC Ondansetron HCl (Zofran) 4 mg PRN Q8HRS PRN IV NAUSEA/VOMITING; Start 05/23/20 at 18:00; Stop 05/24/20 at 17:59 Acetaminophen (Tylenol) 650 mg PRN Q4HRS PRN PO FEVER > 100.3'F; Start 05/23/20 at 18:00; Stop 05/24/20 at 17:59 Influenza Virus Vaccine Quadrival (Fluzone Quad Syringe) 0.5 ml ONCE ONCE VAX IM ; Start 05/24/20 at 09:00; Stop 05/24/20 at 09:01; Status DC Acetaminophen (Tylenol) 650 mg PRN Q6HRS PRN PO pain or fever; Start 05/24/20 at 11:30 Atorvastatin Calcium (Lipitor) 80 mg HS PO ; Start 05/24/20 at 21:00 Clozapine (Clozaril) 300 mg HS PO ; Start 05/24/20 at 21:00 Clozapine (Clozaril) 100 mg BIDACBL PO Last administered on 05/24/20at 12:00; Start 05/24/20 at 11:30 Divalproex Sodium (Depakote Er) 1,500 mg DAILY PO Last administered on 05/24/20at 12:00; Start 05/24/20 at 12:00 Famotidine (Pepcid) 20 mg HS PO ; Start 05/24/20 at 21:00 Gabapentin (Neurontin) 300 mg TID PO Last administered on 05/24/20at 13:56; Start 05/24/20 at 14:00 Lactobacillus Rhamnosus (Culturelle) 1 cap BID PO ; Start 05/24/20 at 21:00 Levothyroxine Sodium (Synthroid) 100 mcg HS PO ; Start 05/24/20 at 21:00 Metoprolol Tartrate (Lopressor) 12.5 mg BID PO ; Start 05/24/20 at 12:00 Nicotine Polacrilex (Nicorette Gum) 1 each PRN Q2HR PRN BC SMOKING CESSATION; Start 05/24/20 at 11:30 Polyethylene Glycol (miraLAX PACKET) 17 gm PRN DAILY PRN PO CONSTIPATION; Start 05/24/20 at 11:30 Prednisone (Prednisone) 10 mg DAILY PO Last administered on 05/24/20at 12:00; Start 05/24/20 at 12:00 Lisinopril (Prinivil) 2.5 mg DAILY PO ; Start 05/24/20 at 12:00 Al Hydroxide/Mg Hydroxide (Mylanta Plus Xs) 30 ml PRN Q4HRS PRN PO HEARTBURN / GAS; Start 05/24/20 at 12:00 Magnesium Hydroxide (Milk Of Magnesia) 2,400 mg PRN Q8HRS PRN PO CONSTIPATION; Start 05/24/20 at 12:00 Linagliptin (Tradjenta) 5 mg DAILY PO Last administered on 05/24/20at 12:00; Start 05/24/20 at 12:00 Cefepime HCl (Maxipime) 1 gm Q12HR IVP Last administered on 05/24/20at 13:55; Start 05/24/20 at 13:00 Vancomycin HCl 250 ml @ As Directed STK-MED ONCE .ROUTE ; Start 05/24/20 at 14:21; Stop 05/24/20 at 14:22; Status DC Active Scripts Active Culturelle (Lactobacillus Rhamnosus Gg) 1 Each Cap.sprink 1 Cap PO BID 30 Days Amox Tr-K Clv 875-125 Mg Tab (Amoxicillin/Potassium Clav) 1 Each Tablet 1 Tab PO BID 5 Days Prednisone (Prednisone) 10 Mg Tablet 10 Mg PO UD Take 4 tablets by mouth daily for 4 days, then take 3 tablets by mouth daily for 2 days, then take 2 tablets by mouth daily for 2 days, then take 1 tablets by mouth daily for 2 days, then stop. Reported Acetaminophen 325 Mg Tablet 2 Tab PO PRN Q6HRS PRN 24 Days Pioglitazone Hcl 30 Mg Tablet 30 Mg PO DAILY Nicotine Gum (Nicotine Polacrilex) 2 Mg Gum 2 Mg BC PRN PRN Neurontin (Gabapentin) 300 Mg Capsule 300 Mg PO TID Gelusil 200-200-25 mg Chew Tab (Mag Hydrox/Aluminum Hyd/Simeth) 1 Each Tab.chew 1 Each PO PRN Q4HRS PRN Miralax (Polyethylene Glycol 3350) 17 Gm Powd.pack 1 Pkt PO PRN DAILY PRN Milk Of Magnesia (Magnesium Hydroxide) 2,400 Mg/10 Ml Oral.susp 2,400 Mg PO PRN Q8HRS PRN Metoprolol Tartrate 25 Mg Tablet 12.5 Mg PO BID Metformin Hcl 1,000 Mg Tablet 1,000 Mg PO BIDWMEALS Lisinopril 2.5 Mg Tablet 2.5 Mg PO DAILY Levothyroxine Sodium 100 Mcg Tablet 100 Mcg PO HS Januvia (Sitagliptin Phosphate) 100 Mg Tablet 100 Mg PO DAILY Famotidine 20 Mg Tablet 20 Mg PO HS Depakote Er (Divalproex Sodium) 500 Mg Tab.er.24h 1,500 Mg PO DAILY Clozaril (Clozapine) 100 Mg Tablet 100 Mg PO BIDACBL Clozapine 100 Mg Tablet 300 Mg PO HS Atorvastatin Calcium 40 Mg Tablet 80 Mg PO HS Allergies Allergies: Coded Allergies: No Known Drug Allergies (Unverified , 04/08/20) ROS Review of System Limited Denies fever, nausea, vomiting, diarrhea, abdominal pain Physical Exam Physical Exam General alert awake male in no acute distress HEENT normocephalic atraumatic anicteric no thrush poor dentition Neck supple no JVD Lungs decreased breath sound at the bases otherwise clear no wheezing. Heart S1-S2 no murmurs Abdomen soft nontender nondistended no rebound or guarding no Hernandes in place Extremities no edema Neuro alert awake somewhat confused moves all 4 extremities Dermatology warm dry no generalized rash Psychiatric calm cooperative Vitals VITALS Vital Signs Date Time Temp Pulse Resp B/P (MAP) Pulse Ox O2 Delivery O2 Flow Rate FiO2 05/24/20 12:00 70 99/62 05/24/20 11:00 96.6 10 89 Nasal Cannula 2.0 96.6 Labs Labs Laboratory Tests Test 05/23/20 15:39 05/24/20 08:17 05/24/20 11:41 White Blood Count 7.7 x10^3/uL (4.0-11.0) Red Blood Count 3.89 x10^6/uL (4.30-5.70) Hemoglobin 12.0 g/dL (13.0-17.5) Hematocrit 35.9 % (39.0-53.0) Mean Corpuscular Volume 92 fL (79-100) Mean Corpuscular Hemoglobin 31 pg (25-35) Mean Corpuscular Hemoglobin Concent 33 g/dL (31-37) Red Cell Distribution Width 18.9 % (11.5-14.5) Platelet Count 234 x10^3/uL (140-400) Neutrophils (%) (Auto) 84 % (31-73) Lymphocytes (%) (Auto) 11 % (24-48) Monocytes (%) (Auto) 5 % (0-9) Eosinophils (%) (Auto) 0 % (0-3) Basophils (%) (Auto) 0 % (0-3) Neutrophils # (Auto) 6.5 x10^3/uL (1.8-7.7) Lymphocytes # (Auto) 0.8 x10^3/uL (1.0-4.8) Monocytes # (Auto) 0.4 x10^3/uL (0.0-1.1) Eosinophils # (Auto) 0.0 x10^3/uL (0.0-0.7) Basophils # (Auto) 0.0 x10^3/uL (0.0-0.2) Sodium Level 141 mmol/L (136-145) Potassium Level 3.5 mmol/L (3.5-5.1) Chloride Level 106 mmol/L (98-107) Carbon Dioxide Level 28 mmol/L (21-32) Anion Gap 7 (6-14) Blood Urea Nitrogen 7 mg/dL (8-26) Creatinine 0.7 mg/dL (0.7-1.3) Estimated GFR (Cockcroft-Gault) 116.2 BUN/Creatinine Ratio 10 (6-20) Glucose Level 135 mg/dL (70-99) Lactic Acid Level 0.7 mmol/L (0.4-2.0) Calcium Level 8.9 mg/dL (8.5-10.1) Total Bilirubin 0.6 mg/dL (0.2-1.0) Aspartate Amino Transf (AST/SGOT) 23 U/L (15-37) Alanine Aminotransferase (ALT/SGPT) 21 U/L (16-63) Alkaline Phosphatase 57 U/L (46-116) Troponin I Quantitative < 0.017 ng/mL (0.000-0.055) SH-Ocv-G-Type Natriuretic Peptide 813 pg/mL (0-124) Total Protein 6.2 g/dL (6.4-8.2) Albumin 2.7 g/dL (3.4-5.0) Albumin/Globulin Ratio 0.8 (1.0-1.7) Glucose (Fingerstick) 137 mg/dL (70-99) 125 mg/dL (70-99) Laboratory Tests Test 05/23/20 15:39 05/24/20 08:17 05/24/20 11:41 White Blood Count 7.7 x10^3/uL (4.0-11.0) Red Blood Count 3.89 x10^6/uL (4.30-5.70) Hemoglobin 12.0 g/dL (13.0-17.5) Hematocrit 35.9 % (39.0-53.0) Mean Corpuscular Volume 92 fL (79-100) Mean Corpuscular Hemoglobin 31 pg (25-35) Mean Corpuscular Hemoglobin Concent 33 g/dL (31-37) Red Cell Distribution Width 18.9 % (11.5-14.5) Platelet Count 234 x10^3/uL (140-400) Neutrophils (%) (Auto) 84 % (31-73) Lymphocytes (%) (Auto) 11 % (24-48) Monocytes (%) (Auto) 5 % (0-9) Eosinophils (%) (Auto) 0 % (0-3) Basophils (%) (Auto) 0 % (0-3) Neutrophils # (Auto) 6.5 x10^3/uL (1.8-7.7) Lymphocytes # (Auto) 0.8 x10^3/uL (1.0-4.8) Monocytes # (Auto) 0.4 x10^3/uL (0.0-1.1) Eosinophils # (Auto) 0.0 x10^3/uL (0.0-0.7) Basophils # (Auto) 0.0 x10^3/uL (0.0-0.2) Sodium Level 141 mmol/L (136-145) Potassium Level 3.5 mmol/L (3.5-5.1) Chloride Level 106 mmol/L (98-107) Carbon Dioxide Level 28 mmol/L (21-32) Anion Gap 7 (6-14) Blood Urea Nitrogen 7 mg/dL (8-26) Creatinine 0.7 mg/dL (0.7-1.3) Estimated GFR (Cockcroft-Gault) 116.2 BUN/Creatinine Ratio 10 (6-20) Glucose Level 135 mg/dL (70-99) Lactic Acid Level 0.7 mmol/L (0.4-2.0) Calcium Level 8.9 mg/dL (8.5-10.1) Total Bilirubin 0.6 mg/dL (0.2-1.0) Aspartate Amino Transf (AST/SGOT) 23 U/L (15-37) Alanine Aminotransferase (ALT/SGPT) 21 U/L (16-63) Alkaline Phosphatase 57 U/L (46-116) Troponin I Quantitative < 0.017 ng/mL (0.000-0.055) YB-Ptn-T-Type Natriuretic Peptide 813 pg/mL (0-124) Total Protein 6.2 g/dL (6.4-8.2) Albumin 2.7 g/dL (3.4-5.0) Albumin/Globulin Ratio 0.8 (1.0-1.7) Glucose (Fingerstick) 137 mg/dL (70-99) 125 mg/dL (70-99) Images Images XR CHEST 1V History: Reason: SOA, HYPOXIA, / Spl. Instructions: / History: Comparison: May 11, 2020 Findings: Patchy bibasilar opacities. No pleural effusion. No pneumothorax. Unchanged heart size. Impression: 1. Mild patchy bibasilar opacities, most likely atelectasis. Assessment/Plan Assessment/Plan Impression Dyspnea Hypotension Generalized weakness Abnormal x-ray suggestive of bacterial pneumonia History of COVID-28 March 2020 treated Schizophrenia Hypertension/hyperlipidemia Diabetes Hypothyroidism Poor dentition Recommendations Continue cefepime Maintain aspiration precautions Monitor labs and cultures Supportive care Thank you for allowing me to participate in this patient's care. If you have any questions do not hesitate to contact me. SARY ALFREDO MD May 24, 2020 15:23
[2020-05-24 15:56] VITALS: BP 93/64
--- NOTE | 2020-05-24 18:03 | NUR ---
Home medications restarted by physician; blood pressure medications held d/t low trends. Will continue to monitor.
[2020-05-24 19:00] VITALS: BP 92/46
[2020-05-24] MEDS: ATORVASTATIN CALCIUM 40 MG TABLET. PO SCH (21:06)
[2020-05-24] MEDS: LACTOBACILLUS RHAMNOSUS GG 1 CAPSULE. PO SCH (21:06)
[2020-05-24] MEDS: LEVOTHYROXINE 100 MCG TABLET PO SCH (21:06)
[2020-05-24] MEDS: FAMOTIDINE 20 MG TABLET. PO SCH (21:06)
[2020-05-24 23:00] VITALS: BP 89/56
[2020-05-25] VITALS (7 sets, daily range): BP systolic 82–102; BP diastolic 61–76
[2020-05-25 05:13] LABS: BASO % 0 % (0-3); EOS % 0 % (0-3); HEMATOCRIT 29.6 % (39.0-53.0); LYMPH # 1.9 x10^3/uL (1.0-4.8); LYMPH % 28 % (24-48); MEAN CORPUSCULAR HEMOGLOBIN 31 pg (25-35); MEAN CORPUSCULAR HGB CONC 34 g/dL (31-37); MEAN CORPUSCULAR VOLUME 91 fL (79-100); MONO # 0.4 x10^3/uL (0.0-1.1); MONO % 6 % (0-9); NEUT # 4.3 x10^3/uL (1.8-7.7); NEUT % 66 % (31-73); PLATELET COUNT 217 x10^3/uL (140-400); RED BLOOD COUNT 3.25 x10^6/uL (4.30-5.70); RED CELL DISTRIBUTION WIDTH 18.7 % (11.5-14.5); WHITE BLOOD COUNT 6.6 x10^3/uL (4.0-11.0)
[2020-05-25 05:26] LABS: CALCIUM 8.4 mg/dL (8.5-10.1); CREATININE 0.8 mg/dL (0.7-1.3); GFR 99.6; POTASSIUM 3.7 mmol/L (3.5-5.1)
--- NOTE | 2020-05-25 08:39 | PDOC ---
PULMONARY PROGRESS NOTES DATE: 05/25/20 TIME: 08:37 Subjective feels better, sob better Vitals Vital Signs Date Time Temp Pulse Resp B/P (MAP) Pulse Ox O2 Delivery O2 Flow Rate FiO2 05/25/20 07:00 97.0 68 18 85/68 (74) 97 Nasal Cannula 2.0 97.0 Comments no distress alert NC AT RRR no accessory muscle use no rash General: No acute distress Labs Laboratory Tests Test 05/23/20 15:39 05/24/20 08:17 05/24/20 11:41 05/24/20 15:52 White Blood Count 7.7 x10^3/uL (4.0-11.0) Red Blood Count 3.89 x10^6/uL (4.30-5.70) Hemoglobin 12.0 g/dL (13.0-17.5) Hematocrit 35.9 % (39.0-53.0) Mean Corpuscular Volume 92 fL (79-100) Mean Corpuscular Hemoglobin 31 pg (25-35) Mean Corpuscular Hemoglobin Concent 33 g/dL (31-37) Red Cell Distribution Width 18.9 % (11.5-14.5) Platelet Count 234 x10^3/uL (140-400) Neutrophils (%) (Auto) 84 % (31-73) Lymphocytes (%) (Auto) 11 % (24-48) Monocytes (%) (Auto) 5 % (0-9) Eosinophils (%) (Auto) 0 % (0-3) Basophils (%) (Auto) 0 % (0-3) Neutrophils # (Auto) 6.5 x10^3/uL (1.8-7.7) Lymphocytes # (Auto) 0.8 x10^3/uL (1.0-4.8) Monocytes # (Auto) 0.4 x10^3/uL (0.0-1.1) Eosinophils # (Auto) 0.0 x10^3/uL (0.0-0.7) Basophils # (Auto) 0.0 x10^3/uL (0.0-0.2) Sodium Level 141 mmol/L (136-145) Potassium Level 3.5 mmol/L (3.5-5.1) Chloride Level 106 mmol/L (98-107) Carbon Dioxide Level 28 mmol/L (21-32) Anion Gap 7 (6-14) Blood Urea Nitrogen 7 mg/dL (8-26) Creatinine 0.7 mg/dL (0.7-1.3) Estimated GFR (Cockcroft-Gault) 116.2 BUN/Creatinine Ratio 10 (6-20) Glucose Level 135 mg/dL (70-99) Lactic Acid Level 0.7 mmol/L (0.4-2.0) Calcium Level 8.9 mg/dL (8.5-10.1) Total Bilirubin 0.6 mg/dL (0.2-1.0) Aspartate Amino Transf (AST/SGOT) 23 U/L (15-37) Alanine Aminotransferase (ALT/SGPT) 21 U/L (16-63) Alkaline Phosphatase 57 U/L (46-116) Troponin I Quantitative < 0.017 ng/mL (0.000-0.055) YA-Xiz-R-Type Natriuretic Peptide 813 pg/mL (0-124) Total Protein 6.2 g/dL (6.4-8.2) Albumin 2.7 g/dL (3.4-5.0) Albumin/Globulin Ratio 0.8 (1.0-1.7) Glucose (Fingerstick) 137 mg/dL (70-99) 125 mg/dL (70-99) 133 mg/dL (70-99) Test 05/25/20 04:30 White Blood Count 6.6 x10^3/uL (4.0-11.0) Red Blood Count 3.25 x10^6/uL (4.30-5.70) Hemoglobin 10.0 g/dL (13.0-17.5) Hematocrit 29.6 % (39.0-53.0) Mean Corpuscular Volume 91 fL (79-100) Mean Corpuscular Hemoglobin 31 pg (25-35) Mean Corpuscular Hemoglobin Concent 34 g/dL (31-37) Red Cell Distribution Width 18.7 % (11.5-14.5) Platelet Count 217 x10^3/uL (140-400) Neutrophils (%) (Auto) 66 % (31-73) Lymphocytes (%) (Auto) 28 % (24-48) Monocytes (%) (Auto) 6 % (0-9) Eosinophils (%) (Auto) 0 % (0-3) Basophils (%) (Auto) 0 % (0-3) Neutrophils # (Auto) 4.3 x10^3/uL (1.8-7.7) Lymphocytes # (Auto) 1.9 x10^3/uL (1.0-4.8) Monocytes # (Auto) 0.4 x10^3/uL (0.0-1.1) Eosinophils # (Auto) 0.0 x10^3/uL (0.0-0.7) Basophils # (Auto) 0.0 x10^3/uL (0.0-0.2) Sodium Level 146 mmol/L (136-145) Potassium Level 3.7 mmol/L (3.5-5.1) Chloride Level 108 mmol/L (98-107) Carbon Dioxide Level 35 mmol/L (21-32) Anion Gap 3 (6-14) Blood Urea Nitrogen 14 mg/dL (8-26) Creatinine 0.8 mg/dL (0.7-1.3) Estimated GFR (Cockcroft-Gault) 99.6 Glucose Level 137 mg/dL (70-99) Calcium Level 8.4 mg/dL (8.5-10.1) Laboratory Tests Test 05/24/20 11:41 05/24/20 15:52 05/25/20 04:30 Glucose (Fingerstick) 125 mg/dL (70-99) 133 mg/dL (70-99) White Blood Count 6.6 x10^3/uL (4.0-11.0) Red Blood Count 3.25 x10^6/uL (4.30-5.70) Hemoglobin 10.0 g/dL (13.0-17.5) Hematocrit 29.6 % (39.0-53.0) Mean Corpuscular Volume 91 fL (79-100) Mean Corpuscular Hemoglobin 31 pg (25-35) Mean Corpuscular Hemoglobin Concent 34 g/dL (31-37) Red Cell Distribution Width 18.7 % (11.5-14.5) Platelet Count 217 x10^3/uL (140-400) Neutrophils (%) (Auto) 66 % (31-73) Lymphocytes (%) (Auto) 28 % (24-48) Monocytes (%) (Auto) 6 % (0-9) Eosinophils (%) (Auto) 0 % (0-3) Basophils (%) (Auto) 0 % (0-3) Neutrophils # (Auto) 4.3 x10^3/uL (1.8-7.7) Lymphocytes # (Auto) 1.9 x10^3/uL (1.0-4.8) Monocytes # (Auto) 0.4 x10^3/uL (0.0-1.1) Eosinophils # (Auto) 0.0 x10^3/uL (0.0-0.7) Basophils # (Auto) 0.0 x10^3/uL (0.0-0.2) Sodium Level 146 mmol/L (136-145) Potassium Level 3.7 mmol/L (3.5-5.1) Chloride Level 108 mmol/L (98-107) Carbon Dioxide Level 35 mmol/L (21-32) Anion Gap 3 (6-14) Blood Urea Nitrogen 14 mg/dL (8-26) Creatinine 0.8 mg/dL (0.7-1.3) Estimated GFR (Cockcroft-Gault) 99.6 Glucose Level 137 mg/dL (70-99) Calcium Level 8.4 mg/dL (8.5-10.1) Medications Active Scripts Medications Dose Route/Sig Max Daily Dose Days Date Category Dose Instructions Culturelle (Lactobacillus Rhamnosus Gg) 1 Each Cap.sprink 1 Cap PO BID 30 05/14/20 Rx Amox Tr-K Clv 875-125 Mg Tab (Amoxicillin/Potassium Clav) 1 Each Tablet 1 Tab PO BID 5 05/14/20 Rx Prednisone (Prednisone) 10 Mg Tablet 10 Mg PO UD 05/02/20 Rx Take 4 tablets by mouth daily for 4 days, then take 3 tablets by mouth daily for 2 days, then take 2 tablets by mouth daily for 2 days, then take 1 tablets by mouth daily for 2 days, then stop. Acetaminophen 325 Mg Tablet 2 Tab PO PRN Q6HRS PRN 24 04/08/20 Reported Pioglitazone Hcl 30 Mg Tablet 30 Mg PO DAILY 04/08/20 Reported Nicotine Gum (Nicotine Polacrilex) 2 Mg Gum 2 Mg BC PRN PRN 04/08/20 Reported Neurontin (Gabapentin) 300 Mg Capsule 300 Mg PO TID 04/08/20 Reported Gelusil 200-200-25 mg Chew Tab (Mag Hydrox/Aluminum Hyd/Simeth) 1 Each Tab.chew 1 Each PO PRN Q4HRS PRN 04/08/20 Reported Miralax (Polyethylene Glycol 3350) 17 Gm Powd.pack 1 Pkt PO PRN DAILY PRN 04/08/20 Reported Milk Of Magnesia (Magnesium Hydroxide) 2,400 Mg/10 Ml Oral.susp 2,400 Mg PO PRN Q8HRS PRN 04/08/20 Reported Metoprolol Tartrate 25 Mg Tablet 12.5 Mg PO BID 04/08/20 Reported Metformin Hcl 1,000 Mg Tablet 1,000 Mg PO BIDWMEALS 04/08/20 Reported Lisinopril 2.5 Mg Tablet 2.5 Mg PO DAILY 04/08/20 Reported Levothyroxine Sodium 100 Mcg Tablet 100 Mcg PO HS 04/08/20 Reported Januvia (Sitagliptin Phosphate) 100 Mg Tablet 100 Mg PO DAILY 04/08/20 Reported Famotidine 20 Mg Tablet 20 Mg PO HS 04/08/20 Reported Depakote Er (Divalproex Sodium) 500 Mg Tab.er.24h 1,500 Mg PO DAILY 04/08/20 Reported Clozaril (Clozapine) 100 Mg Tablet 100 Mg PO BIDACBL 04/08/20 Reported Clozapine 100 Mg Tablet 300 Mg PO HS 04/08/20 Reported Atorvastatin Calcium 40 Mg Tablet 80 Mg PO HS 04/08/20 Reported Impression . IMPRESSION: 1. Abnormal x-ray compatible with bacterial pneumonia. 2. Acute metabolic encephalopathy. 3. Acute hypoxemic respiratory failure. 4. History of COVID-19 in March. 5. Schizophrenia. 6. Hyperlipidemia. Plan . PLAN: 1. Continue IV cefepime per id 2. Oxygen supplementation to keep sat 90% 3. Steroids. 4. Home medications. discussed w VANIA Desouza MD May 25, 2020 08:39
[2020-05-25] MEDS: METOPROLOL TART IMMED RELEASE 25 MG TABLET. PO SCH ×2 (09:00→20:47)
[2020-05-25] MEDS: LISINOPRIL 5 MG TABLET. PO SCH (09:00)
[2020-05-25] MEDS: LACTOBACILLUS RHAMNOSUS GG 1 CAPSULE. PO SCH ×2 (09:53→20:47)
[2020-05-25] MEDS: DIVALPROEX EXTENDED RELEASE 500 MG TAB.ER.24H. PO SCH (09:53)
[2020-05-25] MEDS: cloZAPine 100 MG TABLET PO SCH ×3 (09:54→20:47)
[2020-05-25] MEDS: CEFEPIME HCL IV Push 1 GM VIAL. IVP SCH ×2 (09:54→20:46)
[2020-05-25] MEDS: GABAPENTIN 300 MG CAPSULE. PO SCH ×3 (09:54→20:47)
[2020-05-25] MEDS: LINAGLIPTIN 5 MG TABLET PO SCH (09:55)
[2020-05-25] MEDS: predniSONE 10 MG TABLET PO SCH (09:55)
--- NOTE | 2020-05-25 10:25 | PDOC ---
PROGRESS NOTES Date of Service: DATE: 05/25/20 TIME: 10:25 Chief Complaint Chief Complaint VTE Prophylaxis Ordered VTE Prophylaxis Devices: Yes VTE Pharmacological Prophylaxi: Yes Assessment/Plan Assessment/Plan IMPRESSION Acute hypoxic respiratory failure aspiration pneumonia Acute metabolic encephalopathy recent Acute Respiratory failure with hypoxia due to covid 19 Chronic severe psychiatric issues COVID-19, recovering Depression Diabetes Hypertension Hyperlipidemia Hypothyroidism Schizophrenia Severe protein calorie malnutrition polypharmacy PLAN ADMIT EMPERIC IV ANTIBIOTICS, cefipime iv bid CONSULT PULM dvt prophylaxis ID CONSULT PULM CONSULT Continue cefepime Maintain aspiration precautions Monitor labs and cultures Supportive care d/w rn Justifications for Admission Justifications for Admission Other Justification History of Present Illness History of Present Illness Identification/Chief Complaint Chief Complaint 55 year old male who presented to ER with here by EMS from [facility] with generalized weakness and low blood pressure. Past Medical History Past Medical History Past Medical History Past Medical History: Constipation, Depression, Diabetes-Type II, GERD, High Cholesterol, Hypothyroid, Schizophrenia, Other Additional Past Medical Histor: covid 27 APR 2020; insomnia Past Surgical History: Other Additional Past Surgical Histo: UNABLE TO ASSESS Smoking Status: Former Smoker Alcohol Use: None Drug Use: None fhx HTN Cardiovascular: HTN, Hyperlipidemia Psych: Schizophrenia Musculoskeletal: Osteoarthritis, Weakness Endocrine: Diabetes, Hypothyroidism Past Surgical History Past Surgical History: No pertinent history Family History Family History: Hypertension, Family History Unknown Social History ALCOHOL: none Drugs: None Current Problem List Problem List Problems Medical Problems: (1) Person under investigation for COVID-19 Status: Acute (2) Pneumonia Status: Acute Vitals Vitals Vital Signs Date Time Temp Pulse Resp B/P (MAP) Pulse Ox O2 Delivery O2 Flow Rate FiO2 05/25/20 09:00 68 85/68 05/25/20 07:00 97.0 18 97 Nasal Cannula 2.0 97.0 Physical Exam Physical Exam Constitutional: Well developed, well nourished, no acute distress, non-toxic appearance. [] HENT: Normocephalic, atraumatic, bilateral external ears normal, oropharynx moist, no oral exudates, nose normal. [] Eyes: PERRLA, EOMI, conjunctiva normal, no discharge. [] Neck: Normal range of motion, no tenderness, supple, no stridor. [] Cardiovascular:Heart rate regular rhythm, no murmur [] Lungs & Thorax: Bilateral upper breath sounds coarse and lower diminished to auscultation [] Abdomen: Bowel sounds normal, soft, no tenderness, no masses, no pulsatile masses. [] Skin: Warm, dry, no erythema, no rash. [] Back: No tenderness, no CVA tenderness. [] Extremities: No tenderness, no cyanosis, no clubbing, ROM intact, no edema. [] General: Cooperative Lungs: Crackles, Other Abdomen: Soft, No tenderness, No hepatosplenomegaly Extremities: No cyanosis, No edema Labs LABS Signed PATIENT: MARK STEWART ACCOUNT: [id number] : 1965 LOCATION: ER AGE: 55 SEX: M EXAM STATUS: REG ER ORD. PHYSICIAN: HARPREET ELAINE APRN REASON: SOA, HYPOXIA, PROCEDURE: PORTABLE CHEST 1V XR CHEST 1V History: Reason: SOA, HYPOXIA, / Spl. Instructions: / History: Comparison: May 11, 2020 Findings: Patchy bibasilar opacities. No pleural effusion. No pneumothorax. Unchanged heart size. Impression: 1. Mild patchy bibasilar opacities, most likely atelectasis. Electronically signed by: Dann Monroy DO (05/23/2020 4:03 PM) [facility] DICTATED and SIGNED BY: DANN MONROY DO Laboratory Tests Test 05/24/20 11:41 05/24/20 15:52 05/25/20 04:30 Glucose (Fingerstick) 125 mg/dL (70-99) 133 mg/dL (70-99) White Blood Count 6.6 x10^3/uL (4.0-11.0) Red Blood Count 3.25 x10^6/uL (4.30-5.70) Hemoglobin 10.0 g/dL (13.0-17.5) Hematocrit 29.6 % (39.0-53.0) Mean Corpuscular Volume 91 fL (79-100) Mean Corpuscular Hemoglobin 31 pg (25-35) Mean Corpuscular Hemoglobin Concent 34 g/dL (31-37) Red Cell Distribution Width 18.7 % (11.5-14.5) Platelet Count 217 x10^3/uL (140-400) Neutrophils (%) (Auto) 66 % (31-73) Lymphocytes (%) (Auto) 28 % (24-48) Monocytes (%) (Auto) 6 % (0-9) Eosinophils (%) (Auto) 0 % (0-3) Basophils (%) (Auto) 0 % (0-3) Neutrophils # (Auto) 4.3 x10^3/uL (1.8-7.7) Lymphocytes # (Auto) 1.9 x10^3/uL (1.0-4.8) Monocytes # (Auto) 0.4 x10^3/uL (0.0-1.1) Eosinophils # (Auto) 0.0 x10^3/uL (0.0-0.7) Basophils # (Auto) 0.0 x10^3/uL (0.0-0.2) Sodium Level 146 mmol/L (136-145) Potassium Level 3.7 mmol/L (3.5-5.1) Chloride Level 108 mmol/L (98-107) Carbon Dioxide Level 35 mmol/L (21-32) Anion Gap 3 (6-14) Blood Urea Nitrogen 14 mg/dL (8-26) Creatinine 0.8 mg/dL (0.7-1.3) Estimated GFR (Cockcroft-Gault) 99.6 Glucose Level 137 mg/dL (70-99) Calcium Level 8.4 mg/dL (8.5-10.1) Assessment and Plan Assessmemt and Plan Problems Medical Problems: (1) Person under investigation for COVID-19 Status: Acute (2) Pneumonia Status: Acute Comment Review of Relevant I have reviewed the following items franchesca (where applicable) has been applied. Labs Laboratory Tests Test 05/23/20 15:39 05/24/20 08:17 05/24/20 11:41 05/24/20 15:52 White Blood Count 7.7 x10^3/uL (4.0-11.0) Red Blood Count 3.89 x10^6/uL (4.30-5.70) Hemoglobin 12.0 g/dL (13.0-17.5) Hematocrit 35.9 % (39.0-53.0) Mean Corpuscular Volume 92 fL (79-100) Mean Corpuscular Hemoglobin 31 pg (25-35) Mean Corpuscular Hemoglobin Concent 33 g/dL (31-37) Red Cell Distribution Width 18.9 % (11.5-14.5) Platelet Count 234 x10^3/uL (140-400) Neutrophils (%) (Auto) 84 % (31-73) Lymphocytes (%) (Auto) 11 % (24-48) Monocytes (%) (Auto) 5 % (0-9) Eosinophils (%) (Auto) 0 % (0-3) Basophils (%) (Auto) 0 % (0-3) Neutrophils # (Auto) 6.5 x10^3/uL (1.8-7.7) Lymphocytes # (Auto) 0.8 x10^3/uL (1.0-4.8) Monocytes # (Auto) 0.4 x10^3/uL (0.0-1.1) Eosinophils # (Auto) 0.0 x10^3/uL (0.0-0.7) Basophils # (Auto) 0.0 x10^3/uL (0.0-0.2) Sodium Level 141 mmol/L (136-145) Potassium Level 3.5 mmol/L (3.5-5.1) Chloride Level 106 mmol/L (98-107) Carbon Dioxide Level 28 mmol/L (21-32) Anion Gap 7 (6-14) Blood Urea Nitrogen 7 mg/dL (8-26) Creatinine 0.7 mg/dL (0.7-1.3) Estimated GFR (Cockcroft-Gault) 116.2 BUN/Creatinine Ratio 10 (6-20) Glucose Level 135 mg/dL (70-99) Lactic Acid Level 0.7 mmol/L (0.4-2.0) Calcium Level 8.9 mg/dL (8.5-10.1) Total Bilirubin 0.6 mg/dL (0.2-1.0) Aspartate Amino Transf (AST/SGOT) 23 U/L (15-37) Alanine Aminotransferase (ALT/SGPT) 21 U/L (16-63) Alkaline Phosphatase 57 U/L (46-116) Troponin I Quantitative < 0.017 ng/mL (0.000-0.055) QZ-Maw-O-Type Natriuretic Peptide 813 pg/mL (0-124) Total Protein 6.2 g/dL (6.4-8.2) Albumin 2.7 g/dL (3.4-5.0) Albumin/Globulin Ratio 0.8 (1.0-1.7) Glucose (Fingerstick) 137 mg/dL (70-99) 125 mg/dL (70-99) 133 mg/dL (70-99) Test 05/25/20 04:30 White Blood Count 6.6 x10^3/uL (4.0-11.0) Red Blood Count 3.25 x10^6/uL (4.30-5.70) Hemoglobin 10.0 g/dL (13.0-17.5) Hematocrit 29.6 % (39.0-53.0) Mean Corpuscular Volume 91 fL (79-100) Mean Corpuscular Hemoglobin 31 pg (25-35) Mean Corpuscular Hemoglobin Concent 34 g/dL (31-37) Red Cell Distribution Width 18.7 % (11.5-14.5) Platelet Count 217 x10^3/uL (140-400) Neutrophils (%) (Auto) 66 % (31-73) Lymphocytes (%) (Auto) 28 % (24-48) Monocytes (%) (Auto) 6 % (0-9) Eosinophils (%) (Auto) 0 % (0-3) Basophils (%) (Auto) 0 % (0-3) Neutrophils # (Auto) 4.3 x10^3/uL (1.8-7.7) Lymphocytes # (Auto) 1.9 x10^3/uL (1.0-4.8) Monocytes # (Auto) 0.4 x10^3/uL (0.0-1.1) Eosinophils # (Auto) 0.0 x10^3/uL (0.0-0.7) Basophils # (Auto) 0.0 x10^3/uL (0.0-0.2) Sodium Level 146 mmol/L (136-145) Potassium Level 3.7 mmol/L (3.5-5.1) Chloride Level 108 mmol/L (98-107) Carbon Dioxide Level 35 mmol/L (21-32) Anion Gap 3 (6-14) Blood Urea Nitrogen 14 mg/dL (8-26) Creatinine 0.8 mg/dL (0.7-1.3) Estimated GFR (Cockcroft-Gault) 99.6 Glucose Level 137 mg/dL (70-99) Calcium Level 8.4 mg/dL (8.5-10.1) Laboratory Tests Test 05/24/20 11:41 05/24/20 15:52 05/25/20 04:30 Glucose (Fingerstick) 125 mg/dL (70-99) 133 mg/dL (70-99) White Blood Count 6.6 x10^3/uL (4.0-11.0) Red Blood Count 3.25 x10^6/uL (4.30-5.70) Hemoglobin 10.0 g/dL (13.0-17.5) Hematocrit 29.6 % (39.0-53.0) Mean Corpuscular Volume 91 fL (79-100) Mean Corpuscular Hemoglobin 31 pg (25-35) Mean Corpuscular Hemoglobin Concent 34 g/dL (31-37) Red Cell Distribution Width 18.7 % (11.5-14.5) Platelet Count 217 x10^3/uL (140-400) Neutrophils (%) (Auto) 66 % (31-73) Lymphocytes (%) (Auto) 28 % (24-48) Monocytes (%) (Auto) 6 % (0-9) Eosinophils (%) (Auto) 0 % (0-3) Basophils (%) (Auto) 0 % (0-3) Neutrophils # (Auto) 4.3 x10^3/uL (1.8-7.7) Lymphocytes # (Auto) 1.9 x10^3/uL (1.0-4.8) Monocytes # (Auto) 0.4 x10^3/uL (0.0-1.1) Eosinophils # (Auto) 0.0 x10^3/uL (0.0-0.7) Basophils # (Auto) 0.0 x10^3/uL (0.0-0.2) Sodium Level 146 mmol/L (136-145) Potassium Level 3.7 mmol/L (3.5-5.1) Chloride Level 108 mmol/L (98-107) Carbon Dioxide Level 35 mmol/L (21-32) Anion Gap 3 (6-14) Blood Urea Nitrogen 14 mg/dL (8-26) Creatinine 0.8 mg/dL (0.7-1.3) Estimated GFR (Cockcroft-Gault) 99.6 Glucose Level 137 mg/dL (70-99) Calcium Level 8.4 mg/dL (8.5-10.1) Microbiology 05/23/20 Blood Culture - Preliminary, Resulted NO GROWTH AFTER 1 DAY Medications Current Medications Methylprednisolone Sodium Succinate (SOLU-Medrol 125MG VIAL) 85 mg 1X ONCE IV Last administered on 05/23/20at 16:02; Start 05/23/20 at 15:00; Stop 05/23/20 at 15:03; Status DC Sodium Chloride 1,000 ml @ 1,000 mls/hr 1X ONCE IV Last administered on 05/23/20at 16:03; Start 05/23/20 at 15:15; Stop 05/23/20 at 16:14; Status DC Piperacillin Sod/ Tazobactam Sod 3.375 gm/Sodium Chloride 50 ml @ 100 mls/hr 1X ONCE IV Last administered on 05/23/20at 17:28; Start 05/23/20 at 16:30; Stop 05/23/20 at 16:59; Status DC Ondansetron HCl (Zofran) 4 mg PRN Q8HRS PRN IV NAUSEA/VOMITING; Start 05/23/20 at 18:00; Stop 05/24/20 at 17:59; Status DC Acetaminophen (Tylenol) 650 mg PRN Q4HRS PRN PO FEVER > 100.3'F; Start 05/23/20 at 18:00; Stop 05/24/20 at 17:59; Status DC Influenza Virus Vaccine Quadrival (Fluzone Quad 7467-1071 Syringe) 0.5 ml ONCE ONCE VAX IM ; Start 05/24/20 at 09:00; Stop 05/24/20 at 09:01; Status DC Acetaminophen (Tylenol) 650 mg PRN Q6HRS PRN PO pain or fever; Start 05/24/20 at 11:30 Atorvastatin Calcium (Lipitor) 80 mg HS PO Last administered on 05/24/20at 21:06; Start 05/24/20 at 21:00 Clozapine (Clozaril) 300 mg HS PO Last administered on 05/24/20at 21:06; Start 05/24/20 at 21:00 Clozapine (Clozaril) 100 mg BIDACBL PO Last administered on 05/25/20at 09:54; Start 05/24/20 at 11:30 Divalproex Sodium (Depakote Er) 1,500 mg DAILY PO Last administered on 05/25/20at 09:53; Start 05/24/20 at 12:00 Famotidine (Pepcid) 20 mg HS PO Last administered on 05/24/20at 21:06; Start 05/24/20 at 21:00 Gabapentin (Neurontin) 300 mg TID PO Last administered on 05/25/20at 09:54; Start 05/24/20 at 14:00 Lactobacillus Rhamnosus (Culturelle) 1 cap BID PO Last administered on 05/25/20at 09:53; Start 05/24/20 at 21:00 Levothyroxine Sodium (Synthroid) 100 mcg HS PO Last administered on 05/24/20at 21:06; Start 05/24/20 at 21:00 Metoprolol Tartrate (Lopressor) 12.5 mg BID PO ; Start 05/24/20 at 12:00 Nicotine Polacrilex (Nicorette Gum) 1 each PRN Q2HR PRN BC SMOKING CESSATION; Start 05/24/20 at 11:30 Polyethylene Glycol (miraLAX PACKET) 17 gm PRN DAILY PRN PO CONSTIPATION; Start 05/24/20 at 11:30 Prednisone (Prednisone) 10 mg DAILY PO Last administered on 05/25/20at 09:55; Start 05/24/20 at 12:00 Lisinopril (Prinivil) 2.5 mg DAILY PO ; Start 05/24/20 at 12:00 Al Hydroxide/Mg Hydroxide (Mylanta Plus Xs) 30 ml PRN Q4HRS PRN PO HEARTBURN / GAS; Start 05/24/20 at 12:00 Magnesium Hydroxide (Milk Of Magnesia) 2,400 mg PRN Q8HRS PRN PO CONSTIPATION; Start 05/24/20 at 12:00 Linagliptin (Tradjenta) 5 mg DAILY PO Last administered on 05/25/20at 09:55; Start 05/24/20 at 12:00 Cefepime HCl (Maxipime) 1 gm Q12HR IVP Last administered on 05/25/20at 09:54; Start 05/24/20 at 13:00 Vancomycin HCl 250 ml @ As Directed STK-MED ONCE .ROUTE ; Start 05/24/20 at 14:21; Stop 05/24/20 at 14:22; Status DC Active Scripts Active Culturelle (Lactobacillus Rhamnosus Gg) 1 Each Cap.sprink 1 Cap PO BID 30 Days Amox Tr-K Clv 875-125 Mg Tab (Amoxicillin/Potassium Clav) 1 Each Tablet 1 Tab PO BID 5 Days Prednisone (Prednisone) 10 Mg Tablet 10 Mg PO UD Take 4 tablets by mouth daily for 4 days, then take 3 tablets by mouth daily for 2 days, then take 2 tablets by mouth daily for 2 days, then take 1 tablets by mouth daily for 2 days, then stop. Reported Acetaminophen 325 Mg Tablet 2 Tab PO PRN Q6HRS PRN 24 Days Pioglitazone Hcl 30 Mg Tablet 30 Mg PO DAILY Nicotine Gum (Nicotine Polacrilex) 2 Mg Gum 2 Mg BC PRN PRN Neurontin (Gabapentin) 300 Mg Capsule 300 Mg PO TID Gelusil 200-200-25 mg Chew Tab (Mag Hydrox/Aluminum Hyd/Simeth) 1 Each Tab.chew 1 Each PO PRN Q4HRS PRN Miralax (Polyethylene Glycol 3350) 17 Gm Powd.pack 1 Pkt PO PRN DAILY PRN Milk Of Magnesia (Magnesium Hydroxide) 2,400 Mg/10 Ml Oral.susp 2,400 Mg PO PRN Q8HRS PRN Metoprolol Tartrate 25 Mg Tablet 12.5 Mg PO BID Metformin Hcl 1,000 Mg Tablet 1,000 Mg PO BIDWMEALS Lisinopril 2.5 Mg Tablet 2.5 Mg PO DAILY Levothyroxine Sodium 100 Mcg Tablet 100 Mcg PO HS Januvia (Sitagliptin Phosphate) 100 Mg Tablet 100 Mg PO DAILY Famotidine 20 Mg Tablet 20 Mg PO HS Depakote Er (Divalproex Sodium) 500 Mg Tab.er.24h 1,500 Mg PO DAILY Clozaril (Clozapine) 100 Mg Tablet 100 Mg PO BIDACBL Clozapine 100 Mg Tablet 300 Mg PO HS Atorvastatin Calcium 40 Mg Tablet 80 Mg PO HS Vitals/I & O Vital Sign - Last 24 Hours 105/24/20 05/24/20 05/24/20 11:00 12:00 12:00 15:56 Temp 96.6 96.6 Pulse 75 70 70 89 Resp 10 B/P (MAP) 99/62 (74) 99/62 99/62 93/64 (74) Pulse Ox 89 O2 Delivery Nasal Cannula O2 Flow Rate 2.0 05/24/20 05/24/20 05/24/20 05/25/20 19:00 20:00 23:00 03:00 Temp 97.5 97.5 98.7 97.5 97.5 98.7 Pulse 64 64 76 Resp 18 17 18 B/P (MAP) 92/46 (61) 89/56 (67) 102/72 (82) Pulse Ox 100 97 97 O2 Delivery Nasal Cannula Nasal Cannula Nasal Cannula Nasal Cannula O2 Flow Rate 2.0 2.0 2.0 2.0 05/25/20 05/25/20 05/25/20 07:00 09:00 09:00 Temp 97.0 97.0 Pulse 68 68 68 Resp 18 B/P (MAP) 85/68 (74) 85/68 85/68 Pulse Ox 97 O2 Delivery Nasal Cannula O2 Flow Rate 2.0 Intake and Output 05/24/20 05/24/20 05/25/20 15:00 23:00 07:00 Intake Total 0 ml Output Total 0 ml Balance 0 ml Justicifation of Admission Dx: Justifications for Admission: Justification of Admission Dx: Yes MARINO REAGAN MD May 25, 2020 10:25
--- NOTE | 2020-05-25 11:28 | PDOC ---
Infectious Disease Note Subjective: Subjective pt sleepy but arousable says feels better no complaints Vital Signs: Vital Signs Vital Signs Date Time Temp Pulse Resp B/P (MAP) Pulse Ox O2 Delivery O2 Flow Rate FiO2 05/25/20 11:12 97.3 80 18 94/69 (77) 96 Nasal Cannula 2.0 97.3 Physical Exam: PHYSICAL EXAM Constitutional: Well developed, well nourished, no acute distress, non-toxic appearance. [] HENT: Normocephalic, atraumatic, bilateral external ears normal, oropharynx moist, no oral exudates, nose normal. [] Eyes: PERRLA, EOMI, conjunctiva normal, no discharge. [] Neck: Normal range of motion, no tenderness, supple, no stridor. [] Cardiovascular:Heart rate regular rhythm, no murmur [] Lungs & Thorax: Bilateral upper breath sounds coarse and lower diminished to auscultation [] Abdomen: Bowel sounds normal, soft, no tenderness, no masses, no pulsatile masses. [] Skin: Warm, dry, no erythema, no rash. [] Back: No tenderness, no CVA tenderness. [] Extremities: No tenderness, no cyanosis, no clubbing, ROM intact, no edema. [] Medications: Inpatient Meds: Current Medications Medications (Trade) Dose Ordered Sig/Ambrose Start Time Stop Time Status Last Admin Dose Admin Acetaminophen (Tylenol) 650 mg PRN Q6HRS PRN 05/24/20 11:30 Al Hydroxide/Mg Hydroxide (Mylanta Plus Xs) 30 ml PRN Q4HRS PRN 05/24/20 12:00 Atorvastatin Calcium (Lipitor) 80 mg HS 05/24/20 21:00 05/24/20 21:06 80 MG Cefepime HCl (Maxipime) 1 gm Q12HR 05/24/20 13:00 05/25/20 09:54 1 GM Clozapine (Clozaril) 100 mg BIDACBL 05/24/20 11:30 05/25/20 09:54 100 MG Divalproex Sodium (Depakote Er) 1,500 mg DAILY 05/24/20 12:00 05/25/20 09:53 1,500 MG Famotidine (Pepcid) 20 mg HS 05/24/20 21:00 05/24/20 21:06 20 MG Gabapentin (Neurontin) 300 mg TID 05/24/20 14:00 05/25/20 09:54 300 MG Influenza Virus Vaccine Quadrival (Fluzone Quad Syringe) 0.5 ml ONCE ONCE 05/24/20 09:00 05/24/20 09:01 DC Lactobacillus Rhamnosus (Culturelle) 1 cap BID 05/24/20 21:00 05/25/20 09:53 1 CAP Levothyroxine Sodium (Synthroid) 100 mcg HS 05/24/20 21:00 05/24/20 21:06 100 MCG Linagliptin (Tradjenta) 5 mg DAILY 05/24/20 12:00 05/25/20 09:55 5 MG Lisinopril (Prinivil) 2.5 mg DAILY 05/24/20 12:00 Magnesium Hydroxide (Milk Of Magnesia) 2,400 mg PRN Q8HRS PRN 05/24/20 12:00 Methylprednisolone Sodium Succinate (SOLU-Medrol 125MG VIAL) 85 mg 1X ONCE 05/23/20 15:00 05/23/20 15:03 DC 05/23/20 16:02 85 MG Metoprolol Tartrate (Lopressor) 12.5 mg BID 05/24/20 12:00 Nicotine Polacrilex (Nicorette Gum) 1 each PRN Q2HR PRN 05/24/20 11:30 Ondansetron HCl (Zofran) 4 mg PRN Q8HRS PRN 05/23/20 18:00 05/24/20 17:59 DC Piperacillin Sod/ Tazobactam Sod 3.375 gm/Sodium Chloride 50 ml @ 100 mls/hr 1X ONCE 05/23/20 16:30 05/23/20 16:59 DC 05/23/20 17:28 100 MLS/HR Polyethylene Glycol (miraLAX PACKET) 17 gm PRN DAILY PRN 05/24/20 11:30 Prednisone (Prednisone) 10 mg DAILY 05/24/20 12:00 05/25/20 09:55 10 MG Sodium Chloride 1,000 ml @ 1,000 mls/hr 1X ONCE 05/23/20 15:15 05/23/20 16:14 DC 05/23/20 16:03 1,000 MLS/HR Vancomycin HCl 250 ml @ As Directed STK-MED ONCE 05/24/20 14:21 05/24/20 14:22 DC Labs: Lab Laboratory Tests Test 05/24/20 11:41 05/24/20 15:52 05/25/20 04:30 Glucose (Fingerstick) 125 mg/dL (70-99) 133 mg/dL (70-99) White Blood Count 6.6 x10^3/uL (4.0-11.0) Red Blood Count 3.25 x10^6/uL (4.30-5.70) Hemoglobin 10.0 g/dL (13.0-17.5) Hematocrit 29.6 % (39.0-53.0) Mean Corpuscular Volume 91 fL (79-100) Mean Corpuscular Hemoglobin 31 pg (25-35) Mean Corpuscular Hemoglobin Concent 34 g/dL (31-37) Red Cell Distribution Width 18.7 % (11.5-14.5) Platelet Count 217 x10^3/uL (140-400) Neutrophils (%) (Auto) 66 % (31-73) Lymphocytes (%) (Auto) 28 % (24-48) Monocytes (%) (Auto) 6 % (0-9) Eosinophils (%) (Auto) 0 % (0-3) Basophils (%) (Auto) 0 % (0-3) Neutrophils # (Auto) 4.3 x10^3/uL (1.8-7.7) Lymphocytes # (Auto) 1.9 x10^3/uL (1.0-4.8) Monocytes # (Auto) 0.4 x10^3/uL (0.0-1.1) Eosinophils # (Auto) 0.0 x10^3/uL (0.0-0.7) Basophils # (Auto) 0.0 x10^3/uL (0.0-0.2) Sodium Level 146 mmol/L (136-145) Potassium Level 3.7 mmol/L (3.5-5.1) Chloride Level 108 mmol/L (98-107) Carbon Dioxide Level 35 mmol/L (21-32) Anion Gap 3 (6-14) Blood Urea Nitrogen 14 mg/dL (8-26) Creatinine 0.8 mg/dL (0.7-1.3) Estimated GFR (Cockcroft-Gault) 99.6 Glucose Level 137 mg/dL (70-99) Calcium Level 8.4 mg/dL (8.5-10.1) Objective: Assessment: Pneumonia Hypotension Generalized weakness History of COVID-28 March 2020 treated Schizophrenia Hypertension/hyperlipidemia Diabetes Hypothyroidism Poor dentition Plan: Plan of Care Continue cefepime Maintain aspiration precautions Monitor labs and cultures Supportive care d/w SARY LOTT MD May 25, 2020 11:28
[2020-05-25] MEDS: ATORVASTATIN CALCIUM 40 MG TABLET. PO SCH (20:47)
[2020-05-25] MEDS: FAMOTIDINE 20 MG TABLET. PO SCH (20:47)
[2020-05-25] MEDS: LEVOTHYROXINE 100 MCG TABLET PO SCH (20:47)
--- NOTE | 2020-05-25 23:44 | NUR ---
Notified safety companion Physician during the noc since pt with low bp noted. systolic 70-80's after giving noc medications. Pt asymptomatic at this time. No new orders received at this time. Will continue to monitor at this time.
--- NOTE | 2020-05-25 23:46 | NUR ---
Holding metoprolol at this time.
[2020-05-26 02:54] VITALS: BP 79/59
--- NOTE | 2020-05-26 07:49 | PDOC ---
Infectious Disease Note Subjective: Subjective Pt says feels better no complaints on O2 by NC Vital Signs: Vital Signs Vital Signs Date Time Temp Pulse Resp B/P (MAP) Pulse Ox O2 Delivery O2 Flow Rate FiO2 05/26/20 02:54 97.9 81 17 79/59 (66) 94 Nasal Cannula 3.0 97.9 Physical Exam: PHYSICAL EXAM Constitutional: Well developed, well nourished, no acute distress, non-toxic appearance. [] HENT: Normocephalic, atraumatic, bilateral external ears normal, oropharynx moist, no oral exudates, nose normal. [] Eyes: PERRLA, EOMI, conjunctiva normal, no discharge. [] Neck: Normal range of motion, no tenderness, supple, no stridor. [] Cardiovascular:Heart rate regular rhythm, no murmur [] Lungs & Thorax: Bilateral upper breath sounds coarse and lower diminished to auscultation [] Abdomen: Bowel sounds normal, soft, no tenderness, no masses, no pulsatile masses. [] Skin: Warm, dry, no erythema, no rash. [] Back: No tenderness, no CVA tenderness. [] Extremities: No tenderness, no cyanosis, no clubbing, ROM intact, no edema. [] Medications: Inpatient Meds: Current Medications Medications (Trade) Dose Ordered Sig/Ambrose Start Time Stop Time Status Last Admin Dose Admin Acetaminophen (Tylenol) 650 mg PRN Q6HRS PRN 05/24/20 11:30 Al Hydroxide/Mg Hydroxide (Mylanta Plus Xs) 30 ml PRN Q4HRS PRN 05/24/20 12:00 Atorvastatin Calcium (Lipitor) 80 mg HS 05/24/20 21:00 05/25/20 20:47 80 MG Cefepime HCl (Maxipime) 1 gm Q12HR 05/24/20 13:00 05/25/20 20:46 1 GM Clozapine (Clozaril) 100 mg BIDACBL 05/24/20 11:30 05/25/20 12:54 100 MG Divalproex Sodium (Depakote Er) 1,500 mg DAILY 05/24/20 12:00 05/25/20 09:53 1,500 MG Famotidine (Pepcid) 20 mg HS 05/24/20 21:00 05/25/20 20:47 20 MG Gabapentin (Neurontin) 300 mg TID 05/24/20 14:00 05/25/20 20:47 300 MG Influenza Virus Vaccine Quadrival (Fluzone Quad Syringe) 0.5 ml ONCE ONCE 05/24/20 09:00 05/24/20 09:01 DC Lactobacillus Rhamnosus (Culturelle) 1 cap BID 05/24/20 21:00 05/25/20 20:47 1 CAP Levothyroxine Sodium (Synthroid) 100 mcg HS 05/24/20 21:00 05/25/20 20:47 100 MCG Linagliptin (Tradjenta) 5 mg DAILY 05/24/20 12:00 05/25/20 09:55 5 MG Lisinopril (Prinivil) 2.5 mg DAILY 05/24/20 12:00 Magnesium Hydroxide (Milk Of Magnesia) 2,400 mg PRN Q8HRS PRN 05/24/20 12:00 Methylprednisolone Sodium Succinate (SOLU-Medrol 125MG VIAL) 85 mg 1X ONCE 05/23/20 15:00 05/23/20 15:03 DC 05/23/20 16:02 85 MG Metoprolol Tartrate (Lopressor) 12.5 mg BID 05/24/20 12:00 Nicotine Polacrilex (Nicorette Gum) 1 each PRN Q2HR PRN 05/24/20 11:30 Ondansetron HCl (Zofran) 4 mg PRN Q8HRS PRN 05/23/20 18:00 05/24/20 17:59 DC Piperacillin Sod/ Tazobactam Sod 3.375 gm/Sodium Chloride 50 ml @ 100 mls/hr 1X ONCE 05/23/20 16:30 05/23/20 16:59 DC 05/23/20 17:28 100 MLS/HR Polyethylene Glycol (miraLAX PACKET) 17 gm PRN DAILY PRN 05/24/20 11:30 Prednisone (Prednisone) 10 mg DAILY 05/24/20 12:00 05/25/20 09:55 10 MG Sodium Chloride 1,000 ml @ 1,000 mls/hr 1X ONCE 05/23/20 15:15 05/23/20 16:14 DC 05/23/20 16:03 1,000 MLS/HR Vancomycin HCl 250 ml @ As Directed STK-MED ONCE 05/24/20 14:21 05/24/20 14:22 DC Labs: Lab Laboratory Tests Test 05/25/20 11:32 05/25/20 16:26 05/25/20 19:29 Glucose (Fingerstick) 124 mg/dL (70-99) 131 mg/dL (70-99) 171 mg/dL (70-99) Objective: Assessment: Pneumonia Hypotension Generalized weakness History of COVID-28 March 2020 treated Schizophrenia Hypertension/hyperlipidemia Diabetes Hypothyroidism Poor dentition Plan: Plan of Care DC cefepime Ceftriaxone,will deescalate soon repeat covid neg Maintain aspiration precautions Monitor labs and cultures Supportive care d/w SARY LOTT MD May 26, 2020 07:49
[2020-05-26 07:59] VITALS: BP 95/71
--- NOTE | 2020-05-26 08:00 | PDOC ---
PULMONARY PROGRESS NOTES DATE: 05/26/20 TIME: 07:59 Subjective on 02 2 lpm feels better, sob better has occ cough on home 02 doesnt know how much Vitals Vital Signs Date Time Temp Pulse Resp B/P (MAP) Pulse Ox O2 Delivery O2 Flow Rate FiO2 05/26/20 02:54 97.9 81 17 79/59 (66) 94 Nasal Cannula 3.0 97.9 Comments no distress alert NC AT RRR no accessory muscle use no rash Labs Laboratory Tests Test 05/24/20 08:17 05/24/20 11:41 05/24/20 15:52 05/25/20 04:30 Glucose (Fingerstick) 137 mg/dL (70-99) 125 mg/dL (70-99) 133 mg/dL (70-99) White Blood Count 6.6 x10^3/uL (4.0-11.0) Red Blood Count 3.25 x10^6/uL (4.30-5.70) Hemoglobin 10.0 g/dL (13.0-17.5) Hematocrit 29.6 % (39.0-53.0) Mean Corpuscular Volume 91 fL (79-100) Mean Corpuscular Hemoglobin 31 pg (25-35) Mean Corpuscular Hemoglobin Concent 34 g/dL (31-37) Red Cell Distribution Width 18.7 % (11.5-14.5) Platelet Count 217 x10^3/uL (140-400) Neutrophils (%) (Auto) 66 % (31-73) Lymphocytes (%) (Auto) 28 % (24-48) Monocytes (%) (Auto) 6 % (0-9) Eosinophils (%) (Auto) 0 % (0-3) Basophils (%) (Auto) 0 % (0-3) Neutrophils # (Auto) 4.3 x10^3/uL (1.8-7.7) Lymphocytes # (Auto) 1.9 x10^3/uL (1.0-4.8) Monocytes # (Auto) 0.4 x10^3/uL (0.0-1.1) Eosinophils # (Auto) 0.0 x10^3/uL (0.0-0.7) Basophils # (Auto) 0.0 x10^3/uL (0.0-0.2) Sodium Level 146 mmol/L (136-145) Potassium Level 3.7 mmol/L (3.5-5.1) Chloride Level 108 mmol/L (98-107) Carbon Dioxide Level 35 mmol/L (21-32) Anion Gap 3 (6-14) Blood Urea Nitrogen 14 mg/dL (8-26) Creatinine 0.8 mg/dL (0.7-1.3) Estimated GFR (Cockcroft-Gault) 99.6 Glucose Level 137 mg/dL (70-99) Calcium Level 8.4 mg/dL (8.5-10.1) Test 05/25/20 07:21 05/25/20 11:32 05/25/20 16:26 05/25/20 19:29 Glucose (Fingerstick) 141 mg/dL (70-99) 124 mg/dL (70-99) 131 mg/dL (70-99) 171 mg/dL (70-99) Laboratory Tests Test 05/25/20 11:32 05/25/20 16:26 05/25/20 19:29 Glucose (Fingerstick) 124 mg/dL (70-99) 131 mg/dL (70-99) 171 mg/dL (70-99) Medications Active Scripts Medications Dose Route/Sig Max Daily Dose Days Date Category Dose Instructions Culturelle (Lactobacillus Rhamnosus Gg) 1 Each Cap.sprink 1 Cap PO BID 30 05/14/20 Rx Amox Tr-K Clv 875-125 Mg Tab (Amoxicillin/Potassium Clav) 1 Each Tablet 1 Tab PO BID 5 05/14/20 Rx Prednisone (Prednisone) 10 Mg Tablet 10 Mg PO UD 05/02/20 Rx Take 4 tablets by mouth daily for 4 days, then take 3 tablets by mouth daily for 2 days, then take 2 tablets by mouth daily for 2 days, then take 1 tablets by mouth daily for 2 days, then stop. Acetaminophen 325 Mg Tablet 2 Tab PO PRN Q6HRS PRN 24 04/08/20 Reported Pioglitazone Hcl 30 Mg Tablet 30 Mg PO DAILY 04/08/20 Reported Nicotine Gum (Nicotine Polacrilex) 2 Mg Gum 2 Mg BC PRN PRN 04/08/20 Reported Neurontin (Gabapentin) 300 Mg Capsule 300 Mg PO TID 04/08/20 Reported Gelusil 200-200-25 mg Chew Tab (Mag Hydrox/Aluminum Hyd/Simeth) 1 Each Tab.chew 1 Each PO PRN Q4HRS PRN 04/08/20 Reported Miralax (Polyethylene Glycol 3350) 17 Gm Powd.pack 1 Pkt PO PRN DAILY PRN 04/08/20 Reported Milk Of Magnesia (Magnesium Hydroxide) 2,400 Mg/10 Ml Oral.susp 2,400 Mg PO PRN Q8HRS PRN 04/08/20 Reported Metoprolol Tartrate 25 Mg Tablet 12.5 Mg PO BID 04/08/20 Reported Metformin Hcl 1,000 Mg Tablet 1,000 Mg PO BIDWMEALS 04/08/20 Reported Lisinopril 2.5 Mg Tablet 2.5 Mg PO DAILY 04/08/20 Reported Levothyroxine Sodium 100 Mcg Tablet 100 Mcg PO HS 04/08/20 Reported Januvia (Sitagliptin Phosphate) 100 Mg Tablet 100 Mg PO DAILY 04/08/20 Reported Famotidine 20 Mg Tablet 20 Mg PO HS 04/08/20 Reported Depakote Er (Divalproex Sodium) 500 Mg Tab.er.24h 1,500 Mg PO DAILY 04/08/20 Reported Clozaril (Clozapine) 100 Mg Tablet 100 Mg PO BIDACBL 04/08/20 Reported Clozapine 100 Mg Tablet 300 Mg PO HS 04/08/20 Reported Atorvastatin Calcium 40 Mg Tablet 80 Mg PO HS 04/08/20 Reported Impression . IMPRESSION: 1. Abnormal x-ray compatible with bacterial pneumonia. 2. Acute metabolic encephalopathy. 3. Acute hypoxemic respiratory failure. 4. History of COVID-19 in March. 5. Schizophrenia. 6. Hyperlipidemia. Plan . PLAN: 1. Continue abx per id 2. Oxygen supplementation to keep sat 90% 3. Steroids. 4. Home medications. discussed w VANIA Desouza MD May 26, 2020 08:00
[2020-05-26] MEDS: LISINOPRIL 5 MG TABLET. PO SCH (09:00)
[2020-05-26] MEDS: METOPROLOL TART IMMED RELEASE 25 MG TABLET. PO SCH ×2 (09:00→21:00)
[2020-05-26] MEDS: predniSONE 10 MG TABLET PO SCH (09:01)
[2020-05-26] MEDS: DIVALPROEX EXTENDED RELEASE 500 MG TAB.ER.24H. PO SCH (09:02)
[2020-05-26] MEDS: LINAGLIPTIN 5 MG TABLET PO SCH (09:02)
[2020-05-26] MEDS: GABAPENTIN 300 MG CAPSULE. PO SCH ×3 (09:02→21:24)
[2020-05-26] MEDS: LACTOBACILLUS RHAMNOSUS GG 1 CAPSULE. PO SCH ×2 (09:02→21:23)
[2020-05-26] MEDS: cloZAPine 100 MG TABLET PO SCH ×3 (09:02→21:23)
[2020-05-26] MEDS: cefTRIAXone IV Push 1 GM VIAL. IVP SCH (09:24)
--- NOTE | 2020-05-26 11:01 | PDOC ---
PROGRESS NOTES Date of Service: DATE: 05/26/20 TIME: 11:01 Chief Complaint Chief Complaint VTE Prophylaxis Ordered VTE Prophylaxis Devices: Yes VTE Pharmacological Prophylaxi: Yes Assessment/Plan Assessment/Plan IMPRESSION Acute hypoxic respiratory failure aspiration pneumonia Acute metabolic encephalopathy recent Acute Respiratory failure with hypoxia due to covid 19 Chronic severe psychiatric issues COVID-19, recovering Depression Diabetes Hypertension Hyperlipidemia Hypothyroidism Schizophrenia Severe protein calorie malnutrition polypharmacy PLAN ADMIT EMPERIC IV ANTIBIOTICS, cefipime iv bid, continue CONSULT PULM dvt prophylaxis ID CONSULT PULM CONSULT Continue cefepime Maintain aspiration precautions Monitor labs and cultures Supportive care eating too many sweets -17, needs to increase activity d/w rn Justifications for Admission Justifications for Admission Other Justification History of Present Illness History of Present Illness Identification/Chief Complaint Chief Complaint 55 year old male who presented to ER with here by EMS from [facility] with generalized weakness and low blood pressure. Past Medical History Past Medical History Past Medical History Past Medical History: Constipation, Depression, Diabetes-Type II, GERD, High Cholesterol, Hypothyroid, Schizophrenia, Other Additional Past Medical Histor: covid 27 APR 2020; insomnia Past Surgical History: Other Additional Past Surgical Histo: UNABLE TO ASSESS Smoking Status: Former Smoker Alcohol Use: None Drug Use: None fhx HTN Cardiovascular: HTN, Hyperlipidemia Psych: Schizophrenia Musculoskeletal: Osteoarthritis, Weakness Endocrine: Diabetes, Hypothyroidism Past Surgical History Past Surgical History: No pertinent history Family History Family History: Hypertension, Family History Unknown Social History ALCOHOL: none Drugs: None Current Problem List Problem List Problems Medical Problems: (1) Person under investigation for COVID-19 Status: Acute (2) Pneumonia Status: Acute Vitals Vitals Vital Signs Date Time Temp Pulse Resp B/P (MAP) Pulse Ox O2 Delivery O2 Flow Rate FiO2 05/26/20 09:00 89 95/71 05/26/20 07:59 97.0 18 97 Nasal Cannula 3.0 97.0 Physical Exam Physical Exam Constitutional: Well developed, well nourished, no acute distress, non-toxic appearance. [] HENT: Normocephalic, atraumatic, bilateral external ears normal, oropharynx moist, no oral exudates, nose normal. [] Eyes: PERRLA, EOMI, conjunctiva normal, no discharge. [] Neck: Normal range of motion, no tenderness, supple, no stridor. [] Cardiovascular:Heart rate regular rhythm, no murmur [] Lungs & Thorax: Bilateral upper breath sounds coarse and lower diminished to auscultation [] Abdomen: Bowel sounds normal, soft, no tenderness, no masses, no pulsatile masses. [] Skin: Warm, dry, no erythema, no rash. [] Back: No tenderness, no CVA tenderness. [] Extremities: No tenderness, no cyanosis, no clubbing, ROM intact, no edema. [] General: Alert, Oriented X3, Cooperative, No acute distress Heart: Regular rate Lungs: Crackles Abdomen: Soft, No tenderness, No hepatosplenomegaly Extremities: No cyanosis, No edema Labs LABS XR CHEST 1V History: Reason: SOA, HYPOXIA, / Spl. Instructions: / History: Comparison: May 11, 2020 Findings: Patchy bibasilar opacities. No pleural effusion. No pneumothorax. Unchanged heart size. Impression: 1. Mild patchy bibasilar opacities, most likely atelectasis. Electronically signed by: Moisés Monroy DO (05/23/2020 4:03 PM) [facility] DICTATED and SIGNED BY: MOISÉS MONROY DO DATE: 05/23/20 [id number] Laboratory Tests Test 05/25/20 11:32 05/25/20 16:26 05/25/20 19:29 Glucose (Fingerstick) 124 mg/dL (70-99) 131 mg/dL (70-99) 171 mg/dL (70-99) Assessment and Plan Assessmemt and Plan Problems Medical Problems: (1) Person under investigation for COVID-19 Status: Acute (2) Pneumonia Status: Acute Comment Review of Relevant I have reviewed the following items franchesca (where applicable) has been applied. Labs Laboratory Tests Test 05/24/20 11:41 05/24/20 15:52 05/25/20 04:30 05/25/20 07:21 Glucose (Fingerstick) 125 mg/dL (70-99) 133 mg/dL (70-99) 141 mg/dL (70-99) White Blood Count 6.6 x10^3/uL (4.0-11.0) Red Blood Count 3.25 x10^6/uL (4.30-5.70) Hemoglobin 10.0 g/dL (13.0-17.5) Hematocrit 29.6 % (39.0-53.0) Mean Corpuscular Volume 91 fL (79-100) Mean Corpuscular Hemoglobin 31 pg (25-35) Mean Corpuscular Hemoglobin Concent 34 g/dL (31-37) Red Cell Distribution Width 18.7 % (11.5-14.5) Platelet Count 217 x10^3/uL (140-400) Neutrophils (%) (Auto) 66 % (31-73) Lymphocytes (%) (Auto) 28 % (24-48) Monocytes (%) (Auto) 6 % (0-9) Eosinophils (%) (Auto) 0 % (0-3) Basophils (%) (Auto) 0 % (0-3) Neutrophils # (Auto) 4.3 x10^3/uL (1.8-7.7) Lymphocytes # (Auto) 1.9 x10^3/uL (1.0-4.8) Monocytes # (Auto) 0.4 x10^3/uL (0.0-1.1) Eosinophils # (Auto) 0.0 x10^3/uL (0.0-0.7) Basophils # (Auto) 0.0 x10^3/uL (0.0-0.2) Sodium Level 146 mmol/L (136-145) Potassium Level 3.7 mmol/L (3.5-5.1) Chloride Level 108 mmol/L (98-107) Carbon Dioxide Level 35 mmol/L (21-32) Anion Gap 3 (6-14) Blood Urea Nitrogen 14 mg/dL (8-26) Creatinine 0.8 mg/dL (0.7-1.3) Estimated GFR (Cockcroft-Gault) 99.6 Glucose Level 137 mg/dL (70-99) Calcium Level 8.4 mg/dL (8.5-10.1) Test 05/25/20 11:32 05/25/20 16:26 05/25/20 19:29 Glucose (Fingerstick) 124 mg/dL (70-99) 131 mg/dL (70-99) 171 mg/dL (70-99) Laboratory Tests Test 05/25/20 11:32 05/25/20 16:26 05/25/20 19:29 Glucose (Fingerstick) 124 mg/dL (70-99) 131 mg/dL (70-99) 171 mg/dL (70-99) Microbiology 05/23/20 Blood Culture - Preliminary, Resulted NO GROWTH AFTER 2 DAYS Medications Current Medications Methylprednisolone Sodium Succinate (SOLU-Medrol 125MG VIAL) 85 mg 1X ONCE IV Last administered on 05/23/20at 16:02; Start 05/23/20 at 15:00; Stop 05/23/20 at 15:03; Status DC Sodium Chloride 1,000 ml @ 1,000 mls/hr 1X ONCE IV Last administered on 05/23/20at 16:03; Start 05/23/20 at 15:15; Stop 05/23/20 at 16:14; Status DC Piperacillin Sod/ Tazobactam Sod 3.375 gm/Sodium Chloride 50 ml @ 100 mls/hr 1X ONCE IV Last administered on 05/23/20at 17:28; Start 05/23/20 at 16:30; Stop 05/23/20 at 16:59; Status DC Ondansetron HCl (Zofran) 4 mg PRN Q8HRS PRN IV NAUSEA/VOMITING; Start 05/23/20 at 18:00; Stop 05/24/20 at 17:59; Status DC Acetaminophen (Tylenol) 650 mg PRN Q4HRS PRN PO FEVER > 100.3'F; Start 05/23/20 at 18:00; Stop 05/24/20 at 17:59; Status DC Influenza Virus Vaccine Quadrival (Fluzone Quad [id number] Syringe) 0.5 ml ONCE ONCE VAX IM ; Start 05/24/20 at 09:00; Stop 05/24/20 at 09:01; Status DC Acetaminophen (Tylenol) 650 mg PRN Q6HRS PRN PO pain or fever; Start 05/24/20 at 11:30 Atorvastatin Calcium (Lipitor) 80 mg HS PO Last administered on 05/25/20at 2 0:47; Start 05/24/20 at 21:00 Clozapine (Clozaril) 300 mg HS PO Last administered on 05/25/20at 20:47; Start 05/24/20 at 21:00 Clozapine (Clozaril) 100 mg BIDACBL PO Last administered on 05/26/20at 09:02; Start 05/24/20 at 11:30 Divalproex Sodium (Depakote Er) 1,500 mg DAILY PO Last administered on 05/26/20at 09:02; Start 05/24/20 at 12:00 Famotidine (Pepcid) 20 mg HS PO Last administered on 05/25/20at 20:47; Start 05/24/20 at 21:00 Gabapentin (Neurontin) 300 mg TID PO Last administered on 05/26/20at 09:02; Start 05/24/20 at 14:00 Lactobacillus Rhamnosus (Culturelle) 1 cap BID PO Last administered on 05/26/20at 09:02; Start 05/24/20 at 21:00 Levothyroxine Sodium (Synthroid) 100 mcg HS PO Last administered on 05/25/20at 20:47; Start 05/24/20 at 21:00 Metoprolol Tartrate (Lopressor) 12.5 mg BID PO ; Start 05/24/20 at 12:00 Nicotine Polacrilex (Nicorette Gum) 1 each PRN Q2HR PRN BC SMOKING CESSATION; Start 05/24/20 at 11:30 Polyethylene Glycol (miraLAX PACKET) 17 gm PRN DAILY PRN PO CONSTIPATION; Start 05/24/20 at 11:30 Prednisone (Prednisone) 10 mg DAILY PO Last administered on 05/26/20at 09:01; Start 05/24/20 at 12:00 Lisinopril (Prinivil) 2.5 mg DAILY PO ; Start 05/24/20 at 12:00 Al Hydroxide/Mg Hydroxide (Mylanta Plus Xs) 30 ml PRN Q4HRS PRN PO HEARTBURN / GAS; Start 05/24/20 at 12:00 Magnesium Hydroxide (Milk Of Magnesia) 2,400 mg PRN Q8HRS PRN PO CONSTIPATION; Start 05/24/20 at 12:00 Linagliptin (Tradjenta) 5 mg DAILY PO Last administered on 05/26/20at 09:02; Start 05/24/20 at 12:00 Cefepime HCl (Maxipime) 1 gm Q12HR IVP Last administered on 05/25/20at 20:46; Start 05/24/20 at 13:00; Stop 05/26/20 at 08:15; Status DC Vancomycin HCl 250 ml @ As Directed STK-MED ONCE .ROUTE ; Start 05/24/20 at 14:21; Stop 05/24/20 at 14:22; Status DC Ceftriaxone Sodium (Rocephin) 1 gm Q24H IVP Last administered on 05/26/20at 09:24; Start 05/26/20 at 09:00 Active Scripts Active Culturelle (Lactobacillus Rhamnosus Gg) 1 Each Cap.sprink 1 Cap PO BID 30 Days Amox Tr-K Clv 875-125 Mg Tab (Amoxicillin/Potassium Clav) 1 Each Tablet 1 Tab PO BID 5 Days Prednisone (Prednisone) 10 Mg Tablet 10 Mg PO UD Take 4 tablets by mouth daily for 4 days, then take 3 tablets by mouth daily for 2 days, then take 2 tablets by mouth daily for 2 days, then take 1 tablets by mouth daily for 2 days, then stop. Reported Acetaminophen 325 Mg Tablet 2 Tab PO PRN Q6HRS PRN 24 Days Pioglitazone Hcl 30 Mg Tablet 30 Mg PO DAILY Nicotine Gum (Nicotine Polacrilex) 2 Mg Gum 2 Mg BC PRN PRN Neurontin (Gabapentin) 300 Mg Capsule 300 Mg PO TID Gelusil 200-200-25 mg Chew Tab (Mag Hydrox/Aluminum Hyd/Simeth) 1 Each Tab.chew 1 Each PO PRN Q4HRS PRN Miralax (Polyethylene Glycol 3350) 17 Gm Powd.pack 1 Pkt PO PRN DAILY PRN Milk Of Magnesia (Magnesium Hydroxide) 2,400 Mg/10 Ml Oral.susp 2,400 Mg PO PRN Q8HRS PRN Metoprolol Tartrate 25 Mg Tablet 12.5 Mg PO BID Metformin Hcl 1,000 Mg Tablet 1,000 Mg PO BIDWMEALS Lisinopril 2.5 Mg Tablet 2.5 Mg PO DAILY Levothyroxine Sodium 100 Mcg Tablet 100 Mcg PO HS Januvia (Sitagliptin Phosphate) 100 Mg Tablet 100 Mg PO DAILY Famotidine 20 Mg Tablet 20 Mg PO HS Depakote Er (Divalproex Sodium) 500 Mg Tab.er.24h 1,500 Mg PO DAILY Clozaril (Clozapine) 100 Mg Tablet 100 Mg PO BIDACBL Clozapine 100 Mg Tablet 300 Mg PO HS Atorvastatin Calcium 40 Mg Tablet 80 Mg PO HS Vitals/I & O Vital Sign - Last 24 Hours 05/25/20 05/25/20 05/25/20 05/25/20 11:12 15:33 19:00 20:00 Temp 97.3 97.3 97.8 97.3 97.3 97.8 Pulse 80 77 83 Resp 18 18 18 B/P (MAP) 94/69 (77) 98/76 (83) 83/61 (68) Pulse Ox 96 96 94 O2 Delivery Nasal Cannula Nasal Cannula Nasal Cannula Nasal Cannula O2 Flow Rate 2.0 2.0 2.0 2.0 05/25/20 05/25/20 05/25/20 05/26/20 20:29 20:47 23:00 02:54 Temp 98.0 97.9 98.0 97.9 Pulse 82 81 Resp 17 17 B/P (MAP) 87/64 (72) 87/64 82/64 (70) 79/59 (66) Pulse Ox 95 94 O2 Delivery Nasal Cannula Nasal Cannula O2 Flow Rate 2.0 3.0 05/26/20 05/26/20 05/26/20 07:59 09:00 09:00 Temp 97.0 97.0 Pulse 89 89 89 Resp 18 B/P (MAP) 95/71 (79) 95/71 95/71 Pulse Ox 97 O2 Delivery Nasal Cannula O2 Flow Rate 3.0 Intake and Output 05/25/20 05/25/20 05/26/20 15:00 23:00 07:00 Intake Total 0 ml 120 ml Balance 0 ml 120 ml Justicifation of Admission Dx: Justifications for Admission: Justification of Admission Dx: Yes MARINO REAGAN MD May 26, 2020 11:01
[2020-05-26 11:07] VITALS: BP 99/67
[2020-05-26 15:25] VITALS: BP 91/68
[2020-05-26 19:00] VITALS: BP 76/54
[2020-05-26] MEDS ORDERED: IV NORMAL SALINE 1000ML BAG 1,000 ML IV ONE (20:00)
[2020-05-26] MEDS ORDERED: IV NORMAL SALINE 1000ML BAG 1,000 ML IV SCH (20:00)
[2020-05-26] MEDS: FAMOTIDINE 20 MG TABLET. PO SCH (21:23)
[2020-05-26] MEDS: ATORVASTATIN CALCIUM 40 MG TABLET. PO SCH (21:23)
[2020-05-26] MEDS: LEVOTHYROXINE 100 MCG TABLET PO SCH (21:24)
--- NOTE | 2020-05-26 21:25 | RAD ---
Exam: Chest one view INDICATION: Hypoxia TECHNIQUE: Frontal view of the chest Comparisons: 05/23/2020 FINDINGS: The cardiomediastinal silhouette and pulmonary vessels are within normal limits. Strandy opacities at the lung bases bilaterally. No pleural effusion. IMPRESSION: Bibasilar atelectasis. Electronically signed by: Mart Quick MD (05/26/2020 9:22 PM) [facility]
[2020-05-26 22:49] VITALS: BP 105/78
[2020-05-27 03:09] VITALS: BP 93/68
[2020-05-27 07:00] VITALS: BP 103/76
[2020-05-27] MEDS: cloZAPine 100 MG TABLET PO SCH ×2 (07:52→11:53)
[2020-05-27] MEDS: GABAPENTIN 300 MG CAPSULE. PO SCH ×2 (09:02→14:41)
[2020-05-27] MEDS: LACTOBACILLUS RHAMNOSUS GG 1 CAPSULE. PO SCH (09:02)
[2020-05-27] MEDS: LINAGLIPTIN 5 MG TABLET PO SCH (09:02)
[2020-05-27] MEDS: predniSONE 10 MG TABLET PO SCH (09:02)
[2020-05-27] MEDS: DIVALPROEX EXTENDED RELEASE 500 MG TAB.ER.24H. PO SCH (09:02)
[2020-05-27] MEDS: METOPROLOL TART IMMED RELEASE 25 MG TABLET. PO SCH (09:02)
[2020-05-27] MEDS: cefTRIAXone IV Push 1 GM VIAL. IVP SCH (09:34)
[2020-05-27 10:34] VITALS: BP 94/69
--- NOTE | 2020-05-27 10:46 | PDOC ---
Infectious Disease Note Subjective: Subjective Pt says feels better no complaints Eager for discharge today Vital Signs: Vital Signs Vital Signs Date Time Temp Pulse Resp B/P (MAP) Pulse Ox O2 Delivery O2 Flow Rate FiO2 05/27/20 10:34 97.7 60 18 94/69 (77) 96 Room Air 97.7 05/27/20 08:06 2.0 Physical Exam: PHYSICAL EXAM Constitutional: Well developed, well nourished, no acute distress, non-toxic appearance. [] HENT: Normocephalic, atraumatic, bilateral external ears normal, oropharynx moist, no oral exudates, nose normal. [] Eyes: PERRLA, EOMI, conjunctiva normal, no discharge. [] Neck: Normal range of motion, no tenderness, supple, no stridor. [] Cardiovascular:Heart rate regular rhythm, no murmur [] Lungs & Thorax: Bilateral upper breath sounds coarse and lower diminished to auscultation [] Abdomen: Bowel sounds normal, soft, no tenderness, no masses, no pulsatile masses. [] Skin: Warm, dry, no erythema, no rash. [] Back: No tenderness, no CVA tenderness. [] Extremities: No tenderness, no cyanosis, no clubbing, ROM intact, no edema. [] Medications: Inpatient Meds: Current Medications Medications (Trade) Dose Ordered Sig/Ambrose Start Time Stop Time Status Last Admin Dose Admin Acetaminophen (Tylenol) 650 mg PRN Q6HRS PRN 05/24/20 11:30 Al Hydroxide/Mg Hydroxide (Mylanta Plus Xs) 30 ml PRN Q4HRS PRN 05/24/20 12:00 Atorvastatin Calcium (Lipitor) 80 mg HS 05/24/20 21:00 05/26/20 21:23 80 MG Cefepime HCl (Maxipime) 1 gm Q12HR 05/24/20 13:00 05/26/20 08:15 DC 05/25/20 20:46 1 GM Ceftriaxone Sodium (Rocephin) 1 gm Q24H 05/26/20 09:00 05/27/20 09:34 1 GM Clozapine (Clozaril) 100 mg BIDACBL 05/24/20 11:30 05/27/20 07:52 100 MG Divalproex Sodium (Depakote Er) 1,500 mg DAILY 05/24/20 12:00 1/18/21 09:02 1,500 MG Famotidine (Pepcid) 20 mg HS 05/24/20 21:00 05/26/20 21:23 20 MG Gabapentin (Neurontin) 300 mg TID 05/24/20 14:00 05/27/20 09:02 300 MG Influenza Virus Vaccine Quadrival (Fluzone Quad Syringe) 0.5 ml ONCE ONCE 05/24/20 09:00 05/24/20 09:01 DC Lactobacillus Rhamnosus (Culturelle) 1 cap BID 05/24/20 21:00 05/27/20 09:02 1 CAP Levothyroxine Sodium (Synthroid) 100 mcg HS 05/24/20 21:00 05/26/20 21:24 100 MCG Linagliptin (Tradjenta) 5 mg DAILY 05/24/20 12:00 05/27/20 09:02 5 MG Lisinopril (Prinivil) 2.5 mg DAILY 05/24/20 12:00 05/26/20 19:52 DC Magnesium Hydroxide (Milk Of Magnesia) 2,400 mg PRN Q8HRS PRN 05/24/20 12:00 Methylprednisolone Sodium Succinate (SOLU-Medrol 125MG VIAL) 85 mg 1X ONCE 05/23/20 15:00 05/23/20 15:03 DC 05/23/20 16:02 85 MG Metoprolol Tartrate (Lopressor) 12.5 mg BID 05/24/20 12:00 05/27/20 09:02 12.5 MG Nicotine Polacrilex (Nicorette Gum) 1 each PRN Q2HR PRN 05/24/20 11:30 Ondansetron HCl (Zofran) 4 mg PRN Q8HRS PRN 05/23/20 18:00 05/24/20 17:59 DC Piperacillin Sod/ Tazobactam Sod 3.375 gm/Sodium Chloride 50 ml @ 100 mls/hr 1X ONCE 05/23/20 16:30 05/23/20 16:59 DC 05/23/20 17:28 100 MLS/HR Polyethylene Glycol (miraLAX PACKET) 17 gm PRN DAILY PRN 05/24/20 11:30 Prednisone (Prednisone) 10 mg DAILY 05/24/20 12:00 05/27/20 09:02 10 MG Sodium Chloride 1,000 ml @ 100 mls/hr Q10H 05/26/20 20:00 05/27/20 09:26 DC Vancomycin HCl 250 ml @ As Directed STK-MED ONCE 05/24/20 14:21 05/24/20 14:22 DC Labs: Lab Laboratory Tests Test 05/26/20 15:51 05/26/20 19:14 05/27/20 07:24 Glucose (Fingerstick) 189 mg/dL (70-99) 201 mg/dL (70-99) 120 mg/dL (70-99) Objective: Assessment: Pneumonia Hypotension Generalized weakness History of COVID-28 March 2020 treated Schizophrenia Hypertension/hyperlipidemia Diabetes Hypothyroidism Poor dentition Plan: Plan of Care DC ceftriaxone Cefdinir 300 mg p.o. twice daily for 5 days Okay to discharge today from ID standpoint repeat covid neg d/w SARY LOTT MD May 27, 2020 10:46
--- NOTE | 2020-05-27 13:18 | PDOC ---
[employer] PROGRESS NOTE Date of Service DOS: DATE: 05/27/20 TIME: 13:16 Chief Complaint Chief Complaint VTE Prophylaxis Ordered VTE Prophylaxis Devices: Yes VTE Pharmacological Prophylaxi: Yes Assessment/Plan Assessment/Plan IMPRESSION Acute hypoxic respiratory failure aspiration pneumonia Acute metabolic encephalopathy recent Acute Respiratory failure with hypoxia due to covid 19 Chronic severe psychiatric issues COVID-19, recovering Depression Diabetes Hypertension Hyperlipidemia Hypothyroidism Schizophrenia Severe protein calorie malnutrition polypharmacy PLAN ADMIT EMPERIC IV ANTIBIOTICS, cefipime iv bid, continue CONSULT PULM dvt prophylaxis ID CONSULT PULM CONSULT Continue cefepime Maintain aspiration precautions Monitor labs and cultures Supportive care 05/27: Patient seen and evaluated bedside. He has no concerns today, breathing on room air. Will discharge on oral cefdinir for the next 5 days. Greater than 30 minutes was spent managing discharge this patient. Justifications for Admission Justifications for Admission Other Justification History of Present Illness History of Present Illness Identification/Chief Complaint Chief Complaint 55 year old male who presented to ER with here by EMS [facility] with generalized weakness and low blood pressure. Past Medical History Past Medical History Past Medical History Past Medical History: Constipation, Depression, Diabetes-Type II, GERD, High Cholesterol, Hypothyroid, Schizophrenia, Other Additional Past Medical Histor: covid 27 APR 2020; insomnia Past Surgical History: Other Additional Past Surgical Histo: UNABLE TO ASSESS Smoking Status: Former Smoker Alcohol Use: None Drug Use: None fhx HTN Cardiovascular: HTN, Hyperlipidemia Psych: Schizophrenia Musculoskeletal: Osteoarthritis, Weakness Endocrine: Diabetes, Hypothyroidism Past Surgical History Past Surgical History: No pertinent history Family History Family History: Hypertension, Family History Unknown Social History ALCOHOL: none Drugs: None Current Problem List Problem List Problems Medical Problems: (1) Person under investigation for COVID-19 Status: Acute (2) Pneumonia Status: Acute Vitals/I&O Vitals/I&O: Vital Signs Date Time Temp Pulse Resp B/P (MAP) Pulse Ox O2 Delivery O2 Flow Rate FiO2 05/27/20 10:34 97.7 60 18 94/69 (77) 96 Room Air 97.7 05/27/20 08:06 2.0 I & O 05/26/20 05/26/20 05/27/20 15:00 23:00 07:00 Intake Total 240 ml 240 ml 300 ml Balance 240 ml 240 ml 300 ml Physical Exam Physical Exam: Constitutional: Well developed, well nourished, no acute distress, non-toxic appearance. [] HENT: Normocephalic, atraumatic, bilateral external ears normal, oropharynx moist, no oral exudates, nose normal. [] Eyes: PERRLA, EOMI, conjunctiva normal, no discharge. [] Neck: Normal range of motion, no tenderness, supple, no stridor. [] Cardiovascular:Heart rate regular rhythm, no murmur [] Lungs & Thorax: Bilateral upper breath sounds coarse and lower diminished to auscultation [] Abdomen: Bowel sounds normal, soft, no tenderness, no masses, no pulsatile masses. [] Skin: Warm, dry, no erythema, no rash. [] Back: No tenderness, no CVA tenderness. [] Extremities: No tenderness, no cyanosis, no clubbing, ROM intact, no edema. [] General: Alert, Oriented X3, Cooperative, No acute distress Heart: Regular rate Lungs: Crackles Abdomen: Soft, No tenderness, No hepatosplenomegaly Extremities: No cyanosis, No edema Labs Labs: Laboratory Tests Test 05/26/20 15:51 05/26/20 19:14 05/27/20 07:24 05/27/20 11:07 Glucose (Fingerstick) 189 mg/dL (70-99) 201 mg/dL (70-99) 120 mg/dL (70-99) 127 mg/dL (70-99) Assessment and Plan Assessmemt and Plan Problems Medical Problems: (1) Person under investigation for COVID-19 Status: Acute (2) Pneumonia Status: Acute Comment Review of Relevant I have reviewed the following items franchesca (where applicable) has been applied. Justifications for Admission Other Justification STEVEN QUISPE MD May 27, 2020 13:18
[2020-05-27] MEDS ORDERED: CEFD300C PO (13:22)
--- NOTE | 2020-05-27 13:24 | SNU/HH DC ---
DISCHARGE ORDERS DISCHARGE INFORMATION: DISCHARGE DATE: May 27, 2020 FINAL DIAGNOSIS Problems Medical Problems: (1) Person under investigation for COVID-19 Status: Acute (2) Pneumonia Status: Acute CONDITION ON DISCHARGE: Stable CODE STATUS: Code Status: Full FPC: SNF STAY <30 DAYS: Yes POST DISCHARGE ORDERS: ACTIVITY ORDERS: Resume previous activity, Activity as tolerated WEIGHT BEARING STATUS: As tolerated DIET AFTER DISCHARGE: Cardiac WOUND/INCISION CARE: No wound care needed CHECKS AFTER DISCHARGE: CHECKS AFTER DISCHARGE: Check blood press - daily, Check blood sugar, ac/hs, Check your Temp as needed TREATMENT/EQUIPMENT ORDERS: ADAPTIVE EQUIPMENT NEEDED: None RESPIRATORY EQUIPMENT NEEDED: Oxygen Physical Therapy For: Evalulation/Treatment Occupational Therapy For: Evaluation/Treatment DISCHARGE MEDICATIONS: Home Meds Active Scripts Cefdinir (CEFDINIR) 300 Mg Capsule, 300 MG PO BID for PNA for 5 Days, #10 CAP Prov:STEVEN QUISPE MD 05/27/20 Lactobacillus Rhamnosus Gg (CULTURELLE) 1 Each Cap.sprink, 1 CAP PO BID for probiotic for 30 Days, #60 CAP Prov:ARABELLA HERNANDEZ MD 05/14/20 Amoxicillin/Potassium Clav (AMOX TR-K CLV 875-125 MG TAB) 1 Each Tablet, 1 TAB PO BID for URTI for 5 Days, #10 TAB Prov:ARABELLA HERNANDEZ MD 05/14/20 Prednisone (PREDNISONE ) 10 Mg Tablet, 10 MG PO UD for steroid taper, #28 TAB 0 Refills Take 4 tablets by mouth daily for 4 days, then take 3 tablets by mouth daily for 2 days, then take 2 tablets by mouth daily for 2 days, then take 1 tablets by mouth daily for 2 days, then stop. Prov:MOO MAI MD 05/02/20 Reported Medications Acetaminophen (ACETAMINOPHEN) 325 Mg Tablet, 2 TAB PO PRN Q6HRS PRN for pain or fever for 24 Days, #100 TAB 0 Refills 04/08/20 Pioglitazone Hcl (PIOGLITAZONE HCL) 30 Mg Tablet, 30 MG PO DAILY for DM II, TAB 04/08/20 Nicotine Polacrilex (NICOTINE GUM) 2 Mg Gum, 2 MG BC PRN PRN for SMOKING CE SSATION, EACH 04/08/20 Gabapentin (NEURONTIN ) 300 Mg Capsule, 300 MG PO TID for NEUROGENIC PAIN, CAP 04/08/20 Mag Hydrox/Aluminum Hyd/Simeth (Gelusil 200-200-25 mg Chew Tab) 1 Each Tab.chew, 1 EACH PO PRN Q4HRS PRN for INDIGESTION, TAB.CHEW 04/08/20 Polyethylene Glycol 3350 (MIRALAX) 17 Gm Powd.pack, 1 PKT PO PRN DAILY PRN for CONSTIPATION, PKT 04/08/20 Magnesium Hydroxide (MILK OF MAGNESIA) 2,400 Mg/10 Ml Oral.susp, 2400 MG PO PRN Q8HRS PRN for CONSTIPATION, MISC 04/08/20 Metoprolol Tartrate (METOPROLOL TARTRATE) 25 Mg Tablet, 12.5 MG PO BID for FOR HYPERTENSION, #60 TAB 0 Refills 04/08/20 Metformin Hcl (METFORMIN HCL) 1,000 Mg Tablet, 1000 MG PO BIDWMEALS for , TAB 04/08/20 Lisinopril (LISINOPRIL) 2.5 Mg Tablet, 2.5 MG PO DAILY for FOR HYPERTENSION, #30 TAB 0 Refills 04/08/20 Levothyroxine Sodium (LEVOTHYROXINE SODIUM) 100 Mcg Tablet, 100 MCG PO HS for THYROID SUPPLEMENT, #30 TAB 0 Refills 04/08/20 Sitagliptin Phosphate (JANUVIA) 100 Mg Tablet, 100 MG PO DAILY for DM II, TAB 04/08/20 Famotidine (FAMOTIDINE) 20 Mg Tablet, 20 MG PO HS for gerd, TAB 04/08/20 Divalproex Sodium (DEPAKOTE ER) 500 Mg Tab.er.24h, 1500 MG PO DAILY for schizoaffective disorder, TAB.SR 04/08/20 Clozapine (CLOZARIL) 100 Mg Tablet, 100 MG PO BIDACBL for schizoaffective disord er, TAB 04/08/20 Clozapine (CLOZAPINE) 100 Mg Tablet, 300 MG PO HS for schizoaffective disorder, TAB 04/08/20 Atorvastatin Calcium (ATORVASTATIN CALCIUM) 40 Mg Tablet, 80 MG PO HS for FOR CHOLESTEROL, #30 TAB 0 Refills 04/08/20 STEVEN QUISPE MD May 27, 2020 13:24
--- NOTE | 2020-05-27 13:30 | PDOC3 ---
Discharge Summary Visit Information Date of Admission: May 24, 2020 Date of Discharge: May 27, 2020 Final Diagnosis Problems Medical Problems: (1) Person under investigation for COVID-19 Status: Acute (2) Pneumonia Status: Acute Brief Hospital Course Allergies Allergies Coded Allergies Type Severity Reaction Last Updated Verified No Known Drug Allergies 04/08/20 No Vital Signs Vital Signs Date Time Temp Pulse Resp B/P (MAP) Pulse Ox O2 Delivery O2 Flow Rate FiO2 05/27/20 10:34 97.7 60 18 94/69 (77) 96 Room Air 97.7 05/27/20 08:06 2.0 Lab Results Laboratory Tests Test 05/25/20 16:26 05/25/20 19:29 05/26/20 07:25 05/26/20 10:25 Glucose (Fingerstick) 131 mg/dL (70-99) 171 mg/dL (70-99) 146 mg/dL (70-99) 149 mg/dL (70-99) Test 05/26/20 15:51 05/26/20 19:14 05/27/20 07:24 05/27/20 11:07 Glucose (Fingerstick) 189 mg/dL (70-99) 201 mg/dL (70-99) 120 mg/dL (70-99) 127 mg/dL (70-99) Laboratory Tests Test 05/26/20 15:51 05/26/20 19:14 05/27/20 07:24 05/27/20 11:07 Glucose (Fingerstick) 189 mg/dL (70-99) 201 mg/dL (70-99) 120 mg/dL (70-99) 127 mg/dL (70-99) Brief Hospital Course Mr. Acevedo is a 55 year old male who presented with acute respiratory failure, COVID-19 pneumonia. Consultations placed to pulmonology and infectious disease. He was treated with IV antibiotics, IV steroids, and supportive care. Patient improved to be able to breathe on room oxygen. He was discharged to half-way facility with cefdinir complete 5 days of p.o. antibiotics. Discharge Information Condition at Discharge: Improved Follow Up: Weeks Disposition/Orders: D/C to Another Facility Scheduled Atorvastatin Calcium (Atorvastatin Calcium) 40 Mg Tablet, 80 MG PO HS for FOR CHOLESTEROL, #30 Ref 0 (Reported) Entered as Reported by: KARIME JAMIL RN on 04/08/20252 Last Action: Continued on 05/24/201132 by MARINO REAGAN MD Cefdinir (Cefdinir) 300 Mg Capsule, 300 MG PO BID for PNA for 5 Days, #10 Prescribed by: STEVEN QUISPE MD on 05/27/20 1322 Clozapine (Clozapine) 100 Mg Tablet, 300 MG PO HS for schizoaffective disorder, (Reported) Entered as Reported by: KARIME JAMIL RN on 04/08/20252 Last Action: Continued on 05/24/201132 by MARINO REAGAN MD Clozapine (Clozaril) 100 Mg Tablet, 100 MG PO BIDACBL for schizoaffective disorder, (Reported) Entered as Reported by: KARIME JAMIL RN on 04/08/20252 Last Action: Continued on 05/24/201132 by MARINO REAGAN MD Divalproex Sodium (Depakote Er) 500 Mg Tab.er.24h, 1,500 MG PO DAILY for schizoaffective disorder, (Reported) Entered as Reported by: KARIME JAMIL RN on 04/08/20252 Last Action: Continued on 05/24/201132 by MARINO REAGAN MD Famotidine (Famotidine) 20 Mg Tablet, 20 MG PO HS for gerd, (Reported) Entered as Reported by: KARIME JAMIL RN on 04/08/20252 Last Action: Continued on 05/24/201132 by MARINO REAGAN MD Gabapentin (Neurontin ) 300 Mg Capsule, 300 MG PO TID for NEUROGENIC PAIN, (Reported) Entered as Reported by: KARIME JAMIL RN on 04/08/20252 Last Action: Continued on 05/24/201132 by MARINO REAGAN MD Lactobacillus Rhamnosus Gg (Culturelle) 1 Each Cap.sprink, 1 CAP PO BID for probiotic for 30 Days, #60 Prescribed by: ARABELLA HERNANDEZ MD on 05/14/20 1400 Last Action: Continued on 05/24/201132 by MARINO REAGAN MD Levothyroxine Sodium (Levothyroxine Sodium) 100 Mcg Tablet, 100 MCG PO HS for THYROID SUPPLEMENT, #30 Ref 0 (Reported) Entered as Reported by: KARIME JAMIL RN on 04/08/20252 Last Action: Continued on 05/24/201132 by MARINO REAGAN MD Lisinopril (Lisinopril) 2.5 Mg Tablet, 2.5 MG PO DAILY for FOR HYPERTENSION, #30 Ref 0 (Reported) Entered as Reported by: KARIME JAMIL RN on 04/08/20252 Last Action: Converted on 05/24/201132 by MARINO REAGAN MD Metformin Hcl (Metformin Hcl) 1,000 Mg Tablet, 1,000 MG PO BIDWMEALS for , (Reported) Entered as Reported by: KARIME JAMIL RN on 04/08/20252 Last Action: HELD on 05/24/201132 by MARINO REAGAN MD Metoprolol Tartrate (Metoprolol Tartrate) 25 Mg Tablet, 12.5 MG PO BID for FOR HYPERTENSION, #60 Ref 0 (Reported) Entered as Reported by: KARIME JAMIL RN on 04/08/20252 Last Action: Continued on 05/24/201132 by MARINO REAGAN MD Pioglitazone Hcl (Pioglitazone Hcl) 30 Mg Tablet, 30 MG PO DAILY for DM II, (Reported) Entered as Reported by: KARIME JAMIL RN on 04/08/20252 Last Action: HELD on 05/24/201132 by MARINO REAGAN MD Prednisone (Prednisone ) 10 Mg Tablet, 10 MG PO UD for steroid taper, #28 Ref 0 Take 4 tablets by mouth daily for 4 days, then take 3 tablets by mouth daily for 2 days, then take 2 tablets by mouth daily for 2 days, then take 1 tablets by mouth daily for 2 days, then stop. Prescribed by: MOO MAI on 05/02/20 1259 Last Action: Continued on 05/24/201132 by MARINO REAGAN MD Sitagliptin Phosphate (Januvia) 100 Mg Tablet, 100 MG PO DAILY for DM II, (Reported) Entered as Reported by: KARIME JAMIL RN on 04/08/20252 Last Action: Converted on 05/24/201132 by MARINO REAGAN MD Scheduled PRN Acetaminophen (Acetaminophen) 325 Mg Tablet, 2 TAB PO PRN Q6HRS PRN for pain or fever for 24 Days, #100 Ref 0 (Reported) Entered as Reported by: KARIME JAMIL RN on 04/08/20252 Last Action: Continued on 05/24/201132 by MARINO REAGAN MD Mag Hydrox/Aluminum Hyd/Simeth (Gelusil 200-200-25 mg Chew Tab) 1 Each Tab.chew, 1 EACH PO PRN Q4HRS PRN for INDIGESTION, (Reported) Entered as Reported by: KARIME JAMIL RN on 04/08/20252 Last Action: Converted on 05/24/201132 by MARINO REAGAN MD Magnesium Hydroxide (Milk Of Magnesia) 2,400 Mg/10 Ml Oral.susp, 2,400 MG PO PRN Q8HRS PRN for CONSTIPATION, (Reported) Entered as Reported by: KARIME JAMIL RN on 04/08/20252 Last Action: Converted on 05/24/201132 by MARINO REAGAN MD Nicotine Polacrilex (Nicotine Gum) 2 Mg Gum, 2 MG BC PRN PRN for SMOKING CESSATION, (Reported) Entered as Reported by: KARIME JAMIL RN on 04/08/20252 Last Action: Continued on 05/24/201132 by MARINO REAGAN MD Polyethylene Glycol 3350 (Miralax) 17 Gm Powd.pack, 1 PKT PO PRN DAILY PRN for CONSTIPATION, (Reported) Entered as Reported by: KARIME JAMIL RN on 04/08/20252 Last Action: Continued on 05/24/201132 by MARINO REAGAN MD Discontinued Medications Amoxicillin/Potassium Clav (Amox Tr-K Clv 875-125 Mg Tab) 1 Each Tablet, 1 TAB PO BID for URTI for 5 Days, #10 Prescribed by: ARABELLA HERNANDEZ MD on 05/14/20 1400 Last Action: HELD on 05/24/201132 by MARINO REAGAN MD Justicifation of Admission Dx: Justifications for Admission: Justification of Admission Dx: Yes STEVEN QUISPE MD May 27, 2020 13:30
[2020-05-27 14:43] VITALS: BP 71/52
[2020-05-27 14:44] VITALS: BP 75/62
[2020-05-27] MEDS ORDERED: IV NORMAL SALINE 500ML BAG 500 ML IV ONE ×2 (15:15→16:45)
[2020-05-27 16:23] VITALS: BP 82/65
--- NOTE | 2020-05-27 16:34 | NUR ---
At approx 1445, pt's BP was 75/62. This RN received orders from Dr. Worrell for 500 cc NS bolus. Bolus administered, BP rechecked-82/65. Dr. Worrell notified. Orders received for another 500 cc NS bolus.
--- NOTE | 2020-05-27 16:46 | PDOC ---
PULMONARY PROGRESS NOTES DATE: 05/27/20 TIME: 16:45 Subjective Patient on oxygen supplementation, sleeping, I did not wake him up. Vitals Vital Signs Date Time Temp Pulse Resp B/P (MAP) Pulse Ox O2 Delivery O2 Flow Rate FiO2 05/27/20 16:23 82/65 (71) 05/27/20 14:43 97.0 91 18 93 Room Air 97.0 05/27/20 08:06 2.0 Comments no distress alert NC AT RRR no accessory muscle use no rash Lungs: Crackles Labs Laboratory Tests Test 05/25/20 19:29 05/26/20 07:25 05/26/20 10:25 05/26/20 15:51 Glucose (Fingerstick) 171 mg/dL (70-99) 146 mg/dL (70-99) 149 mg/dL (70-99) 189 mg/dL (70-99) Test 05/26/20 19:14 05/27/20 07:24 05/27/20 11:07 05/27/20 16:01 Glucose (Fingerstick) 201 mg/dL (70-99) 120 mg/dL (70-99) 127 mg/dL (70-99) 262 mg/dL (70-99) Laboratory Tests Test 05/26/20 19:14 05/27/20 07:24 05/27/20 11:07 05/27/20 16:01 Glucose (Fingerstick) 201 mg/dL (70-99) 120 mg/dL (70-99) 127 mg/dL (70-99) 262 mg/dL (70-99) Medications Active Scripts Medications Dose Route/Sig Max Daily Dose Days Date Category Dose Instructions Culturelle (Lactobacillus Rhamnosus Gg) 1 Each Cap.sprink 1 Cap PO BID 30 05/14/20 Rx Amox Tr-K Clv 875-125 Mg Tab (Amoxicillin/Potassium Clav) 1 Each Tablet 1 Tab PO BID 5 05/14/20 Rx Prednisone (Prednisone) 10 Mg Tablet 10 Mg PO UD 05/02/20 Rx Take 4 tablets by mouth daily for 4 days, then take 3 tablets by mouth daily for 2 days, then take 2 tablets by mouth daily for 2 days, then take 1 tablets by mouth daily for 2 days, then stop. Acetaminophen 325 Mg Tablet 2 Tab PO PRN Q6HRS PRN 24 04/08/20 Reported Pioglitazone Hcl 30 Mg Tablet 30 Mg PO DAILY 04/08/20 Reported Nicotine Gum (Nicotine Polacrilex) 2 Mg Gum 2 Mg BC PRN PRN 04/08/20 Reported Neurontin (Gabapentin) 300 Mg Capsule 300 Mg PO TID 04/08/20 Reported Gelusil 200-200-25 mg Chew Tab (Mag Hydrox/Aluminum Hyd/Simeth) 1 Each Tab.chew 1 Each PO PRN Q4HRS PRN 04/08/20 Reported Miralax (Polyethylene Glycol 3350) 17 Gm Powd.pack 1 Pkt PO PRN DAILY PRN 04/08/20 Reported Milk Of Magnesia (Magnesium Hydroxide) 2,400 Mg/10 Ml Oral.susp 2,400 Mg PO PRN Q8HRS PRN 04/08/20 Reported Metoprolol Tartrate 25 Mg Tablet 12.5 Mg PO BID 04/08/20 Reported Metformin Hcl 1,000 Mg Tablet 1,000 Mg PO BIDWMEALS 04/08/20 Reported Lisinopril 2.5 Mg Tablet 2.5 Mg PO DAILY 04/08/20 Reported Levothyroxine Sodium 100 Mcg Tablet 100 Mcg PO HS 04/08/20 Reported Januvia (Sitagliptin Phosphate) 100 Mg Tablet 100 Mg PO DAILY 04/08/20 Reported Famotidine 20 Mg Tablet 20 Mg PO HS 04/08/20 Reported Depakote Er (Divalproex Sodium) 500 Mg Tab.er.24h 1,500 Mg PO DAILY 04/08/20 Reported Clozaril (Clozapine) 100 Mg Tablet 100 Mg PO BIDACBL 04/08/20 Reported Clozapine 100 Mg Tablet 300 Mg PO HS 04/08/20 Reported Atorvastatin Calcium 40 Mg Tablet 80 Mg PO HS 04/08/20 Reported Impression . IMPRESSION: 1. Abnormal x-ray compatible with bacterial pneumonia. 2. Acute metabolic encephalopathy. 3. Acute hypoxemic respiratory failure. 4. History of COVID-19 in March. 5. Schizophrenia. 6. Hyperlipidemia. Plan . Scheduled to discharge today. Okay to discharge Patient switched to oral antibiotics by DONAVAN VOGT MD May 27, 2020 16:46
--- NOTE | 2020-05-27 17:12 | NUR ---
Pt received 250 cc of 500 cc NS bolus when transportation arrived for leaf size picker. Pt's BP rechecked-93/71. This RN notified Dr. Worrell who stated pt was okay to discharge. Pt left unit at approx 1700 by stretcher via transportation. Discharge paperwork sent with pt. This RN called report to MELI Otero of [facility] at [phone].
[2020-05-27] MEDS ORDERED: CEFDINIR 300 MG CAPSULE PO SCH (21:00)
== END 2020-05-27 17:18 | DRG 177 ==
LOC: ER 14:16 → ED HOLD 17:31 → 6 SOUTH 20:00
PROVIDERS: ADMIT Family Medicine; ATTEND Family Medicine
DX: J69.0 Pneumonitis due to inhalation of food and vomit (principal); J96.01 Acute respiratory failure with hypoxia; G93.41 Metabolic encephalopathy; E43 Unspecified severe protein-calorie malnutrition; J98.11 Atelectasis; I11.0 Hypertensive heart disease with heart failure; I50.9 Heart failure, unspecified; E11.9 Type 2 diabetes mellitus without complications; F32.9 Major depressive disorder, single episode, unspecified; E03.9 Hypothyroidism, unspecified; E78.00 Pure hypercholesterolemia, unspecified; E78.5 Hyperlipidemia, unspecified; Z82.49 Family history of ischemic heart disease and other diseases of the circulatory system; Z87.891 Personal history of nicotine dependence; G47.00 Insomnia, unspecified; K21.9 Gastro-esophageal reflux disease without esophagitis; M19.90 Unspecified osteoarthritis, unspecified site; F25.9 Schizoaffective disorder, unspecified; I95.9 Hypotension, unspecified; Z20.822 Contact with and (suspected) exposure to COVID-19
CPT/HCPCS: 36415; 71045; 80048; 80053; 82962; 83605; 83880; 84484; 85025; 87040; 90686; 93005; 96361; 96365; 96375; J0692; J0696; J2543; J2930; J7030; J7040; J7512; U0003; 99285-25; G0378